=== PATIENT | female | born 1985 | race Caucasian/White ===

== ENCOUNTER 2017-05-29 16:08 | Emergency (ER) | payer MEDICAID ==
[~2017-05-29] VITALS: Ht 170.2 cm; Wt 80.3 kg
[~2017-05-29 16:08] MED LIST: ALBUTEROL2 PUFFS/17 IN; APAP/BUTALBITAL1 TA1 PO; AURALGAN O10 ML/BOTT OT; AZITHROMYCIN250 M1 PO; BACTRIM DS 8001 TAB PO; BENZONATATE100 MG PO; BENZONATATE200 MG PO; CELEXA20 MG PO; CIPRO 500MG TA500 MG PO; CYCLOBENZAPRINE10 MG PO; DARVOCET-N6 EACH/PAK PO; EC NAPROSYN500 MG PO; ELIMITE 5%60 GM/TUB1 TP; FLEXERIL10 MG PO; IRON TABLETS325 MG PO; LINZESS145 MCG PO; LORTAB 5/500 501 TAB PO; MONODOX100 MG PO; NOMEDS; NOMEDS *; NORETHINDRONE0.35 MG PO; OXYBUTYNIN10 MG PO; PHENERGAN 25MG.25 M1 PO; PREDNISONE 20MG20 MG PO; PRENATAL1 TA5 PO; SEN-O-TABS8.6 MG PO; SERTRALINE 50MG50 MG PO; SKELAXIN 800MG800 MG PO; TESSALON PERLE100 M1 PO; VICODIN 5/500 T1 TAB PO; VISTARIL25 MG PO; VOLTAREN75 MG PO; ZITHROMAX Z-PA250 M1 PO; ZOFRAN4 MG PO; ZYRTEC5 M2 PO
--- NOTE | 2017-05-29 16:39 | Urgent Treatment Center Report ---
History of Present Issue Date/Time Seen by Provider 05/29/17 7115 Visit Reason Pt arrived:Walked Presenting Problem:PT STATES SHE STUBBED HER RIGHT BIG TOE YESTERDAY Location if Accident: Onset of symptoms date/time:/ or onset unknown for:MEDICAL HX UNKNOWN Have you (or family members/close friends) recently traveled outside the [place]? N If Yes, where/when: Have you had exposure to infectious disease within the past month? TB? Other? Specify: Source patient, RN notes reviewed Exam Limitations no limitations Comment Patient kicked a door (arguing with her son who shut the door) last weekend and stubbed the big toe of her right foot. Bruising and swelling have resolved but still has significant pain with walking. Has had prior bunion surgery. ALLERGIES Coded Allergies: amoxicillin (Intermediate, I-HIVES 01/31/16) clavulanic acid (From AUGMENTIN) (Intermediate, I-HIVES 01/31/16) tramadol (Intermediate, I-HIVES 01/31/16) acetaminophen (From PERCOCET) (05/29/17) oxycodone (From PERCOCET) (05/29/17) Home Medications Active Scripts Permethrin (Elimite 5% Cream; 60GM Tube) 60 GM TP ONCE #1 TUBE Ref 1 Prov: 03/02/17 Prednisone (Prednisone 20MG) 20 MG PO BID #10 TAB Prov: 01/31/16 Reported Medications DOXYCYCLINE MONOHYDRATE (Monodox) 100 MG PO BID #20 Linaclotide (Linzess 145MCG) 145 MCG PO DAILY #30 Norethindrone 0.35 MG PO DAILY #28 Cyclobenzaprine Hcl (Cyclobenzaprine 10MG) 10 MG PO BID ONDANSETRON HCL (Zofran 4MG Tab) 4 MG PO Q6HP PRN NAUSEA AND VOMITING Oxybutynin Chloride (Oxybutynin Chloride ER) 10 MG PO History Medical History General CAD? No Angina: No [place]: No Hypertension? No Hyperlipidemia? No CHF? No DVT? No PE? No COPD? No Asthma? No Anemia? No GERD? No Gastric ulcers? No GI Bleed? No Hernia? No Thyroid Problems? No Hypothyroidism? No CVA? No Seizures? No Diabetes? No Renal Insuffiency? No UTI? Yes Stones? Yes BPH? No GB Disease: No Nephritic Syndrome? No Asplenia? No Hepatitis? No Sickle Cell Disease? No Arthritis? No Migraines? No Cataracts? No Glaucoma? No MRSA? No HIV? No TB? No Anxiety? No Depression? No Cancer? No More? No Immunization HX DT/Tetanus UNKNOWN Flu LAST YEAR Pneumonia NEVER Surgical Hx Previous Surgery?Y BUNION SURGERY Appendix Gallbladd LAP X 3 ENDO X 2 COLONSCOPY X 2 LEFT HAND CYST REMOVED WISDOM TEETH Social History Smoking Hx Smoker: Current Every Day Smoker Tobacco: Yes Type Cigarettes Packs/day < 1 Pack Alcohol Alcohol: No Review of Systems All Other Systems Reviewed and Negative Musculoskeletal see HPI Physical Exam Vital Signs Vital Signs Date Time Temp Pulse Resp B/P Pulse O2 O2 Flow FiO2 Ox Delivery Rate 05/29 1628 97.7 115 20 125/83 98 General Appearance normal appearance, no apparent distress Respiratory Status No: respiratory distress, trachea midline, chest symmetrical. Lung Sounds bilateral: normal breath sounds, lungs clear. Cardiovascular normal exam, regular rate/rhythm, no peripheral edema, no gallop, no JVD, no murmur, no rub Extremities normal capillary refill, painful right great toe Neurologic alert, normal exam, oriented x 3 Mental status normal mood/affect Medical Decision Making LABS/Meds/Orders Pt receiving controlled substance in ED? No Results/Orders Orders Procedure Date/time Status FOOT-RT-3 VIEWS 05/29 1637 Active XRAY/CT/US XRAY/CT/US XRAY foot XR interpretation by reviewed by me Xray Results no fracture seen Departure Departure Time of Disposition 1717 Disposition DC Home or Self Care(routine) Clinical Impression Primary Impression: Right foot pain Condition STABLE Referrals MICHEL CAMARENA (Family) Patient Instructions DI for Foot Pain Discharge Counseling Counseled pt/family regarding diagnosis, test results, medications/RX, home care, follow up needs Prescriptions Current Visit Scripts Naproxen (Naprosyn 500MG Tab) 500 MG PO BID #20 TAB at 5960
[2017-05-29] MEDS ORDERED: NAPROSYN500 M1 PO (17:19)
[2017-05-29 17:25] VITALS: BP 125/83
--- NOTE | 2017-05-29 18:11 | RADIOLOGY REPORT PS360 ---
FOOT-RT-3 VIEWS HISTORY: STUBBED FOOT ON A DOOR Patient Age: 31 years: Female Ordering Physician: RICHMOND WHALEY TECHNIQUE: 3 views right foot COMPARISON :No previous available at this facility FINDINGS Patient had a previous bunionectomy. Partial Resection of the medial head of the first metatarsal with osteotomy a distal aspect first metatarsal. A oblique screw entering dorsally providing fixation to the osteotomy here at distal first metatarsal. No new or acute findings evident. The toes appear intact. Metatarsals and tarsals intact. IMPRESSION: No acute findings right foot. Previous bunionectomy/osteotomy.
== END 2017-05-29 17:26 | disposition home or self-care (01) ==
LOC: UTC 16:08
DX: M79.671 Pain in right foot (principal); W22.8XXA Striking against or struck by other objects, initial encounter; Y92.009 Unspecified place in unspecified non-institutional (private) residence as the place of occurrence of the external cause; Z79.3 Long term (current) use of hormonal contraceptives; Z79.899 Other long term (current) drug therapy

== ENCOUNTER 2017-06-16 18:36 | Emergency (ER) | payer MEDICAID ==
[~2017-06-16] VITALS: Ht 170.2 cm; Wt 80.3 kg
[~2017-06-16 18:36] MED LIST changes: +NAPROSYN500 M1 PO
[2017-06-16] MEDS ORDERED: ADVAIR 10028 PUFF/IN IN (19:26)
[2017-06-16] MEDS ORDERED: KEFLEX 500MG.500 MG PO (19:26)
[2017-06-16] MEDS ORDERED: CLONIDINE 0.2M0.2 MG PO (19:27)
[2017-06-16 20:17] VITALS: BP 118/73
--- NOTE | 2017-06-16 20:17 | Urgent Treatment Center Report ---
History of Present Issue Date/Time Seen by Provider 06/16/17 1905 Visit Reason Pt arrived:Walked Presenting Problem:TX FOR STREP 2 DAYS AGO AND IS WORSE NOW Location if Accident: Onset of symptoms date/time:/ or onset unknown for:MEDICAL HX UNKNOWN Have you (or family members/close friends) recently traveled outside the [place]? N If Yes, where/when: Have you had exposure to infectious disease within the past month? TB? Other? Specify: c/o feeling worse w/ strep. Intermittent sore throat starting Tuesday, 5 days ago. Became worse and more constant. Was seen at [facility] on Tuesday. Strep test + for strep. Dx strep. Rx cephalexin. Taking it as ordered but feels worse. "Like razor blades in my throat". Right more then left. Has vomited, intermittent diarrhea, continued fevers w/ chills. 101.2 last night. Tylenol at that time did help. No fever or pain um rn since that time. Son's lidocaine helps while gargling but doesn't last more then minutes. Allergic to PCNs but has taken cephalosporins including rocephin without reactions. No known sick contacts. Source patient Exam Limitations no limitations ALLERGIES Coded Allergies: amoxicillin (Intermediate, I-HIVES 01/31/16) clavulanic acid (From AUGMENTIN) (Intermediate, I-HIVES 01/31/16) tramadol (Intermediate, I-HIVES 01/31/16) acetaminophen (From PERCOCET) (05/29/17) oxycodone (From PERCOCET) (05/29/17) Home Medications Reported Medications CEPHALEXIN (Keflex 500MG Capsule) 500 MG PO BID #20 SALMETEROL 50/FLUTICASONE 100 (Advair 100-50 Diskus) 1 PUFFS IN BID Clonidine Hydrochloride (Clonidine 0.2MG Tab) 0.1 MG PO BID History Medical History General CAD? No Angina: No [place]: No Hypertension? No Hyperlipidemia? No CHF? No DVT? No PE? No COPD? No Asthma? No Anemia? No GERD? No Gastric ulcers? No GI Bleed? No Hernia? No Thyroid Problems? No Hypothyroidism? No CVA? No Seizures? No Diabetes? No Renal Insuffiency? No UTI? Yes Stones? Yes BPH? No GB Disease: No Nephritic Syndrome? No Asplenia? No Hepatitis? No Sickle Cell Disease? No Arthritis? No Migraines? No Cataracts? No Glaucoma? No MRSA? No HIV? No TB? No Anxiety? No Depression? No Cancer? No More? No Immunization HX DT/Tetanus UNKNOWN Flu LAST YEAR Pneumonia NEVER Surgical Hx Previous Surgery?Y BUNION SURGERY Appendix Gallbladd LAP X 3 ENDO X 2 COLONSCOPY X 2 LEFT HAND CYST REMOVED WISDOM TEETH Social History Smoking Hx Smoker: Current Every Day Smoker Tobacco: Yes Type Cigarettes Packs/day < 1 Pack Alcohol Alcohol: No Review of Systems All Other Systems Reviewed and Negative Constitutional see HPI, denies weakness Eyes denies drainage ENT see HPI. denies: ear pain, nose discharge, nose congestion, throat swelling. Respiratory cough, denies shortness of breath Cardiovascular denies chest pain Gastrointestinal see HPI, denies abdominal pain Musculoskeletal denies joint pain Skin denies rash Psychiatric/Neurological headache (intermittently), denies other (dizziness) Physical Exam Vital Signs Vital Signs Date Time Temp Pulse Resp B/P Pulse O2 O2 Flow FiO2 Ox Delivery Rate 06/16 1923 99.0 115 20 118/73 97 General Appearance normal appearance, no apparent distress, typical "strep"/ enlarged tonsils speech Eye Exam - bilateral eye normal exam Ear, Nose, Throat pharyngeal erythema (minimal), tonsillar swelling (right, 2+ w / scant exudate), adelina EACs, TMs, nares all normal, uvula midline. No sign of abscess or cellulitis Neck supple, full range of motion, lymphadenopathy (R) (tonsillar), tender lateral (right lymph node) Respiratory Status Yes: non productive cough. No: respiratory distress, use of accessory muscles, productive cough. Lung Sounds anterior: lungs clear. posterior: lungs clear. bilateral: lungs clear. Cardiovascular regular rate/rhythm, no peripheral edema, tachycardia Gastrointestinal normal bowel sounds, non tender, soft Neurologic alert, oriented x 3 Mental status normal mood/affect Skin normal color, warm/dry Medical Decision Making LABS/Meds/Orders Pt receiving controlled substance in ED? No Results/Orders Laboratory Tests 06/16/171926: Monoscreen NEGATIVE Current Medication Orders Sig/Gabbi Start time Last Medication Dose Route Stop Time Status Admin Ceftriaxone Sodium 0 .STK-MED ONE 06/16 2009 DCr .ROUTE Dexamethasone Sodium 0 .STK-MED ONE 06/16 2009 DC Phosphate .ROUTE Lidocaine HCl 0 .STK-MED ONE 06/16 2009 DC .ROUTE Ceftriaxone Sodium 1 GM ONCE ONE 06/16 2000 DCr IM 06/16 2001 Dexamethasone Sodium 8 MG ONCE ONE 06/16 2000 DC Phosphate IM 06/16 2001 Lidocaine HCl 0 ONCE ONE 06/16 2000 DC IM 06/16 2001 Ibuprofen 0 .STK-MED ONE 06/16 1931 DC PO Ibuprofen 800 MG ONCE ONE 06/16 1930 DC 06/16 PO 06/16 1931 1940 Orders Procedure Date/time Status MONO SCREEN 06/16 1921 Complete Departure Departure Time of Disposition 2019 Disposition DC Home or Self Care(routine) Clinical Impression Primary Impression: Tonsillitis with exudate Condition STABLE Referrals MICHEL CAMARENA (Family) Call tomorrow. Follow up necessary tomorrow. If you are unable to get into PCP then you will need to return to [facility] for reevaluation and possibly another antibiotic injection. Patient Instructions DI for Pharyngitis/Tonsillopharyngitis -- Adult Additional Instructions For strep/tonsillitis * Your mono test was negative * Continue cephalexin * change toothbrush and toothpaste 24-48 hours after starting antibiotic and noticing improvement * Monitor Temp. Tylenol every 4 hours as needed no more then 5 times in 24 hours and/or ibuprofen every 6 hours as needed (as long as your primary care doctor has told you that it is ok to take both) for fever/aches/pain. ER if fever no less than 101 despite tylenol and Ibuprofen. Ibuprofen will help with inflammation and therefore pain. * Encourage fluids, water, gatorade, powerade, pedialyte if infant/toddler/child * cold fluids, popsicles, ice cream feel good * you are contagious until you have taken the antibiotic for 24 hours. No work tonight. Will reevaluate at followup. * Avoid kissing anyone, including parents. No eating or drinking after anyone. You are contagious. * you received an injection of rocephin (an antibiotic) and dexamethasone today. This is a quick acting steroid as we discussed. This should help with the throat inflammation and tonsillar swelling. Remember as we discussed, steroids can cause you to feel flushed, jittery, difficult to sleep, energetic, higher blood pressure. You report you have taken steroids before and aware of this and do fine without any side effects or reactions. * Follow up tomorrow extremely important!!!!!!!!!!!! Discharge Counseling Counseled pt/family regarding diagnosis, test results, medications/RX, home care, follow up needs at 2016
--- OUTSIDE RECORDS SUMMARY | 2017-06-23 21:55 | External Medical Summary Rpt | CCD ---
Author Author , ADELIA Organization ADELIA Address Unknown Phone [email or web address] Care Team Providers Care Lay Out Helper Name Role Phone DEIRDRE PEREIRA, GILMORE Unavailable Unavailable [facility] Unavailable Unavailable [facility], [facility] Unavailable [facility]available [facility] Unavailable Unavailable [facility], [facility] Unavailable Unavailable MEDICAL GROUP, [facility] KINDRA JAM, KINDRA JAM Unavailable Unavailable YOUNG, YOUNG Unavailable Unavailable [facility] Unavailable Unavailable HOSPITAL, [facility] PHYSICIAN Unavailable Unavailable PRACTICE [facility], [facility] KENY SPENCER Unavailable Unavailable KENY LAM Unavailable Unavailable VERITO OWEN TER, OWEN TER Unavailable Unavailable [facility], Unavailable Unavailable [facility] CHANDEL, CHANDEL Unavailable Unavailable CHESTNUT, CHESTNUT Unavailable Unavailable [facility] Unavailable Unavailable [facility], [facility] Unavailable Unavailable [facility], [facility] Unavailable Unavailable PHYSICIAN PRA, [facility] PHYSICIAN PRA [facility], Unavailable Unavailable [facility] GILBERT ESTELLA, GILBERT ESTELLA Unavailable Unavailable MIGUE, MIGUE Unavailable Unavailable MIGUE MITCHEL, MIGUE Unavailable Unavailable MITCHEL MIGUE OKSANA, MIGUE Unavailable Unavailable OKSANA DESIRAE BECK, Unavailable Unavailable DESIRAE BECK [facility] Unavailable Unavailable [facility], [facility] BELEN, BELEN Unavailable Unavailable GIRALDO, GIRALDO Unavailable Unavailable HARIKA DAMIR, HARIKA Unavailable Unavailable DAMIR [facility] Unavailable Unavailable [facility], [facility] GREGONIS MITCHEL, Unavailable Unavailable GREGONIS MITCHEL MACY, MACY Unavailable Unavailable MACY RHO, MACY Unavailable Unavailable RHO HANY, HANY Unavailable Unavailable [facility] Unavailable Unavailable INC, [facility] YOLANDA CEC, YOLANDA Unavailable Unavailable CEC CONDE, CONDE Unavailable Unavailable ALEC, ALEC Unavailable Unavailable ALEC, ALEC Unavailable Unavailable ALEC MAG, ALEC MAG Unavailable Unavailable ALEC MAG, ALEC MAG Unavailable Unavailable [facility] Unavailable Unavailable GROUP PS, [facility] Unavailable Unavailable [facility], [facility], Unavailable Unavailable [facility], Unavailable Unavailable [facility] Unavailable Unavailable HOLD[facility], [facility] Unavailable Unavailable [facility], [facility] VERONICA JR THO, Unavailable Unavailable VERONICA JR THO [facility] DIRECTOR [facility] Unavailable Unavailable ASSOCIATES,, [facility], ANA PEREZ Unavailable Unavailable ANA, ANA Unavailable Unavailable ANA GRE, Unavailable Unavailable ANA GRE ANA GRE, Unavailable Unavailable ANA GRE MATCHESWALA, Unavailable Unavailable MATCHESWALA MCGROARTY TAJ, Unavailable Unavailable MCGROARTY TAJ MD LABS, MD LABS Unavailable Unavailable MD LABS, MD LABS Unavailable Unavailable [facility], [facility] Unavailable [facility]available [facility], [facility] ROSARIO SOHA, ROSARIO Unavailable Unavailable SOHA [facility] Unavailable Unavailable [facility], [facility], [facility] Unavailable Unavailable [facility], [facility] Unavailable [facility]available [facility], Unavailable Unavailable PLLC, [facility], Unavailable Unavailable [facility], Unavailable Unavailable [facility], Unavailable Unavailable [facility] LESLEE, LESLEE Unavailable Unavailable LESLEE HEN, LESLEE Unavailable Unavailable HEN CARTER GRE, Unavailable Unavailable CARTER GRE STEFAN, STEFAN Unavailable Unavailable MARYURI MENDY, MARYURI Unavailable Unavailable MENDY ARNETT DON, Unavailable Unavailable ARNETT DON [facility] PHYSICAL Unavailable Unavailable THERAP, [facility] THERAP AVERY, III, AVERY, Unavailable Unavailable III [facility] Unavailable Unavailable EQUIPME, [facility] MEDICAL EQUIPME [facility] Unavailable Unavailable EM[facility], [facility] BENAVDIEZ, BENAVIDEZ Unavailable Unavailable BENAVIDEZ RAY, BENAVIDEZ Unavailable Unavailable RAY [facility] Unavailable Unavailable PSC, [facility] ANESTHESIA [facility] MEDINA TONIE, MEDINA Unavailable Unavailable TONIE SWINEY, SWINEY Unavailable Unavailable SWINEY PAT, SWINEY Unavailable Unavailable PAT WHITE, WHITE Unavailable Unavailable WHITE NAHID, WHITE NAHID Unavailable Unavailable HAFSA MITCHEL, HAFSA Unavailable Unavailable MITCHEL RED MOON Unavailable Unavailable Purpose Continuity of Care Document - 10-21-2014 through 2016 Problems Code Diagnosis DOS Provider Status J069 ACUTE UPPER 05-17-2017 RICHIE VICTORSusy JERROD RESPIRATORY INFECTION UNSPECIFIED B373 CANDIDIASIS 05-13-2017 [facility] OF VULVA PHYSICIAN AND VAGINA PRACTICE L N10 ACUTE 05-13-2017 [facility] PYELONEPHRI PHYSICIAN TIS PRACTICE L N390 URINARY 05-11-2017 [facility] TRACT N EMERGENCY INFECTION PHYS SITE NOT SPECIFIED S02318 UNSPECIFIED 05-11-2017 [facility] OVARIAN N EMERGENCY CYST PHYS UNSPECIFIED SIDE R1031 RIGHT LOWER 05-11-2017 [facility] QUADRANT N EMERGENCY PAIN PHYS R1033 PERIUMBILIC 05-11-2017 [facility] AL PAIN N EMERGENCY PHYS J0120 ACUTE 03-27-2017 [facility] ETHMOIDAL N EMERGENCY SINUSITIS PHYS UNSPECIFIED R112 NAUSEA WITH 03-27-2017 [facility] VOMITING N EMERGENCY UNSPECIFIED PHYS H5213 MYOPIA 03-18-2017 ANA BILATERAL M545 LOW BACK 03-09-2017 [facility] PAIN PHYSICIAN PRACTICE L B86 SCABIES 03-04-2017 [facility] PHYSICIAN PRACTICE L N920 EXCESS & 02-28-2017 LAB [facility] FREQUENT ANCA MENSTRUATIO HOLDINGS N W/REGULAR CYCLE Z00048 CELLULITIS 02-16-2017 [facility] OF OTHER PHYSICIAN SITES PRACTICE L H6503 ACUTE 01-28-2017 [facility]IA GROUP BILATERAL N910 PRIMARY 01-24-2017 [facility] Z3202 ENCOUNTER 01-24-2017 [facility] FOR HEALTH MEDICAL TEST RESULT GROUP NEGATIVE 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 01-13-2017 [facility] 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 K589 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-2017 [facility] BOWEL [facility] WITHOUT DIARRHEA K5900 CONSTIPATIO 01-13-2017 [facility] N N EMERGENCY UNSPECIFIED PHYS N809 ENDOMETRIOS 01-13-2017 [facility] IS [facility]IED [facility]PITAL R1032 LEFT LOWER 01-13-2017 [facility] QUADRANT N EMERGENCY PAIN PHYS R109 UNSPECIFIED 01-13-2017 [facility] [place] ABDOM[facility]AL RADIOLOGY PAIN Z881 ALLERGY 01-13-2017 [facility] STATUS TO COMMUNITY OTHER HOSPITAL ANTIBIOTIC AGENTS STATUS Z886 ALLERGY 01-13-2017 [facility] TO [facility]ITY ANALGESIC HOSPITAL AGENT STATUS N736 FEMALE 01-05-2017 [facility] PELVIC PERITONEAL ADHESIONS POSTINFECTI VE N800 ENDOMETRIOS 01-05-2017 ANESTHESIA IS OF ASSOCIATES UTERUS PSC N8311 CORPUS 01-05-2017 [facility] LUTEUM CYST OF RIGHT OVARY T11755 OTHER 01-05-2017 [facility] [place] CYST RIGHT CLINIC PSC SIDE N926 IRREGULAR 01-05-2017 [facility] MENSTRUATIO N UNSPECIFIED R102 PELVIC AND 12-07-2016 [facility]ICAL [facility]AL DIAGNOSTIC PAIN LAB LLC L54884 ENCOUNTER 12-07-2016 [facility] OTHER [facility] PREPROCEDUR AL EXAMINATION Z5181 ENCOUNTER 12-07-2016 MD LAB[facility] FOR THERAPEUTIC DRUG LEVEL MONITORING A31528 OTHER LONG 12-07-2016 MD LABS TERM CURRENT DRUG THERAPY Z5321 PROC & [place] 12-05-2016 [facility] NOT CARRIED COMMUNTIY OUT PT HOSPITA LEAVE PRIOR TO SEEN I889 NONSPECIFIC 11-18-2016 [facility] LYMPHADENIT MEDICAL IS GROUP UNSPECIFIED J029 ACUTE 11-18-2016 [facility] PHARYNGITIS HEALTH MEDICAL UNSPECIFIED GROUP R0981 NASAL 11-18-2016 [facility] K529 NONINFECTIV 11-01-2016 [facility] E PHYSICIAN GASTROENTER PRACTICE L ITIS & COLITIS UNS R1084 GENERALIZED 10-30-2016 [facility] ABDOMINAL N EMERGENCY PAIN PHYS R197 DIARRHEA 10-30-2016 [facility] UNSPECIFIED N EMERGENCY PHYS Z720 TOBACCO USE 10-30-2016 [facility] J020 STREPTOCOCC 10-25-2016 [facility] PHARYNGITIS J9801 ACUTE 10-25-2016 [facility] M J111 FLU D/T 10-19-2016 [facility] UNIDENTIFIE N EMERGENCY D FLU VIRUS PHYS W/OTH RESP MANIF R6889 OTHER 10-17-2016 [facility] SYMPTOMS MEDICAL AND SIGNS GROUP K87659 CONTACT W/ 10-17-2016 [facility] & EXPOSURE HEALTH OTH VIRAL MEDICAL COMMUNICABL GROUP E DZ M549 DORSALGIA 09-17-2016 [facility] Z17484 MIGRAINE 09-12-2016 [facility] UNS NOT N EMERGENCY INTRACT W/O PHYS STATUS MIGRAINOSUS Z3200 ENCOUNTER 08-25-2016 [facility] MEDICAL TEST RESULT GROUP UNKNOWN G95642 PAIN IN 08-11-2016 [facility] UNSPECIFIED PHYSICIAN HIP PRACTICE L J00 ACUTE 07-23-2016 [facility] NASOPHARYNG PHYSICIAN ITIS COMMON PRACTICE L COLD R238 OTHER SKIN 07-23-2016 [facility] CHANGES PHYSICIAN PRACTICE L L301 DYSHIDROSIS 06-28-2016 [facility] POMPHOLYX PHYSICIAN PRACTICE L R05 COUGH 06-16-2016 [facility] REGIONAL PHYSICIAN PRA R0602 SHORTNESS 06-16-2016 [facility] OF BREATH REGIONAL PHYSICIAN PRA R062 WHEEZING 06-16-2016 [facility] REGIONAL PHYSICIAN PRA C35500 ENCOUNTER 06-08-2016 [facility] MAG BURN OUT SCARFING OPERATOR EXAM GENERAL RTN W/O ABNORMAL FIND Z113 ENCOUNTER 06-08-2016 ASSOCIATED SCREEN PATHOLOGIST INFECTIONS S LLC SEXL MODE TRANSMISSN Z1151 ENCOUNTER 06-08-2016 ASSOCIATED FOR PATHOLOGIST SCREENING S LLC FOR HUMAN PAPILLOMAVI CORDELIA Z118 ENCOUNTER 06-08-2016 ASSOCIATED SCREEN PATHOLOGIST OTHER S LLC INFECTIOUS & PARASITIC DZ O76330 PAIN IN 05-24-2016 [facility] LEFT MEDICAL FINGERS IMAGING ASS J309 ALLERGIC 05-05-2016 [facility] RHINITIS REGIONAL UNSPECIFIED PHYSICIAN PRA O05568 UNSPECIFIED 05-05-2016 [facility] ASTHMA REGIONAL UNCOMPLICAT PHYSICIAN ED PRA K219 GASTRO-ESOP 05-05-2016 [facility] REFLUX REGIONAL DISEASE PHYSICIAN WITHOUT PRA ESOPHAGITIS R61 GENERALIZED 05-05-2016 [facility] HYPERHIDROS PHYSICIAN IS PRA R072 PRECORDIAL 04-11-2016 [facility] [place] PAIN RADIOLOGY R0789 OTHER CHEST 04-11-2016 [facility] PAIN N EMERGENCY PHYS R079 CHEST PAIN 04-11-2016 [facility] [place] UNSPECIFIED RADIOLOGY A03082Y STRAIN 04-11-2016 [facility] MUSCLE & N EMERGENCY TENDON UNS PHYS WALL THORAX INIT ENC O09SKDG EXPOSURE TO 04-11-2016 [facility] OTHER N EMERGENCY SPECIFIED PHYS FACTORS INITIAL ENC R198 OTH SPEC SX 03-17-2016 [facility] & SIGNS [facility] D[facility] & ABD Z1211 ENCOUNTER 03-17-2016 [facility] [place] SCREENING ANESTHESIA MALIGNANT GROUP PS NEOPLASM OF COLON G8929 OTHER 03-12-2016 [facility] L Z539 PROCEDURE & 03-08-2016 [facility] NOT CARRIED [facility] OUT UNS REASON R000 TACHYCARDIA 03-03-2016 [facility] PHYSICIAN UNSPECIFIED PRACTICE L J40 BRONCHITIS 03-01-2016 [facility] [place] NOT RADIOLOGY SPECIFIED ACUTE OR CHRONIC J4530 MILD 01-31-2016 [facility], ASTHMA PLLC UNCOMPLICAT ED J0190 ACUTE 01-28-2016 [facility] SINUSITIS PHYSICIAN UNSPECIFIED PRACTICE L H8110 BENIGN 01-16-2016 [facility] PAROXYSMAL PHYSICIAN VERTIGO PRACTICE L UNSPECIFIED EAR N3010 INTERSTITIA 01-07-2016 [facility] Ervin CYSTITIS PHYSICIAN CHRONIC PRACTICE L WITHOUT HEMATURIA N3281 OVERACTIVE 12-25-2015 [facility] MAG BLADDER R300 DYSURIA 12-08-2015 [facility] MAG N801 ENDOMETRIOS 11-28-2015 [facility] MAG IS OF OVARY N803 ENDOMETRIOS 11-28-2015 [facility] MAG IS OF PELVIC PERITONEUM N8320 UNSPECIFIED 11-28-2015 [facility] MAG OVARIAN CYSTS N838 OTH 11-28-2015 NEW NONINFLAMM ISABEL D/O OVARY CLINIC PSC FALLOP TUBE & BROAD LIG N941 DYSPAREUNIA 11-28-2015 [facility] N942 VAGINISMUS 11-28-2015 [facility] TURCIOS H5203 HYPERMETROP 09-29-2015 ANA ARCE GRE BILATERAL Z309 ENCOUNTER 07-17-2015 [facility] FOR DIRECTOR CARDIOVASCULAR CONTRACEPTI ASSOCIATES, VE MANAGEMENT UNS Z392 ENCOUNTER 07-17-2015 [facility] FOR ROUTINE DIRECTOR CARDIOVASCULAR ASSOCIATES, FOLLOW-UP K1230 ORAL 07-08-2015 [facility] MUCOSITIS HEALTH ULCERATIVE MEDICAL UNSPECIFIED GROUP P141XO1 MAT CARE 07-03-2015 [facility] DISPROPORTI ANESTHESIA ON UNUSUAL PSC LARGE FET NA/UNS O653 OBST LABOR 07-03-2015 [facility] DUE PELV DIRECTOR CARDIOVASCULAR OUTLET & ASSOCIATES, MID-CAV CONTRACTION Z370 SINGLE LIVE 07-03-2015 [facility] ANESTHESIA PSC Z3A39 39 WEEKS 07-03-2015 ISABEL GESTATION DIRECTOR CARDIOVASCULAR OF ASSOCIATES, O471 FALSE LABOR 06-26-2015 [facility] AT/AFTER [facility] 37 HOSP COMPLETED WEEKS GEST Z3483 ENC 06-26-2015 ISABEL SUPERVISION DIRECTOR CARDIOVASCULAR OTH NORMAL ASSOCIATES, 3 TRIMESTER Z3A38 38 WEEKS 06-26-2015 [facility] GESTATION [facility] OF HOSP M9162N2 MATERNAL 06-19-2015 IS[facility]EL CARE EXCESS DIRECTOR CARDIOVASCULAR ASSOCIATES, GROWTH 3RD TRI NA/UNS [id number] POLYHYDRAMN 06-19-2015 [facility] IOS THIRD DIRECTOR CARDIOVASCULAR TRIMESTER ASSOCIATES, NA/UNS Z3A37 37 WEEKS 06-19-2015 IS[facility]EL GESTATION DIRECTOR CARDIOVASCULAR OF ASSOCIATES, Z391 ENCNTR FOR 06-18-2015 [facility] EXAMINATION SUPPLIES LACTATING MOTHER X18465 ANEMIA 06-12-2015 [facility] COMPLICATIN DIRECTOR CARDIOVASCULAR G ASSOCIATES, THIRD TRIMESTER Z36 ENCOUNTER 06-12-2015 [facility] SCREENING OF MOTHER Z3A36 36 WEEKS 06-12-2015 [facility] GESTATION DIRECTOR CARDIOVASCULAR OF ASSOCIATES, 20940 THREATENED 06-11-2015 [facility] PREMATURE [facility] LABOR HOSP ANTEPARTUM 11947 OTH CURRENT 05-29-2015 SPI[facility] MAT CONDS DIRECTOR CARDIOVASCULAR CLASSIFIABL ASSOCIATES, E ELSW ANTPRTM 7869 OT 05-29-2015 [facility] SYMPTOMS DIRECTOR CARDIOVASCULAR INVOLVING ASSOCIATES, RESPIRATORY SYSTEM&CHES T 4619 ACUTE 05-22-2015 [facility] SINUSITIS, HEALTH UNSPECIFIED MEDICAL GROUP 4779 ALLERGIC 05-22-2015 [facility] RHINITIS HEALTH CAUSE MEDICAL UNSPECIFIED GROUP V221 SUPERVISION 05-15-2015 [facility] OF OTHER DIRECTOR CARDIOVASCULAR NORMAL ASSOCIATES, 13610 OTHER 04-18-2015 [facility] SPECIFED HEALTH COMPLICATIO MEDICAL N GROUP ANTEPARTUM 7605 FETUS OR 04-18-2015 [facility] AFFECTED BY MEDICAL MATERNAL GROUP INJURY V222 04-18-2015 [facility] STATE, [facility] INCIDENTAL HOSP V714 OBSERVATION 04-18-2015 [facility] FOLLOWING [facility] OTHER HOSP ACCIDENT 01926 ABDOMINAL 04-17-2015 KENY SELLERS WITH INTRAUTERIN E 49493 ABDOMINAL 04-01-2015 [facility] PAIN RIGHT [facility] LOWER [facility]OS[facility] QUADRANT 6259 UNSPEC 03-01-2015 [facility] SYMPTOM [facility] ASSOC [facility]OS[facility] W/FEMALE GENITAL ORGANS 66816 ABDOMINAL 03-01-2015 [facility] PAIN, LEFT HEALTH LOWER MEDICAL QUADRANT GROUP 7202 SACROILIITI 01-31-2015 [facility] ELSEWHERE PHYSICAL CLASSIFIED THERAP 7244 THORACIC/MARINA 01-31-2015 [facility] NEURITIS/RA PHYSICAL DICULITIS THERAP UNSPEC V571 OTHER 01-31-2015 [facility] THERAPY PHYSICAL THERAP 83850 MILD 12-19-2014 [facility] HYPEREMESIS DIRECTOR CARDIOVASCULAR GRAVIDARUM ASSOCIATES, ANTEPARTUM 25674 THREATENED 11-21-2014 [facility] , DIRECTOR CARDIOVASCULAR ANTEPARTUM ASSOCIATES, V7231 ROUTINE 11-21-2014 [facility] AL EXAMINATION 8470 NECK SPRAIN 11-19-2014 [facility] AND STRAIN N EMERGENCY PHYS E9289 UNSPECIFIED 11-19-2014 [facility] ACCIDENT N EMERGENCY PHYS V141 PERSONAL 11-19-2014 [facility] HISTORY [facility] ALLERGY HOSPITAL OTHER ANTIBIOTIC AGENT V143 PERSONAL 11-19-2014 [facility] HISTORY [facility]ERGY [facility] ANTI-INFECT LINDA AGT V146 PERSONAL 11-19-2014 [facility] HISTORY OF COMMUNITY ALLERGY TO HOSPITAL ANALGESIC AGENT 6260 ABSENCE OF 11-13-2014 [facility] MENSTRUATIO [facility] 88761 DISPLCMT 11-11-2014 [facility] LUMBAR [facility] DISC W/O MYELOPATHY 7242 LUMBAGO 11-11-2014 [facility] 8461 SPRAIN AND 11-01-2014 KENY SELLERS STRAIN OF SACROILIAC 7222 DISPLCMT 10-21-2014 [facility] DIS[facility] SITE [facility] UNS W/O MYELOPATHY 7820 DISTURBANCE 10-21-2014 [facility] OF SKIN N EMERGENCY SENSATION PHYS V1582 PERS HX 10-21-2014 [place] TOBACCO USE COMMUNITY [facility] Allergies, Adverse Reactions, Alerts Clinical Alert Notifications Alert Member has >/= 10 ED visits within the past 365 days Medications Na ND Rx Da Fi Fi Am Da Di Ph RX Ph St me C No te ll ll ou ys ag ar # ys at rm s nt no ma ic us Or Da si cy ia de te s n re d FL 60 09 10 16 30 00 WA Ac UT 43 -1 -0 .0 00 L- ti IC 20 4- 6- 00 07 MA ve 26 20 20 42 RT ON 41 17 17 95 E 5 80 PH CO AR OP MA CY 50 #4 MC 93 G SP RA Y CL 16 09 10 60 30 00 WA Ac ON 72 -1 -0 .0 00 L- ti AZ 90 4- 6- 00 04 MA ve EP 13 20 20 52 RT AM 61 17 17 33 6 59 PH 0. AR 5 MA MG CY TA #4 BL 93 ET PS 45 09 09 56 7 00 WA Ac EU 80 -0 -2 .0 00 L- ti DO 20 5- 9- 00 08 MA ve EP 43 20 20 84 RT HE 26 [address] 2 99 PH IN AR E MA 30 CY MG #4 93 TA BL ET CE 00 09 09 30 30 00 WA Ac TI 37 -0 -2 .0 00 L- ti RI 83 5- 9- 00 08 MA ve ZI 63 20 20 84 RT NE 70 17 17 22 5 00 PH HC AR L MA 10 CY MG #4 93 TA BL ET BE 51 09 09 30 10 00 MO Ac NZ 22 -0 -2 .0 00 L- ti ON 40 5- 9- 00 07 MA ve AT 00 20 20 42 RT AT 16 17 17 77 E 0 56 PH 20 AR 0 MA MG CY CA #4 PS 93 UL E FL 55 09 09 1. 1 00 MO Ac UC 11 -0 -2 00 00 L- ti ON 10 1- 2- 0 07 MA ve AZ 14 20 20 42 RT OL 51 17 17 72 E 2 36 PH 15 AR 0 MA MG CY TA #4 BL 93 ET CO 59 08 09 20 7 00 MO Ac OC 74 -3 -2 .0 00 L- ti HL 60 1- 2- 00 07 MA ve OR 11 20 20 42 RT PE 50 17 17 69 RA 6 86 PH ZI AR NE MA CY 10 #4 MG 93 TA B NI 47 08 09 20 10 00 MO Ac TR 78 -3 -2 .0 00 L- ti OF 10 1- 2- 00 07 MA ve UR 30 20 20 42 RT AN 30 17 17 69 TO 1 87 PH IN AR MA MO CY NO -M #4 CR 93 10 0 MG CO 68 08 09 20 5 00 [facility] OM 38 -1 -0 .0 00 L- ti ET 20 8- 8- 00 07 MA ve TALAMANTES 04 20 20 42 RT ZI 00 17 17 50 NE 1 57 PH AR 12 MA .5 CY MG #4 93 TA BL ET FL 55 08 09 1. 1 00 MO Ac UC 11 -0 -0 00 00 L- ti ON 10 7- 1- 0 07 MA ve AZ 14 20 20 41 RT OL 51 17 17 92 E 2 62 PH 15 AR 0 MA MG CY TA #4 BL 93 ET AM 00 07 08 30 30 00 MO Ac IT 78 -3 -2 .0 00 L- ti RI 11 1- 5- 00 07 MA ve PT 48 20 20 42 RT YL 61 17 17 19 IN 0 00 PH E AR HC MA L CY 10 #4 MG 93 TA B ME 59 07 08 21 6 00 MO Ac TH 74 -1 -1 .0 00 L- ti YL 60 7- 8- 00 07 MA ve CO 00 20 20 41 RT ED 10 17 17 96 NI 3 99 PH SO AR LO MA NE CY 4 #4 MG 93 DO SE PK CY 68 07 08 15 4 00 MO Ac CL 64 -1 -1 .0 00 L- ti OB 50 7- 8- 00 07 MA ve EN 51 20 20 41 RT ZA 89 17 17 97 CO 0 00 PH IN AR E MA 10 CY MG #4 93 TA BL ET AZ 59 07 08 6. 5 00 MO Ac IT 76 -1 -0 00 00 L- ti HR 23 1- 4- 0 07 MA ve OM 06 20 20 41 RT YC 00 17 17 87 IN 1 16 PH AR 25 MA 0 CY MG #4 TA 93 BL ET BE 51 07 08 30 10 00 MO Ac NZ 22 -1 -0 .0 00 L- ti ON 40 1- 4- 00 07 MA ve AT 00 20 20 41 RT AT 16 17 17 87 E 0 17 PH 20 AR 0 MA MG CY CA #4 PS 93 UL E CL 16 07 08 20 10 00 MO Ac ON 72 -1 -0 .0 00 L- ti AZ 90 1- 4- 00 04 MA ve EP 13 20 20 52 RT AM 61 17 17 20 6 00 PH 0. AR 5 MA MG CY TA #4 BL 93 ET CL 63 07 08 21 7 00 MO Ac IN 30 -1 -0 .0 00 L- ti DA 40 4- 4- 00 07 MA ve MY 69 20 20 49 RT CI 30 17 17 88 N 1 07 PH HC AR L MA 30 CY 0 MG #5 91 CA PS UL E IB 68 07 08 30 5 00 MO Ac UP 64 -1 -0 .0 00 L- ti RO 50 4- 4- 00 07 MA ve FE 53 20 20 49 RT N 05 17 17 88 60 9 11 PH 0 AR MG MA CY TA BL #5 ET 91 FL 55 07 08 1. 1 00 MO Ac UC 11 -1 -0 00 00 L- ti ON 10 4- 4- 0 07 MA ve AZ 14 20 20 41 RT OL 51 17 17 92 E 2 62 PH 15 AR 0 MA MG CY TA #4 BL 93 ET CL 00 06 07 15 7 00 MO Ac OB 16 -2 -2 .0 00 L- ti ET 80 7- 1- 00 07 MA ve 16 20 20 41 RT OL 31 17 17 60 5 85 PH 0. AR 05 MA % CY CR EA #4 M 93 PE 40 06 07 60 1 00 MO Ac RM 08 -2 -2 .0 00 L- ti ET 50 5- 1- 00 07 MA ve HR 21 20 20 41 RT IN 56 17 17 60 0 82 PH 5% AR MA CR CY EA M #4 93 PE 40 06 07 60 10 00 MO Ac RM 08 -2 -1 .0 00 L- ti ET 50 1- 4- 00 07 MA ve HR 21 20 20 49 RT IN 56 17 17 48 0 90 PH 5% AR MA CR CY EA M #5 91 ME 59 06 07 5. 5 [address] [facility] DR 76 -1 -1 00 00 L- ti OX 23 9- 4- 0 07 MA ve YP 74 20 20 41 RT RO 20 17 17 51 GE [address] AR ER MA ON CY E 10 #4 93 MG TA B CE 68 06 07 20 10 00 [facility] PH 18 -0 -0 .0 00 L- ti AL 00 7- 7- 00 07 MA ve EX 12 20 20 41 RT IN 20 17 17 31 2 05 PH 50 AR 0 MA MG CY CA #4 PS 93 UL E FL 55 06 07 1. 1 00 [facility] UC 11 -1 -0 00 00 L- ti ON 10 3- 7- 0 07 MA ve AZ 14 20 20 41 RT OL 51 17 17 40 E 2 73 PH 15 AR 0 MA MG CY TA #4 BL 93 ET OX 62 06 06 30 30 00 [facility] YB 17 -0 -2 .0 00 L- ti UT 50 1- 3- 00 07 MA ve YN 27 20 20 41 RT IN 13 17 17 19 7 18 PH CL AR MA ER CY 10 #4 93 MG TA BL ET PEDERSON 65 05 06 20 10 00 [facility] LF 86 -1 -0 .0 00 L- ti AM 20 5- 9- 00 07 MA ve ET 42 20 20 65 RT HO 00 17 17 99 XA 5 19 PH ZO AR LE MA -T CY MP #5 DS 71 TA BL ET CO 00 05 06 21 6 00 [facility] ED 60 -1 -0 .0 00 L- ti NI 35 9- 9- 00 07 MA ve SO 33 20 20 66 RT NE 71 17 17 11 5 5 59 PH AR MG MA CY TA BL #5 ET 71 PH 51 05 06 9. 3 00 [facility] EN 29 -1 -0 00 00 L- ti AZ 30 7- 9- 0 07 MA ve OP 81 20 20 66 RT YR 10 17 17 05 ID 1 83 PH IN AR E MA 20 CY 0 MG #5 71 TA B AZ 59 05 06 6. 5 00 MO Ac IT 76 -1 -0 00 00 L- ti HR 23 1- 2- 0 07 MA ve OM 06 20 20 65 RT YC 00 17 17 91 IN 1 54 PH AR 25 MA 0 CY MG #5 TA 71 BL ET VE 00 05 06 90 30 00 MO Ac NL 09 -0 -0 .0 00 L- ti AF 37 8- 2- 00 07 MA ve AX 38 20 20 65 RT IN 55 17 17 81 E 6 75 PH HC AR L MA ER CY 75 #5 71 MG CA P HY 00 04 05 [address] 40 -2 -1 .0 00 L- ti OC 60 6- 9- 00 02 MA ve OD 12 20 20 23 RT ON 40 17 17 62 -A 1 16 PH CE AR TA [place] CY NO PH #4 93 7. 5- 32 5 FL 55 04 05 1. 1 00 MO Ac UC 11 -2 -1 00 00 L- ti ON 10 7 9- 0 07 MA ve AZ 14 20 20 40 RT OL 51 17 17 61 E 2 48 PH 15 AR 0 MA MG CY TA #4 BL 93 ET NA 65 04 05 28 14 00 MO Ac CO 16 -1 -1 .0 00 L- ti OX 20 7- 2- 00 07 MA ve EN 19 20 20 40 RT 01 17 17 42 50 1 23 PH 0 AR MG MA CY TA BL #4 ET 93 CY 68 04 05 21 7 00 MO Ac CL 64 -1 -1 .0 00 L- ti OB 50 7- 2- 00 07 MA ve EN 51 20 20 40 RT ZA 89 17 17 42 CO 0 24 PH IN AR E MA 10 CY MG #4 93 TA BL ET BE 51 04 05 20 7 00 MO Ac NZ 22 -1 -1 .0 00 L- ti ON 40 7 2 00 07 MA ve AT 00 20 20 40 RT AT 16 17 17 42 E 0 25 PH 20 AR 0 MA MG CY CA #4 PS 93 UL E DI 16 03 05 30 15 00 MO Ac CL 57 -2 -0 .0 00 L- ti OF 10 7- 5- 00 07 MA ve EN 20 20 20 40 RT AC 15 17 17 05 0 56 PH SO AR D MA EC CY 75 #4 93 MG TA B OX 00 03 05 10 2 00 MO Ac YC 40 -2 -0 .0 00 L- ti OD 60 7- 5- 00 02 MA ve ON 51 20 20 23 RT E- 20 17 17 58 AC 1 31 PH ET AR AM MA IN CY OP HE #4 N 93 5- 32 5 HY 00 03 05 [address] 40 -2 -0 .0 00 L- ti OC 60 8- 5- 00 02 MA ve OD 12 20 20 23 RT ON 30 17 17 58 -A 1 59 PH CE AR TA MA [place] CY NO PH #4 EN 93 5- 32 5 AZ 59 03 03 6. 5 00 MO Ac IT 76 -0 -3 00 00 L- ti HR 23 9- 1- 0 07 MA ve OM 06 20 20 39 RT YC 00 17 17 71 IN 1 19 PH AR 25 MA 0 CY MG #4 TA 93 BL ET ## 03 03 20 10 00 MO Ac ## -0 -3 .0 00 L- ti ## 9- 1- 00 08 MA ve ## 20 20 83 RT ## 17 17 96 # 67 PH AR MA CY #4 93 FL 60 03 03 16 30 00 MO Ac UT 43 -0 -2 .0 00 L- ti IC 20 1- 4- 00 07 MA ve 26 20 20 39 RT ON 41 17 17 54 E 5 91 PH CO AR OP MA CY 50 #4 MC 93 G SP RA Y FL 55 02 03 1. 1 00 MO Ac UC 11 -2 -1 00 00 L- ti ON 10 1- 7- 0 07 MA ve AZ 14 20 20 64 RT OL 51 17 17 04 E 2 05 PH 15 AR 0 MA MG CY TA #5 BL 71 ET OS 47 02 03 10 5 00 MO Ac EL 78 -0 -1 .0 00 L- ti TA 10 5- 0- 00 07 MA ve [place] 47 20 20 39 RT 01 17 17 08 R 3 29 PH PH AR OS MA CY 75 #4 MG 93 CA PS UL E IB 68 02 03 30 10 00 MO Ac UP 64 -0 -1 .0 00 L- ti RO 50 8- 0- 00 07 MA ve FE 53 20 20 39 RT N 15 17 17 14 80 4 11 PH 0 AR MG MA CY TA BL #4 ET 93 AZ 59 02 03 4. 4 00 MO Ac IT 76 -0 -1 00 00 L- ti HR 23 8- 0- 0 07 MA ve OM 06 20 20 39 RT YC 00 17 17 14 IN 2 12 PH AR 25 MA 0 CY MG #4 TA 93 BL ET CO 50 02 03 18 9 00 MO Ac OM 38 -1 -1 0. 00 L- ti ET 30 3- 0- 00 04 MA ve TALAMANTES 80 20 20 0 54 RT ZI 51 17 17 17 NE 6 15 PH -P AR E- MA CO CY DE IN #5 E 71 SY RU P AM 64 02 03 60 30 00 WA Ac IT 76 -1 -1 .0 00 L- ti IZ 40 3- 0- 00 07 MA ve A 24 20 20 63 RT 24 06 17 17 85 0 08 PH MC AR G MA CA CY PS UL #5 ES 71 CE 68 02 03 30 10 00 WA Ac PH 18 -1 -1 .0 00 L- ti AL 00 3- 0- 00 07 MA ve EX 12 20 20 63 RT IN 20 17 17 85 2 09 PH 50 AR 0 MA MG CY CA #5 PS 71 UL E CE 16 02 03 30 30 00 WA Ac TI 57 -1 -1 .0 00 L- ti RI 10 3- 0- 00 08 MA ve ZI 40 20 20 83 RT NE 25 17 17 81 0 84 PH HC AR L MA 10 CY MG #5 71 TA BL ET DI 00 02 03 20 5 00 WA Ac CY 52 -1 -1 .0 00 L- ti CL 71 8- 0- 00 07 MA ve OM 28 20 20 63 RT IN 20 17 17 98 E 1 81 PH 20 AR MA MG CY TA #5 BL 71 ET CO 68 02 03 20 5 00 WA Ac OM 38 -1 -1 .0 00 L- ti ET 20 8- 0- 00 07 MA ve TALAMANTES 04 20 20 63 RT ZI 10 17 17 98 NE 1 82 PH AR 25 MA CY MG #5 TA 71 BL ET ON 57 02 03 12 2 00 WA Ac DA 23 -1 -1 .0 00 L- ti NS 70 8- 0- 00 07 MA ve ET 07 20 20 63 RT RO 71 17 17 98 N 0 83 PH OD AR T MA 4 CY MG #5 TA 71 BL ET VE 00 02 03 18 17 00 WA Ac NT 17 -1 -1 .0 00 L- ti OL 30 3- 0- 00 07 MA ve IN 68 20 20 63 RT 22 17 17 85 HF 0 56 PH A AR 90 MA CY MC G #5 IN 71 TALAMANTES LE R CO 68 02 02 10 3 00 WA Ac OM 38 -0 -2 .0 00 L- ti ET 20 1- 4- 00 07 MA ve TALAMANTES 04 20 20 39 RT ZI 10 17 17 01 NE 1 56 PH AR 25 MA CY MG #4 TA 93 BL ET LO 00 02 02 20 2 00 WA Ac PE 09 -0 -2 .0 00 L- ti RA 30 1- 4- 00 07 MA ve [place] 31 20 20 39 RT DE 10 17 17 01 2 1 57 PH AR MG MA CY CA PS #4 UL 93 E FL 60 01 02 16 30 00 WA Ac UT 43 -2 -1 .0 00 L- ti IC 20 3- 7- 00 07 MA ve 26 20 20 36 RT ON 41 17 17 13 E 5 97 PH CO AR OP MA CY 50 #4 MC 93 G SP RA Y OX 65 01 02 30 30 00 WA Ac YB 16 -2 -1 .0 00 L- ti UT 20 3- 7- 00 07 MA ve YN 37 20 20 34 RT IN 21 17 17 03 0 45 PH CL AR MA ER CY 10 #4 93 MG TA BL ET SY 00 01 02 10 30 00 MO Ac MB 18 -2 -1 .1 00 L- ti IC 60 3- 7- 99 07 MA ve OR 37 20 20 36 RT T 22 17 17 13 80 0 98 PH -4 AR .5 MA CY MC G #4 IN 93 TALAMANTES LE R OM 60 01 02 30 30 00 WA Ac EP 50 -2 -1 .0 00 L- ti RA 50 3- 7- 00 07 MA ve ZO 14 20 20 36 RT LE 60 17 17 [address] AR MA 40 CY MG #4 93 CA PS UL E AM 64 01 02 60 30 00 MO Ac IT 76 -1 -0 .0 00 L- ti IZ 40 0- 3- 00 07 MA ve A 24 20 20 37 RT 24 06 17 17 25 0 51 PH MC AR G MA CA CY PS UL #4 ES 93 CE 16 01 02 30 30 00 WA Ac TI 57 -0 -0 .0 00 L- ti RI 10 9- 3- 00 08 MA ve ZI 40 20 20 83 RT NE 25 17 17 59 0 83 PH HC AR L MA 10 CY MG #4 93 TA BL ET ME 00 01 01 20 5 00 CV Ac TO 09 -0 -2 .0 00 S ti CL 32 1- 7- 00 01 PH ve OP 20 20 20 28 AR RA 30 17 17 24 MA [place] 5 44 CY DE #0 10 23 32 MG TA BL ET GA 65 12 01 90 30 00 WA Ac BA 16 -3 -2 .0 00 L- ti PE 20 0- 0- 00 07 MA ve NT 10 20 20 62 RT IN 25 16 17 80 0 12 PH 30 AR 0 MA MG CY CA #5 PS 71 UL E MO 54 12 30 30 00 MO Ac NT 45 -2 -2 .0 00 L- ti EL 80 8- 0- 00 07 MA ve UK 89 20 20 38 RT 01 16 17 36 T 0 78 PH SO AR D MA 10 CY MG #4 93 TA BL ET FL 55 12 01 2. 3 00 MO Ac UC 11 -2 -1 00 00 L- ti ON 10 0- 3- 0 07 MA ve AZ 14 20 20 38 RT OL 51 16 17 24 E 2 49 PH 15 AR 0 MA MG CY TA #4 BL 93 ET VE 00 12 01 90 30 00 MO Ac NL 09 -1 -1 .0 00 L- ti AF 37 8- 3- 00 07 MA ve AX 38 20 20 37 RT IN 55 16 17 21 E 6 86 PH HC AR L MA ER CY 75 #4 93 MG CA P OX 65 12 30 30 00 MO Ac YB 16 -2 -1 .0 00 L- ti UT 20 1- 3- 00 07 MA ve YN 37 20 20 34 RT IN 21 16 17 03 0 45 PH CL AR MA ER CY 10 #4 93 MG TA BL ET SY 00 12 01 10 30 00 MO Ac MB 18 -2 -1 .1 00 L- ti IC 60 1- 3- 99 07 MA ve OR 37 20 20 36 RT T 22 16 17 13 80 0 98 PH -4 AR .5 MA CY MC G #4 IN 93 TALAMANTES LE R FL 60 12 01 16 30 00 MO Ac UT 43 -2 -1 .0 00 L- ti IC 20 1- 3- 00 07 MA ve 26 20 20 36 RT ON 41 16 17 13 E 5 97 PH CO AR OP MA CY 50 #4 MC 93 G SP RA Y OM 57 12 30 30 00 MO Ac EP 23 -2 -1 .0 00 L- ti RA 70 1- 3- 00 07 MA ve ZO 16 20 20 36 RT LE 23 16 17 [address] AR MA 40 CY MG #4 93 CA PS UL E ME 54 12 01 30 30 00 MO Ac LO 45 -2 -1 .0 00 L- ti XI 80 2- 3- 00 07 MA ve CA 96 20 20 38 RT M 41 16 17 27 15 0 97 PH AR MG MA CY TA BL #4 ET 93 CE 16 12 01 30 30 00 WA Ac TI 57 -1 -0 .0 00 L- ti RI 10 1- 9- 00 08 MA ve ZI 40 20 20 83 RT NE 25 16 17 59 0 83 PH HC AR L MA 10 CY MG #4 93 TA BL ET AM 64 12 01 60 30 00 WA Ac IT 76 -1 -0 .0 00 L- ti IZ 40 2- 9- 00 07 MA ve A 24 20 20 37 RT 24 06 16 17 25 0 51 PH MC AR G MA CA CY PS UL #4 ES 93 ON 57 12 01 9. 3 00 WA Ac DA 23 -1 -0 00 00 L- ti NS 70 4- 9- 0 07 MA ve ET 07 20 20 38 RT RO 53 16 17 14 N 0 29 PH HC AR L MA 4 CY MG #4 TA 93 BL ET Immunization Name Date Rout CVX Reac Dose Comm Prov Is Faci e tion ent ider Refu lity Give sed n TDAP 08-0 115 BROD No BROD 6-20 JANEEN JANEEN VACC 15 VERITO INE 7 YRS/ > IM VERITO Results Labs Lab Lab Date Result Refere Interp Status Commen Order Detail nces retati t Range on Streptococcus pyogenes Ag [Presence] in Unspecified specimen (06-17-2017 17:46) Strepto NOT NOTDETE complet coccus 017 DETECTE CTED ed pyogene 17:46 D s Ag [Presen ce] in Unspeci fied specime n Heterophile Ab [Presence] in Serum by Latex agglutination (06-16-2017 19:27) Heterop NEGATIV NEG complet hile Ab 017 E ed 19:27 [Presen ce] in Serum by Latex aggluti [facility] Procedures Procedure [place] [address] HUSAM WEINER TRANSVAGI 7 [facility] OPHTH [address] [facility] 7 XM&EVAL COMPRHNSV ESTAB PT 1/> [place] [address] LAB RUSSELL LAB RUSSELL THYROID 7 ANCA ANCA STIMULATI HOLDINGS HOLDINGS NG HORMONE TSH COLLECTIO 54906 HUSAM Rogel VENOUS 7 PHYSICIAN BLOOD PRACTICE VENIPUNCT L URE BLOOD 64679 LAB [facility] LAB RUSSELL COUNT 7 ANCA ANCA COMPLETE HOLDINGS HOLDINGS AUTO&[place] [address] LAB R[facility] LAB R[facility] THYROXINE 7 ANCA ANCA TOTAL HOLDINGS HOLDINGS GONADOTRO 42848 LAB RUSSELL LAB RUSSELL PIN 7 ANCA ANCA CHORIONIC HOLDINGS HOLDINGS QUANTITAT LINDA IAADIADOO 59895 [facility] MATCHESWA 7 HEALTH [facility] MEDICAL CCUS GROUP GROUP A URINE 96639 [facility] 7 HEALTH HEALTH TEST MEDICAL MEDICAL VISUAL GROUP GROUP COLOR CMPRSN METHS RADEX 42760 [facility] [place] MACY ABDOMEN 7 RADIOLOGY COMPL W/DCBTS&/ ERC VIEWS URNLS DIP 61993 [facility] 7 [facility] LET REAGENT AUTO MICROSCOP Y HYSTEROSC 68502 [facility] OPY BX 7 ENDOMETRI UM&/POLYP C W/WO D&C CATH & 13061 [facility] SALINE/CO 7 NTRAST SONOHYSTE R/HYSTERO SALPI LAPS 27916 [facility] FULG/EXC 7 OVARY VISCERA/P ERITONEAL SURFACE ANESTHESI 60858 ANESTHESI RED A 7 A INTRAPERI ASSOCIATE TONEAL S PSC [place] [address] [place] SURG 7 [facility] PSC GROSS&DAMIR ROSCOPIC EXAM DRUG TST G0483 LABS LABS DEFINITV 7 DR ID METH P DAY 22/MORE DR ONEIL IADNA 11651 MEDICAL MEDICAL TRICHOMON 7 DIAGNOSTI DIAGNOSTI C LAB LLC C LAB LLC VAGINALIS AMPLIFIED PROBE TECH COLLECTIO 08313 ASSOCIATE WHITE N VENOUS 7 D BLOOD PATHOLOGI VENIPUNCT STS LLC URE COMPREHEN 43382 PATH PATH SIVE 7 GROUP GROUP METABOLIC LABS LLC LABS LLC PANEL DRUG TEST 73187 LABS LABS PRSMV 7 INSTRMNT CHEMISTRY ANALYZERS IADNA 51830 MEDICAL MEDICAL NEISSERIA 7 DIAGNOSTI DIAGNOSTI C LAB LLC C LAB LLC GONORRHO[place] [address] PATH PATH THYROID 7 GROUP GROUP STIMULATI LABS [place] [address] ALEC MICHAEL TRANSVAGI 7 NAL IADNA 42205 MEDICAL MEDICAL CHLAMYDIA 7 DIAGNOSTI DIAGNOSTI C LAB LLC C LAB LLC TRACHOMAT IS AMPLIFIED PROBE TQ IADNA 54651 MEDICAL MEDICAL HUMAN 7 DIAGNOSTI DIAGNOSTI PAPILLOMA C LAB LLC C LAB LLC VIRUS HIGH-RISK TYPES BLOOD 39781 PATH PATH COUNT 7 GROUP GROUP COMPLETE LABS LLC LABS LLC AUTO&AUTO DIFRNTL WBC HEMOGLOBI 90569 PATH PATH N 7 GROUP GROUP GLYCOSYLA LABS LLC LABS LLC MARIANNE A1C IAADIADOO 83796 [facility] LESLEE 7 HEALTH STREPTOCO MEDICAL CCUS GROUP GROUP A BLOOD 98818 [facility] COUNT 7 N N COMPLETE COMMUNTIY COMMUNTIY AUTO&AUTO HOSPITA HOSPITA DIFRNTL WBC URINE 82395 [facility] 7 N N TEST COMMUNTIY COMMUNTIY VISUAL HOSPITA HOSPITA COLOR CMPRSN METHS INJECTION J1885 [facility] 7 N N KETOROLAC COMMUNTIY COMMUNTIY HOSPITA HOSPITA TROMETHAM INE PER 15 MG INFUSION J7030 [facility] NORMAL 7 N N SALINE COMMUNTIY COMMUNTIY SOLUTION HOSPITA HOSPITA 1000 CC URNLS DIP 75580 [facility] 7 N N STICK/TAB COMMUNTIY COMMUNTIY LET HOSPITA [place] [address] [facility] INFUSION 7 N N THERAPY/P COMMUNTIY COMMUNTIY ROPHYLAXI HOSPITA HOSPITA S /DX 1ST TO 1 HR THERAPEUT 74323 [facility] IC 7 N N INJECTION COMMUNTIY COMMUNTIY IV PUSH HOSP[place] [address] [facility] LIPASE 7 N N COMMUNTIY COMMUNTIY HOSPITA HOSPITA INJECTION J2550 [facility] 7 N N PROMETHAZ COMMUNTIY COMMUNTIY INE HCL HOSPITA HOSPITA UP TO 50 MG COMPREHEN 91099 [facility] SIVE 7 N N METABOLIC COMMUNTIY [place] [address] [facility] INFUSION 7 N N HYDRATION COMMUNTIY COMMUNTIY EACH HOSPITA HOSPITA ADDITIONA L HOUR IAADIADOO [address] [address] LA STREPTOCO MEDICAL CCUS GROUP GROUP A IAADIADOO [address] [address] LA INFLUENZA MEDICAL GROUP THERAPEUT 59120 HUSAM WEINER IC 7 PHYSICIAN PHYSICIAN PROPHYLAC PRACTICE PRACTICE TIC/DX L L INJECTION SUBQ/IM URINE 20081 HUSAM CAMARENA 7 PHYSICIAN TEST PRACTICE VISUAL L COLOR CMPRSN METHS MRI 85582 [facility] 7 [facility] LUMBAR W/O CONTRAST MATERIAL RADIOLOGI 30294 [facility] C 7 N N EXAMINATI COMMUNTIY COMMUNTIY ON PELVIS HOSPITA HOSPITA 1/2 VIEWS RADEX 98578 [facility] SPINE 7 N N LUMBOSACR COMMUNTIY COMMUNTIY AL 2/3 HOSPITA HOSPITA VIEWS THER 58683 [facility] PROPH/DX 7 N N NJX IV COMMUNTIY COMMUNTIY PUSH HOSPITA HOSPITA SINGLE/1S T SBST/[place] [address] [facility] INFUSION 7 N N HYDRATION COMMUNTIY COMMUNTIY EACH HOSPITA HOSPITA ADDITIONA L HOUR COMPREHEN 22978 [facility] SIVE 7 N N METABOLIC COMMUNTIY COMMUNTIY PANEL HOSPITA HOSPITA BLOOD 44745 [facility] COUNT 7 N N COMPLETE COMMUNTIY COMMUNTIY AUTO&AUTO HOSP[place] [address] [facility] LIPASE 7 N N COMMUNTIY COMMUNTIY HOSPITA HOSPITA THERAPEUT 37324 [facility] IC 7 N N INJECTION COMMUNTIY COMMUNTIY IV PUSH HOSPITA HOSPITA EACH NEW DRUG URNLS DIP 77735 [facility] 7 N N STICK/TAB COMMUNTIY COMMUNTIY LET HOSPITA HOSPITA REAGENT AUTO MICROSCOP Y GONADOTRO 05864 [facility] LAB RUSSELL PIN 6 ANCA ANCA CHORIONIC HOLDINGS HOLDINGS QUALITATI VE COLLECTIO 80044 HUSAM CAMARENA N VENOUS 6 PHYSICIAN BLOOD PRACTICE VENIPUNCT L URE IAADIADOO 83867 [facility]KH 6 HEALTH HEALTH INFLUENZA MEDICAL MEDICAL GROUP GROUP URINE 14411 [facility] BENAVIDEZ 6 HEALTH TEST MEDICAL VISUAL GROUP COLOR CMPRSN METHS URINE 31353 [place] MIGUE 6 PHYSICIAN TEST PRACTICE VISUAL L COLOR CMPRSN METHS GONADOTRO 02065 [facility] LAB RUSSELL PIN 6 ANCA ANCA CHORIONIC HOLDINGS HOLDINGS QUANTITAT LINDA COLLECTIO 85286 [place] MIGUE N VENOUS 6 PHYSICIAN BLOOD PRACTICE VENIPUNCT L URE PULMONARY 29812 [facility] HELLER 6 REGIONAL REGIONAL COMPLIANC [place]ICAL [place] [address] PINA MATHEWING 6 REGIONAL REGIONAL CAPACITY MEDICAL MEDICAL CENTE CENTE BRNCDILAT 55549 [facility] HELLER RSPSE 6 REGIONAL REGIONAL SPMTRY MEDICAL MEDICAL PRE&POST- CENTE CENTE BRNCDILAT ADMN PRESSURIZ 30797 [facility] HELLER ED/NONPRE 6 REGIONAL REGIONAL SSURIZED MEDICAL MEDICAL INHALATIO CENTE CENTE N TREATMENT NONINVASI 23427 [facility] HELLER VE 6 REGIONAL REGIONAL EAR/PULSE MEDICAL MEDICAL OXIMETRY CENTE CENTE SINGLE DETER BRNCDILAT 79420 PINA SHIPLEY RSPSE 6 REGIONAL MITCHEL SPMTRY PHYSICIAN PRE&POST- PRA BRNCDILAT ADMN PLETHYSMO 51488 PINA DAMON 6 REGIONAL MITCHEL LUNG PHYSICIAN VOLUMES PRA W/[place] [address] PINA SHIPLEY DIFFUSING 6 REGIONAL MIT[place] [address] PATH PATH THYROID 6 GROUP GROUP STIMULATI LABS LLC LABS LLC NG HORMONE TSH COLLECTIO 51160 ASSOCIATE WHITE NAHID N VENOUS 6 D BLOOD PATHOLOGI VENIPUNCT STS LLC URE COMPREHEN 86664 PATH PATH SIVE 6 GROUP GROUP METABOLIC LABS LLC LABS LLC PANEL BLOOD 43456 PATH PATH COUNT 6 GROUP GROUP COMPLETE LABS LLC LABS LLC AUTO&AUTO DIFRNTL WBC HEMOGLOBI 50248 PATH PATH N 6 GROUP GROUP GLYCOSYLA LABS LLC LABS LLC MARIANNE A1C CUL BACT 33665 PATH PATH XCPT 6 GROUP GROUP URINE LABS LLC LABS LLC BLOOD/STO OL AEROBIC ISOL IADNA 71272 ASSOCIATE WHITE NAHID CHLAMYDIA 6 D PATHOLOGI TRACHOMAT STS LLC IS AMPLIFIED PROBE TQ IADNA 20815 ASSOCIATE WHITE NAHID HUMAN 6 D PAPILLOMA PATHOLOGI VIRUS STS LLC HIGH-RISK TYPES IADNA 00865 ASSOCIATE WHITE NAHID NEISSERIA 6 D PATHOLOGI GONORRHOE STS LLC AE AMPLIFIED PROBE TQ CULTURE 24999 PATH PATH FNGI 6 GROUP GROUP MOLD/YEAS LABS LLC LABS LLC T PRSMPTV OTH XCPT BLOOD CYTP C/V 80285 ASSOCIATE WHITE NAHID AUTO THIN 6 D LYR PATHOLOGI PREPJ SCR STS LLC MNL RESCR PHYS RADEX 87335 [place] DESIR[facility] HAND 6 MEDICAL BECK MINIMUM 3 IMAGING VIEWS ASS WRIST L3807 [place] S[place]LL HAND 6 HOME HOME FINGR MEDICAL MEDICAL ORTHOS EQUIPME EQUIPME W/O JNT PREFAB CSTM FIT TB CELL 56043 PINA HELLER MEDIATED 6 REGIONAL REGIONAL ANTIGN MEDICAL MEDICAL RESPNSE CENTE CENTE GAMMA INTERFERO N ANTIBODY 93294 PINA HELLER ASPERGILL 6 REGIONAL REGIONAL US MEDICAL MEDICAL CENTE CENTE ANTIBODY 98890 PINA HELLER HISTOPLAS 6 REGIONAL REGIONAL WA MEDICAL MEDICAL CENTE CENTE COLLECTIO 35294 PINA HELLER N VENOUS 6 REGIONAL REGIONAL BLOOD MEDICAL MEDICAL VENIPUNCT CENTE CENTE URE ANTIBODY 87005 P[facility] HELLER BLASTOMYC 6 REGIONAL REGIONAL ES MEDICAL MEDICAL CENTE CENTE ANTIBODY 86845 PINA HELLER COCCIDIOI 6 REGIONAL REGIONAL PAUL MEDICAL MEDICAL CENTE CENTE CULTURE 20922 LAB RUSSELL LAB RUSSELL BACTERIAL 6 ANCA ANCA HOLDINGS HOLDINGS QUANTTATI VE COLONY COUNT URINE RADIOLOGI 61767 [facility] [place] KOSTELIC C 6 RADIOLOGY ELAINE EXAMINATI [place] [address] [facility] [place] BENAVIDEZ ANGIOGRAP 6 RADIOLOGY RAY HY CHEST W/CONTRAS T/NONCONT RAST ANES 98542 [place] ROSARIO LOWER 6 ANESTHESI SOHA INTESTINE A GROUP PS ENDOSCOPY DISTAL DUODENUM COLONOSCO 77049 PINA CARTER PY FLX DX 6 DIGESTIVE GRE W/COLLJ CARE SPEC WHEN CENTER PFRMD SPMTRY 13955 ESTELLA GILBERT GILBERT ESTELLA W/VC 6 MD EXPIRATOR CONSULTIN Y JOSHUA G SRV W/WO MXML VOL VNTJ RESPIRATO 76872 HUSAM WEINER RY FLOW 6 [facility] LOOP ECG 58799 ESTELLA GILBERT GILBERT ESTELLA ROUTINE 6 MD ECG CONSULTIN W/LEAST G SRV 12 LDS I&R ONLY FIBRIN 45176 HUSAM WEINER DGRADJ [address] [place] [address] D-[place] [address] HUSAM WEINER THYROXINE [address] [place] [address] BLOOD 09350 NIKKYEVAN NIKKYON COUNT [address] [place] [address] AUTO&[place] [address] NIKKYEVAN HUSAM THYROID [address] [place] [address] NG HORMONE TSH ECG 98375 NIKKYEVAN HUSAM ROUTINE [address] [place] [address] W/LEAST 12 LDS TRCG ONLY W/O I&R COLLECTIO 54034 HUSAM WEINER N VENOUS 6 [facility] VENIPUNCT URE COMPREHEN 74335 NIKKYEVAN CAMPELISE SIVE 6 [facility] PANEL RADIOLOGI 85029 HUSAM WEINER C EXAM [address] VIEWS FRONTAL&L ATERAL RADIOLOGI 07481 [facility] C EXAM 6 [facility] HOSP CHEST 2 INC INC VIEWS FRONTAL&L ATERAL BLOOD 43368 [facility] COUNT 6 [facility] HOSP COMPLETE INC INC AUTO&AUTO DIFRNTL WBC URINE 44189 [facility] 6 [facility] TEST INC INC VISUAL COLOR CMPRSN METHS PRESSURIZ 41171 [facility] ED/NONPRE 6 [facility]OS[facility] SSURIZED INC INC INHALATIO N TREATMENT COMPREHEN 53183 [facility] SIVE 6 [facility] METABOLIC INC INC PANEL THERAPEUT 18775 [facility] IC 6 [facility] PROPHYLAC INC INC TIC/DX INJECTION SUBQ/IM URNLS DIP 52444 [facility] 6 [facility] MEM [facility]OSP STICK/TAB INC INC LET REAGENT AUTO MICROSCOP Y URNLS DIP 09570 ALEC MAG ALEC MAG 6 STICK/TAB LET RGNT NON-AUTO W/O MICRSCP OBSERVATI 25173 ALEC MAG ALEC MAG ON CARE 6 DISCHARGE MANAGEMEN T INITIAL 67192 ALEC MAG ALEC MAG OBSERVATI 6 ON CARE/[place] [address] [facility] 6 [facility] PSC GROSS&DAMIR ROSCOPIC EXAM HYSTEROSC 76238 ALEC MAG ALEC MAG OPY BX 6 ENDOMETRI UM&/POLYP C W/WO D&C ANESTHESI 46742 SUBUR[facility]AN MCGROARTY A 6 ANESTHESI TAJ INTRAPERI A PSC TONEAL LOWER ABD W/LAPS NOS LAPS 20979 ALEC MAG ALEC MAG FULG/EXC 6 OVARY VISCERA/P ERITONEAL SURFACE IAADIADOO 84643 [facility] LESLEE 6 HEALTH HEN INFLUENZA MEDICAL GROUP COMPREHEN 07867 PATH PATH SIVE 6 GROUP GROUP METABOLIC LABS [employer] LABS [employer] PANEL COLLECTIO [address] N VENOUS 6 D BLOOD [place] [address] ALEC MAG ALEC MAG TRANSVAGI 6 [place] [address] PATH PATH THYROID 6 GROUP GROUP STIMULATI LABS [employer] LABS LLC NG HORMONE TSH HEMOGLOBI 56640 PATH PATH N 6 GROUP GROUP GLYCOSYLA LABS [employer] LABS [employer] MARIANNE A1C BLOOD 97420 PATH PATH COUNT 6 GROUP GROUP COMPLETE LABS [employer] LABS [employer] AUTO&AUTO DIFRNTL WBC OPHTH 76943 [facility] 6 GRE GRE XM&EVAL COMPRE NEW PT 1/> VST IAADIADOO 57236 [facility] 6 HEALTH HEN INFLUENZA MEDICAL GROUP IAADIADOO 72723 [facility] 6 HEALTH HEN STREPTOCO MEDICAL CCUS GROUP GROUP A CYTP C/V 94304 [facility] LABS, PICKLESIM AUTO THIN 5 LLC ER JR [place] LYR PREPJ SCR MNL RESCR PHYS 26772 [place] [facility] DELIVERY 5 DIRECTOR CARDIOVASCULAR RANDALL ONLY ASSOCIATE S, 81689 [facility] CENTRAL NONSTRESS 5 [facility] TEST HOSP [place] P[place] 57549 [place] [facility] UTERUS 5 DIRECTOR CARDIOVASCULAR RANDALL REAL TIME ASSOCIATE F/U S, TRNSABDL PER FETUS IADNA 81537 MEDICAL MEDICAL STREPTOCO 5 DIAGNOSTI DIAGNOSTI CCUS C LAB LLC C LAB [place] [address] CEN[facility]AL CENTRAL NONSTRESS 5 SIKH [facility] TEST HOSP HOSP 46441 [facility] CENTRAL NONSTRESS 5 SIKH [facility] TEST HOSP HOSP URNLS DIP 28324 [facility] CENTRAL 5 SIKH SIKH STICK/TAB HOSP HOSP LET RGNT AUTO W/O MICROSCOP Y COLLECTIO 32125 [facility] CENTRAL N VENOUS 5 SIKH SI[facility] BLOOD HOSP HOSP VENIPUNCT URE FIBRINOGE 84595 CENTRAL CENTRAL N 5 SIKH [facility] ACTIVITY HOSP HOSP HGB/RBCS 41486 CEN[facility]AL CENTRAL 5 SIKH SIKH FETOMATER HOSP HOSP NAL HEMRRG DIFRNTL LYSIS BLOOD 33132 CENTRAL CENTRAL COUNT 5 SIKH [facility] COMPLETE HOSP HOSP AUTOMATED INITIAL 78345 [facility] VERONICA BORJASATI 5 [facility] THO ON MEDICAL CARE/DAY GROUP 30 MINUTES IM ADM 82893 KENY BUSTILLO PRQ ID 5 VERITO VERITO SUBQ/IM NJXS 1 VACCINE TDAP 39982 KENY KENY VACCINE 7 5 VERITO VERITO YRS/> IM BLOOD 28118 LAB [facility] LAB RUSSELL COUNT 5 ANCA ANCA COMPLETE HOLDINGS HOLDINGS AUTOMATED GLUCOSE 60019 LAB R[facility]LL LAB RUSSELL POST 5 ANCA ANCA GLUCOSE HOLDINGS HOLDINGS DOSE ANTIBODY 51854 LAB R[facility]LL LAB RUSSELL SCREEN 5 ANCA ANCA RBC EACH HOLDINGS HOLDINGS SERUM TECHNIQUE URNLS DIP 58619 [facility] 5 SIKH SIKH STICK/TAB HOSP HOSP LET RGNT AUTO W/O MICROSCOP Y 71507 [facility] NONSTRESS 5 SIKH [facility] TEST HOSP HOSP OBSERVATI 96918 [facility] WAHL ON/INPATI 5 DIRECTOR CARDIOVASCULAR [facility] S, CARE 40 MINUTES URNLS DIP 92122 [facility] 5 SIKH SIKH STICK/TAB HOSP HOSP LET REAGENT AUTO MICROSCOP Y INITIAL 40030 [facility] VERONICA OBSERVATI [address] [place] [address] ON MEDICAL CARE/DAY GROUP 30 MINUTES US PREG 97215 [facility] [facility] UTERUS 5 DIRECTOR CARDIOVASCULAR RANDALL AFTER 1ST ASSOCIATE TRIMEST S, GESTATION THERAPEUT 22006 JACKELYN MEDINA IC PX 1/> 5 [facility][1] PHYSICAL EACH 15 THERAP MIN EXERCISES MANUAL 78746 JACKELYN MEDINA THERAPY 5 [facility] TQS 1/> PHYSICAL REGIONS THERAP EACH 15 MINUTES US PREG 71829 [place] [facility] UTERUS 5 DIRECTOR CARDIOVASCULAR [facility] REAL TIME ASSOCIATE W/IMAGE S, DCMTN TRANSVAG CYTP C/V 24786 [facility], PICKLESIM AUTO THIN 5 [facility] ER JR [place] LYR PREPJ SCR MNL RESCR PHYS COLLECTIO 06099 HUSAM WEINER N VENOUS 5 [facility] VENIPUNCT URE GONADOTRO 83402 CONRADOHUNTEREVAN CAMPHUNTEREVAN PIN 5 [facility] QUALITATI VE THERAPEUT 86041 HUSAM SHERON IC PX 1/> 5 [facility] EACH 15 MIN EXERCISES THERAPEUT 15674 HUSAM CAMPHUNTERON IC PX 1/> 5 [facility] EACH 15 MIN EXERCISES PHYSICAL 34559 NIKKYON [place] THERAPY 5 [facility] N INJECTION J1100 [place] 5 [facility] SONE SODIUM PHOSPHATE 1 MG URINE 91450 CONRADOELISE NIKKYON 5 [facility] VISUAL COLOR CMPRSN METHS CT LUMBAR 36122 [facility] [place] [facility] SPINE 5 RADIOLOGY RHO W/O CONTRAST MATERIAL THERAPEUT 86092 CONRADOURBON BOURBON IC 5 [facility] TIC/DX INJECTION SUBQ/IM Encounters Encounter Start End Date Code Location Performer Type Date OFFICE 76131 [facility] [place] [facility] 7 7 [facility] T VISIT 15 MINUTES OFFICE 06819 [facility] CAMARENA OUTPATIEN 7 7 PHYSICIAN T VISIT PRACTICE 15 L MINUTES EMERGENCY 19028 [facility] DEPT 7 7 PAKO VISIT EMERGENCY HIGH PHYS SEVERITY& THREAT [facility] - 7 7 [facility] T OFFICE 70309 HUSAM CAMARENA OUTPATIEN 7 7 PHYSICIAN T VISIT PRACTICE 15 L MINUTES EMERGENCY 09567 [facility] DEPT 7 7 PAKO VISIT EMERGENCY HIGH PHYS SEVERITY& THREAT [facility] OFFICE 57961 [facility] OUTPATIEN 7 7 PHYSICIAN T VISIT PRACTICE 15 L MINUTES OFFICE 53618 [facility] MIGUE OUTPATIEN 7 7 PHYSICIAN T VISIT PRACTICE 15 L MINUTES OFFICE 28816 [facility] 7 7 [facility] T VISIT 5 INC MINUTES [facility] - 7 7 [facility] OUTPATIEN [facility] T OFFICE 98425 HUSAM CAMARENA OUTPATIEN 7 7 PHYSICIAN T VISIT PRACTICE 15 L MINUTES OFFICE 69915 [facility] CAMARENA OUTPATIEN 7 7 PHYSICIAN T VISIT PRACTICE 15 L MINUTES OFFICE 92986 [facility] 7 7 HEALTH LA T VISIT MEDICAL 15 GROUP MINUTES OFFICE 16204 [facility]ALTH T VISIT MEDICAL 15 GROUP MINUTES [facility] - 7 7 [facility] T EMERGENCY 56698 [facility] 7 7 [facility] T VISIT MODERATE SEVERITY EMERGENCY 31378 [facility] 7 [facility] PHYS HIGH/URGE NT SEVERITY OFFICE 07710 [facility] 7 7 T VISIT 15 MINUTES EMERGENCY 15848 [facility] 7 7 PAKO DEPARTMEN EMERGENCY T VISIT PHYS HIGH/URGE NT SEVERITY EMERGENCY 58404 [facility] [address] [facility] COMMUNTIY T VISIT HOSPITA LIMITED/M INOR [facility] HOSPITAL [facility] - 7 7 N OUTPATIEN COMMUNTIY T HOSPITA OFFICE 77404 [facility] 7 7 HEALTH T VISIT MEDICAL 15 GROUP MINUTES OFFICE 39372 [facility] 7 7 PHYSICIAN T VISIT PRACTICE 15 L MINUTES EMERGENCY 05247 [facility] [address] [facility] COMMUNTIY T VISIT HOSPITA HIGH/URGE NT SEVERITY HOSPITAL [facility] - 7 7 N OUTPATIEN COMMUNTIY T HOSPITA EMERGENCY 45654 [facility] STEF[facility] DEPT 7 7 PAKO VISIT EMERGENCY HIGH PHYS SEVERITY& THREAT FUNC OFFICE 97424 RICHIE AVERY OUTJUANEN 7 7 [facility], [facility] III T NEW 30 MINUTES EMERGENCY 67054 [facility] 7 7 [facility] T VISIT PHYS HIGH/URGE NT SEVERITY OFFICE 42862 [facility] 7 7 HEALTH LA T VISIT MEDICAL 15 GROUP MINUTES OFFICE 64877 [facility] 7 7 PHYSICIAN T VISIT PRACTICE 15 L MINUTES [facility]OSP[facility] [place] - 7 7 [facility] - 7 7 N OUTPATIEN COMMUNTIY T HOSPITA EMERGENCY 93735 [facility] 7 7 N DEPARTMEN COMMUNTIY T VISIT HOSPITA HIGH/URGE NT SEVERITY HOSPITAL [facility] - 7 7 N OUTPATIEN COMMUNTIY T HOSPITA EMERGENCY 91815 [facility] 7 7 [facility]KO VISIT EMERGENCY HIGH PHYS SEVERITY& THREAT FUNCJ OFFICE 33128 [facility] 6 6 PHYSICIAN T VISIT PRACTICE 15 L MINUTES OFFICE 62379 [facility]AM [facility] 6 6 PHYSICIAN T VISIT PRACTICE 15 L MINUTES OFFICE [id number] [facility] 6 6 PHYSICIAN T VISIT PRACTICE 15 L MINUTES OFFICE 18433 [facility] 6 6 DIGESTIVE CEC T VISIT CARE 15 CENTER MINUTES OFFICE 17769 [facility] 6 6 PHYSICIAN OKSANA T VISIT PRACTICE 15 L MINUTES HOSP[facility] - 6 6 REGIONAL OUTPATIEN MEDICAL T CENTE PERIODIC 95977 [facility] PREVENTIV 6 6 E MED EST PATIENT 18-39 YRS [facility] 6 6 [facility] 08685 [facility] PHYSICIAN OKSANA T VISIT PRACTICE 15 L MINUTES [facility] PINA Thurman 6 6 REGIONAL OUTPATIEN MEDICAL T CENTE OFFICE 56993 [facility] 6 6 REGIONAL MITCHEL T NEW 45 PHYSICIAN MINUTES PRA OFFICE 92908 [facility] OUT[facility] 6 6 PHYSICIAN OKSANA T VISIT PRACTICE 25 L MINUTES EMERGENCY 81689 [facility] DEPT 6 6 PAKO VISIT EMERGENCY HIGH PHYS SEVERITY& THREAT FUNCJ OFFICE 76726 [facility] SCHULTZ 6 6 DIGESTIVE CEC T VISIT CARE 15 CENTER MINUTES OFFICE 01549 [facility] OUT[facility] 6 6 PHYSICIAN OKSANA T VISIT PRACTICE 25 L MINUTES [facility] [place] - 6 6 [facility] [place] - 6 6 [facility] T OFFICE 12933 [facility] OUT[facility] 6 6 PHYSICIAN OKSANA T VISIT PRACTICE 15 L MINUTES OFFICE 10561 [facility] 6 6 DIGESTIVE CEC T VISIT CARE 25 CENTER MINUTES [facility] [place] - 6 6 [facility] T OFFICE 30024 [facility] OUTPAT[facility] 6 6 PHYSICIAN OKSANA T VISIT PRACTICE 15 L MINUTES OFFICE 21925 [facility] 6 6 DIGESTIVE CEC T NEW 45 CARE MINUTES [facility] HANY - 6 6 [facility] OUTPATIEN INC T EMERGENCY 08433 LAX[facility] SHABAZZ 6 6 PHYSICIAN DAMIR DEPARTMEN S, PLLC T VISIT HIGH/URGE NT SEVERITY EMERGENCY 96488 [facility] 6 6 [facility] DEPART[facility] INC T VISIT MODERATE SEVERITY OFFICE 43808 [facility] OUT[facility] 6 6 PHYSICIAN MITCHEL T VISIT PRACTICE 15 L MINUTES OFFICE 59951 [facility] OUT[facility] 6 6 PHYSICIAN MITCHEL T VISIT PRACTICE 15 L MINUTES OFFICE 64885 [facility] OUT[facility] 6 6 PHYSICIAN MITCHEL T NEW 45 PRACTICE MINUTES L OFFICE 75217 [facility] OUTPATI[facility] 6 6 T VISIT 15 MINUTES OFFICE 97617 [facility] 6 6 [facility]ALTH [facility]EN T VISIT MEDICAL 25 GROUP MINUTES OFFICE 89860 [facility] OUTPATI[facility] 6 6 T VISIT 15 MINUTES OFFICE 40234 [facility] 6 6 [facility]ALTH [facility]EN T VISIT MEDICAL 15 GROUP MINUTES OFFICE 74206 [facility] 5 5 DIRECTOR CARDIOVASCULAR RANDALL T VISIT ASSOCIATE 15 S, MINUTES OFFICE 73342 [facility] OUTPATIEN 5 5 HEALTH DON T VISIT MEDICAL 15 GROUP MINUTES [facility] - 5 5 [facility] T OFFICE 74056 [place] [facility] 5 5 DIRECTOR CARDIOVASCULAR RANDALL T VISIT ASSOCIATE 15 S, MINUTES OFFICE 63899 [place] [facility] 5 5 DIRECTOR CARDIOVASCULAR RANDALL T VISIT ASSOCIATE 15 S, MINUTES OFFICE 74526 [place] [facility] 5 5 DIRECTOR CARDIOVASCULAR RANDALL T VISIT ASSOCIATE 15 S, MINUTES [facility] 5 5 [facility] OFF[facility] 00160 [place] [facility] 5 5 DIRECTOR CARDIOVASCULAR RANDALL T VISIT ASSOCIATE 15 S, MINUTES OFFICE 78526 [facility] 5 5 HEALTH HEN T VISIT MEDICAL 25 GROUP MINUTES OFFICE 02573 [place] [facility] 5 5 DIRECTOR CARDIOVASCULAR RANDALL T VISIT ASSOCIATE 15 S, MINUTES [facility] 5 5 [facility] OFFICE 63823 [facility] KENY OUTPATIEN 5 5 VERITO VERITO T VISIT 15 MINUTES OFFICE 55534 [place] [facility] 5 5 DIRECTOR CARDIOVASCULAR RANDALL T VISIT ASSOCIATE 15 S, MINUTES [facility] - 5 5 [facility] OFFICE 66431 [place] [facility] 5 5 DIRECTOR CARDIOVASCULAR RANDALL T VISIT ASSOCIATE 15 S, MINUTES [facility] - 5 5 [facility] OFFICE 97269 [facility] [facility] 5 5 DIRECTOR CARDIOVASCULAR RANDALL T VISIT ASSOCIATE 15 S, MINUTES OFFICE 22087 [facility] [facility] 5 5 DIRECTOR CARDIOVASCULAR RANDALL T VISIT ASSOCIATE 15 S, MINUTES OFFICE 25646 [facility] [facility] 5 5 DIRECTOR CARDIOVASCULAR RANDALL T NEW 45 ASSOCIATE MINUTES S, EMERGENCY 93922 [place] 5 5 [facility] T VISIT LOW/MODER SEVERITY EMERGENCY 83806 [facility] [address] [facility] EMERGENCY T VISIT PHYS HIGH/URGE NT SEVERITY [facility] [place] [facility] 5 5 [facility] [place] [facility] 5 5 [facility] [place] [facility] 5 5 [facility] [place] [facility] 5 5 [facility] T OFFICE 98418 [facility] OUTPATIEN 5 5 VERITO VERITO T NEW 45 MINUTES [facility] [place] [facility] 5 5 [facility] [address] [facility] EMERGENCY T VISIT PHYS HIGH/URGE NT SEVERITY
--- OUTSIDE RECORDS SUMMARY | 2017-06-23 21:55 | External Medical Summary Rpt | CCD ---
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 Name Role Phone DEIRDRE PEREIRA, GILMORE Unavailable Unavailable [facility] Unavailable Unavailable [facility] Unavailable [facility] Unavailable Unavailable [facility], [facility] Unavailable Unavailable MEDICAL [facility], [facility] KINDRA JAM, KINDRA JAM Unavailable Unavailable YOUNG, YOUNG Unavailable Unavailable [facility] Unavailable Unavailable HOSPITAL, [facility] PHYSICIAN Unavailable Unavailable PRACTICE [facility], [facility] KENY SPENCER Unavailable Unavailable KENY LAM Unavailable Unavailable VERITO OWEN TER, OWEN TER Unavailable Unavailable [facility], Unavailable Unavailable [facility] CHANDEL, CHANDEL Unavailable Unavailable CHESTNUT, CHESTNUT Unavailable Unavailable [facility] Un[facility], [facility] Unavailable Unavailable [facility], [facility] Unavailable Unavailable PHYSICIAN PRA, [facility] PHYSIC[facility], Unavailable Unavailable [facility] GILBERT ESTELLA, GILBERT ESTELLA Unavailable Unavailable MIGUE, MIGUE Unavailable Unavailable MIGUE MITCHEL, MIGUE Unavailable Unavailable MITCHEL MIGUE OKSANA, MIGUE Unavailable Unavailable OKSANA DESIRAE BECK, Unavailable Unavailable DESIRAE BECK [facility] Unavailable Unavailable [facility], [facility] BELEN, BELEN Unavailable Unavailable GIRALDO, GIRALDO Unavailable Unavailable HARIKA DAMIR, HARIKA Unavailable Unavailable DAMIR [facility] Unavailable Unavailable [facility], [facility] GREGONIS MITCHEL, Unavailable Unavailable GREGONIS MITCHEL MACY, MACY Unavailable Unavailable MACY RHO, MACY Unavailable Unavailable RHO HANY, HANY Unavailable Unavailable [facility] Unavailable Unavailable INC, [facility] YOLANDA CEC, YOLANDA Unavailable Unavailable [facility]EC CONDE, CONDE Unavailable Unavailable ALEC, ALEC Unavailable Unavailable ALEC, ALEC Unavailable Unavailable ALEC MAG, ALEC MAG Unavailable Unavailable ALEC MAG, ALEC MAG Unavailable Unavailable [facility] Unavailable Unavailable [facility] PS, [facility] Unavailable Unavailable [facility], [facility], Unavailable Unavailable [facility], Unavailable Unavailable [facility] Unavailable Unavailable [facility], [facility] Unavailable Unavailable [facility], [facility] VERONICA JR THO, Unavailable Unavailable VERONICA JR THO [facility] Unavailable Unavailable ASSOCIATES,, [facility], ANA PEREZ Unavailable Unavailable ANA, ANA [...] LLC ROSARIO SOHA, ROSARIO Unavailable Unavailable [facility] Unavailable Unavailable [facility], [facility], [facility] Unavailable Unavailable [facility], [...] MENDY ARNETT DON, Unavailable Unavailable ARNETT DON [facility] Unavailable Unavailable THERAP, [facility] AVERY, III, AVERY, Unavailable Unavailable III [facility] Unavailable Unavailable EQUIPME, [facility] Unavailable Unavailable EM[facility]Y [facility], [facility] BENAVIDEZ, BENAVIDEZ Unavailable Unavailable BENAVIDEZ RAY, BENAVIDEZ Unavailable Unavailable RAY [facility] Unavailable Unavailable PSC, [facility] MEDINA TONIE, MEDINA Unavailable Unavailable [...] N EMERGENCY INFECTION PHYS SITE NOT SPECIFIED [id number] UNSPECIFIED 05-11-2017 [facility] O[facility]IAN N EMERGENCY CYST [...] FREQUENT ANCA MENSTRUATIO HOLDINGS N W/REGULAR CYCLE [id number] CELLULITIS 02-16-2017 [facility] OF OTHER PHYSICIAN SITES PRACTICE L H6503 ACUTE 01-28-2017 [facility]IA [facility] BILATERAL N910 PRIMARY 01-24-2017 [facility] Z3202 ENCOUNTER 01-24-2017 [facility] FOR [facility]ALTH MEDICAL TEST RESULT GROUP NEGATIVE 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 01-13-2017 [facility] I341 NONRHEUMATI 01-13-2017 [facility] C [facility]AL [facility] PROLAPSE K589 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-2017 [facility] WITHOUT DIARRHEA K5900 CONSTIPATIO 01-13-2017 [...] 01-05-2017 [facility] LUTEUM CYST OF RIGHT OVARY [id number] OTHER 01-05-2017 [facility] [place] CYST RIGHT CLINIC PSC SIDE N926 IRREGULAR 01-05-2017 [facility] MENSTRUATIO N UNSPECIFIED R102 PELVIC AND 12-07-2016 [facility] PA[facility] H75602 ENCOUNTER 12-07-2016 [facility] FOR OTHER [facility] LLC PREPROCEDUR AL EXAMINATION Z5181 ENCOUNTER 12-07-2016 [facility] FOR THERAPEUTIC DRUG LEVEL MONITORING V20986 OTHER LONG 12-07-2016 [facility] TERM CURRENT DRUG THERAPY Z5321 PROC & [place] 12-05-2016 [facility] NOT CARRIED COMMUNTIY OUT PT HOSPITA LEAVE PRIOR TO SEEN I889 NONSPECIFIC 11-18-2016 [facility] LYMPHADENIT MEDICAL IS GROUP UNSPECIFIED J029 ACUTE 11-18-2016 [facility] PHARYNGITIS HEALTH MEDICAL UNSPECIFIED GROUP R0981 NASAL 11-18-2016 [facility] K529 NONINFECTIV 11-01-2016 [facility] E PHYSICIAN GASTROENTER PRACTICE L ITIS & COLITIS UNS R1084 GENERALIZED 10-30-2016 [facility] ABDOMINAL N EMERGENCY PAIN PHYS R197 DIARRHEA 10-30-2016 [facility] UNSPECIFIED N EMERGENCY PHYS Z720 TOBACCO USE 10-30-2016 [facility]ITA J020 STREPTOCOCC 10-25-2016 [facility] PHARYNGITIS J9801 ACUTE 10-25-2016 [facility] M J111 FLU D/T 10-19-2016 [facility] UNIDENTIFIE N EMERGENCY D FLU VIRUS PHYS W/OTH RESP MANIF R6889 OTHER 10-17-2016 [facility] SYMPTOMS MEDICAL AND SIGNS GROUP G33466 CONTACT W/ 10-17-2016 [facility] & EXPOSURE HEALTH OTH VIRAL MEDICAL COMMUNICABL GROUP E DZ M549 DORSALGIA 09-17-2016 [facility] [id number] MIGRAINE 09-12-2016 [facility] UNS NOT N EMERGENCY INTRACT W/O PHYS STATUS MIGRAINOSUS Z3200 ENCOUNTER 08-25-2016 [facility] MEDICAL TEST RESULT GROUP UNKNOWN H52162 PAIN IN 08-11-2016 [facility] UNSPECIFIED PHYSICIAN HIP PRACTICE L J00 ACUTE 07-23-2016 [facility] NASOPHARYNG PHYSICIAN ITIS COMMON PRACTICE L COLD R238 OTHER SKIN 07-23-2016 [facility] CHANGES PHYSICIAN PRACTICE L L301 DYSHIDROSIS 06-28-2016 [facility] POMPHOLYX PHYSICIAN PRACTICE L R05 COUGH 06-16-2016 [facility] PRA R0602 SHORTNESS 06-16-2016 [facility] OF BREATH REGIONAL PHYSICIAN PRA R062 WHEEZING 06-16-2016 [facility] PH[facility]IC[facility] PRA Z32194 ENCOUNTER 06-08-2016 [facility] MAG 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 EXAM GENERAL RTN W/O ABNORMAL FIND Z113 ENCOUNTER 06-08-2016 ASSOC[facility]ATED SCREEN PATHOLOGIST INFECTIONS S LLC SEXL MODE TRANSMISSN Z1151 ENCOUNTER 06-08-2016 ASSOC[facility]ATED FOR PATHOLOGIST SCREENING S LLC FOR HUMAN PAPILLOMAVI CORDELIA Z118 ENCOUNTER 06-08-2016 ASSOCIATED SCREEN PATHOLOGIST OTHER S LLC INFECTIOUS & PARASITIC DZ K92607 PAIN IN 05-24-2016 [facility] LEFT MEDICAL FINGERS IMAGING ASS J309 ALLERGIC 05-05-2016 [facility] RHINITIS REGIONAL UNSPECIFIED PHYSICIAN PRA L67366 UNSPECIFIED 05-05-2016 [facility] ASTHMA REGIONAL UNCOMPLICAT PHYSICIAN ED PRA K219 GASTRO-ESOP 05-05-2016 [facility] REFLUX REGIONAL DISEASE PHYSICIAN WITHOUT PRA ESOPHAGITIS R61 GENERALIZED 05-05-2016 [facility] HYPERHIDROS PHYSICIAN IS PRA R072 PRECORDIAL 04-11-2016 [facility] PAIN [facility] R0789 OTHER CHEST 04-11-2016 [facility] PAIN N EMERGENCY PHYS R079 CHEST PAIN 04-11-2016 [facility] [place] UNSPECIFIED RADIOLOGY [id number] STRAIN 04-11-2016 [facility] MUSCLE & N EMERGENCY TENDON UNS PHYS WALL THORAX INIT ENC [id number] EXPOSURE TO 04-11-2016 [facility] OTHER N EMERGENCY SPECIFIED PHYS FACTORS INITIAL ENC R198 OTH SPEC SX 03-17-2016 [facility] & SIGNS [facility]IVE [facility] DIGESTV SYS & ABD Z1211 ENCOUNTER 03-17-2016 [place] SCREENING [facility]IA MALIGNANT GROUP PS NEOPLASM OF COLON G8929 OTHER 03-12-2016 [facility] PRACTICE L Z539 PROCEDURE & 03-08-2016 [facility] NOT CARRIED HOSPITAL OUT [...] OVARIAN CYSTS N838 OTH 11-28-2015 NEW NONINFLAMM [facility] D/O OVARY CLINIC PSC FALLOP TUBE & BROAD LIG N941 DYSPAREUNIA 11-28-2015 [facility] N942 VAGINISMUS 11-28-2015 [facility] TURCIOS H5203 HYPERMETROP 09-29-2015 ANA ARCE GRE BILATERAL Z309 ENCOUNTER 07-17-2015 [facility] FOR RESIDENTIAL [facility] CONTRACEPTI ASSOCIATES, VE MANAGEMENT UNS Z392 ENCOUNTER 07-17-2015 [facility] FOR ROUTINE [facility], FOLLOW-UP K1230 ORAL 07-08-2015 [facility] MUCOSITIS [facility]ALTH ULCERATIVE MEDICAL UNSPECIFIED GROUP [id number] MAT CARE 07-03-2015 [facility] DISPROPORTI ANESTHESIA ON UNUSUAL PSC LARGE FET NA/UNS O653 OBST LABOR 07-03-2015 [facility] DUE PELV [facility] OUTLET & ASSOCIATES, MID-CAV CONTRACTION Z370 SINGLE LIVE 07-03-2015 [facility] ANESTHESIA PSC Z3A39 39 WEEKS 07-03-2015 [facility] GESTATION [facility] OF ASSOCIATES, O471 FALSE LABOR 06-26-2015 [facility] AT/AFTER [facility] 37 HOSP COMPLETED WEEKS GEST Z3483 ENC 06-26-2015 [facility] SUPERVISION [facility] OTH NORMAL ASSOCIATES, 3 TRIMESTER Z3A38 38 WEEKS 06-26-2015 [facility] GESTATION [facility] OF HOSP [id number] MATERNAL 06-19-2015 [facility] CARE EXCESS [facility], GROWTH 3RD TRI NA/UNS [id number] POLYHYDRAMN 06-19-2015 [facility] IOS THIRD [facility] [employer] TRIMESTER ASSOCIATES, NA/UNS Z3A37 37 WEEKS 06-19-2015 [facility] GESTATION [facility] [employer] OF ASSOCIATES, Z391 ENCNTR FOR 06-18-2015 [facility] EXAMINATION SUPPLIES LACTATING MOTHER P03562 ANEMIA 06-12-2015 [facility] COMPLICATIN [facility]IAL [facility] [employer] G ASSOCIATES, THIRD TRIMESTER Z36 ENCOUNTER 06-12-2015 MEDICAL FOR DIAGNOSTIC LAB LLC SCREENING OF MOTHER Z3A36 36 WEEKS 06-12-2015 [facility] GESTATION [facility] [employer] OF ASSOCIATES, 04273 THREATENED 06-11-2015 [facility] PREMATURE [facility] ANTEPARTUM 45960 OTH CURRENT 05-29-2015 [facility] CONDS [facility] CLASSIFIABL ASSOCIATES, E ELSW ANTPRTM 7869 OT 05-29-2015 [facility] SYMPTOMS RES[facility]IAL [facility] INVOLVING ASSOCIATES, RESPIRATORY SYSTEM&CHES T 4619 ACUTE 05-22-2015 [facility] SINUSITIS, HEALTH UNSPECIFIED MEDICAL GROUP 4779 ALLERGIC 05-22-2015 [facility] RHINITIS HEALTH CAUSE MEDICAL UNSPECIFIED GROUP V221 SUPERVISION 05-15-2015 [facility] OF OTHER RESIDENTIAL [facility] NORMAL ASSOCIATES, 25569 OTHER 04-18-2015 [facility] SPECIFED HEALTH COMPLICATIO MEDICAL N GROUP ANTEPARTUM 7605 FETUS OR 04-18-2015 [facility] AFFECTED BY MEDICAL MATERNAL GROUP INJURY V222 04-18-2015 [facility] STATE, [facility] INCIDENTAL HOSP V714 OBSERVATION 04-18-2015 [facility] FOLLOWING [facility] OTHER HOSP ACCIDENT 69943 ABDOMINAL 04-17-2015 KENY SELLERS WITH INTRAUTERIN E 73841 ABDOMINAL 04-01-2015 [facility] PAIN RIGHT [facility] LOWER HOSP QUADRANT 6259 UNSPEC 03-01-2015 [facility] SYMPTOM [facility] ASSOC [facility]OS[facility] W/FEMALE GENITAL ORGANS 99362 ABDOMINAL 03-01-2015 [facility] PAIN, LEFT HEALTH LOWER MEDICAL QUADRANT GROUP 7202 SACROILIITI 01-31-2015 [facility] PHYSICAL CLASSIFIED THERAP 7244 THORACIC/MARINA 01-31-2015 [facility] NEURITIS/RA PHYSICAL DICULITIS THERAP UNSPEC V571 OTHER 01-31-2015 [facility] THERAPY PHYSICAL THERAP 23257 MILD 12-19-2014 [facility] HYPEREMESIS [facility] GRAVIDARUM ASSOCIATES, ANTEPARTUM 12428 THREATENED 11-21-2014 [facility] , [facility]IDENTIAL [employer] [employer] ANTEPARTUM ASSOCIATES, V7231 ROUTINE 11-21-2014 [facility] AL EXAMINATION 8470 NECK SPRAIN 11-19-2014 [facility] AND STRAIN N EMERGENCY PHYS E9289 UNSPECIFIED 11-19-2014 [facility] ACCIDENT N EMERGENCY PHYS V141 PERSONAL 11-19-2014 [facility] OTHER ANTIBIOTIC AGENT V143 PERSONAL 11-19-2014 [facility] ANTI-INFECT LINDA AGT V146 PERSONAL 11-19-2014 [facility] HISTORY OF [facility] TO HOSPITAL ANALGESIC AGENT 6260 ABSENCE OF 11-13-2014 [facility] MENSTRUATIO [facility] 12560 DISPLCMT 11-11-2014 [facility] LUMBAR [facility] DISC W/O MYELOPATHY 7242 LUMBAGO 11-11-2014 [facility] 8461 SPRAIN AND 11-01-2014 KEN[facility] SELLERS STRAIN OF SACROILIAC 7222 DISPLCMT 10-21-2014 [facility] DISC SITE HOSPITAL UNS W/O MYELOPATHY 7820 DISTURBANCE 10-21-2014 [facility] OF SKIN N EMERGENCY SENSATION PHYS V1582 PERS HX 10-21-2014 [facility] TOBACCO USE [facility] Allergies, Adverse [...] 17 17 95 E 5 80 PH DE AR OP MA CY 50 #4 MC [...] BE 51 09 09 30 10 00 [place] Ac NZ 22 -0 -2 .0 00 L- ti ON 40 5- 9- 00 07 MA ve AT 00 20 20 42 RT AT 16 17 17 77 E 0 56 PH 20 AR 0 MA MG CY CA #4 PS 93 UL E FL 55 09 09 1. 1 00 NJ Ac UC 11 -0 -2 00 00 L- ti ON 10 1- 2- 0 07 MA ve AZ 14 20 20 42 RT OL 51 17 17 72 E 2 36 PH 15 AR 0 MA MG CY TA #4 BL 93 ET DE 59 08 09 20 7 00 [place] Ac OC 74 -3 -2 .0 00 L- ti HL 60 1- 2- 00 07 MA ve OR 11 20 20 42 RT PE 50 17 17 69 RA 6 86 PH ZI AR NE MA CY 10 #4 MG 93 TA B NI 47 08 09 20 10 00 NJ Ac TR 78 -3 -2 .0 00 L- ti OF 10 1- 2- 00 07 MA ve UR 30 20 20 42 RT AN 30 17 17 69 TO 1 87 PH IN AR MA MO CY NO -M #4 CR 93 10 0 MG DE 68 08 09 20 5 00 [facility] OM 38 -1 -0 .0 00 L- ti ET 20 8- 8- 00 07 MA ve TALAMANTES 04 20 20 42 RT ZI 00 17 17 50 NE 1 57 PH AR 12 MA .5 CY MG #4 93 TA BL ET FL 55 08 09 1. 1 00 NJ Ac UC 11 -0 -0 00 00 L- ti ON 10 7- 1- 0 07 MA ve AZ 14 20 20 41 RT OL 51 17 17 92 E 2 62 PH 15 AR 0 MA MG CY TA #4 BL 93 ET AM 00 07 08 30 30 00 NJ Ac IT 78 -3 -2 .0 00 L- ti RI 11 1- 5- 00 07 MA ve PT 48 20 20 42 RT YL 61 17 17 19 IN 0 00 PH E AR HC MA L CY 10 #4 MG 93 TA B ME 59 07 08 21 6 00 NJ Ac TH 74 -1 -1 .0 00 L- ti YL 60 7- 8- 00 07 MA ve DE 00 20 20 41 RT ED 10 17 17 96 NI 3 99 PH SO AR LO MA NE CY 4 #4 MG 93 DO SE PK CY 68 07 08 15 4 00 NJ Ac CL 64 -1 -1 .0 00 L- ti OB 50 7- 8- 00 07 MA ve EN 51 20 20 41 RT ZA 89 17 17 97 DE 0 00 PH IN AR E MA 10 CY MG #4 93 TA BL ET AZ 59 07 08 6. 5 00 NJ Ac IT 76 -1 -0 00 00 L- ti HR 23 1- 4- 0 07 MA ve OM 06 20 20 41 RT YC 00 17 17 87 IN 1 16 PH AR 25 MA 0 CY MG #4 TA 93 BL ET BE 51 07 08 30 10 00 NJ Ac NZ 22 -1 -0 .0 00 L- ti ON 40 1- 4- 00 07 MA ve AT 00 20 20 41 RT AT 16 17 17 87 E 0 17 PH 20 AR 0 MA MG CY CA #4 PS 93 UL E CL 16 07 08 20 10 00 NJ Ac ON 72 -1 -0 .0 00 L- ti AZ 90 1- 4- 00 04 MA ve EP 13 20 20 52 RT AM 61 17 17 20 6 00 PH 0. AR 5 MA MG CY TA #4 BL 93 ET CL 63 07 08 21 7 00 NJ Ac IN 30 -1 -0 .0 00 L- ti DA 40 4- 4- 00 07 MA ve MY 69 20 20 49 RT CI 30 17 17 88 N 1 07 PH HC AR L MA 30 CY 0 MG #5 91 CA PS UL E IB 68 07 08 30 5 00 NJ Ac UP 64 -1 -0 .0 00 L- ti RO 50 4- 4- 00 07 MA ve FE 53 20 20 49 RT N 05 17 17 88 60 9 11 PH 0 AR MG MA CY TA BL #5 ET 91 FL 55 07 08 1. 1 00 NJ Ac UC 11 -1 -0 00 00 L- ti ON 10 4- 4- 0 07 MA ve AZ 14 20 20 41 RT OL 51 17 17 92 E 2 62 PH 15 AR 0 MA MG CY TA #4 BL 93 ET CL 00 06 07 15 7 00 NJ Ac OB 16 -2 -2 .0 00 L- ti ET 80 7- 1- 00 07 MA ve 16 20 20 41 RT OL 31 17 17 60 5 85 PH 0. AR 05 MA % CY CR EA #4 M 93 PE 40 06 07 60 1 00 NJ Ac RM 08 -2 -2 .0 00 L- ti ET 50 5- 1- 00 07 MA ve HR 21 20 20 41 RT IN 56 17 17 60 0 82 PH 5% AR MA CR CY EA M #4 93 PE 40 06 07 60 10 00 NJ Ac RM 08 -2 -1 .0 00 L- ti ET 50 1- 4- 00 07 MA ve HR 21 20 20 49 RT IN 56 17 17 48 0 90 PH 5% AR MA CR CY EA M #5 91 ME 59 06 07 5. [address] [facility] [address] 76 -1 -1 00 00 L- ti OX 23 9- 4- 0 07 MA ve YP 74 20 20 41 RT RO 20 17 17 51 GE [address] AR ER MA ON CY E 10 #4 93 MG TA B CE 68 06 07 20 10 00 [facility] PH 18 -0 -0 .0 00 L- ti AL 00 7- 7- 00 07 MA ve EX 12 20 20 41 RT IN 20 17 17 31 2 05 PH 50 AR 0 MA MG CY CA #4 PS 93 UL E FL 55 06 07 1. 1 00 [facility] UC 11 -1 -0 00 00 L- ti ON 10 3- 7- 0 07 MA ve AZ 14 20 20 41 RT OL 51 17 17 40 E 2 73 PH 15 AR 0 MA MG CY TA #4 BL 93 ET OX 62 06 06 30 30 00 [facility] YB 17 -0 -2 .0 00 L- ti UT 50 1- 3- 00 07 MA ve YN 27 20 20 41 RT IN 13 17 17 19 7 18 PH CL AR MA ER CY 10 #4 93 MG TA BL ET PEDERSON 65 05 06 20 10 00 [facility] LF 86 -1 -0 .0 00 L- ti AM 20 5- 9- 00 07 MA ve ET 42 20 20 65 RT HO 00 17 17 99 XA 5 19 PH ZO AR LE MA -T CY MP #5 DS 71 TA BL ET DE 00 05 06 21 6 00 [facility] ED 60 -1 -0 .0 00 L- ti NI 35 9- 9- 00 07 MA ve SO 33 20 20 66 RT NE 71 17 17 11 5 5 59 PH AR MG MA CY TA BL #5 ET 71 PH 51 05 06 9. 3 00 [facility] EN 29 -1 -0 00 00 L- ti AZ 30 7- 9- 0 07 MA ve OP 81 20 20 66 RT YR 10 17 17 05 ID 1 83 PH IN AR E MA 20 CY 0 MG #5 71 TA B AZ 59 05 06 6. 5 00 [place] Ac IT 76 -1 -0 00 00 L- ti HR 23 1- 2- 0 07 MA ve OM 06 20 20 65 RT YC 00 17 17 91 IN 1 54 PH AR 25 MA 0 CY MG #5 TA 71 BL ET VE 00 05 06 90 30 00 NJ Ac NL 09 -0 -0 .0 00 L- ti AF 37 8- 2- 00 07 MA ve AX 38 20 20 65 RT IN 55 17 17 81 E 6 75 PH HC AR L MA ER CY 75 #5 71 MG CA P HY 00 04 05 [address] 40 -2 -1 .0 00 L- ti OC 60 6- 9- 00 02 MA ve OD 12 20 20 23 RT ON 40 17 17 62 -A 1 16 PH CE AR TA MA MN CY NO PH #4 93 7. 5- 32 5 FL 55 04 05 1. 1 00 NJ Ac UC 11 -2 -1 00 00 L- ti ON 10 7 9- 0 07 MA ve AZ 14 20 20 40 RT OL 51 17 17 61 E 2 48 PH 15 AR 0 MA MG CY TA #4 BL 93 ET NA 65 04 05 28 14 00 NJ Ac DE 16 -1 -1 .0 00 L- ti OX 20 7- 2- 00 07 MA ve EN 19 20 20 40 RT 01 17 17 42 50 1 23 PH 0 AR MG MA CY TA BL #4 ET 93 CY 68 04 05 21 7 00 NJ Ac CL 64 -1 -1 .0 00 L- ti OB 50 7- 2- 00 07 MA ve EN 51 20 20 40 RT ZA 89 17 17 42 DE 0 24 PH IN AR E MA 10 CY MG #4 93 TA BL ET BE 51 04 05 20 7 00 NJ Ac NZ 22 -1 -1 .0 00 L- ti ON 40 7 2 00 07 MA ve AT 00 20 20 40 RT AT 16 17 17 42 E 0 25 PH 20 AR 0 MA MG CY CA #4 PS 93 UL E DI 16 03 05 30 15 00 NJ Ac CL 57 -2 -0 .0 00 L- ti OF 10 7- 5- 00 07 MA ve EN 20 20 20 40 RT AC 15 17 17 05 0 56 PH SO AR D MA EC CY 75 #4 93 MG TA B OX 00 03 05 10 2 00 NJ Ac YC 40 -2 -0 .0 00 L- ti OD 60 7- 5- 00 02 MA ve ON 51 20 20 23 RT E- 20 17 17 58 AC 1 31 PH ET AR AM MA IN CY OP HE #4 N 93 5- 32 5 HY 00 03 05 [address] 40 -2 -0 .0 00 L- ti OC 60 8- 5- 00 02 MA ve OD 12 20 20 23 RT ON 30 17 17 58 -A 1 59 PH CE AR TA MA MN CY NO PH #4 EN 93 5- 32 5 AZ 59 03 03 6. 5 00 NJ Ac IT 76 -0 -3 00 00 L- ti HR 23 9- 1- 0 07 MA ve OM 06 20 20 39 RT YC 00 17 17 71 IN 1 19 PH AR 25 MA 0 CY MG #4 TA 93 BL ET ## 03 03 20 10 00 NJ Ac ## -0 -3 .0 00 L- ti ## 9- 1- 00 08 MA ve ## 20 20 83 RT ## 17 17 96 # 67 PH AR MA CY #4 93 FL 60 03 03 16 30 00 NJ Ac UT 43 -0 -2 .0 00 L- ti IC 20 1- 4- 00 07 MA ve 26 20 20 39 RT ON 41 17 17 54 E 5 91 PH DE AR OP MA CY 50 #4 MC 93 G SP RA Y FL 55 02 03 1. 1 00 NJ Ac UC 11 -2 -1 00 00 L- ti ON 10 1- 7- 0 07 MA ve AZ 14 20 20 64 RT OL 51 17 17 04 E 2 05 PH 15 AR 0 MA MG CY TA #5 BL 71 ET OS 47 02 03 10 5 00 NJ Ac EL 78 -0 -1 .0 00 L- ti TA 10 5- 0- 00 07 MA ve MN 47 20 20 39 RT 01 17 17 08 R 3 29 PH PH AR OS MA CY 75 #4 MG 93 CA PS UL E IB 68 02 03 30 10 00 NJ Ac UP 64 -0 -1 .0 00 L- ti RO 50 8- 0- 00 07 MA ve FE 53 20 20 39 RT N 15 17 17 14 80 4 11 PH 0 AR MG MA CY TA BL #4 ET 93 AZ 59 02 03 4. 4 00 NJ Ac IT 76 -0 -1 00 00 L- ti HR 23 8- 0- 0 07 MA ve OM 06 20 20 39 RT YC 00 17 17 14 IN 2 12 PH AR 25 MA 0 CY MG #4 TA 93 BL ET DE 50 02 03 18 9 00 NJ Ac OM 38 -1 -1 0. 00 [...] MG CY TA #5 BL 71 ET DE 68 02 03 20 5 00 WA [...] G #5 IN 71 TALAMANTES LE R DE 68 02 02 10 3 00 WA [...] 30 1- 4- 00 07 MA ve MN 31 20 20 39 RT DE 10 17 17 01 2 1 57 PH AR MG MA CY CA PS #4 UL 93 E FL 60 01 02 16 30 00 [place] Ac UT 43 -2 -1 .0 00 L- ti IC 20 3- 7- 00 07 MA ve 26 20 20 36 RT ON 41 17 17 13 E 5 97 PH DE AR OP MA CY 50 #4 MC [...] SY 00 01 02 10 30 00 NJ Ac MB 18 -2 -1 .1 00 [...] AM 64 01 02 60 30 00 NJ Ac IT 76 -1 -0 .0 00 [...] AR RA 30 17 17 24 MA MN 5 44 CY DE #0 10 23 [...] E MO 54 12 30 30 00 NJ Ac NT 45 -2 -2 .0 00 L- ti EL 80 8- 0- 00 07 MA ve UK 89 20 20 38 RT 01 16 17 36 T 0 78 PH SO AR D MA 10 CY MG #4 93 TA BL ET FL 55 12 01 2. 3 00 NJ Ac UC 11 -2 -1 00 00 L- ti ON 10 0- 3- 0 07 MA ve AZ 14 20 20 38 RT OL 51 16 17 24 E 2 49 PH 15 AR 0 MA MG CY TA #4 BL 93 ET VE 00 12 01 90 30 00 NJ Ac NL 09 -1 -1 .0 00 L- ti AF 37 8- 3- 00 07 MA ve AX 38 20 20 37 RT IN 55 16 17 21 E 6 86 PH HC AR L MA ER CY 75 #4 93 MG CA P OX 65 12 30 30 00 NJ Ac YB 16 -2 -1 .0 00 L- ti UT 20 1- 3- 00 07 MA ve YN 37 20 20 34 RT IN 21 16 17 03 0 45 PH CL AR MA ER CY 10 #4 93 MG TA BL ET SY 00 12 01 10 30 00 NJ Ac MB 18 -2 -1 .1 00 L- ti IC 60 1- 3- 99 07 MA ve OR 37 20 20 36 RT T 22 16 17 13 80 0 98 PH -4 AR .5 MA CY MC G #4 IN 93 TALAMANTES LE R FL 60 12 01 16 30 00 NJ Ac UT 43 -2 -1 .0 00 L- ti IC 20 1- 3- 00 07 MA ve 26 20 20 36 RT ON 41 16 17 13 E 5 97 PH DE AR OP MA CY 50 #4 MC 93 G SP RA Y OM 57 12 30 30 00 NJ Ac EP 23 -2 -1 .0 00 L- ti RA 70 1- 3- 00 07 MA ve ZO 16 20 20 36 RT LE 23 16 [address] AR MA 40 CY MG #4 93 CA PS UL E ME 54 12 01 30 30 00 [place] Ac LO 45 -2 -1 .0 00 [...] [Presen ce] in Serum by Latex aggluti [facility] Procedures Procedure [place] [address] HUS[facility] WEINER TRANSVAGI 7 [facility] [address] [facility] 7 XM&EVAL COMPRHNSV ESTAB PT 1/> [place] [address] [facility] THYROID 7 ANCA ANCA STIMULATI [facility] NG HORMONE TSH COLLECTIO 22900 HUSAM Rogel VENOUS 7 PHYSICIAN BLOOD PRACTICE VENIPUNCT L URE BLOOD 16704 [facility] COUNT 7 ANCA ANCA COMPLETE [facility] AUTO&[place] [address] [facility] R[facility] THYROXINE 7 ANCA ANCA TOTAL [facility] GONADOTRO 08970 [facility] PIN 7 ANCA ANCA CHORIONIC [facility] QUANTITAT LINDA IAADIADOO 19001 [facility] MATCHESWA 7 [facility]ALTH [facility] STREPT[facility] MEDICAL CCUS GROUP GROUP A URINE 32193 [facility] CHURCH 7 HEALTH HEALTH TEST MEDICAL MEDICAL VISUAL GROUP GROUP COLOR CMPRSN METHS RADEX 05099 [facility] [place] MAC[place] ABDOMEN 7 RADIOLOGY COMPL W/DCBTS&/ ERC VIEWS URNLS DIP [facility] LET REAGENT AUTO MICROSCOP Y HYSTEROSC 48305 ALEC MICHAEL OPY BX 7 ENDOMETRI UM&/POLYP C W/WO D&C CATH & 14299 ALE[facility] MICHAEL SALINE/CO 7 NTRAST SONOHYSTE R/HYSTERO SALPI LAPS 80021 [facility] MICHAEL FULG/EXC 7 OVARY VISCERA/P ERITONEAL SURFACE ANESTHESI 29220 ANESTHESI RED A 7 A INTRAPERI ASSOCIATE TONEAL S PSC L[place] [address] [facility] P[facility] GROSS&DAMIR ROSCOPIC EXAM DRUG TST G0483 [facility] LABS DEFINITV 7 DR ID METH P DAY 22/MORE DR ONEIL IADNA [address] MEDICAL MEDICAL TRICHOMON 7 DIAGNOSTI DIAGNOSTI C LAB LLC C LAB LLC VAGINALIS AMPLIFIED PROBE TECH COLLECTIO 99047 ASSOCIATE WHITE N VENOUS 7 D BLOOD PATHOLOGI VENIPUNCT STS LLC URE COMPREHEN 38819 PATH PATH SIVE 7 GROUP GROUP METABOLIC LAB[facility] LLC LAB[facility] LLC PANEL DRUG TEST 66108 [facility] PRSMV 7 INSTRMNT CHEMISTRY ANALYZERS IADNA 36510 MEDICAL MEDICAL NEISSERIA 7 DIAGNOSTI DIAGNOSTI [facility] GONORRHO[place] [address] PATH PATH THYROID 7 GROUP GROUP STIMULATI [facility] [place] [address] ALEC MICHAEL TRANSVAGI 7 NAL IADNA 73717 MEDICAL MEDICAL CHLAMYDIA 7 DIAGNOSTI DIAGNOSTI [facility] C [facility] LLC TRACHOMAT IS AMPLIFIED PROBE TQ IADNA 46005 MEDICAL MEDICAL HUMAN 7 DIAGNOSTI DIAGNOSTI [place] C [facility] C LAB LLC VIRUS HIGH-RISK TYPES BLOOD 89894 PATH PATH COUNT 7 GROUP GROUP COMPLETE [facility] AUTO&AUTO DIFRNTL WBC HEMOGLOBI 57329 PATH PATH N 7 GROUP GROUP [facility] MARIANNE A1C IAADIADOO 74794 [facility] 7 [facility] CCUS GROUP GROUP A BLOOD 09152 [facility] COUNT 7 N N COMPLETE COMMUNTIY COMMUNTIY AUTO&AUTO HOSPITA HOSPITA DIFRNTL WBC URINE 05034 [facility] 7 N N TEST COMMUNTIY COMMUNTIY VISUAL HOSPITA HOSPITA COLOR CMPRSN METHS INJECTION J1885 [facility] 7 N N KETOROLAC COMMUNTIY COMMUNTIY HOSPITA HOSPITA TROMETHAM INE PER 15 MG INFUSION J7030 [facility] NORMAL 7 N N SALINE COMMUNTIY COMMUNTIY SOLUTION HOSPITA HOSPITA 1000 CC URNLS DIP 58734 [facility] 7 N N STICK/TAB COMMUNTIY COMMUNTIY LET HOSPITA [place] [address] [facility] INFUSION 7 N N THERAPY/P COMMUNTIY COMMUNTIY ROPHYLAXI HOSPITA HOSPITA S /DX 1ST TO 1 HR THERAPEUT 39294 [facility] IC 7 N N INJECTION COMMUNTIY COMMUNTIY IV PUSH H[place] [address] [facility] LIPASE 7 N N COMMUNTIY COMMUNTIY HOSPITA HOSPITA INJECTION J2550 [facility] 7 N N PROMETHAZ COMMUNTIY COMMUNTIY INE HCL HOSPITA HOSPITA UP TO 50 MG COMPREHEN 47169 [facility] SIVE 7 N N METABOLIC COMMUNTIY [place] [address] [facility] INFUSION 7 N N HYDRATION COMMUNTIY COMMUNTIY EACH HOSPITA HOSPITA ADDITIONA L HOUR IAADIADOO [address] [place] [facility] CCUS GROUP GROUP A IAADIADOO [address] [address] [facility] IN[facility] MEDICAL GROUP THERAPEUT 78169 HUSAM WEINER IC 7 PHYSICIAN PHYSICIAN PROPHYLAC PRACTICE PRACTICE TIC/DX L L INJECTION SUBQ/IM URINE 66538 HUSAM CAMARENA 7 PHYSICIAN TEST PRACTICE VISUAL L COLOR CMPRSN METHS MRI 03388 [facility] 7 [facility] LUMBAR W/O CONTRAST MATERIAL RADIOLOGI 02402 [facility] C 7 N N EXAMINATI COMMUNTIY COMMUNTIY ON PELVIS HOSPITA HOSPITA 1/2 VIEWS RADEX 83149 [facility] SPINE 7 N N LUMBOSACR COMMUNTIY COMMUNTIY AL 2/3 HOSPITA HOSPITA VIEWS THER 14210 [facility] PROPH/DX 7 N N NJX IV COMMUNTIY COMMUNTIY PUSH HOSPITA HOSPITA SINGLE/1S T SBST/[place] [address] [facility] INFUSION 7 N N HYDRATION COMMUNTIY COMMUNTIY EACH HOSPITA HOSPITA ADDITIONA L HOUR COMPREHEN 14491 [facility] SIVE 7 N N METABOLIC COMMUNTIY COMMUNTIY PANEL HOSPITA HOSPITA BLOOD 92985 [facility] COUNT 7 N N COMPLETE COMMUNTIY COMMUNTIY AUTO&AUTO H[place] [address] [facility] LIPASE 7 N N COMMUNTIY COMMUNTIY HOSPITA HOSPITA THERAPEUT 36508 [facility] IC 7 N N INJECTION COMMUNTIY COMMUNTIY IV PUSH HOSPITA HOSPITA EACH NEW DRUG URNLS DIP 03005 [facility] 7 N N STICK/TAB COMMUNTIY COMMUNTIY LET HOSPITA HOSPITA REAGENT AUTO MICROSCOP Y GONADOTRO 24349 LAB RUSSELL LAB RUSSELL PIN 6 ANCA ANCA CHORIONIC HOLDINGS HOLDINGS QUALITATI VE COLLECTIO 60653 HUSAM CAMARENA N VENOUS 6 PHYSICIAN BLOOD PRACTICE VENIPUNCT L URE IAADIADOO 15515 [facility] INFLUENZA MEDICAL MEDICAL GROUP GROUP URINE 31574 [facility] BENAVIDEZ 6 HEALTH TEST MEDICAL VISUAL GROUP COLOR CMPRSN METHS URINE 82636 [place] MIGUE 6 PHYSICIAN TEST PRACTICE VISUAL L COLOR CMPRSN METHS GONADOTRO 69829 LAB RUSSELL LAB RUSSELL PIN 6 ANCA ANCA CHORIONIC HOLDINGS HOLDINGS QUANTITAT LINDA COLLECTIO 27230 [facility] MIGUE N VENOUS 6 PHYSICIAN BLOOD PRACTICE VENIPUNCT L URE PULMONARY 22420 PINA HELLER 6 REGIONAL REGIONAL COMPLIANC [place] [address] PINA MATHEWING 6 REGIONAL REGIONAL CAPACITY MEDICAL MEDICAL CENTE CENTE BRNCDILAT 08446 PINA HELLER RSPSE 6 REGIONAL REGIONAL SPMTRY MEDICAL MEDICAL PRE&POST- CENTE CENTE BRNCDILAT ADMN PRESSURIZ 80078 PINA HELLER ED/NONPRE 6 REGIONAL REGIONAL SSURIZED MEDICAL MEDICAL INHALATIO CENTE CENTE N TREATMENT NONINVASI 31373 PINA HELLER VE 6 REGIONAL REGIONAL EAR/PULSE MEDICAL MEDICAL OXIMETRY CENTE CENTE SINGLE DETER BRNCDILAT 73430 PINA SHIPLEY RSPSE 6 REGIONAL MITCHEL SPMTRY PHYSICIAN PRE&POST- PRA BRNCDILAT ADMN PLETHYSMO 11297 PINA DAMON 6 REGIONAL MITCHEL LUNG PHYSICIAN VOLUMES PRA W/[place] [address] PINA SHIPLEY DIFFUSING 6 REGIONAL MIT[place] [address] [address] THYROID 6 GROUP GROUP STIMULATI [facility] NG HORMONE TSH COLLECTIO 17723 ASSOCIATE WHITE NAHID N VENOUS 6 D BLOOD PATHOLOGI VENIPUNCT STS LLC URE COMPREHEN 99468 PATH PATH SIVE 6 GROUP GROUP METABOLIC [facility] PANEL BLOOD [address]18 [address] COUNT 6 GROUP GROUP COMPLETE [facility] AUTO&AUTO DIFRNTL WBC HEMOGLOBI 33660 [address] PATH N 6 GROUP GROUP [facility] MARIANNE A1C CUL BACT 02261 [address] PATH XCPT 6 GROUP GROUP URINE [facility] BLOOD/STO OL AEROBIC ISOL IADNA 84327 ASSOCIATE WHITE NAHID CHLAMYDIA 6 D PATHOLOGI TRACHOMAT STS LLC IS AMPLIFIED PROBE TQ IADNA 69109 ASSOCIATE WHITE NAHID HUMAN 6 D PAPILLOMA PATHOLOGI VIRUS STS LLC HIGH-RISK TYPES IADNA 88199 ASSOCIATE WHITE NAHID NEISSERIA 6 D PATHOLOGI GONORRHOE STS LLC AE AMPLIFIED PROBE TQ CULTURE 52103 PATH PATH FNGI 6 GROUP GROUP MOLD/YEAS [facility] LABS [facility] T PRSMPTV OTH XCPT BLOOD CYTP C/V 70545 ASSOCIATE WHITE NAHID AUTO THIN 6 D LYR PATHOLOGI PREPJ SCR STS LLC MNL RESCR PHYS RADEX 31247 [place] EDSIRAE HAND 6 MEDICAL BECK MINIMUM 3 IMAGING VIEWS ASS WRIST L3807 [place] SWEENEYRELL HAND 6 HOME HOME FINGR MEDICAL MEDICAL ORTHOS EQUIPME EQUIPME W/O JNT PREFAB CSTM FIT TB CELL 48843 PINA HELLER MEDIATED 6 REGIONAL REGIONAL ANTIGN MEDICAL MEDICAL RESPNSE CENTE CENTE GAMMA INTERFERO N ANTIBODY 54483 PINA HELLER ASPERGILL 6 REGIONAL REGIONAL US MEDICAL MEDICAL CENTE CENTE ANTIBODY 04477 PINA HELLER HISTOPLAS 6 REGIONAL REGIONAL CO MEDICAL MEDICAL CENTE CENTE COLLECTIO 76843 PINA HELLER N VENOUS 6 REGIONAL REGIONAL BLOOD MEDICAL MEDICAL VENIPUNCT CENTE CENTE URE ANTIBODY 23125 PINA HELLER BLASTOMYC 6 REGIONAL REGIONAL ES MEDICAL MEDICAL CENTE CENTE ANTIBODY 78067 PINA HELLER COCCIDIOI 6 REGIONAL REGIONAL PAUL MEDICAL MEDICAL CENTE CENTE CULTURE 15043 LAB RUSSELL LAB RUSSELL BACTERIAL 6 ANCA ANCA HOLDINGS HOLDINGS QUANTTATI VE COLONY COUNT URINE RADIOLOGI 68515 [facility] [place] KOSTELIC C 6 RADIOLOGY ELAINE EXAMINATI [place] [address] [facility] [place] BENAVIDEZ ANGIOGRAP 6 RADIOLOGY RAY HY CHEST W/CONTRAS T/NONCONT RAST ANES 09990 [place] ROSARIO LOWER 6 ANESTHESI SOHA INTESTINE A GROUP PS ENDOSCOPY DISTAL DUODENUM COLONOSCO 43280 PINA CARTER PY FLX DX 6 DIGESTIVE GRE W/COLLJ CARE SPEC WHEN CENTER PFRMD SPMTRY 18379 ESTELLA GILBERT GILBERT ESTELLA W/VC 6 MD EXPIRATOR CONSULTIN Y JOSHUA G SRV W/WO MXML VOL VNTJ RESPIRATO 93985 HUSAM WEINER RY FLOW 6 [facility] LOOP ECG 14660 ESTELLA GILBERT GILBERT ESTELLA ROUTINE 6 MD ECG CONSULTIN W/LEAST G SRV 12 LDS I&R ONLY FIBRIN 11285 HUSAM WEINER DGRADJ [address] [place] [address] D-[place] [address] HUSAM WEINER THYROXINE [address] [place] [address] BLOOD 64701 NIKKYEVAN NIKKYON COUNT [address] [place] [address] AUTO&[place] [address] NIKKYEVAN HUSAM THYROID [address] [place] [address] NG HORMONE TSH ECG 01349 NIKKYEVAN HUSAM ROUTINE [address] [place] [address] W/LEAST 12 LDS TRCG ONLY W/O I&R COLLECTIO 75303 HUSAM WEINER N VENOUS 6 [facility] VENIPUNCT URE COMPREHEN 36752 NIKKYEVAN CAMPELISE SIVE 6 [facility] PANEL RADIOLOGI 83829 HUSAM WEINER C EXAM [address] VIEWS FRONTAL&L ATERAL RADIOLOGI 09989 [facility] LEACH C EXAM 6 [facility] CHEST 2 INC INC VIEWS FRONTAL&L ATERAL BLOOD 78113 [facility] COUNT 6 [facility] COMPLETE INC INC AUTO&AUTO DIFRNTL WBC URINE 18070 [facility] 6 [facility] TEST INC INC VISUAL COLOR CMPRSN METHS PRESSURIZ 25174 [facility] ED/NONPRE 6 [facility] SSURIZED INC INC INHALATIO N TREATMENT COMPREHEN 60229 [facility] SIVE 6 [facility] METABOLIC INC INC PANEL THERAPEUT 91757 [facility] IC 6 [facility] PROPHYLAC INC INC TIC/DX INJECTION SUBQ/IM URNLS DIP 84282 [facility] LEACH 6 [facility]OS[facility] STICK/TAB INC INC LET REAGENT AUTO MICROSCOP Y URNLS DIP 55520 ALEC MAG ALEC MAG 6 STICK/TAB LET RGNT NON-AUTO W/O MICRSCP OBSERVATI 66779 ALEC MAG ALEC MAG ON CARE 6 DISCHARGE MANAGEMEN T INITIAL 14486 ALEC MAG ALEC MAG OBSERVATI 6 ON CARE/[place] [address] [facility] 6 [facility] PATHOLOGY CLINIC PSC GROSS&DAMIR ROSCOPIC EXAM HYSTEROSC 92721 ALEC MAG ALEC MAG OPY BX 6 ENDOMETRI UM&/POLYP C W/WO D&C ANESTHESI 75591 SUBURBAN MCGROARTY A 6 ANESTHESI TAJ INTRAPERI A PSC TONEAL LOWER ABD W/LAPS NOS LAPS 08387 ALEC MAG ALEC MAG FULG/EXC 6 OVARY VISCERA/P ERITONEAL SURFACE IAADIADOO 56098 [facility] 6 [facility]ALTH HEN INFLUENZA MEDICAL GROUP COMPREHEN [address]275 [address] SIVE 6 GROUP GROUP METABOLIC LABS Instant AV LABS Instant AV PANEL COLLECTIO [address] N VENOUS 6 D BLOOD [place] [address] ALEC MAG ALEC MAG TRANSVAGI 6 [place] [address] PATH PATH THYROID 6 GROUP GROUP STIMULATI LABS Instant AV LABS LLC NG HORMONE TSH HEMOGLOBI 75703 [address] PATH N 6 GROUP GROUP GLYCOSYLA LABS Instant AV LABS Instant AV MARIANNE A1C BLOOD 52040 PATH PATH COUNT 6 GROUP GROUP COMPLETE LABS Instant AV LABS Instant AV AUTO&AUTO DIFRNTL WBC OPHTH 62026 [facility] 6 GRE GRE XM&EVAL COMPRE NEW PT 1/> VST IAADIADOO 84614 [facility] 6 HEALTH HEN INFLUENZA MEDICAL GROUP IAADIADOO 18702 [facility] 6 [facility]ALTH HEN STREPTOCO MEDICAL CCUS GROUP GROUP A CYTP C/V 47326 P&C LABS, PICKLESIM AUTO THIN 5 LLC ER JR [place] LYR PREPJ SCR MNL RESCR PHYS 74375 [place] [facility] DELIVERY 5 [facility] RANDALL ONLY ASSOCIATE S, 71775 [facility]AL CENTRAL NONSTRESS 5 [facility] TEST HOSP HOSP US PREG 14740 [place] [facility] UTERUS 5 [facility] RANDALL REAL TIME ASSOCIATE F/U S, TRNSABDL PER FETUS IADNA 87456 [facility] STREPT[facility] 5 DIAGNOSTI DIAGNOSTI CCUS C LAB LLC C LAB [place] [address] C[facility]AL CENTRAL NONSTRESS 5 [facility] TEST [facility]OS[facility] HOSP 54125 [facility]ENTRAL NONSTRESS 5 [facility] HOSP URNLS DIP 90861 [facility] CENTRAL 5 [facility] STICK/TAB HOSP HOSP LET RGNT AUTO W/O MICROSCOP Y COLLECTIO 57107 [facility] CENTRAL N VENOUS 5 [facility] BLOOD HOSP HOSP VENIPUNCT URE FIBRINOGE 77974 CEN[facility]AL CENTRAL N 5 [facility] ACTIVITY HOSP HOSP HGB/RBCS 96710 [facility] CENTRAL 5 [facility] FETOMATER HOSP HOSP NAL HEMRRG DIFRNTL LYSIS BLOOD 38227 [facility]AL CENTRAL COUNT 5 [facility] COMPLETE HOSP HOSP AUTOMATED INITIAL 93824 [facility] VERONICA BORJASATI 5 [facility] THO ON MEDICAL CARE/DAY GROUP 30 MINUTES IM ADM 46804 KENY BUSTILLO PRQ ID 5 VERITO VERITO SUBQ/IM NJXS 1 VACCINE TDAP 54465 KENY KENY VACCINE 7 5 VERITO VERITO YRS/> IM BLOOD 32412 LAB RUSSELL LAB RUSSELL COUNT 5 ANCA ANCA COMPLETE HOLDINGS HOLDINGS AUTOMATED GLUCOSE 34104 LAB RUSSELL LAB RUSSELL POST 5 ANCA ANCA GLUCOSE HOLDINGS HOLDINGS DOSE ANTIBODY 40321 LAB RUSSELL LAB RUSSELL SCREEN 5 ANCA ANCA RBC EACH HOLDINGS HOLDINGS SERUM TECHNIQUE URNLS DIP 84265 [facility] STICK/TAB HOSP HOSP LET RGNT AUTO W/O MICROSCOP Y 55332 [facility] NONSTRESS 5 [facility] HOSP OBSERVATI 26489 SPIKE WAHL ON/INPATI 5 [facility]IDENTIAL [facility] S, CARE 40 MINUTES URNLS DIP 61299 [facility] 5 [facility] STICK/TAB HOSP HOSP LET REAGENT AUTO MICROSCOP Y INITIAL 26134 [facility] VERONICA OBSERVATI [address] [place] [address] ON MEDICAL CARE/DAY GROUP 30 MINUTES US PREG 90958 [facility] UTERUS 5 [facility] RANDALL AFTER 1ST ASSOCIATE TRIMEST S, GESTATION THERAPEUT 90954 JACKELYN MEDINA IC PX 1/> 5 [facility] PH[facility]ICAL EACH 15 THERAP MIN EXERCISES MANUAL 89319 JACKELYN MEDINA THERAPY 5 [facility] TQS 1/> PHYSICAL REGIONS THERAP EACH 15 MINUTES US PREG 54754 [place] [facility] UTERUS 5 [facility] REAL TIME ASSOCIATE W/IMAGE S, DCMTN TRANSVAG CYTP C/V 28098 P&C LABS, PICKLESIM AUTO THIN 5 [facility] ER JR [place] LYR PREPJ SCR MNL RESCR PHYS COLLECTIO 95540 HUSAM WEINER N VENOUS 5 [facility] VENIPUNCT URE GONADOTRO 90597 CONRADOHUNTEREVAN CAMPHUNTEREVAN PIN 5 [facility] QUALITATI VE THERAPEUT 25261 HUSAM SHERON IC PX 1/> 5 [facility] 15 MIN EXERCISES THERAPEUT 02106 HUSAM CAMPHUNTERON IC PX 1/> 5 [facility] 15 MIN EXERCISES PHYSICAL 11324 NIKKYON [place] THERAPY 5 [facility] N INJECTION J1100 [place] 5 [facility] SONE SODIUM PHOSPHATE 1 MG URINE 03143 CONRADOELISE NIKKYON 5 [facility] VISUAL COLOR CMPRSN METHS CT LUMBAR 10190 [facility] [place] MACY SPINE 5 RADIOLOGY RHO W/O CONTRAST MATERIAL THERAPEUT 66555 CONRADOURBON [place] IC 5 [facility] TIC/DX INJECTION SUBQ/IM Encounters Encounter Start End Date Code Location Performer Type Date OFFICE 38985 [place] [facility] 7 7 [facility] T VISIT 15 MINUTES OFFICE 15163 HUSAM CAMARENA OUTPATIEN 7 7 PHYSICIAN T VISIT PRACTICE 15 L MINUTES EMERGENCY [address] [facility] DEPT 7 7 PAKO VISIT EMERGENCY HIGH PHYS SEVERITY& THREAT [facility] HUSAM - 7 7 [facility] 46756 HUSAM CAMARENA OUTPATIEN 7 7 PHYSICIAN T VISIT PRACTICE 15 L MINUTES EMERGENCY 84441 [facility] DEPT 7 7 PAKO VISIT EMERGENCY HIGH PHYS SEVERITY& THREAT [facility] OFFICE 29321 HUSAM OUTPATIEN 7 7 PHYSICIAN T VISIT PRACTICE 15 L MINUTES OFFICE 34293 HUSAM MIGUE OUTPATIEN 7 7 PHYSICIAN T VISIT PRACTICE 15 L MINUTES OFFICE 30133 [facility] OUTPATIEN 7 7 [facility] T VISIT 5 INC MINUTES HOSPITAL HANY - 7 7 [facility] OUTPATIEN [facility] T OFFICE 86563 HUSAM CAMARENA OUTPATIEN 7 7 PHYSICIAN T VISIT PRACTICE 15 L MINUTES OFFICE 58156 HUSAM CAMARENA OUTPATIEN 7 7 PHYSICIAN T VISIT PRACTICE 15 L MINUTES OFFICE 14671 [facility] RO[facility] 7 7 HEALTH LA T VISIT MEDICAL 15 GROUP MINUTES OFFICE 55392 [facility]ALTH T VISIT MEDICAL 15 GROUP MINUTES [facility] 7 7 [facility] T EMERGENCY 71502 JOSEPH 7 7 [facility] HOSPITAL T VISIT MODERATE SEVERITY EMERGENCY 77048 [facility] SWINEY 7 7 PA[facility] T VISIT PHYS HIGH/URGE NT SEVERITY OFFICE 26550 [facility] MICHAEL [facility] 7 7 T VISIT 15 MINUTES EMERGENCY 65287 [facility] 7 7 PAKO DEPARTMEN EMERGENCY T VISIT PHYS HIGH/URGE NT SEVERITY EMERGENCY 78408 [facility] 7 7 N [facility] COMMUNTIY T VISIT HOSPITA LIMITED/M INOR [facility] - 7 7 N OUTPATIEN COMMUNTIY T HOSPITA OFFICE 25816 [facility]E [facility] 7 7 HEALTH T VISIT MEDICAL 15 GROUP MINUTES OFFICE 93500 [facility] 7 7 PHYSICIAN T VISIT PRACTICE 15 L MINUTES EMERGENCY 03338 [facility] 7 7 N [facility] COMMUNTIY T VISIT HOSPITA HIGH/URGE NT SEVERITY HOSPITAL [facility] - 7 7 N OUTPATIEN COMMUNTIY T HOSPITA EMERGENCY 77326 [facility] STEFAN DEPT 7 7 PAKO VISIT EMERGENCY HIGH PHYS SEVERITY& THREAT FUNC OFFICE 12497 RICHIE AVERY OUTJUANEN 7 7 [facility], [facility] III T NEW 30 MINUTES EMERGENCY 48823 [facility] BELEN 7 7 PAKO [facility] T VISIT PHYS HIGH/URGE NT SEVERITY OFFICE 85398 [facility] 7 7 HEALTH LA T VISIT MEDICAL 15 GROUP MINUTES OFFICE 10874 HUSAM CAMARENA [facility] 7 7 PHYSICIAN T VISIT PRACTICE 15 L MINUTES HOSPITAL JOSEPH - 7 7 [facility] - 7 7 N OUTPATIEN COMMUNTIY T HOSPITA EMERGENCY 64419 [facility] 7 7 N DEPARTMEN COMMUNTIY T VISIT HOSPITA HIGH/URGE NT SEVERITY HOSPITAL [facility] - 7 7 N OUTPATIEN COMMUNTIY T HOSPITA EMERGENCY 50529 [facility] 7 PAKO VISIT EMERGENCY HIGH PHYS SEVERITY& THREAT FUNCJ OFFICE 50548 HUSAM CAM[facility] 6 6 PHYSICIAN T VISIT PRACTICE 15 L MINUTES OFFICE 37960 [facility] 6 6 PHYSICIAN T VISIT PRACTICE 15 L MINUTES OFFICE 17367 H[facility]AM CAMARENA [facility] 6 6 PHYSICIAN T VISIT PRACTICE 15 L MINUTES OFFICE 82900 [facility] 6 6 DIGESTIVE CEC T VISIT CARE 15 CENTER MINUTES OFFICE 12511 HUSAM CAMARENA [facility] 6 6 PHYSICIAN OKSANA T VISIT PRACTICE 15 L MINUTES HOSPITAL PINA - 6 6 REGIONAL OUTPATIEN MEDICAL T CENTE PERIODIC 92913 [facility]LEC TURCIOS PREVENTIV 6 6 E MED EST PATIENT 18-39 YRS HOSPITAL HANY Thurman 6 6 [facility] 16135 [facility] 6 6 PHYSICIAN OKSANA T VISIT PRACTICE 15 L MINUTES [facility] PINA Thurman 6 6 REGIONAL OUTPATIEN MEDICAL T CENTE OFFICE 77185 [facility] SHIPLEY [facility] 6 6 REGIONAL MITCHEL T NEW 45 PHYSICIAN MINUTES PRA OFFICE 00732 HUSAM CAMARENA OUTPATIEN 6 6 PHYSICIAN OKSANA T VISIT PRACTICE 25 L MINUTES EMERGENCY 88440 [facility] DE[facility] 6 6 PAKO VISIT EMERGENCY HIGH PHYS SEVERITY& THREAT FUNCJ OFFICE 49463 PINA SCHULTZ 6 6 DIGESTIVE CEC T VISIT CARE 15 CENTER MINUTES OFFICE 88421 HUSAM CAMARENA OUTPATIEN 6 6 PHYSICIAN OKSANA T VISIT PRACTICE 25 L MINUTES HOSPITAL [place] - 6 6 [facility] [place] - 6 6 [facility] 54271 HUSAM CAMARENA OUTPATIEN 6 6 PHYSICIAN OKSANA T VISIT PRACTICE 15 L MINUTES OFFICE 15110 PINA GUERRERO OUTPATIEN 6 6 DIGESTIVE CEC T VISIT CARE 25 CENTER MINUTES [facility]OSPITAL [place] - 6 6 [facility] OFF[facility] 79464 HUSAM CAMARENA OUTPATIEN 6 6 PHYSICIAN OKSANA T VISIT PRACTICE 15 L MINUTES OFFICE 64356 [facility] GUERRERO OUTPATIEN 6 6 DIGESTIVE CEC T NEW 45 CARE MINUTES [facility] HANY - 6 6 [facility] OUTPATIEN INC T EMERGENCY 16671 LAXMI SHABAZZ 6 6 PHYSICIAN DAMIR DEPARTMEN S, PLLC T VISIT HIGH/URGE NT SEVERITY EMERGENCY 24189 [facility] 6 6 MEM [facility] DEPARTMEN INC T VISIT MODERATE SEVERITY OFFICE 36116 HUSAM CAMARENA OUTPATIEN 6 6 PHYSICIAN MITCHEL T VISIT PRACTICE 15 L MINUTES OFFICE 81645 HUSAM CAMARENA OUTPATIEN 6 6 PHYSICIAN MITCHEL T VISIT PRACTICE 15 L MINUTES OFFICE 22356 HUSAM CAMARENA OUTPATIEN 6 6 PHYSICIAN MITCHEL T NEW 45 PRACTICE MINUTES L OFFICE 87103 ALEC MAG [place] MAG OUTPATIEN 6 6 T VISIT 15 MINUTES OFFICE 39453 [facility] LESLEE OUTPATIEN 6 6 HEALTH HEN T VISIT MEDICAL 25 GROUP MINUTES OFFICE 66090 ALEC BROOKEON MAG OUTPATIEN 6 6 T VISIT 15 MINUTES OFFICE 47253 [facility] L[facility] OUTPATIEN 6 6 HEALTH HEN T VISIT MEDICAL 15 GROUP MINUTES OFFICE 98263 [place] [facility] 5 5 [facility] RANDALL T VISIT ASSOCIATE 15 S, MINUTES OFFICE 93628 [facility] ARNETT OUTPATIEN 5 5 HEALTH DON T VISIT MEDICAL 15 GROUP MINUTES HOSPITAL CENTRAL - 5 5 [facility] OUTPATIEN HOSP T OFFICE 76969 [place] [facility] OUT[facility] 5 5 [facility] RANDALL T VISIT ASSOCIATE 15 S, MINUTES OFFICE 97989 [place] [facility] OUTPATIEN 5 5 [facility] RANDALL T VISIT ASSOCIATE 15 S, MINUTES OFFICE 10442 [place] [facility] OUTPATIEN 5 5 [facility] RANDALL T VISIT ASSOCIATE 15 S, MINUTES HOSPITAL CENTRAL - 5 5 [facility] OUT[facility]EN [facility] T OFFICE 18559 [place] [facility] OUT[facility]IEN 5 5 [facility] RANDALL T VISIT ASSOCIATE 15 S, MINUTES OFFICE 22103 [facility] 5 5 [facility] T VISIT MEDICAL 25 GROUP MINUTES OFFICE [id number] [place] [facility] 5 5 RESIDENTIAL [employer] RANDALL T VISIT ASSOCIATE 15 S, MINUTES [facility] 5 5 [facility] [id number] [facility]PAT[facility] 5 5 VERITO VERITO T VISIT 15 MINUTES OFFICE [id number] [facility] [facility] 5 5 RESIDENTIAL [facility] RANDALL T VISIT ASSOCIATE 15 S, MINUTES [facility] 5 5 [facility] 68670 [place] [facility] 5 5 RESIDENTIAL [employer] RANDALL T VISIT ASSOCIATE 15 S, MINUTES [facility] 5 5 [facility] 10571 [facility] [facility] 5 5 RESIDENTIAL [employer] RANDALL T VISIT ASSOCIATE 15 S, MINUTES OFFICE 52000 [facility] [facility] 5 5 RESIDENTIAL [employer] RANDALL T VISIT ASSOCIATE 15 S, MINUTES OFFICE 05002 [facility] [facility] 5 5 RESIDENTIAL [employer] RANDALL T NEW 45 ASSOCIATE MINUTES S, EMERGENCY 16751 [place] 5 5 [facility] T VISIT LOW/MODER SEVERITY EMERGENCY 01024 [facility] 5 5 [facility] EMERGENC[facility] T VISIT PHYS HIGH/URGE NT SEVERITY [facility] [place] [facility] 5 5 [facility] [place] [facility] 5 5 [facility] [place] [facility] 5 5 [facility] [place] [facility] 5 5 [facility] [id number] [facility] OUTPATIEN 5 5 VERITO VERITO T NEW 45 MINUTES [facility] [place] - 5 5 [id number] [facility] 5 5 [facility] EMERGENCY T VISIT PHYS HIGH/URGE NT SEVERITY
--- OUTSIDE RECORDS SUMMARY | 2017-06-23 22:01 | External Medical Summary Rpt | CCD ---
Author Author , ADELIA Organization ADELIA Address Unknown Phone [email or web address] Care Team Providers [employer] Goods Salesperson Name Role Phone DEIRDRE PEREIRA, DEIRDRE Unavailable Unavailable [facility] Unavailable Unavailable [facility], [facility] Unavailable [facility]available [facility] Unavailable Unavailable [facility], [facility] Unavailable Unavailable [facility], [facility] KINDRA JAM, KINDRA JAM Unavailable Unavailable YOUNG, YOUNG Unavailable Unavailable YOUNG ALL, YOUNG ALL Unavailable Unavailable [facility] Unavailable Unavailable HOSPITAL, [facility] Unavailable Unavailable PRACTICE L, [facility] KENY SPENCER Unavailable Unavailable KENY LAM Unavailable Unavailable VERITO OWEN TER, OWEN TER Unavailable Unavailable [facility], Unavailable Unavailable [facility] CHANDEL, CHANDEL Unavailable Unavailable CHESTNUT, CHESTNUT Unavailable Unavailable [facility] Unavailable Unavailable [facility], [facility] Unavailable Un[facility], [facility] Unavailable Unavailable PHYSICIAN PRA, [facility], Unavailable Unavailable [facility] GILBERT ESTELLA, GILBERT ESTELLA Unavailable Unavailable MIGUE, MIGUE Unavailable Unavailable MIGUE MITCHEL, MIGUE Unavailable Unavailable MITCHEL MIGUE OKSANA, MIGUE Unavailable Unavailable OKSANA [facility] Unavailable Unavailable [facility], [facility] BELEN, BELEN Unavailable Unavailable GIRALDO, GIRALDO Unavailable Unavailable HARIKA DAMIR, HARIKA Unavailable Unavailable DAMIR [facility], [facility] GREGONIS MITCHEL, Unavailable Unavailable GREGONIS MITCHEL MACY, MACY Unavailable Unavailable MACY RHO, MACY Unavailable Unavailable RHO HANY, HANY Unavailable Unavailable [facility] Unavailable Unavailable [facility], [facility] YOLANDA CEC, YOLANDA Unavailable Unavailable CEC CONDE, CONDE Unavailable Unavailable ALEC, ALEC Unavailable Unavailable ALEC, ALEC Unavailable Unavailable ALEC MAG, ALEC MAG Unavailable Unavailable ALEC MAG, ALEC MAG Unavailable Unavailable [facility] Un[facility] Unavailable [facility], [facility] Unavailable [facility], [facility], Unavailable Unavailable [facility] KOSTELIC, KOSTELIC Unavailable Unavailable [facility], Unavailable Unavailable [facility] Unavailable Unavailable [facility], [facility] Unavailable Unavailable [facility], [facility] VERONICA JR THO, Unavailable Unavailable VERONICA JR THO [facility] Unavailable Unavailable [facility],, [facility], ANA PEREZ Unavailable Unavailable ANA PEREZ Unavailable Unavailable ANA GRE, Unavailable Unavailable ANA GRE ANA GRE, Unavailable Unavailable ANA GRE MATCHESWALA, Unavailable Unavailable MATCHESWALA MCGROTIMY TAJ, Unavailable Unavailable MCGROARTApoorva TAJ MD LABS, MD LABS Unavailable Unavailable MD LABS, MD [facility] Unavailable [facility], [facility] Unavailable [facility], [facility] ROSARIO SOHA, ROSARIO Unavailable Unavailable [facility] Unavailable Unavailable [facility], [facility] JEFFY Unavailable Unavailable [facility] Unavailable [...] Unavailable CARTER GRE STEFAN, STEFAN Unavailable Unavailable SCALF, SCALF Unavailable Unavailable MARYURI MENDY, MARYURI Unavailable Unavailable MENDY ARNETT DON, Unavailable Unavailable ARNETT DON [facility] Unavailable Unavailable THERAP, [facility] AVERY, III, AVERY, Unavailable Unavailable III [facility] Unavailable Unavailable EQUIPME, [facility] Unavailable Unavailable [facility], [facility] BENAVIDEZ, BENAVIDEZ Unavailable Unavailable BENAVIDEZ RAY, BENAVIDEZ Unavailable Unavailable RAY [facility] Unavailable Unavailable [facility], [facility] MEDINA TONIE, MEDINA Unavailable Unavailable TONIE SWINEY, SWINEY Unavailable Unavailable SWINEY PAT, SWINEY Unavailable Unavailable PAT WHITE, WHITE Unavailable Unavailable WHITE NAHID, WHITE NAHID Unavailable Unavailable HAFSA MITCHEL, HAFSA Unavailable Unavailable MITCHEL DESTINI MOONLEY Unavailable Unavailable Purpose Continuity of Care Document - 10-21-2014 through 2016 Problems Code Diagnosis DOS Provider Status J069 ACUTE UPPER 05-17-2017 RICHIE BALDWIN JERROD RESPIRATORY INFECTION UNSPECIFIED B373 CANDIDIASIS 05-13-2017 [facility] OF VULVA PHYSICIAN AND VAGINA PRACTICE L N10 ACUTE 05-13-2017 [facility] PYELONEPHRI PHYSICIAN TIS PRACTICE L N390 URINARY 05-11-2017 [facility] TRACT N EMERGENCY INFECTION PHYS SITE NOT SPECIFIED C79680 UNSPECIFIED 05-11-2017 [facility] OVARIAN N EMERGENCY CYST [...] FREQUENT ANCA MENSTRUATIO HOLDINGS N W/REGULAR CYCLE G03669 CELLULITIS 02-16-2017 [facility] OF OTHER PHYSICIAN SITES PRACTICE L H6503 ACUTE 01-28-2017 [facility]IA GROUP BILATERAL N910 PRIMARY 01-24-2017 [facility] Z3202 ENCOUNTER 01-24-2017 [facility] FOR [facility] MEDICAL TEST RESULT GROUP NEGATIVE 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 01-13-2017 [facility] I341 NONRHEUMATI 01-13-2017 [facility] PROLAPSE K589 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-2017 [facility] WITHOUT DIARRHEA K5900 CONSTIPATIO 01-13-2017 [...] 01-05-2017 [facility] LUTEUM CYST OF RIGHT OVARY K91282 OTHER 01-05-2017 [facility] [place] CYST RIGHT CLINIC PSC SIDE N926 IRREGULAR 01-05-2017 [facility] MENSTRUATIO N UNSPECIFIED R102 PELVIC AND 12-07-2016 [facility] DIAG[facility] PAIN [facility] R59790 ENCOUNTER 12-07-2016 [facility] PREPROCEDUR AL EXAMINATION Z5181 ENCOUNTER 12-07-2016 [facility] FOR THERAPEUTIC DRUG LEVEL MONITORING U69923 OTHER LONG 12-07-2016 MD LAB[facility] TERM CURRENT DRUG THERAPY Z5321 PROC & [place] 12-05-2016 [facility] NOT CARRIED [facility]TI[facility] OUT PT HOSPITA LEAVE PRIOR TO SEEN I889 NONSPECIFIC 11-18-2016 [facility] LYMP[facility] MEDICAL IS GROUP UNSPECIFIED J029 ACUTE 11-18-[address] [facility] UNSPECIFIED GROUP R0981 NASAL 11-18-[address] [facility] K529 NONINFECTIV 11-01-2016 [facility] E PHYSICIAN GASTROENTER PRACTICE L ITIS & COLITIS UNS R1084 GENERALIZED 10-30-2016 [facility] ABDOMINAL N EMERGENCY PAIN PHYS R197 DIARRHEA 10-30-2016 [facility] UNSPECIFIED N EMERGENCY PHYS Z720 TOBACCO USE 10-30-2016 [facility] J020 STREPTOCOCC 10-25-2016 [facility] PHARYNGITIS J9801 ACUTE 10-25-2016 [facility] M J111 FLU D/T 10-19-2016 [facility] UNIDENTIFIE N EMERGENCY D FLU VIRUS PHYS W/OTH RESP MANIF R6889 OTHER 10-17-2016 [facility] SYMPTOMS MEDICAL AND SIGNS GROUP J62107 CONTACT W/ 10-17-2016 [facility] & EXPOSURE HEALTH OT VIRAL MEDICAL COMMUNICABL GROUP E DZ M549 DORSALGIA 09-17-2016 [facility] I33830 MIGRAINE 09-12-2016 [facility] UNS NOT N EMERGENCY INTRACT W/O PHYS STATUS MIGRAINOSUS Z3200 ENCOUNTER 08-25-2016 [facility] MEDICAL TEST RESULT GROUP UNKNOWN Q54262 PAIN IN 08-11-2016 [facility] UNSPECIFIED PHYSICIAN HIP PRACTICE L J00 ACUTE 07-23-2016 [facility] NASOPHARYNG PHYSICIAN ITIS COMMON PRACTICE L COLD R238 OTHER SKIN 07-23-2016 [facility] CHANGES PHYSICIAN PRACTICE L L301 DYSHIDROSIS 06-28-2016 [facility] POMPHOLYX PHYSICIAN PRACTICE L R05 COUGH 06-16-2016 [facility] PH[facility] PRA R0602 SHORTNESS 06-16-2016 [facility] OF BREATH REGIONAL PHYSICIAN PRA R062 WHEEZING 06-16-2016 [facility] PH[facility]ICIAN PRA O93534 ENCOUNTER 06-08-2016 [facility] MAG BAR HOSTESS EXAM GENERAL RTN W/O ABNORMAL FIND Z113 ENCOUNTER 06-08-2016 [facility] SCREEN PATHOLOGIST INFECTIONS S LLC SEXL MODE TRANSMISSN Z1151 ENCOUNTER 06-08-2016 [facility]ATED FOR PATHOLOGIST SCREENING S LLC FOR HUMAN PAPILLOMAVI CORDELIA Z118 ENCOUNTER 06-08-2016 [facility]OC[facility]ATED SCREEN PATHOLOGIST OTHER S LLC INFECTIOUS & PARASITIC DZ S53239 PAIN IN 05-24-2016 [facility] FINGERS [facility] ASS J309 ALLERGIC 05-05-2016 [facility] RHINITIS REGIONAL UNSPECIFIED PHYSICIAN PRA R60489 UNSPECIFIED 05-05-2016 [facility] ASTHMA REGIONAL UNCOMPLICAT PHYSICIAN ED PRA K219 GASTRO-ESOP 05-05-2016 [facility] REFLUX REGIONAL DISEASE PHYSICIAN WITHOUT PRA ESOPHAGITIS R61 GENERALIZED 05-05-2016 [facility]AL HYPERHIDROS PHYSICIAN IS PRA R072 PRECORDIAL 04-11-2016 [facility] PAIN [facility] R0789 OTHER CHEST 04-11-2016 [facility] PAIN N EMERGENCY PHYS R079 CHEST PAIN 04-11-2016 [facility] [place] UNSPECIFIED RADIOLOGY [id number] STRAIN 04-11-2016 [facility] MUSCLE & N EMERGENCY TENDON UNS PHYS WALL THORAX INIT ENC G11SMZL EXPOSURE TO 04-11-2016 [facility] OTHER N EMERGENCY SPECIFIED PHYS FACTORS INITIAL ENC R198 OTH SPEC SX 03-17-2016 [facility] & SIGNS DIGESTIVE INVLV [facility] D[facility] SYS & ABD Z1211 ENCOUNTER 03-17-2016 [facility] SCREENING [facility]IA MALIGNANT GROUP PS NEOPLASM OF COLON G8929 OTHER 03-12-2016 [facility] L Z539 PROCEDURE & 03-08-2016 [facility] NOT CARRIED HOSPITAL OUT UNS REASON R000 TACHYCARDIA 03-03-2016 [facility] PHYSICIAN UNSPECIFIED PRACTICE L J40 BRONCHITIS 03-01-2016 [facility] [place] NOT RADIOLOGY SPECIFIED ACUTE OR CHRONIC J4530 MILD 01-31-2016 [facility], ASTHMA PLLC UNCOMPLICAT ED J0190 ACUTE 01-28-2016 [facility] SINUSITIS PHYSICIAN UNSPECIFIED PRACTICE L H8110 BENIGN 01-16-2016 [facility] PAROXYSMAL PHYSICIAN VERTIGO PRACTICE L UNSPECIFIED EAR N3010 INTERSTITIA 01-07-2016 [facility] L CYSTITIS PHYSICIAN CHRONIC PRACTICE L WITHOUT HEMATURIA N3281 OVERACTIVE 12-25-2015 [facility] TURCIOS BLADDER R300 DYSURIA 12-08-2015 [facility] MAG N801 ENDOMETRIOS 11-28-2015 [facility] MAG IS OF OVARY N803 ENDOMETRIOS 11-28-2015 [facility] MAG IS OF PELVIC PERITONEUM N8320 UNSPECIFIED 11-28-2015 [facility] MAG OVARIAN CYSTS N838 OTH 11-28-2015 NEW NONINFLAMM [facility] D/O OVARY CLINIC PSC FALLOP TUBE & BROAD LIG N941 DYSPAREUNIA 11-28-2015 [facility] N942 VAGINISMUS 11-28-2015 [facility] TURCIOS H5203 HYPERMETROP 09-29-2015 ANA IA GRE BILATERAL Z309 ENCOUNTER 07-17-2015 [facility] FOR PALAEONTOLOGIST CONTRACEPTI ASSOCIATES, VE MANAGEMENT UNS Z392 ENCOUNTER 07-17-2015 [facility] FOR ROUTINE [facility]ONTOLOGIST [facility]OCI[facility], FOLLOW-UP K1230 ORAL 07-08-2015 [facility] MUCOSITIS HEALTH ULCERATIVE MEDICAL UNSPECIFIED GROUP L393QN7 MAT CARE 07-03-2015 [facility] DISPROPORTI ANESTHESIA ON UNUSUAL PSC LARGE FET NA/UNS O653 OBST LABOR 07-03-2015 [facility] DUE PELV PALAEONTOLOGIST OUTLET & ASSOCIATES, MID-CAV CONTRACTION Z370 SINGLE LIVE 07-03-2015 [facility] ANESTHESIA PSC Z3A39 39 WEEKS 07-03-2015 [facility] GESTATION PALAEONTOLOGIST OF ASSOCIATES, O471 FALSE LABOR 06-26-2015 [facility] AT/AFTER [facility] 37 HOSP COMPLETED WEEKS GEST Z3483 ENC 06-26-2015 [facility] SUPERVISION PALAEONTOLOGIST OTH NORMAL ASSOCIATES, 3 TRIMESTER Z3A38 38 WEEKS 06-26-2015 [facility] GESTATION [facility] OF HOSP J1207G0 MATERNAL 06-19-2015 [facility] CARE EXCESS PALAEONTOLOGIST ASSOCIATES, GROWTH 3RD TRI NA/UNS [id number] POLYHYDRAMN 06-19-2015 [facility] IOS THIRD PALAEONTOLOGIST TRIMESTER ASSOCIATES, NA/UNS Z3A37 37 WEEKS 06-19-2015 [facility] GESTATION PALAEONTOLOGIST OF ASSOCIATES, Z391 ENCNTR FOR 06-18-2015 [facility] EXAMINATION SUPPLIES LACTATING MOTHER R65230 ANEMIA 06-12-2015 [facility] COMPLICATIN PALAEONTOLOGIST G ASSOCIATES, THIRD TRIMESTER Z36 ENCOUNTER 06-12-2015 [facility] FOR DIAGNOSTIC LAB LLC SCREENING OF MOTHER Z3A36 36 WEEKS 06-12-2015 [facility] GESTATION PALAEONTOLOGIST OF ASSOCIATES, 91052 THREATENED 06-11-2015 [facility] PREMATURE [facility] LABOR [facility]OS[facility] ANTEPARTUM 79129 OTH CURRENT 05-29-2015 [facility] MAT CONDS PALAEONTOLOGIST CLASSIFIABL ASSOCIATES, E ELSW ANTPRTM 7869 OT 05-29-2015 [facility] SYMPTOMS PALAEONTOLOGIST INVOLVING ASSOCIATES, RESPIRATORY SYSTEM&CHES T 4619 ACUTE 05-22-2015 [facility] SINUSITIS, HEALTH UNSPECIFIED MEDICAL GROUP 4779 ALLERGIC 05-22-2015 [facility] RHINITIS HEALTH CAUSE MEDICAL UNSPECIFIED GROUP V221 SUPERVISION 05-15-2015 [place] OF OTHER PALAEONTOLOGIST NORMAL ASSOCIATES, 26424 OTHER 04-18-2015 [facility] SPECIFED HEALTH COMPLICATIO MEDICAL N GROUP ANTEPARTUM 7605 FETUS OR 04-18-2015 [facility] AFFECTED BY MEDICAL MATERNAL GROUP INJURY V222 04-18-2015 [facility] STATE, [facility] INCIDENTAL [facility]OSP V714 OBSERVATION 04-18-2015 [facility] FOLLOWING [facility] OTHER HOSP ACCIDENT 18520 ABDOMINAL 04-17-2015 KENY SELLERS WITH INTRAUTERIN E 21598 ABDOMINAL 04-01-2015 [facility] PAIN RIGHT [facility] LOWER [facility]OS[facility] QUADRANT 6259 UNSPEC 03-01-2015 [facility] SYMPTOM [facility]OS[facility] W/FEMALE GENITAL ORGANS 49464 ABDOMINAL 03-01-2015 [facility] PAIN, LEFT HEALTH LOWER MEDICAL QUADRANT GROUP 7202 SACROILIITI 01-31-2015 [facility] ELSEWHERE PHYSICAL CLASSIFIED THERAP 7244 THORACIC/MARINA 01-31-2015 [facility] NEURITIS/RA PHYSICAL DICULITIS THERAP UNSPEC V571 OTHER 01-31-2015 [facility] THERAPY PHYSICAL THERAP 22254 MILD 12-19-2014 [facility] HYPEREMESIS PALAEONTOLOGIST GRAVIDARUM ASSOCIATES, ANTEPARTUM 12771 THREATENED 11-21-2014 [facility] , PALAEONTOLOGIST ANTEPARTUM ASSOCIATES, V7231 ROUTINE 11-21-2014 [facility] AL EXAMINATION 8470 NECK SPRAIN 11-19-2014 [facility] AND STRAIN N EMERGENCY PHYS E9289 UNSPECIFIED 11-19-2014 [facility] ACCIDENT N EMERGENCY PHYS V141 PERSONAL 11-19-2014 [facility] OTHER ANTIBIOTIC AGENT V143 PERSONAL 11-19-2014 [facility] ANTI-INFECT LINDA AGT V146 PERSONAL 11-19-2014 [facility] TO HOSPITAL ANALGESIC AGENT 6260 ABSENCE OF 11-13-2014 [facility]IO [facility] 60391 DISPLCMT 11-11-2014 [facility] LUMBAR [facility] DISC W/O MYELOPATHY 7242 LUMBAGO 11-11-2014 [facility] 8461 SPRAIN AND 11-01-2014 KENY SELLERS STRAIN OF SACROILIAC 7222 DISPLCMT 10-21-2014 [facility] DISC SITE [facility]OSPITAL UNS W/O MYELOPATHY 7820 DISTURBANCE 10-21-2014 [facility] OF SKIN N EMERGENCY SENSATION PHYS V1582 PERS HX 10-21-2014 [facility] TOBACCO USE [facility] HAZARDS HEALTH Medications Na ND Rx Da Fi Fi [...] 17 17 95 E 5 80 PH MN AR OP MA CY 50 #4 MC 93 G SP RA Y CL 16 09 10 60 30 00 UT Ac ON 72 -1 -0 .0 00 L- ti AZ 90 4- 6- 00 04 MA ve EP 13 20 20 52 RT AM 61 17 17 33 6 59 PH 0. AR 5 MA MG CY TA #4 BL 93 ET BE 51 09 09 30 10 00 [place] Ac NZ 22 -0 -2 .0 00 L- ti ON 40 5- 9- 00 07 MA ve AT 00 20 20 42 RT AT 16 17 17 77 E 0 56 PH 20 AR 0 MA MG CY CA #4 PS 93 UL E PS 45 09 09 56 7 00 [...] #4 93 TA BL ET FL 55 09 09 1. 1 00 UT Ac UC 11 -0 -2 00 00 L- ti ON 10 1- 2- 0 07 MA ve AZ 14 20 20 42 RT OL 51 17 17 72 E 2 36 PH 15 AR 0 MA MG CY TA #4 BL 93 ET MN 59 08 09 20 7 00 UT Ac OC 74 -3 -2 .0 00 L- ti HL 60 1- 2- 00 07 MA ve OR 11 20 20 42 RT PE 50 17 17 69 RA 6 86 PH ZI AR NE MA CY 10 #4 MG 93 TA B NI 47 08 09 20 10 00 UT Ac TR 78 -3 -2 .0 00 L- ti OF 10 1- 2- 00 07 MA ve UR 30 20 20 42 RT AN 30 17 17 69 TO 1 87 PH IN AR MA MO CY NO -M #4 CR 93 10 0 MG MN 68 08 09 20 5 00 [facility] OM 38 -1 -0 .0 00 L- ti ET 20 8- 8- 00 07 MA ve TALAMANTES 04 20 20 42 RT ZI 00 17 17 50 NE 1 57 PH AR 12 MA .5 CY MG #4 93 TA BL ET FL 55 08 09 1. 1 00 UT Ac UC 11 -0 -0 00 00 L- ti ON 10 7- 1- 0 07 MA ve AZ 14 20 20 41 RT OL 51 17 17 92 E 2 62 PH 15 AR 0 MA MG CY TA #4 BL 93 ET AM 00 07 08 30 30 00 [facility] IT 78 -3 -2 .0 00 L- ti RI 11 1- 5- 00 07 MA ve PT 48 20 20 42 RT YL 61 17 17 19 IN 0 00 PH E AR HC MA L CY 10 #4 MG 93 TA B ME 59 07 08 21 6 00 UT Ac TH 74 -1 -1 .0 00 L- ti YL 60 7- 8- 00 07 MA ve MN 00 20 20 41 RT ED 10 17 17 96 NI 3 99 PH SO AR LO MA NE CY 4 #4 MG 93 DO SE PK CY 68 07 08 15 4 00 UT Ac CL 64 -1 -1 .0 00 L- ti OB 50 7- 8- 00 07 MA ve EN 51 20 20 41 RT ZA 89 17 17 97 MN 0 00 PH IN AR E MA 10 CY MG #4 93 TA BL ET AZ 59 07 08 6. 5 00 UT Ac IT 76 -1 -0 00 00 L- ti HR 23 1- 4- 0 07 MA ve OM 06 20 20 41 RT YC 00 17 17 87 IN 1 16 PH AR 25 MA 0 CY MG #4 TA 93 BL ET BE 51 07 08 30 10 00 UT Ac NZ 22 -1 -0 .0 00 L- ti ON 40 1- 4- 00 07 MA ve AT 00 20 20 41 RT AT 16 17 17 87 E 0 17 PH 20 AR 0 MA MG CY CA #4 PS 93 UL E CL 16 07 08 20 10 00 UT Ac ON 72 -1 -0 .0 00 L- ti AZ 90 1- 4- 00 04 MA ve EP 13 20 20 52 RT AM 61 17 17 20 6 00 PH 0. AR 5 MA MG CY TA #4 BL 93 ET CL 63 07 08 21 7 00 UT Ac IN 30 -1 -0 .0 00 L- ti DA 40 4- 4- 00 07 MA ve MY 69 20 20 49 RT CI 30 17 17 88 N 1 07 PH HC AR L MA 30 CY 0 MG #5 91 CA PS UL E IB 68 07 08 30 5 00 UT Ac UP 64 -1 -0 .0 00 L- ti RO 50 4- 4- 00 07 MA ve FE 53 20 20 49 RT N 05 17 17 88 60 9 11 PH 0 AR MG MA CY TA BL #5 ET 91 FL 55 07 08 1. 1 00 UT Ac UC 11 -1 -0 00 00 L- ti ON 10 4- 4- 0 07 MA ve AZ 14 20 20 41 RT OL 51 17 17 92 E 2 62 PH 15 AR 0 MA MG CY TA #4 BL 93 ET PE 40 06 07 60 1 00 UT Ac RM 08 -2 -2 .0 00 L- ti ET 50 5- 1- 00 07 MA ve HR 21 20 20 41 RT IN 56 17 17 60 0 82 PH 5% AR MA CR CY EA M #4 93 CL 00 06 07 15 7 00 [place] Ac OB 16 -2 -2 .0 00 L- ti ET 80 7- 1- 00 07 MA ve 16 20 20 41 RT OL 31 17 17 60 5 85 PH 0. AR 05 MA % CY CR EA #4 M 93 ME 59 06 07 5. [address] 76 -1 -1 00 00 L- ti OX 23 9- 4- 0 07 MA ve YP 74 20 20 41 RT RO 20 17 17 51 GE [address] AR ER MA ON CY E 10 #4 93 MG TA B PE 40 06 07 60 10 00 [facility] RM 08 -2 -1 .0 00 L- ti ET 50 1- 4- 00 07 MA ve HR 21 20 20 49 RT IN 56 17 17 48 0 90 PH 5% AR MA CR CY EA M #5 91 CE 68 06 07 20 10 00 [facility] PH 18 -0 -0 .0 00 L- ti AL 00 7- 7- 00 07 MA ve EX 12 20 20 41 RT IN 20 17 17 31 2 05 PH 50 AR 0 MA MG CY CA #4 PS 93 UL E FL 55 06 07 1. 1 00 [facility] UC 11 -1 -0 00 00 L- ti ON 10 3- 7- 0 07 MA ve AZ 14 20 20 41 RT OL 51 17 17 40 E 2 73 PH 15 AR 0 MA MG CY TA #4 BL 93 ET OX 62 06 06 30 30 00 [facility] YB 17 -0 -2 .0 00 L- ti UT 50 1- 3- 00 07 MA ve YN 27 20 20 41 RT IN 13 17 17 19 7 18 PH CL AR MA ER CY 10 #4 93 MG TA BL ET PEDERSON 65 05 06 20 10 00 [facility] LF 86 -1 -0 .0 00 L- ti AM 20 5- 9- 00 07 MA ve ET 42 20 20 65 RT HO 00 17 17 99 XA 5 19 PH ZO AR LE MA -T CY MP #5 DS 71 TA BL ET PH 51 05 06 9. 3 00 [facility] EN 29 -1 -0 00 00 L- ti AZ 30 7- 9- 0 07 MA ve OP 81 20 20 66 RT YR 10 17 17 05 ID 1 83 PH IN AR E MA 20 CY 0 MG #5 71 TA B MN 00 05 06 21 6 00 [facility] ED 60 -1 -0 .0 00 L- ti NI 35 9- 9- 00 07 MA ve SO 33 20 20 66 RT NE 71 17 17 11 5 5 59 PH AR MG MA CY TA BL #5 ET 71 VE 00 05 06 90 30 00 [facility] NL 09 -0 -0 .0 00 L- ti AF 37 8- 2- 00 07 MA ve AX 38 20 20 65 RT IN 55 17 17 81 E 6 75 PH HC AR L MA ER CY 75 #5 71 MG CA P AZ 59 05 06 6. 5 00 UT Ac IT 76 -1 -0 00 00 L- ti HR 23 1- 2- 0 07 MA ve OM 06 20 20 65 RT YC 00 17 17 91 IN 1 54 PH AR 25 MA 0 CY MG #5 TA 71 BL ET HY 00 04 05 25 [address] 40 -2 -1 .0 00 L- ti OC 60 6- 9- 00 02 MA ve OD 12 20 20 23 RT ON 40 17 17 62 -A 1 16 PH CE AR TA MA VA CY NO PH #4 93 7. 5- 32 5 FL 55 04 05 1. 1 00 UT Ac UC 11 -2 -1 00 00 L- ti ON 10 7- 9- 0 07 MA ve AZ 14 20 20 40 RT OL 51 17 17 61 E 2 48 PH 15 AR 0 MA MG CY TA #4 BL 93 ET NA 65 04 05 28 14 00 UT Ac MN 16 -1 -1 .0 00 L- ti OX 20 7- 2- 00 07 MA ve EN 19 20 20 40 RT 01 17 17 42 50 1 23 PH 0 AR MG MA CY TA BL #4 ET 93 CY 68 04 05 21 7 00 UT Ac CL 64 -1 -1 .0 00 L- ti OB 50 7- 2- 00 07 MA ve EN 51 20 20 40 RT ZA 89 17 17 42 MN 0 24 PH IN AR E MA 10 CY MG #4 93 TA BL ET BE 51 04 05 20 7 00 UT Ac NZ 22 -1 -1 .0 00 L- ti ON 40 7- 2- 00 07 MA ve AT 00 20 20 40 RT AT 16 17 17 42 E 0 25 PH 20 AR 0 MA MG CY CA #4 PS 93 UL E DI 16 03 05 30 15 00 UT Ac CL 57 -2 -0 .0 00 L- ti OF 10 7- 5- 00 07 MA ve EN 20 20 20 40 RT AC 15 17 17 05 0 56 PH SO AR D MA EC CY 75 #4 93 MG TA B OX 00 03 05 10 2 00 UT Ac YC 40 -2 -0 .0 00 L- ti OD 60 7- 5- 00 02 MA ve ON 51 20 20 23 RT E- 20 17 17 58 AC 1 31 PH ET AR AM MA IN CY OP HE #4 N 93 5- 32 5 HY 00 03 05 [address] 40 -2 -0 .0 00 L- ti OC 60 8- 5- 00 02 MA ve OD 12 20 20 23 RT ON 30 17 17 58 -A 1 59 PH CE AR TA MA VA CY NO PH #4 EN 93 5- 32 5 ## 03 03 20 10 00 UT Ac ## -0 -3 .0 00 L- ti ## 9- 1- 00 08 MA ve ## 20 20 83 RT ## 17 17 96 # 67 PH AR MA CY #4 93 AZ 59 03 03 6. 5 00 UT Ac IT 76 -0 -3 00 00 L- ti HR 23 9- 1- 0 07 MA ve OM 06 20 20 39 RT YC 00 17 17 71 IN 1 19 PH AR 25 MA 0 CY MG #4 TA 93 BL ET FL 60 03 03 16 30 00 UT [place] UT 43 -0 -2 .0 00 L- ti IC 20 1- 4- 00 07 MA ve 26 20 20 39 RT ON 41 17 17 54 E 5 91 PH MN AR OP MA CY 50 #4 MC 93 G SP RA Y FL 55 02 03 1. 1 00 [facility] UC 11 -2 -1 00 00 L- ti ON 10 1- 7- 0 07 MA ve AZ 14 20 20 64 RT OL 51 17 17 04 E 2 05 PH 15 AR 0 MA MG CY TA #5 BL 71 ET OS 47 02 03 10 5 00 [facility] EL 78 -0 -1 .0 00 L- ti TA 10 5- 0- 00 07 MA ve VA 47 20 20 39 RT 01 17 17 08 R 3 29 PH PH AR OS MA CY 75 #4 MG 93 CA PS UL E DI 00 02 03 20 5 00 UT Ac CY 52 -1 -1 .0 00 L- ti CL 71 8- 0- 00 07 MA ve OM 28 20 20 63 RT IN 20 17 17 98 E 1 81 PH 20 AR MA MG CY TA #5 BL 71 ET MN 68 02 03 20 5 00 UT Ac OM 38 -1 -1 .0 00 L- ti ET 20 8- 0- 00 07 MA ve TALAMANTES 04 20 20 63 RT ZI 10 17 17 98 NE 1 82 PH AR 25 MA CY MG #5 TA 71 BL ET ON 57 02 03 12 2 00 UT Ac DA 23 -1 -1 .0 00 L- ti NS 70 8- 0- 00 07 MA ve ET 07 20 20 63 RT RO 71 17 17 98 N 0 83 PH OD AR T MA 4 CY MG #5 TA 71 BL ET IB 68 02 03 30 10 00 WA Ac UP 64 -0 -1 .0 00 L- ti RO 50 8- 0- 00 07 MA ve FE 53 20 20 39 RT N 15 17 17 14 80 4 11 PH 0 AR MG MA CY TA BL #4 ET 93 AZ 59 02 03 4. 4 00 WA Ac IT 76 -0 -1 00 00 L- ti HR 23 8- 0- 0 07 MA ve OM 06 20 20 39 RT YC 00 17 17 14 IN 2 12 PH AR 25 MA 0 CY MG #4 TA 93 BL ET MN 50 02 03 18 9 00 WA Ac OM 38 -1 -1 0. 00 L- ti ET 30 3- 0- 00 04 MA ve TALAMANTES 80 20 20 0 54 RT ZI 51 17 17 17 NE 6 15 PH -P AR E- MA CO CY DE IN #5 E 71 SY RU P AM 64 02 03 60 30 00 UT Ac IT 76 -1 -1 .0 00 [...] CE 16 02 03 30 30 00 UT Ac TI 57 -1 -1 .0 00 L- ti RI 10 3- 0- 00 08 MA ve ZI 40 20 20 83 RT NE 25 17 17 81 0 84 PH HC AR L MA 10 CY MG #5 71 TA BL ET VE 00 02 03 18 17 00 WA Ac NT 17 -1 -1 .0 00 L- ti OL 30 3- 0- 00 07 MA ve IN 68 20 20 63 RT 22 17 17 85 HF 0 56 PH A AR 90 MA CY MC G #5 IN 71 TALAMANTES LE R MN 68 02 02 10 3 00 WA [...] 30 1- 4- 00 07 MA ve VA 31 20 20 39 RT DE 10 17 17 01 2 1 57 PH AR MG MA CY CA PS #4 UL 93 E FL 60 01 02 16 30 00 UT Ac UT 43 -2 -1 .0 00 L- ti IC 20 3- 7- 00 07 MA ve 26 20 20 36 RT ON 41 17 17 13 E 5 97 PH MN AR OP MA CY 50 #4 MC 93 G SP RA Y OX 65 01 02 30 30 00 UT Ac YB 16 -2 -1 .0 00 L- ti UT 20 3- 7- 00 07 MA ve YN 37 20 20 34 RT IN 21 17 17 03 0 45 PH CL AR MA ER CY 10 #4 93 MG TA BL ET SY 00 01 02 10 30 00 UT Ac MB 18 -2 -1 .1 00 L- ti IC 60 3- 7- 99 07 MA ve OR 37 20 20 36 RT T 22 17 17 13 80 0 98 PH -4 AR .5 MA CY MC G #4 IN 93 TALAMANTES LE R OM 60 01 02 30 30 00 UT Ac EP 50 -2 -1 .0 00 L- ti RA 50 3- 7- 00 07 MA ve ZO 14 20 20 36 RT LE 60 17 [address] AR MA 40 CY MG #4 93 CA PS UL E CE 16 01 02 30 30 00 UT Ac TI 57 -0 -0 .0 00 L- ti RI 10 9- 3- 00 08 MA ve ZI 40 20 20 83 RT NE 25 17 17 59 0 83 PH HC AR L MA 10 CY MG #4 93 TA BL ET AM 64 01 02 60 30 00 UT Ac IT 76 -1 -0 .0 00 L- ti IZ 40 0- 3- 00 07 MA ve A 24 20 20 37 RT 24 06 17 17 25 0 51 PH MC AR G MA CA CY PS UL #4 ES 93 ME 00 01 01 20 5 00 CV Ac TO 09 -0 -2 .0 00 S ti CL 32 1- 7- 00 01 PH ve OP 20 20 20 28 AR RA 30 17 17 24 MA VA 5 44 CY DE #0 10 23 32 MG TA BL ET MO 54 12 01 30 30 00 UT Ac NT 45 -2 -2 .0 00 L- ti EL 80 8- 0- 00 07 MA ve UK 89 20 20 38 RT 01 16 17 36 T 0 78 PH SO AR D MA 10 CY MG #4 93 TA BL ET GA 65 12 01 90 30 00 [facility] BA 16 -3 -2 .0 00 L- ti PE 20 0- 0- 00 07 MA ve NT 10 20 20 62 RT IN 25 16 17 80 0 12 PH 30 AR 0 MA MG CY CA #5 PS 71 UL E VE 00 12 01 90 30 00 [facility] NL 09 -1 -1 .0 00 L- ti AF 37 8- 3- 00 07 MA ve AX 38 20 20 37 RT IN 55 16 17 21 E 6 86 PH HC AR L MA ER CY 75 #4 93 MG CA P FL 55 12 01 2. 3 00 [facility] UC 11 -2 -1 00 00 L- ti ON 10 0- 3- 0 07 MA ve AZ 14 20 20 38 RT OL 51 16 17 24 E 2 49 PH 15 AR 0 MA MG CY TA #4 BL 93 ET OX 65 12 01 30 30 00 [facility] YB 16 -2 -1 .0 00 L- ti UT 20 1- 3- 00 07 MA ve YN 37 20 20 34 RT IN 21 16 17 03 0 45 PH CL AR MA ER CY 10 #4 93 MG TA BL ET SY 00 12 01 10 30 00 [facility] MB 18 -2 -1 .1 00 L- ti IC 60 1- 3- 99 07 MA ve OR 37 20 20 36 RT T 22 16 17 13 80 0 98 PH -4 AR .5 MA CY MC G #4 IN 93 TALAMANTES LE R FL 60 12 01 16 30 00 [facility] UT 43 -2 -1 .0 00 L- ti IC 20 1- 3- 00 07 MA ve 26 20 20 36 RT ON 41 16 17 13 E 5 97 PH MN AR OP MA CY 50 #4 MC 93 G SP RA Y OM 57 12 30 30 00 [facility] EP 23 -2 -1 .0 00 L- ti RA 70 1- 3- 00 07 MA ve ZO 16 20 20 36 RT LE 23 16 [address] AR MA 40 CY MG #4 93 CA PS UL E ME 54 12 30 30 00 [facility] LO 45 -2 -1 .0 00 L- ti XI 80 2- 3- 00 07 MA ve CA 96 20 20 38 RT M 41 16 17 27 15 0 97 PH AR MG MA CY TA BL #4 ET 93 CE 16 12 30 30 00 UT Ac TI 57 -1 -0 .0 00 [...] VERITO INE 7 YRS/ > IM VERITO Procedures Procedure [place] [address] [facility] [place] SCALF TRANSVAGI 7 RADIOLOGY NAL OPHTH 49571 [facility] 7 XM&EVAL COMPRHNSV ESTAB PT 1/> [place] [address] LAB R[facility]LL LAB RUSSELL THYROID 7 ANCA ANCA STIMULATI HOLDINGS HOLDINGS NG HORMONE TSH COLLECTIO 78471 HUSAM Rogel VENOUS 7 PHYSICIAN BLOOD PRACTICE VENIPUNCT L URE GONADOTRO 21617 LAB [facility] LAB RUSSELL PIN 7 ANCA ANCA CHORIONIC HOLDINGS HOLDINGS QUANTITAT LINDA BLOOD 70481 LAB [facility] LAB RUSSELL COUNT 7 ANCA ANCA COMPLETE HOLDINGS HOLDINGS AUTO&[place] [address] LAB RUSSELL LAB RUSSELL THYROXINE 7 ANCA ANCA TOTAL HOLDINGS HOLDINGS IAADIADOO 98219 [facility] MATCHESWA 7 [facility]ALTH LA STREPTOCO MEDICAL CCUS GROUP GROUP A URINE 07753 FAITH FAITH 7 HEALTH HEALTH TEST MEDICAL MEDICAL VISUAL GROUP GROUP COLOR CMPRSN METHS RADEX 04079 [facility] [place] MACY ABDOMEN 7 RADIOLOGY COMPL W/DCBTS&/ ERC VIEWS URNLS DIP 76866 [facility] [facility] 7 COMMUNITY COMMUNITY STICK/[facility] LET REAGENT AUTO MICROSCOP Y HYSTEROSC 50750 ALE[facility] MICHAEL OPY BX 7 ENDOMETRI UM&/POLYP C W/WO D&C ANESTHESI 41690 ANESTHESI RED A 7 A INTRAPERI ASSOCIATE NOREEN S PSC LOWER ABD W/LAPS NOS CATH & 05777 ALE[facility] MICHAEL SALINE/CO 7 NTRAST SONOHYSTE R/HYSTERO SALPI LAPS 45745 ALE[facility] MICHAEL FULG/EXC 7 OVARY VISCERA/[place] [address] [place] SURG 7 [facility] GROSS&DAMIR ROSCOPIC EXAM COLLECTIO 10159 ASSOCIATE WHITE N VENOUS 7 D BLOOD PATHOLOGI VENIPUNCT STS LLC URE IADNA 87492 MEDICAL MEDICAL NEISSERIA 7 DIAGNOSTI DIAGNOSTI C LAB LLC C LAB LLC GONORRHO[place] [address] PATH PATH THYROID 7 GROUP GROUP STIMULATI LABS [place] [address] ALEC MICHAEL TRANSVAGI 7 NAL IADNA 18366 MEDICAL MEDICAL TRICHOMON 7 DIAGNOSTI DIAGNOSTI C LAB LLC C LAB LLC VAGINALIS AMPLIFIED PROBE TECH HEMOGLOBI 85087 PATH PATH N 7 GROUP GROUP GLYCOSYLA LABS LLC LABS LLC MARIANNE A1C BLOOD 36241 PATH PATH COUNT 7 GROUP GROUP COMPLETE LABS LLC LABS LLC AUTO&AUTO DIFRNTL WBC IADNA 45803 MEDICAL MEDICAL CHLAMYDIA 7 DIAGNOSTI DIAGNOSTI C LAB LLC C LAB LLC TRACHOMAT IS AMPLIFIED PROBE TQ IADNA 37489 MEDICAL MEDICAL HUMAN 7 DIAGNOSTI DIAGNOSTI [place]APILLOMA C LAB LLC C LAB LLC VIRUS HIGH-RISK TYPES DRUG TST G0483 MD LABS MD LABS DEFINITV 7 DR ID METH P DAY 22/MORE DR ONEIL COMPREHEN 68573 PATH PATH SIVE 7 GROUP GROUP METABOLIC LABS LLC LABS LLC PANEL DRUG TEST 11424 MD LABS MD LABS PRSMV 7 INSTRMNT CHEMISTRY ANALYZERS IAADIADOO 36577 FAITH LESLEE 7 HEALTH STREPTOCO MEDICAL CCUS GROUP GROUP A BLOOD 34398 [facility] COUNT 7 N N COMPLETE COMMUNTIY COMMUNTIY AUTO&AUTO HOSP[place] [address] [facility] LIPASE 7 N N COMMUNTIY COMMUNTIY HOSPITA HOSPITA INJECTION J1885 [facility] 7 N N KETOROLAC COMMUNTIY COMMUNTIY HOSPITA HOSPITA TROMETHAM INE PER 15 MG INFUSION J7030 [facility] NORMAL 7 N N SALINE COMMUNTIY COMMUNTIY SOLUTION HOSPITA HOSPITA 1000 CC URINE 02224 [facility] 7 N N TEST COMMUNTIY COMMUNTIY VISUAL HOSPITA HOSPITA COLOR CMPRSN METHS THERAPEUT 06910 [facility] IC 7 N N INJECTION COMMUNTIY COMMUNTIY IV PUSH [place] [address] [facility] INFUSION 7 N N THERAPY/P COMMUNTIY COMMUNTIY ROPHYLAXI HOSPITA HOSPITA S /DX 1ST TO 1 HR URNLS DIP 51423 [facility] 7 N N STICK/TAB COMMUNTIY COMMUNTIY LET HOSPITA [place] [address] [facility] INFUSION 7 N N HYDRATION COMMUNTIY COMMUNTIY EACH HOSPITA HOSPITA ADDITIONA L HOUR INJECTION J2550 [facility] 7 N N PROMETHAZ COMMUNTIY COMMUNTIY INE HCL HOSPITA HOSPITA UP TO 50 MG COMPREHEN 09645 [facility] SIVE 7 N N METABOLIC COMMUNTIY COMMUNTIY PANEL HOSPITA HOSPITA IAADIADOO 90746 [facility]ATCHESUT 7 [facility] INFLUENZA MEDICAL GROUP IAADIADOO [address] [facility] LA STREPTOCO MEDICAL CCUS GROUP GROUP A URINE 01824 HUSAM MIGUE 7 PHYSICIAN TEST PRACTICE VISUAL L COLOR CMPRSN METHS THERAPEUT 97344 HUSAM WEINER IC 7 PHYSICIAN PHYSICIAN PROPHYLAC PRACTICE PRACTICE TIC/DX L L INJECTION SUBQ/IM MRI 41316 [facility] [place] KOSTELIC SPINAL 7 RADIOLOGY CANAL LUMBAR W/O CONTRAST MATERIAL RADEX 29870 [facility] [place] SCALF SPINE 7 RADIOLOGY LUMBOSACR AL 2/3 VIEWS RADIOLOGI 50752 [facility] [place] SCALF C 7 RADIOLOGY EXAMINATI ON PELVIS 1/2 [place] [address] [facility] LIPASE 7 N N COMMUNTIY COMMUNTIY HOSPITA HOSPITA BLOOD 44717 [facility] COUNT 7 N N COMPLETE COMMUNTIY COMMUNTIY AUTO&AUTO HOSPITA HOSPITA DIFRNTL WBC THERAPEUT 48920 [facility] IC 7 N N INJECTION COMMUNTIY COMMUNTIY IV PUSH HOSPITA HOSPITA EACH NEW DRUG THER 88249 [facility] PROPH/DX 7 N N NJX IV COMMUNTIY COMMUNTIY PUSH HOSPITA HOSPITA SINGLE/1S T SBST/DRUG COMPREHEN 25585 [facility] SIVE 7 N N METABOLIC COMMUNTIY COMMUNTIY PANEL HOSPITA HOSPITA URNLS DIP 92601 [facility] 7 N N STICK/TAB COMMUNTIY COMMUNTIY LET HOSPITA [place] [address] [facility] INFUSION 7 N N HYDRATION COMMUNTIY COMMUNTIY EACH HOSPITA HOSPITA ADDITIONA L HOUR COLLECTIO 69648 HUSAM CAMARENA N VENOUS 6 PHYSICIAN BLOOD PRACTICE VENIPUNCT L URE GONADOTRO 91790 LAB [facility] LAB RUSSELL PIN 6 ANCA ANCA CHORIONIC HOLDINGS HOLDINGS QUALITATI VE IAADIADOO 04087 [facility] FAITH 6 HEALTH HEALTH INFLUENZA MEDICAL MEDICAL GROUP GROUP URINE 59269 FAITH BENAVIDEZ 6 HEALTH TEST MEDICAL VISUAL GROUP COLOR CMPRSN METHS URINE 64886 [facility] MIGUE 6 PHYSICIAN TEST PRACTICE VISUAL L COLOR CMPRSN METHS COLLECTIO 99665 HUSAM CAMARENA N VENOUS 6 PHYSICIAN BLOOD PRACTICE VENIPUNCT L URE GONADOTRO 52558 LAB [facility] LAB RUSSELL PIN 6 ANCA ANCA [facility]ION[facility]INGS HOLDINGS QUANTITAT LINDA BRNCDILAT 55292 [facility] RSPSE 6 REGIONAL REGIONAL SPMTRY MEDICAL MEDICAL PRE&POST- CENTE CENTE BRNCDILAT ADMN PRESSURIZ 60543 [facility] ED/NONPRE 6 REGIONAL REGIONAL SSURIZED MEDICAL MEDICAL INHALATIO CENTE CENTE N TREATMENT NONINVASI 99594 [facility] VE 6 REGIONAL REGIONAL EAR/PULSE MEDICAL MEDICAL OXIMETRY [facility]ENTE [facility]ENT[facility] SINGLE DETER PULMONARY 48759 [facility]LLER 6 REGIONAL REGIONAL COMPLIANC [place] [address] [facility] DIFFUSING 6 REGIONAL REGIONAL CAPACITY MEDICAL MEDICAL CENTE CENTE PLETHYSMO 99485 PINA SHIPLEY GRAPHY 6 REGIONAL MITCHEL LUNG PHYSICIAN VOLUMES PRA W/[place] [address] P[facility] SHIP[facility] DIFFUSING 6 REGIONAL MITCHEL CAPACITY PHYSICIAN PRA BRNCDILAT 51379 [facility] SHIPLEY RSPSE 6 REGIONAL MITCHEL SPMTRY PHYSICIAN PRE&POST- PRA BRNCDILAT ADMN HEMOGLOBI 64968 PATH PATH N 6 GROUP GROUP GLYCOSYLA LABS [employer] MARIANNE A1C BLOOD 54011 PATH PATH COUNT 6 GROUP GROUP COMPLETE LABS [employer] AUTO&[place] [address] PATH PATH THYROID 6 GROUP GROUP STIMULATI LABS [employer] NG HORMONE TSH COLLECTIO 71017 ASSOCIATE WHITE NAHID N VENOUS 6 D BLOOD PATHOLOGI VENIPUNCT STS LLC URE COMPREHEN 78926 PATH PATH SIVE 6 GROUP GROUP METABOLIC LABS [employer] PANEL IADNA 96303 ASSOCIATE WHITE NAHID NEISSERIA 6 D PATHOLOGI GONORRHOE STS [facility] AE AMPLIFIED PROBE TQ CULTURE 66768 PATH PATH FNGI 6 GROUP GROUP MOLD/YEAS LABS [employer] T PRSMPTV OTH XCPT BLOOD CYTP C/V 91562 ASSOCIATE WHITE NAHID AUTO THIN 6 D LYR PATHOLOGI PREPJ SCR STS LLC MNL RESCR PHYS CUL BACT 56912 PATH PATH XCPT 6 GROUP GROUP URINE LABS [employer] BLOOD/STO OL AEROBIC ISOL IADNA 63951 ASSOCIATE WHITE NAHID HUMAN 6 D [place] PATHOLOGI VIRUS STS LLC HIGH-RISK TYPES IADNA 83071 ASSOCIATE WHITE NAHID CHLAMYDIA 6 D PATHOLOGI TRACHOMAT STS LLC IS AMPLIFIED PROBE TQ RADEX 97685 [facility] HAND 6 MEM [facility]OS[facility]OS[facility] MINIMUM 3 INC INC VIEWS WRIST L3807 [facility] ALICEA HAND 6 HOME HOME FINGR MEDICAL MEDICAL ORTHOS EQUIPME EQUIPME W/O JNT PREFAB CSTM FIT COLLECTIO 94855 [facility] HELLER N VENOUS 6 REGIONAL REGIONAL BLOOD MEDICAL MEDICAL VENIPUNCT CENTE CENTE URE ANTIBODY 91097 PINA HELLER BLASTOMYC 6 REGIONAL REGIONAL ES MEDICAL MEDICAL CENTE CENTE ANTIBODY 85174 [facility] HELLER COCCIDIOI 6 REGIONAL REGIONAL PAUL MEDICAL MEDICAL CENTE CENTE ANTIBODY 62800 [facility] HELLER HISTOPLAS 6 REGIONAL REGIONAL MA MEDICAL MEDICAL CENTE CENTE TB CELL 85101 [facility] MEDIATED 6 REGIONAL REGIONAL ANTIGN MEDICAL MEDICAL RESPNSE CENTE CENTE GAMMA INTERFERO N ANTIBODY 76238 [facility]LLER ASPERGILL 6 REGIONAL REGIONAL US MEDICAL MEDICAL CENTE CENTE CULTURE 81878 LAB RUSSELL LAB RUSSELL BACTERIAL 6 ANCA ANCA HOLDINGS HOLDINGS QUANTTATI VE COLONY COUNT URINE RADIOLOGI 92789 [facility] [place] KOSTELIC C 6 RADIOLOGY ELAINE EXAMINAT[place] [address] [facility] [place] BENAVIDEZ ANGIOGRAP 6 RADIOLOGY RAY HY CHEST W/CONTRAS T/NONCONT RAST COLONOSCO 73266 PINA CARTER PY FLX DX 6 DIGESTIVE GRE W/COLLJ CARE SPEC WHEN CENTER PFRMD ANES 60892 [facility] LOWER 6 ANESTHESI SOHA INTESTINE A GROUP PS ENDOSCOPY DISTAL DUODENUM SPMTRY 28024 ESTELLA GILBERT GILBERT ESTELLA W/VC 6 MD EXPIRATOR CONSULTIN Y JOSHUA G SRV W/WO MXML VOL VNTJ RESPIRATO 36271 [facility] RY FLOW 6 [facility] LOOP ECG 53323 ESTELLA GILBERT GILBERT ESTELLA ROUTINE 6 MD ECG CONSULTIN W/LEAST G SRV 12 L[place] [address] HUSAM WEINER THYROXINE 6 [facility] BLOOD 34837 HUSAM WEINER COUNT [address] [facility] AUTO&AUTO DIFRNTL WBC FIBRIN 49751 HUSAM WEINER DGRADJ 6 [facility] D-DIMER QUANTITAT LINDA COLLECTIO 94657 HUSAM WEINER N VENOUS 6 [facility] VENIPUNCT URE ECG 46423 HUSAM WEINER ROUTINE [address] [place] [address] W/LEAST 12 LDS TRCG ONLY W/O I&[place] [address] HUSAM WEINER THYROID [address] [place] [address] NG HORMONE TSH COMPREHEN 81623 HUSAM WEINER SIVE [address] [place] [address] PANEL RADIOLOGI 83070 [facility] [place] MACY C EXAM 6 RADIOLOGY RHO CHEST 2 VIEWS FRONTAL&L ATERAL PRESSURIZ 98204 [facility] ED/NONPRE 6 [facility] SSURIZED INC INC INHALATIO N TREATMENT RADIOLOGI 90586 [facility] ALL C EXAM 6 MEDICAL CHEST 2 IMAGING VIEWS ASS FRONTAL&L ATERAL BLOOD 39799 [facility] COUNT 6 [facility] COMPLETE INC INC AUTO&AUTO DIFRNTL WBC URNLS DIP 00886 [facility] 6 [facility] STICK/TAB INC INC LET REAGENT AUTO MICROSCOP Y THERAPEUT 07278 [facility] IC 6 [facility] PROPHYLAC INC INC TIC/DX INJECTION SUBQ/IM URINE 59907 [facility] 6 [facility] TEST INC INC VISUAL COLOR CMPRSN METHS COMPREHEN 71344 [facility] SIVE 6 [facility] HOS[facility] METABOLIC INC INC PANEL URNLS DIP 79496 ALECEVAN TURCIOS ALEC MAG 6 STICK/TAB LET RGNT NON-AUTO W/O MICRSCP OBSERVATI 76308 ALEC ALEC MAG ON CARE 6 DISCHARGE MANAGEMEN T INITIAL 74672 ALEC TURCIOS OBSERVATI 6 ON CARE/DAY 30 MINUTES ANESTHESI 96516 SUBURBAN MCGROARTY A 6 ANESTHESI TAJ INTRAPERI A PSC TONEAL LOWER ABD W/LAPS NOS LAPS 42891 ALEC MICHAEL MAG FULG/EXC 6 OVARY VISCERA/[place] [address] [facility] SURG 6 [facility] PSC GROSS&DAMIR ROSCOPIC EXAM HYSTEROSC 01989 ALEC BROOKEON MAG OPY BX 6 ENDOMETRI UM&/POLYP C W/WO D&C IAADIADOO 49710 FAITH LESLEE 6 [facility] [place] [address] PATH PATH THYROID 6 GROUP GROUP STIMULATI LABS Postini LABS Postini NG HORMONE TSH COLLECTIO 54239 ASSOCIATE OWEN BAE N VENOUS 6 D BLOOD PATHOLOGI VENIPUNCT [facility] [place] [address] AELC MICHAEL MAG TRANSVAGI 6 NAL HEMOGLOBI 98282 PATH PATH N 6 GROUP GROUP GLYCOSYLA LABS Postini LABS Postini MARIANNE A1C BLOOD 29596 PATH PATH COUNT 6 GROUP GROUP COMPLETE LABS Postini LABS Postini AUTO&AUTO DIFRNTL WBC COMPREHEN 45018 PATH PATH SIVE 6 GROUP GROUP METABOLIC LABS Postini LABS Postini PANEL OPHTH 36397 [facility] 6 GRE GRE XM&EVAL COMPRE NEW PT 1/> VST IAADIADOO 41710 FAITH LESLEE 6 HEALTH HEN INFLUENZA MEDICAL GROUP IAADIADOO 89753 FAITH LESLEE 6 HEALTH ALLEGHENY HEALTH NETWORK STREPTOCO MEDICAL CCUS GROUP GROUP A CYTP C/V 05507 [facility], PICKLESIM AUTO THIN 5 LLC ER JR [place] LYR PREPJ SCR MNL RESCR PHYS 75282 [place] [facility] DELIVERY 5 PALAEONTOLOGIST RANDALL ONLY ASSOCIATE S, 79591 [facility] CEN[facility]AL NONSTRESS 5 [facility]ITH [facility] TEST HOSP HOSP [place] PREG 54159 [place] [facility] UTERUS 5 PALAEONTOLOGIST RANDALL REAL TIME ASSOCIATE F/U S, TRNSABDL PER FETUS IADNA 54972 MEDICAL MEDICAL STREPTOCO 5 DIAGNOSTI DIAGNOSTI CCUS C LAB LLC C LAB LLC [place] [address] [facility] CENTRAL NONSTRESS 5 FAITH FAITH TEST HOSP HOSP 67118 FAITH VERONICA NONSTRESS 5 HEALTH JR THO TEST MEDICAL GROUP FIBRINOGE 74256 CENTRAL CENTRAL N 5 FAITH [facility]ITH ACTIVITY HOSP HOSP HGB/RBCS 73137 CEN[facility]AL CENTRAL 5 FAITH FAITH FETOMATER HOSP HOSP NAL HEMRRG DIFRNTL LYSIS BLOOD 93668 [facility] CENTRAL COUNT 5 FAITH FAITH COMPLETE HOSP HOSP AUTOMATED COLLECTIO 62848 CENTRAL CENTRAL N VENOUS 5 FAITH FAITH BLOOD HOSP HOSP VENIPUNCT URE INITIAL 39927 FAITH VERONICA OBSERVATI 5 HEALTH JR THO ON MEDICAL CARE/DAY GROUP 30 MINUTES URNLS DIP 69357 CEN[facility] CENTRAL 5 FAITH FAITH STICK/TAB HOSP HOSP LET RGNT AUTO W/O MICROSCOP Y IM ADM 19937 KENY KENY PRQ ID 5 VERITO VERITO SUBQ/IM NJXS 1 VACCINE TDAP 07325 KENY KENY VACCINE 7 5 VERITO VERITO YRS/> IM ANTIBODY 49720 LAB RUSSELL LAB RUSSELL SCREEN 5 ANCA ANCA RBC EACH HOLDINGS HOLDINGS SERUM TECHNIQUE BLOOD 23980 LAB RUSSELL LAB RUSSELL COUNT 5 ANCA ANCA COMPLETE HOLDINGS HOLDINGS AUTOMATED GLUCOSE 27226 LAB RUSSELL LAB RUSSELL POST 5 ANCA ANCA GLUCOSE HOLDINGS HOLDINGS DOSE 23071 CENTRAL CENTRAL NONSTRESS 5 [facility]ITH [facility] TEST HOSP HOSP OBSERVATI 50768 [facility] WAHL ON/INPATI 5 PALAEONTOLOGIST M[facility] S, CARE 40 MINUTES URNLS DIP 45394 CENTRAL CENTRAL 5 FAITH FAITH STICK/TAB HOSP HOSP LET RGNT AUTO W/O MICROSCOP Y INITIAL 39697 FAITH VERONICA OBSERVATI 5 HEALTH JR THO ON MEDICAL CARE/DAY GROUP 30 MINUTES URNLS DIP 02085 CENTRAL CENTRAL 5 FAITH FAITH STICK/TAB HOSP HOSP LET REAGENT [place] PREG 12918 [place] [facility] UTERUS 5 PALAEONTOLOGIST RANDALL AFTER ASSOCIATE REID Farley, GESTATION MANUAL 46483 JACKELYN MEDINA THERAPY 5 [facility] TQS 1/> PHYSICAL REGIONS THERAP EACH 15 MINUTES THERAPEUT 00638 JACKELYN MEDINA IC PX 1/> 5 [facility] PHYSICAL EACH 15 THERAP MIN EXERCISES US PREG 07350 [facility] [facility] UTERUS 5 PALAEONTOLOGIST RANDALL REAL TIME ASSOCIATE W/IMAGE S, DCMTN TRANSVAG CYTP C/V 52274 [facility], PICKLESIM AUTO THIN 5 LLC ER [place] LYR PREPJ SCR MNL RESCR PHYS GONADOTRO 55997 HUSAM WEINER PIN 5 [facility] QUALITATI VE COLLECTIO 51460 HUSAM WEINER N VENOUS 5 [facility] VENIPUNCT URE THERAPEUT 80273 [facility] CONRADOURBON IC PX 1/> 5 [facility] EACH 15 MIN EXERCISES THERAPEUT 98795 [place] CONRADOURBON IC PX 1/> 5 [facility] EACH 15 MIN EXERCISES PHYSICAL 33912 HUSAM CAMPURBON THERAPY 5 [facility] N INJECTION J1100 NIKKYEVAN NIKKYON [address] [place] [address] [facility] SONE SODIUM PHOSPHATE 1 MG URINE 55734 CONRADOURBON CONRADOURBON 5 [facility] VISUAL COLOR CMPRSN METHS THERAPEUT 29882 CONRADOHUNTEREVAN CAMPHUNTERON IC [address] [place] [address] PROPHYLAC [facility] TIC/DX INJECTION SUBQ/IM CT LUMBAR 26401 NIKKYEVAN [facility] SPINE [address] [place] [address] W/O HOSPITAL HOSPITAL CONTRAST MATERIAL Encounters Encounter Start End Date Code Location Performer Type Date OFFICE 24392 RICHIE YOUNG OUTPATIEN 7 7 [facility] T VISIT 15 MINUTES OFFICE 89367 HUSAM CAMARENA OUTPATIEN 7 7 PHYSICIAN T VISIT PRACTICE 15 L MINUTES EMERGENCY 89611 [facility] DEPT 7 7 PAKO VISIT EMERGENCY HIGH PHYS SEVERITY& THREAT [facility] NIKKYON - 7 7 COMMUNITY [facility]PITAL T OFFICE 66209 HUSAM CAMARENA [facility] 7 PHYSICIAN T VISIT PRACTICE 15 L MINUTES EMERGENCY 50732 [facility] DEPT 7 7 PAKO VISIT EMERGENCY HIGH PHYS SEVERITY& THREAT FUN OFFICE 64708 [facility]US[facility] 7 7 PHYSICIAN T VISIT PRACTICE 15 L MINUTES OFFICE 05949 [facility]US[facility] CAMARENA [facility] 7 7 PHYSICIAN T VISIT PRACTICE 15 L MINUTES OFFICE 07366 [facility]ANY [facility] 7 7 MEM HOSP T VISIT 5 INC MINUTES HOSPITAL HANY - 7 7 MEM HOSP OUTPATIEN [facility] T OFFICE 75198 [facility]US[facility] 7 7 PHYSICIAN T VISIT PRACTICE 15 L MINUTES OFFICE 88703 [facility]USAM CAMARE[facility] 7 7 PHYSICIAN T VISIT PRACTICE 15 L MINUTES OFFICE 96934 FAITH [facility] 7 7 HEALTH LA T VISIT MEDICAL 15 GROUP MINUTES OFFICE 54510 [facility] 7 7 HEALTH T VISIT MEDICAL 15 GROUP MINUTES EMERGENCY 00279 NIKKYON 7 7 [facility] T VISIT MODERATE SEVERITY EMERGENCY 18378 [facility] SWINE 7 7 PAKO DEPARTMEN EMERGENCY T VISIT PHYS HIGH/URGE NT SEVERITY [facility] NI[facility] - 7 7 [facility] T OFFICE 24230 [facility]LEC BROOKEON [facility] 7 7 T VISIT 15 MINUTES EMERGENCY 59620 [facility] CHESTNUT 7 7 PAKO DEPARTMEN EMERGENCY T VISIT PHYS HIGH/URGE NT SEVERITY EMERGENCY 96120 [facility] 7 7 N DEPARTMEN COMMUNTIY T VISIT HOSPITA LIMITED/M INOR [facility] - 7 7 N OUTPATIEN COMMUNTIY T HOSPITA OFFICE 76193 FAITH LESLEE OUTPATIEN 7 7 HEALTH T VISIT MEDICAL 15 GROUP MINUTES OFFICE 31441 HUSAM CAMARENA [facility] 7 7 PHYSICIAN T VISIT PRACTICE 15 L MINUTES EMERGENCY 42144 [facility] 7 7 N DEPARTMEN COMMUNTIY T VISIT HOSPITA HIGH/URGE NT SEVERITY EMERGENCY 51462 [facility] 7 PAKO VISIT EMERGENCY HIGH PHYS SEVERITY& THREAT [facility] - 7 7 N OUTPATIEN COMMUNTIY T HOSPITA OFFICE 61275 RICHIE AVERY [facility] 7 7 [employer], [facility] III T NEW 30 MINUTES EMERGENCY 58961 [facility] 7 7 PAKO DEPARTMEN EMERGENCY T VISIT PHYS HIGH/URGE NT SEVERITY OFFICE 24723 FAITH [facility]ATCHESUT [facility] 7 7 HEALTH LA T VISIT MEDICAL 15 GROUP MINUTES OFFICE 28608 HUSAM CAMARENA [facility] 7 7 PHYSICIAN T VISIT PRACTICE 15 L MINUTES [facility] 7 7 [facility] 7 7 N OUTPATIEN COMMUNTIY T [facility] - 7 7 N OUTPATIEN COMMUNTIY T HOSPITA EMERGENCY 07546 [facility] 7 7 PAKO VISIT EMERGENCY HIGH PHYS SEVERITY& THREAT FUNCJ EMERGENCY 52361 [facility] 7 7 N DEPARTMEN COMMUNTIY T VISIT HOSPITA HIGH/URGE NT SEVERITY OFFICE 43476 NIKKYEVAN MIGUE OUTPATIEN 6 6 PHYSICIAN T VISIT PRACTICE 15 L MINUTES OFFICE 24585 NIKKYEVAN CAMARENA OUTPATIEN 6 6 PHYSICIAN T VISIT PRACTICE 15 L MINUTES OFFICE 70799 NIKKYEVAN MIGUE OUTPATIEN 6 6 PHYSICIAN T VISIT PRACTICE 15 L MINUTES OFFICE 97852 P[facility] GUERRERO OUTPATIEN 6 6 DIGESTIVE CEC T VISIT CARE 15 CENTER MINUTES OFFICE 63706 NIKKYEVAN MIGUE OUTPATIEN 6 6 PHYSICIAN OKSANA T VISIT PRACTICE 15 L MINUTES [facility]ITAL [facility] - 6 6 [facility] MED[facility] T CENTE PERIODIC 13543 ALEC MAG [place] PREVENTIV 6 6 E MED EST PATIENT 18-39 YRS H[facility]PITAL [facility] - 6 6 [facility] 74716 NIKKYEVAN CAMARENA OUTPATIEN 6 6 PHYSICIAN OKSANA T VISIT PRACTICE 15 L MINUTES OFFICE 39217 PINA SHIPLEY OUTPATIEN 6 6 REGIONAL MITCHEL T NEW 45 PHYSICIAN MINUTES [facility] H[facility]PITAL PINA - 6 6 [facility] OUTPATI MEDICAL T CENTE OFFICE 84229 NIKKYEVAN MIGUE OUTPATIEN 6 6 PHYSICIAN OKSANA T VISIT PRACTICE 25 L MINUTES EMERGENCY 54764 [facility] DEPT 6 6 PAKO VISIT EMERGENCY HIGH PHYS SEVERITY& THREAT FUNCJ OFFICE 84066 PINA GUERRERO OUTPATIEN 6 6 DIGESTIVE CEC T VISIT CARE 15 CENTER MINUTES OFFICE 33763 HUSAM CAMARENA OUTPATIEN 6 6 PHYSICIAN OKSANA T VISIT PRACTICE 25 L MINUTES [facility]OSPITAL [facility] - 6 [facility] 74144 HUSAM CAMARENA OUTPATIEN 6 6 PHYSICIAN OKSANA T VISIT PRACTICE 15 L MINUTES [facility] [place] [facility] T OFFICE 74845 PINA YOLANDA OUTPATIEN 6 6 DIGESTIVE CEC T VISIT CARE 25 CENTER [facility] [place] - [facility] T OFFICE 21057 HUSAM CAMARENA OUTPATIEN 6 6 PHYSICIAN OKSANA T VISIT PRACTICE 15 L MINUTES OFFICE 76671 PINA GUERRERO OUTPATIEN 6 6 DIGESTIVE CEC T NEW 45 CARE MINUTES [place] [facility] 93776 HANY 6 6 [facility] DEPARTMEN INC T VISIT MODERATE SEVERITY EMERGENCY 42028 LAXMI SHABAZZ 6 6 PHYSICIAN DAMIR DEPARTMEN S, PLLC T VISIT HIGH/URGE NT SEVERITY [facility] 6 6 [facility] 83407 CONRADOELISE CAMARENA OUTPATIEN 6 6 PHYSICIAN MITCHEL T VISIT PRACTICE 15 L MINUTES OFFICE 16822 CONRADOELISE CAMARENA OUTPATIEN 6 6 PHYSICIAN MITCHEL T VISIT PRACTICE 15 L MINUTES OFFICE 12361 NIKKYEVAN MIGUE OUTPATIEN 6 6 PHYSICIAN MITCHEL T NEW 45 PRACTICE MINUTES L OFFICE 18233 ALEC MAG ALEC MAG OUTPATIEN 6 6 T VISIT 15 MINUTES OFFICE 37272 FAITH LESLEE OUTPATIEN 6 6 HEALTH HEN T VISIT MEDICAL 25 GROUP MINUTES OFFICE 97418 ALEC MAG ALEC MAG OUTPATIEN 6 6 T VISIT 15 MINUTES OFFICE 24239 FAITH LESLEE OUTPATIEN 6 6 HEALTH HEN T VISIT MEDICAL 15 GROUP MINUTES OFFICE 70575 SPIKE GILMORE OUTPATIEN 5 5 PALAEONTOLOGIST RANDALL T VISIT ASSOCIATE 15 S, MINUTES OFFICE 61903 FAITH ARNETT OUTPATIEN 5 5 HEALTH DON T VISIT MEDICAL 15 GROUP MINUTES OFFICE 23909 [place] [facility] OUTPATIEN 5 5 PALAEONTOLOGIST RANDALL T VISIT ASSOCIATE 15 S, MINUTES [facility] - 5 5 [facility] OUT[facility]OS[facility] T OFFICE 36039 [place] [facility] OUTPATIEN 5 5 PALAEONTOLOGIST RANDALL T VISIT ASSOCIATE 15 S, MINUTES OFFICE 15206 [place] [facility] OUTPATIEN 5 5 PALAEONTOLOGIST RANDALL T VISIT ASSOCIATE 15 S, MINUTES [facility] 5 [facility] [id number] [facility] 5 5 PALAEONTOLOGIST RANDALL T VISIT ASSOCIATE 15 S, MINUTES OFFICE [id number] [facility] 5 5 [facility] T VISIT MEDICAL 25 GROUP MINUTES OFFICE 26265 [facility] 5 5 PALAEONTOLOGIST RANDALL T VISIT ASSOCIATE 15 S, MINUTES [facility] 64107 [facility] 5 5 VERITO VERITO T VISIT 15 MINUTES OFFICE 87989 [facility] 5 5 PALAEONTOLOGIST RANDALL T VISIT ASSOCIATE 15 S, MINUTES [facility] 5 5 [facility] 33436 [facility] 5 5 PALAEONTOLOGIST RANDALL T VISIT ASSOCIATE 15 S, MINUTES [facility] 5 5 [facility] 12291 [facility] [facility] 5 5 PALAEONTOLOGIST RANDALL T VISIT ASSOCIATE 15 S, MINUTES OFFICE 73382 [facility] 5 5 PALAEONTOLOGIST RANDALL T VISIT ASSOCIATE 15 S, MINUTES OFFICE 80027 [facility] 5 5 PALAEONTOLOGIST RANDALL T NEW 45 ASSOCIATE MINUTES S, [facility] 10592 [facility] 5 5 [facility] [place] VIS[place] LOW/MODER SEVERITY EMERGENCY [address] [facility] 5 5 [facility] EMERGENC[facility] T VISIT PHYS HIGH/URGE NT SEVERITY [facility] [place] [address] 5 [facility] [place] [address] 5 [facility] [place] [address] 5 [facility] T OFFICE 58327 K[facility]O [facility] 5 5 VERITO [facility]LLERS T NEW 45 MINUTES EMERGENCY 67584 [facility] 5 5 [facility] T VISIT [facility]IGH/URGE NT SEVERITY [facility] [place] [address] 5 [facility] T
--- OUTSIDE RECORDS SUMMARY | 2017-06-23 22:01 | External Medical Summary Rpt | CCD ---
Author Author , ADELIA Organization ADELIA Address Unknown Phone [email or web address] Team Providers Care Loom Inspector Name Role Phone DEIRDRE PEREIRA, DEIRDRE Unavailable Unavailable [facility] Unavailable Unavailable [facility] Unavailable [facility] Unavailable Unavailable [facility], [facility] Unavailable Unavailable MED[facility], [facility] KINDRA JAM, KINDRA JAM Unavailable Unavailable YOUNG, YOUNG Unavailable Unavailable YOUNG ALL, YOUNG ALL Unavailable Unavailable [facility] Unavailable Unavailable [facility]PITAL, [facility] Unavailable Unavailable PRACTICE [facility], [facility] KENY SPENCER Unavailable Unavailable KENY LAM Unavailable Unavailable VERITO OWEN TER, OWEN TER Unavailable Unavailable [facility], Unavailable Unavailable [facility] CHANDEL, CHANDEL Unavailable Unavailable CHESTNUT, CHESTNUT Unavailable Unavailable [facility] Unavailable Unavailable [facility], [facility] Unavailable Unavailable MEDICAL CENT, [facility] Unavailable Unavailable PHYSICIAN PRA, [facility], Unavailable Unavailable [facility] GILBERT ESTELLA, GILBERT ESTELLA Unavailable Unavailable MIGUE, MIGUE Unavailable Unavailable MIGUE MITCHEL, MIGUE Unavailable Unavailable MITCHEL MIGUE OKSANA, MIGUE Unavailable Unavailable OKSANA [facility] Unavailable Unavailable [facility], [facility] BELEN, BELEN Unavailable Unavailable GIRALDO, GIRALDO Unavailable Unavailable HARIKA DAMIR, HARIKA Unavailable Unavailable DAMIR [facility] Unavailable Unavailable [facility], [facility] GREGONIS MITCHEL, Unavailable Unavailable GREGONIS MITCHEL MACY, MACY Unavailable Unavailable MACY RHO, MACY Unavailable Unavailable RHO HANY, HANY Unavailable Unavailable [facility] Unavailable Unavailable INC, [facility] YOLANDA CEC, YOLANDA Unavailable Unavailable CEC CONDE, CONDE Unavailable Unavailable ALEC, ALEC Unavailable Unavailable ALEC, ALEC Unavailable Unavailable ALEC MAG, ALEC MAG Unavailable Unavailable ALEC MAG, ALEC MAG Unavailable Unavailable [facility] Un[facility] Unavailable [facility], [facility] Unavailable Unavailable [facility], [facility], Unavailable Unavailable [facility] KOSTELIC, KOSTELIC Unavailable Unavailable [facility] ELA[facility], Unavailable Unavailable [facility] Unavailable Unavailable [facility], [facility] Unavailable Unavailable [facility], [facility] VERONICA JR THO, Unavailable Unavailable VERONICA JR THO 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 Unavailable Unavailable ASSOCI[facility],, 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, ANA PEREZ Unavailable Unavailable ANA PEREZ [...] LLC ROSARIO SOHA, ROSARIO Unavailable Unavailable [facility] Unavailable Unavailable [facility], [facility], JEFFY Unavailable Unavailable [facility] [...] MENDY ARNETT DON, Unavailable Unavailable ARNETT DON [facility] Unavailable Unavailable THERAP, [facility] AVERY, III, AVERY, Unavailable Unavailable III [facility] Unavailable Unavailable EQUIPME, [facility] Unavailable Unavailable [facility], [facility] BENAVIDEZ, BENAVIDEZ Unavailable Unavailable BENAVIDEZ RAY, BENAVIDEZ Unavailable Unavailable RAY [facility] Unavailable Unavailable [facility], [facility] MEDINA TONIE, MEDINA Unavailable Unavailable TONIE [...] N EMERGENCY INFECTION PHYS SITE NOT SPECIFIED [id number] UNSPECIFIED 05-11-2017 [facility] O[facility]IAN N EMERGENCY CYST [...] FREQUENT ANCA MENSTRUATIO HOLDINGS N W/REGULAR CYCLE R91988 CELLULITIS 02-16-2017 [place] OF OTHER PHYSICIAN SITES PRACTICE L H6503 ACUTE 01-28-2017 [facility]IA [facility] BILATERAL N910 PRIMARY 01-24-2017 [facility] Z3202 ENCOUNTER 01-24-2017 [facility] FOR [facility] MEDICAL TEST RESULT GROUP NEGATIVE 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 01-13-2017 [facility] 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 K5900 CONSTIPATIO 01-13-2017 [...] 01-05-2017 [facility] LUTEUM CYST OF RIGHT OVARY P36012 OTHER 01-05-2017 [facility] [place] CYST RIGHT CLINIC PSC SIDE N926 IRREGULAR 01-05-2017 [facility] MENSTRUATIO N UNSPECIFIED R102 PELVIC AND 12-07-2016 [facility]ST[facility] PAIN [facility] LLC [id number] ENCOUNTER 12-07-2016 [facility] PREPROCEDUR AL EXAMINATION Z5181 ENCOUNTER 12-07-2016 [facility] FOR THERAPEUTIC DRUG LEVEL MONITORING A67853 OTHER LONG 12-07-2016 [facility] TERM CURRENT DRUG THERAPY Z5321 PROC & [place] 12-05-2016 [facility] NOT CARRIED COMMUNTIY OUT PT HOSPITA LEAVE PRIOR TO SEEN I889 NONSPECIFIC 11-18-2016 [facility] LYMPHADENIT MEDICAL IS GROUP UNSPECIFIED J029 ACUTE 11-18-2016 [facility] PHARYNGITIS [facility]ICAL UNSPECIFIED GROUP R0981 NASAL 11-18-2016 [facility] CONGESTION [facility] K529 NONINFECTIV 11-01-2016 [facility] E PHYSICIAN GASTROENTER PRACTICE L ITIS & COLITIS UNS R1084 GENERALIZED 10-30-2016 [facility] ABDOMINAL N EMERGENCY PAIN PHYS R197 DIARRHEA 10-30-2016 [facility] UNSPECIFIED N EMERGENCY PHYS Z720 TOBACCO USE 10-30-2016 [facility] J020 STREPTOCOCC 10-25-2016 [facility] PHARYNGITIS J9801 ACUTE 10-25-2016 [facility] M J111 FLU D/T 10-19-2016 [facility] UNIDENTIFIE N EMERGENCY D FLU VIRUS PHYS W/OTH RESP MANIF R6889 OTHER 10-17-2016 [facility] SYMPTOMS MEDICAL AND SIGNS GROUP F18163 CONTACT W/ 10-17-2016 [facility] & EXPOSURE HEALTH OT VIRAL MEDICAL COMMUNICABL GROUP E DZ M549 DORSALGIA 09-17-2016 [facility] [id number] MIGRAINE 09-12-2016 [facility] UNS NOT N EMERGENCY INTRACT W/O PHYS STATUS MIGRAINOSUS Z3200 ENCOUNTER 08-25-2016 [facility] TEST RESULT GROUP UNKNOWN T02029 PAIN IN 08-11-2016 [facility] UNSPECIFIED PHYSICIAN HIP PRACTICE L J00 ACUTE 07-23-2016 [facility] NASOPHARYNG PHYSICIAN ITIS COMMON PRACTICE L COLD R238 OTHER SKIN 07-23-2016 [facility] CHANGES PHYSICIAN PRACTICE L L301 DYSHIDROSIS 06-28-2016 [facility] POMPHOLYX PHYSICIAN PRACTICE L R05 COUGH 06-16-2016 [facility] PRA R0602 SHORTNESS 06-16-2016 [facility] OF BREATH REGIONAL PHYSICIAN PRA R062 WHEEZING 06-16-2016 [facility] PRA O52965 ENCOUNTER 06-08-2016 [facility] MAG LATEX CASTER EXAM GENERAL RTN W/O ABNORMAL FIND Z113 ENCOUNTER 06-08-2016 ASSOC[facility]ATED SCREEN PATHOLOGIST INFECTIONS S LLC SEXL MODE TRANSMISSN Z1151 ENCOUNTER 06-08-2016 [facility]ATED FOR PATHOLOGIST SCREENING S LLC FOR HUMAN PAPILLOMAVI CORDELIA Z118 ENCOUNTER 06-08-2016 ASSOCIATED SCREEN PATHOLOGIST OTHER S LLC INFECTIOUS & PARASITIC DZ N79703 PAIN IN 05-24-2016 [facility] LEFT MEDICAL FINGERS IMAGING ASS J309 ALLERGIC 05-05-2016 [facility] RHINITIS REGIONAL UNSPECIFIED PHYSICIAN PRA P67488 UNSPECIFIED 05-05-2016 [facility] ASTHMA REGIONAL UNCOMPLICAT PHYSICIAN ED PRA K219 GASTRO-ESOP 05-05-2016 [facility] REFLUX REGIONAL DISEASE PHYSICIAN WITHOUT PRA ESOPHAGITIS R61 GENERALIZED 05-05-2016 [facility] HYPERHIDROS PHYSICIAN IS PRA R072 PRECORDIAL 04-11-2016 [facility] [place] [facility] R0789 OTHER CHEST 04-11-2016 [facility] PAIN N EMERGENCY PHYS R079 CHEST PAIN 04-11-2016 [facility] [place] UNSPECIFIED RADIOLOGY R39745V STRAIN 04-11-2016 [facility] MUSCLE & N EMERGENCY TENDON UNS PHYS WALL THORAX INIT ENC W15INAG EXPOSURE TO 04-11-2016 [facility] OTHER N EMERGENCY SPECIFIED PHYS FACTORS INITIAL ENC R198 OTH SPEC SX 03-17-2016 [facility] & SIGNS DIGESTIVE INVLV [facility] DIGESTV SYS & ABD Z1211 ENCOUNTER 03-17-2016 [facility] SCRE[facility]ING [facility] MALIGNANT GROUP PS NEOPLASM OF COLON G8929 OTHER 03-12-2016 [facility] L Z539 PROCEDURE & 03-08[facility] OUT UNS [...] 12-25-2015 [facility] TURCIOS BLADDER R300 DYSURIA 12-08-2015 [facility] MAG N801 ENDOMETRIOS 11-28-2015 [facility] MAG IS OF OVARY N803 ENDOMETRIOS 11-28-2015 [facility] MAG IS OF PELVIC PERITONEUM N8320 UNSPECIFIED 11-28-2015 [facility] MAG OVARIAN CYSTS N838 OTH 11-28-2015 NEW NONINFLAMM NEES[facility] D/O OVARY CLINIC PSC FALLOP TUBE & BROAD LIG N941 DYSPAREUNIA 11-28-2015 [facility] N942 VAGINISMUS 11-28-2015 [facility] TURCIOS H5203 HYPERMETROP 09-29-2015 ANA [place] GRE BILATERAL Z309 ENCOUNTER 07-17-2015 [facility] FOR 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 CONTRACEPTI ASSOCIATES, VE MANAGEMENT UNS Z392 ENCOUNTER 07-17-2015 [facility] FOR ROUTINE 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 ASSOCIATES, FOLLOW-UP K1230 ORAL 07-08-2015 [facility] MUCOSITIS HEALTH ULCERATIVE MEDICAL UNSPECIFIED GROUP [id number] MAT CARE 07-03-2015 [facility] DISPROPORTI ANESTHESIA ON UNUSUAL PSC LARGE FET NA/UNS O653 OBST LABOR 07-03-2015 [facility] DUE PELV 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 OUTLET & ASSOCIATES, MID-CAV CONTRACTION Z370 SINGLE LIVE 07-03-2015 [facility] PSC Z3A39 39 WEEKS 07-03-2015 [facility] GESTATION 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 OF ASSOCIATES, O471 FALSE LABOR 06-26-2015 [facility] AT/AFTER [facility] 37 HOSP COMPLETED WEEKS GEST Z3483 ENC 06-26-2015 [facility] SUPERVISION 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 OTH NORMAL ASSOCIATES, 3 TRIMESTER Z3A38 38 WEEKS 06-26-2015 [facility] GESTATION [facility] OF [facility]P [id number] MATERNAL 06-19-2015 [facility] CARE EXCESS 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 ASSOCIATES, GROWTH 3RD TRI NA/UNS [id number] POLYHYDRAMN 06-19-2015 [facility] IOS THIRD 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 TRIMESTER ASSOCIATES, NA/UNS Z3A37 37 WEEKS 06-19-2015 [facility] GESTATION 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 OF ASSOCIATES, Z391 ENCNTR FOR 06-18-2015 [facility] EXAMINATION SUPPLIES LACTATING MOTHER O58912 ANEMIA 06-12-2015 [facility] COMPLICATIN 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 G ASSOCIATES, THIRD TRIMESTER Z36 ENCOUNTER 06-12-2015 [facility] FOR [facility]NOST[facility] SCREENING OF MOTHER Z3A36 36 WEEKS 06-12-2015 [facility] GESTATION 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 OF ASSOCIATES, 88708 THREATENED 06-11-2015 [facility] PREMATURE [facility] ANTEPARTUM 65827 OTH CURRENT 05-29-2015 [facility] MAT CONDS 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 CLASSIFIABL ASSOCIATES, E ELSW ANTPRTM 7869 OT 05-29-2015 [facility] SYMPTOMS 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 INVOLVING ASSOCIATES, RESPIRATORY SYSTEM&CHES T 4619 ACUTE 05-22-2015 [facility] SINUSITIS, HEALTH UNSPECIFIED MEDICAL GROUP 4779 ALLERGIC 05-22-2015 [facility] RHINITIS HEALTH CAUSE MEDICAL UNSPECIFIED GROUP V221 SUPERVISION 05-15-2015 [place] OF OTHER 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 NORMAL ASSOCIATES, 26489 OTHER 04-18-2015 [facility] SPECIFED HEALTH COMPLICATIO MEDICAL N GROUP ANTEPARTUM 7605 FETUS OR 04-18-2015 [facility] AFFECTED BY MEDICAL MATERNAL GROUP INJURY V222 04-18-2015 [facility] STATE, [facility] INCIDENTAL [facility]OS[facility] V714 OBSERVATION 04-18-2015 [facility] FOLLOWING [facility] OTHER [facility]OS[facility] ACCIDENT 19875 ABDOMINAL 04-17-2015 KENY SELLERS WITH INTRAUTERIN E 11093 ABDOMINAL 04-01-2015 [facility] PAIN RIGHT [facility] LOWER [facility]OS[facility] QUADRANT 6259 UNSPEC 03-01-2015 [facility] SYMPTOM [facility] W/FEMALE GENITAL ORGANS 40755 ABDOMINAL 03-01-2015 [facility] PAIN, LEFT HEALTH LOWER MEDICAL QUADRANT GROUP 7202 SACROILIITI 01-31-2015 [facility] ELSEWHERE PHYSICAL CLASSIFIED THERAP 7244 THORACIC/MARINA 01-31-2015 [facility] NEURITIS/RA PHYSICAL DICULITIS THERAP UNSPEC V571 OTHER 01-31-2015 [facility] THERAPY PHYSICAL THERAP 77319 MILD 12-19-2014 [facility] HYPEREMESIS 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 GRAVIDARUM ASSOCIATES, ANTEPARTUM 68219 THREATENED 11-21-2014 [facility] , 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 ANTEPARTUM ASSOCIATES, V7231 ROUTINE 11-21-2014 [facility] AL EXAMINATION 8470 NECK SPRAIN 11-19-2014 [facility] AND STRAIN N EMERGENCY PHYS E9289 UNSPECIFIED 11-19-2014 [facility] ACCIDENT N EMERGENCY PHYS V141 PERSONAL 11-19-2014 [facility] OTHER ANTIBIOTIC AGENT V143 PERSONAL 11-19-2014 [facility] ANTI-INFECT LINDA AGT V146 PERSONAL 11-19-2014 [facility] OF [facility] ALLERGY TO HOSPITAL ANALGESIC AGENT 6260 ABSENCE OF 11-13-2014 [facility]ENSTRU[facility]IO [facility] 36536 DISPLCMT 11-11-2014 [facility] LUMBAR [facility] DISC W/O MYELOPATHY 7242 LUMBAGO 11-11-2014 [facility] 8461 SPRAIN AND 11-01-2014 KENY SELLERS STRAIN OF SACROILIAC 7222 DISPLCMT 10-21-2014 [facility] DISC SITE HOSPITAL UNS W/O MYELOPATHY 7820 DISTURBANCE 10-21-2014 [facility] OF SKIN N EMERGENCY SENSATION PHYS V1582 PERS HX 10-21-2014 [facility] TOBACCO USE [facility] HEALTH Medications Na ND Rx [...] 17 17 95 E 5 80 PH [place] AR OP MA CY 50 #4 MC 93 G SP RA Y CL 16 09 10 60 30 00 GA Ac ON 72 -1 -0 .0 00 [...] FL 55 09 09 1. 1 00 GA Ac UC 11 -0 -2 00 00 L- ti ON 10 1- 2- 0 07 MA ve AZ 14 20 20 42 RT OL 51 17 17 72 E 2 36 PH 15 AR 0 MA MG CY TA #4 BL 93 ET [place] 59 08 09 20 7 00 GA Ac OC 74 -3 -2 .0 00 L- ti HL 60 1- 2- 00 07 MA ve OR 11 20 20 42 RT PE 50 17 17 69 RA 6 86 PH ZI AR NE MA CY 10 #4 MG 93 TA B NI 47 08 09 20 10 00 GA Ac TR 78 -3 -2 .0 00 L- ti OF 10 1- 2- 00 07 MA ve UR 30 20 20 42 RT AN 30 17 17 69 TO 1 87 PH IN AR MA MO CY NO -M #4 CR 93 10 0 MG [place] 68 08 09 20 5 00 [facility] OM 38 -1 -0 .0 00 L- ti ET 20 8- 8- 00 07 MA ve TALAMANTES 04 20 20 42 RT ZI 00 17 17 50 NE 1 57 PH AR 12 MA .5 CY MG #4 93 TA BL ET FL 55 08 09 1. 1 00 GA Ac UC 11 -0 -0 00 00 L- ti ON 10 7- 1- 0 07 MA ve AZ 14 20 20 41 RT OL 51 17 17 92 E 2 62 PH 15 AR 0 MA MG CY TA #4 BL 93 ET AM 00 07 08 30 30 00 [facility] IT 78 -3 -2 .0 00 L- ti RI 11 1- 5- 00 07 MA ve PT 48 20 20 42 RT YL 61 17 17 19 IN 0 00 PH E AR HC MA L CY 10 #4 MG 93 TA B ME 59 07 08 21 6 00 GA Ac TH 74 -1 -1 .0 00 L- ti YL 60 7- 8- 00 07 MA ve [place] 00 20 20 41 RT ED 10 17 17 96 NI 3 99 PH SO AR LO MA NE CY 4 #4 MG 93 DO SE PK CY 68 07 08 15 4 00 GA Ac CL 64 -1 -1 .0 00 L- ti OB 50 7- 8- 00 07 MA ve EN 51 20 20 41 RT ZA 89 17 17 97 [place] 0 00 PH IN AR E MA 10 CY MG #4 93 TA BL ET AZ 59 07 08 6. 5 00 GA Ac IT 76 -1 -0 00 00 L- ti HR 23 1- 4- 0 07 MA ve OM 06 20 20 41 RT YC 00 17 17 87 IN 1 16 PH AR 25 MA 0 CY MG #4 TA 93 BL ET BE 51 07 08 30 10 00 GA Ac NZ 22 -1 -0 .0 00 L- ti ON 40 1- 4- 00 07 MA ve AT 00 20 20 41 RT AT 16 17 17 87 E 0 17 PH 20 AR 0 MA MG CY CA #4 PS 93 UL E CL 16 07 08 20 10 00 GA Ac ON 72 -1 -0 .0 00 L- ti AZ 90 1- 4- 00 04 MA ve EP 13 20 20 52 RT AM 61 17 17 20 6 00 PH 0. AR 5 MA MG CY TA #4 BL 93 ET CL 63 07 08 21 7 00 GA Ac IN 30 -1 -0 .0 00 L- ti DA 40 4- 4- 00 07 MA ve MY 69 20 20 49 RT CI 30 17 17 88 N 1 07 PH HC AR L MA 30 CY 0 MG #5 91 CA PS UL E IB 68 07 08 30 5 00 GA Ac UP 64 -1 -0 .0 00 L- ti RO 50 4- 4- 00 07 MA ve FE 53 20 20 49 RT N 05 17 17 88 60 9 11 PH 0 AR MG MA CY TA BL #5 ET 91 FL 55 07 08 1. 1 00 GA Ac UC 11 -1 -0 00 00 L- ti ON 10 4- 4- 0 07 MA ve AZ 14 20 20 41 RT OL 51 17 17 92 E 2 62 PH 15 AR 0 MA MG CY TA #4 BL 93 ET PE 40 06 07 60 1 00 GA Ac RM 08 -2 -2 .0 00 [...] PE 40 06 07 60 10 00 [facility] RM 08 -2 -1 .0 00 L- ti ET 50 1- 4- 00 07 MA ve HR 21 20 20 49 RT IN 56 17 17 48 0 90 PH 5% AR MA CR CY EA M #5 91 CE 68 06 07 20 10 00 [facility] PH 18 -0 -0 .0 00 L- ti AL 00 7- 7- 00 07 MA ve EX 12 20 20 41 RT IN 20 17 17 31 2 05 PH 50 AR 0 MA MG CY CA #4 PS 93 UL E FL 55 06 07 1. 1 00 [facility] UC 11 -1 -0 00 00 L- ti ON 10 3- 7- 0 07 MA ve AZ 14 20 20 41 RT OL 51 17 17 40 E 2 73 PH 15 AR 0 MA MG CY TA #4 BL 93 ET OX 62 06 06 30 30 00 [facility] YB 17 -0 -2 .0 00 L- ti UT 50 1- 3- 00 07 MA ve YN 27 20 20 41 RT IN 13 17 17 19 7 18 PH CL AR MA ER CY 10 #4 93 MG TA BL ET PEDERSON 65 05 06 20 10 00 [facility] LF 86 -1 -0 .0 00 L- ti AM 20 5- 9- 00 07 MA ve ET 42 20 20 65 RT HO 00 17 17 99 XA 5 19 PH ZO AR LE MA -T CY MP #5 DS 71 TA BL ET PH 51 05 06 9. 3 00 [facility] EN 29 -1 -0 00 00 L- ti AZ 30 7- 9- 0 07 MA ve OP 81 20 20 66 RT YR 10 17 17 05 ID 1 83 PH IN AR E MA 20 CY 0 MG #5 71 TA B [place] 00 05 06 21 6 00 [facility] ED 60 -1 -0 .0 00 L- ti NI 35 9- 9- 00 07 MA ve SO 33 20 20 66 RT NE 71 17 17 11 5 5 59 PH AR MG MA CY TA BL #5 ET 71 VE 00 05 06 90 30 00 [facility] NL 09 -0 -0 .0 00 L- ti AF 37 8- 2- 00 07 MA ve AX 38 20 20 65 RT IN 55 17 17 81 E 6 75 PH HC AR L MA ER CY 75 #5 71 MG CA P AZ 59 05 06 6. 5 00 GA Ac IT 76 -1 -0 00 00 L- ti HR 23 1- 2- 0 07 MA ve OM 06 20 20 65 RT YC 00 17 17 91 IN 1 54 PH AR 25 MA 0 CY MG #5 TA 71 BL ET HY 00 04 05 [address] 40 -2 -1 .0 00 L- ti OC 60 6- 9- 00 02 MA ve OD 12 20 20 23 RT ON 40 17 17 62 -A 1 16 PH CE AR TA MA HI CY NO PH #4 93 7. 5- 32 5 FL 55 04 05 1. 1 00 GA Ac UC 11 -2 -1 00 00 L- ti ON 10 7- 9- 0 07 MA ve AZ 14 20 20 40 RT OL 51 17 17 61 E 2 48 PH 15 AR 0 MA MG CY TA #4 BL 93 ET NA 65 04 05 28 14 00 GA Ac [place] 16 -1 -1 .0 00 L- ti OX 20 7- 2- 00 07 MA ve EN 19 20 20 40 RT 01 17 17 42 50 1 23 PH 0 AR MG MA CY TA BL #4 ET 93 CY 68 04 05 21 7 00 GA Ac CL 64 -1 -1 .0 00 L- ti OB 50 7- 2- 00 07 MA ve EN 51 20 20 40 RT ZA 89 17 17 42 [place] 0 24 PH IN AR E MA 10 CY MG #4 93 TA BL ET BE 51 04 05 20 7 00 GA Ac NZ 22 -1 -1 .0 00 L- ti ON 40 7- 2- 00 07 MA ve AT 00 20 20 40 RT AT 16 17 17 42 E 0 25 PH 20 AR 0 MA MG CY CA #4 PS 93 UL E DI 16 03 05 30 15 00 GA Ac CL 57 -2 -0 .0 00 L- ti OF 10 7- 5- 00 07 MA ve EN 20 20 20 40 RT AC 15 17 17 05 0 56 PH SO AR D MA EC CY 75 #4 93 MG TA B OX 00 03 05 10 2 00 GA Ac YC 40 -2 -0 .0 00 [...] 1 59 PH CE AR TA MA HI CY NO PH #4 EN 93 5- 32 5 ## 03 03 20 10 00 GA Ac ## -0 -3 .0 00 L- ti ## 9- 1- 00 08 MA ve ## 20 20 83 RT ## 17 17 96 # 67 PH AR MA CY #4 93 AZ 59 03 03 6. 5 00 GA Ac IT 76 -0 -3 00 00 L- ti HR 23 9- 1- 0 07 MA ve OM 06 20 20 39 RT YC 00 17 17 71 IN 1 19 PH AR 25 MA 0 CY MG #4 TA 93 BL ET FL 60 03 03 16 30 00 GA Ryne UT 43 -0 -2 .0 00 L- ti IC 20 1- 4- 00 07 MA ve 26 20 20 39 RT ON 41 17 17 54 E 5 91 PH [place] AR OP MA CY 50 #4 MC 93 G SP RA Y FL 55 02 03 1. 1 00 [facility] UC 11 -2 -1 00 00 L- ti ON 10 1- 7- 0 07 MA ve AZ 14 20 20 64 RT OL 51 17 17 04 E 2 05 PH 15 AR 0 MA MG CY TA #5 BL 71 ET OS 47 02 03 10 5 00 [facility] EL 78 -0 -1 .0 00 L- ti TA 10 5- 0- 00 07 MA ve HI 47 20 20 39 RT 01 17 17 08 R 3 29 PH PH AR OS MA CY 75 #4 MG 93 CA PS UL E DI 00 02 03 20 5 00 GA Ac CY 52 -1 -1 .0 00 L- ti CL 71 8- 0- 00 07 MA ve OM 28 20 20 63 RT IN 20 17 17 98 E 1 81 PH 20 AR MA MG CY TA #5 BL 71 ET [place] 68 02 03 20 5 00 GA Ac OM 38 -1 -1 .0 00 L- ti ET 20 8- 0- 00 07 MA ve TALAMANTES 04 20 20 63 RT ZI 10 17 17 98 NE 1 82 PH AR 25 MA CY MG #5 TA 71 BL ET ON 57 02 03 12 2 00 GA Ac DA 23 -1 -1 .0 00 [...] CY MG #4 TA 93 BL ET [place] 50 02 03 18 9 00 [place] Ac OM 38 -1 -1 0. 00 L- ti ET 30 3- 0- 00 04 MA ve TALAMANTES 80 20 20 0 54 RT ZI 51 17 17 17 NE 6 15 PH -P AR E- MA CO CY DE IN #5 E 71 SY RU P AM 64 02 03 60 30 00 GA Ac IT 76 -1 -1 .0 00 [...] CE 16 02 03 30 30 00 GA Ac TI 57 -1 -1 .0 00 [...] G #5 IN 71 TALAMANTES LE R [place] 68 02 02 10 3 00 [place] [...] 30 1- 4- 00 07 MA ve HI 31 20 20 39 RT DE 10 17 17 01 2 1 57 PH AR MG MA CY CA PS #4 UL 93 E FL 60 01 02 16 30 00 GA Ac UT 43 -2 -1 .0 00 L- ti IC 20 3- 7- 00 07 MA ve 26 20 20 36 RT ON 41 17 17 13 E 5 97 PH [place] AR OP MA CY 50 #4 MC 93 G SP RA Y OX 65 01 02 30 30 00 GA Ac YB 16 -2 -1 .0 00 L- ti UT 20 3- 7- 00 07 MA ve YN 37 20 20 34 RT IN 21 17 17 03 0 45 PH CL AR MA ER CY 10 #4 93 MG TA BL ET SY 00 01 02 10 30 00 GA Ac MB 18 -2 -1 .1 00 L- ti IC 60 3- 7- 99 07 MA ve OR 37 20 20 36 RT T 22 17 17 13 80 0 98 PH -4 AR .5 MA CY MC G #4 IN 93 TALAMANTES LE R OM 60 01 02 30 30 00 GA Ac EP 50 -2 -1 .0 00 L- ti RA 50 3- 7- 00 07 MA ve ZO 14 20 20 36 RT LE 60 17 [address] AR MA 40 CY MG #4 93 CA PS UL E CE 16 01 02 30 30 00 GA Ac TI 57 -0 -0 .0 00 L- ti RI 10 9- 3- 00 08 MA ve ZI 40 20 20 83 RT NE 25 17 17 59 0 83 PH HC AR L MA 10 CY MG #4 93 TA BL ET AM 64 01 02 60 30 00 GA Ac IT 76 -1 -0 .0 00 [...] AR RA 30 17 17 24 MA HI 5 44 CY DE #0 10 23 32 MG TA BL ET MO 54 12 01 30 30 00 GA Ac NT 45 -2 -2 .0 00 L- ti EL 80 8- 0- 00 07 MA ve [place] 89 20 20 38 RT 01 16 17 36 T 0 78 PH SO AR D MA 10 CY MG #4 93 TA BL ET GA 65 12 01 90 30 00 [facility] BA 16 -3 -2 .0 00 L- ti PE 20 0- 0- 00 07 MA ve NT 10 20 20 62 RT IN 25 16 17 80 0 12 PH 30 AR 0 MA MG CY CA #5 PS 71 UL E VE 00 12 01 90 30 00 [facility] NL 09 -1 -1 .0 00 L- ti AF 37 8- 3- 00 07 MA ve AX 38 20 20 37 RT IN 55 16 17 21 E 6 86 PH HC AR L MA ER CY 75 #4 93 MG CA P FL 55 12 01 2. 3 00 [facility] UC 11 -2 -1 00 00 L- ti ON 10 0- 3- 0 07 MA ve AZ 14 20 20 38 RT OL 51 16 17 24 E 2 49 PH 15 AR 0 MA MG CY TA #4 BL 93 ET OX 65 12 01 30 30 00 [facility] YB 16 -2 -1 .0 00 L- ti UT 20 1- 3- 00 07 MA ve YN 37 20 20 34 RT IN 21 16 17 03 0 45 PH CL AR MA ER CY 10 #4 93 MG TA BL ET SY 00 12 01 10 30 00 [facility] MB 18 -2 -1 .1 00 L- ti IC 60 1- 3- 99 07 MA ve OR 37 20 20 36 RT T 22 16 17 13 80 0 98 PH -4 AR .5 MA CY MC G #4 IN 93 [place] LE R FL 60 12 01 16 30 00 [facility] UT 43 -2 -1 .0 00 L- ti IC 20 1- 3- 00 07 MA ve 26 20 20 36 RT ON 41 16 17 13 E 5 97 PH [place] AR OP MA CY 50 #4 MC 93 G SP RA Y OM 57 12 30 30 00 [facility] EP 23 -2 -1 .0 00 L- ti RA 70 1- 3- 00 07 MA ve ZO 16 20 20 36 RT LE 23 16 [address] AR MA 40 CY MG #4 93 CA PS UL E ME 54 12 30 30 00 [facility] LO 45 -2 -1 .0 00 L- ti XI 80 2- 3- 00 07 MA ve CA 96 20 20 38 RT M 41 16 17 27 15 0 97 PH AR MG MA CY TA BL #4 ET 93 CE 16 12 30 30 00 GA Ac TI 57 -1 -0 .0 00 [...] Procedure [place] [address] [facility] [place] [facility] 7 RADIOLOGY NAL OPHTH 61023 [facility] 7 XM&EVAL COMPRHNSV ESTAB PT 1/> [place] [address] [facility] THYROID 7 ANCA ANCA STIMULATI [facility] NG HORMONE TSH COLLECTIO 34977 [facility] Rogel VENOUS 7 PHYSICIAN BLOOD PRACTICE VENIPUNCT L URE GONADOTRO 24107 [facility] PIN 7 ANCA ANCA CHORIONIC [facility] QUANTITAT LINDA BLOOD 62171 [facility] COUNT 7 ANCA ANCA COMPLETE [facility] AUTO&[place] [address] [facility] THYROXINE 7 ANCA ANCA TOTAL [facility] IAADIADOO 83108 [facility] CCUS GROUP GROUP A URINE 09998 [facility] ZORO[facility] 7 HEALTH HEALTH TEST MEDICAL MEDICAL VISUAL GROUP GROUP COLOR CMPRSN METHS RADEX 22437 [facility] [place] MACY ABDOMEN 7 RADIOLOGY COMPL W/DCBTS&/ ERC VIEWS URNLS DIP 01566 [facility] [facility] LET REAGENT AUTO MICROSCOP Y HYSTEROSC 87056 [facility] OPY BX 7 ENDOMETRI UM&/POLYP C W/WO D&C ANESTHESI 23537 ANESTHESI RED A 7 A INTRAPERI ASSOCIATE NOREEN S PSC LOWER ABD W/LAPS NOS CATH & 07948 [facility] SALINE/CO 7 NTRAST SONOHYSTE R/HYSTERO SALPI LAPS 32239 [facility] FULG/EXC 7 OVARY VISCERA/[place] [address] NEW CONDE SURG 7 NEESES PATHOLOGY [facility] GROSS&DAMIR ROSCOPIC EXAM COLLECTIO 57118 ASSOCIATE WHITE N VENOUS 7 D BLOOD PATHOLOGI VENIPUNCT STS LLC URE IADNA 32517 MEDICAL MEDICAL NEISSERIA 7 DIAGNOSTI DIAGNOSTI C LAB LLC C LAB LLC GONORRHO[place] [address] PATH PATH THYROID 7 GROUP GROUP STIMULATI LABS LLC [place] [address] ALEC MICHAEL TRANSVAGI 7 NAL IADNA 96164 MEDICAL MEDICAL TRICHOMON 7 DIAGNOSTI DIAGNOSTI C LAB LLC C LAB LLC VAGINALIS AMPLIFIED PROBE TECH HEMOGLOBI 33526 PATH PATH N 7 GROUP GROUP GLYCOSYLA LABS LLC LABS LLC MARIANNE A1C BLOOD 94817 PATH PATH COUNT 7 GROUP GROUP COMPLETE LABS LLC LABS LLC AUTO&AUTO DIFRNTL WBC IADNA 06361 MEDICAL MEDICAL CHLAMYDIA 7 DIAGNOSTI DIAGNOSTI C LAB LLC C LAB LLC TRACHOMAT IS AMPLIFIED PROBE TQ IADNA 88876 MEDICAL MEDICAL HUMAN 7 DIAGNOSTI DIAGNOSTI PAPILLOMA C LAB LLC C LAB LLC VIRUS HIGH-RISK TYPES DRUG TST G0483 MD LABS MD LABS DEFINITV 7 DR ID METH P DAY 22/MORE DR ONEIL COMPREHEN 25224 PATH PATH SIVE 7 GROUP GROUP METABOLIC LABS LLC LABS LLC PANEL DRUG TEST 39167 MD LABS MD LABS PRSMV 7 INSTRMNT CHEMISTRY ANALYZERS IAADIADOO 17862 [facility] LESLEE 7 HEALTH STREPTOCO MEDICAL CCUS GROUP GROUP A BLOOD 81651 [facility] COUNT 7 N N COMPLETE COMMUNTIY COMMUNTIY AUTO&AUTO [place]OSP[place] [address] [facility] LIPASE 7 N N COMMUNTIY COMMUNTIY HOSPITA HOSPITA INJECTION J1885 [facility] 7 N N KETOROLAC COMMUNTIY COMMUNTIY HOSPITA HOSPITA TROMETHAM INE PER 15 MG INFUSION J7030 [facility] NORMAL 7 N N SALINE COMMUNTIY COMMUNTIY SOLUTION HOSPITA HOSPITA 1000 CC URINE 36922 [facility] 7 N N TEST COMMUNTIY COMMUNTIY VISUAL HOSPITA HOSPITA COLOR CMPRSN METHS THERAPEUT 20940 [facility] IC 7 N N INJECTION COMMUNTIY COMMUNTIY IV [place] [address] [facility] INFUSION 7 N N THERAPY/P COMMUNTIY COMMUNTIY ROPHYLAXI HOSPITA HOSPITA S /DX 1ST TO 1 HR URNLS DIP 24768 [facility] 7 N N STICK/TAB COMMUNTIY COMMUNTIY LET HOSPITA [place] [address] [facility] INFUSION 7 N N HYDRATION COMMUNTIY COMMUNTIY EACH HOSPITA HOSPITA ADDITIONA L HOUR INJECTION J2550 [facility] 7 N N PROMETHAZ COMMUNTIY COMMUNTIY INE HCL HOSPITA HOSPITA UP TO 50 MG COMPREHEN 77403 [facility] SIVE 7 N N METABOLIC COMMUNTIY COMMUNTIY PANEL HOSPITA HOSPITA IAADIADOO 59034 [facility] MATCHESGA 7 HEALTH LA INFLU[facility]ZA MEDICAL GROUP IAADIADOO 77157 [facility] MATCH[facility]GA 7 [facility] STREPT[facility] MEDICAL CCUS GROUP GROUP A URINE 50356 HUSAM MIGUE 7 PHYSICIAN TEST PRACTICE VISUAL L COLOR CMPRSN METHS THERAPEUT 30231 HUSAM WEINER IC 7 PHYSICIAN PHYSICIAN PROPHYLAC PRACTICE PRACTICE TIC/DX L L INJECTION SUBQ/IM MRI 00114 [facility] [place] KOSTELIC SPINAL 7 RADIOLOGY CANAL LUMBAR W/O CONTRAST MATERIAL RADEX 79021 [facility] [place] SCALF SPINE 7 RADIOLOGY LUMBOSACR AL 2/3 VIEWS RADIOLOGI 25156 [facility] [place] SCALF C 7 RADIOLOGY EXAMINATI ON PELVIS 1/2 [place] [address] [facility] LIPASE 7 N N COMMUNTIY COMMUNTIY HOSPITA HOSPITA BLOOD 11012 [facility] COUNT 7 N N COMPLETE COMMUNTIY COMMUNTIY AUTO&AUTO HOSPITA HOSPITA DIFRNTL WBC THERAPEUT 65481 [facility] IC 7 N N INJECTION COMMUNTIY COMMUNTIY IV PUSH HOSPITA HOSPITA EACH NEW DRUG THER 74322 [facility] PROPH/DX 7 N N NJX IV COMMUNTIY COMMUNTIY PUSH HOSPITA HOSPITA SINGLE/1S T SBST/DRUG COMPREHEN 37299 [facility] SIVE 7 N N METABOLIC COMMUNTIY COMMUNTIY PANEL HOSPITA HOSPITA URNLS DIP 32721 [facility] 7 N N STICK/TAB COMMUNTIY COMMUNTIY LET HOSPITA [place] [address] [facility] INFUSION 7 N N HYDRATION COMMUNTIY COMMUNTIY EACH HOSPITA HOSPITA ADDITIONA L HOUR COLLECTIO 22123 HUSAM CAMARENA N VENOUS 6 PHYSICIAN BLOOD PRACTICE VENIPUNCT L URE GONADOTRO 76757 LAB RUSSELL LAB RUSSELL PIN 6 ANCA ANCA CHORIONIC HOLDINGS HOLDINGS QUALITATI VE IAADIADOO 34601 ZOROASTRIAN ZOROASTRIAN 6 [facility]ALTH [facility]ALTH INFLUENZA MEDICAL MEDICAL GROUP GROUP URINE 49859 ZOROASTRIAN BENAVIDEZ 6 HEALTH TEST MEDICAL VISUAL GROUP COLOR CMPRSN METHS URINE 40417 [facility] MIGUE 6 PHYSICIAN TEST PRACTICE VISUAL L COLOR CMPRSN METHS COLLECTIO 24116 HUSAM CAMARENA N VENOUS 6 PHYSICIAN BLOOD PRACTICE VENIPUNCT L URE GONADOTRO 53780 LAB RUSSELL LAB RUSSELL PIN 6 ANCA ANCA CHORIONIC HOLDINGS HOLDINGS QUANTITAT LINDA BRNCDILAT 07944 [facility]LLER RSPSE 6 REGIONAL REGIONAL SPMTRY MEDICAL MEDICAL PRE&POST- CENTE CENTE BRNCDILAT ADMN PRESSURIZ 05877 P[facility] HELLER ED/NONPRE 6 REGIONAL REGIONAL SSURIZED MEDICAL MEDICAL INHALATIO CENTE CENTE N TREATMENT NONINVASI 53380 [facility]INA HELLER VE 6 REGIONAL REGIONAL EAR/PULSE MEDICAL MEDICAL OXIMETRY CENTE CENTE SINGLE DETER PULMONARY 22305 PINA HELLER 6 REGIONAL REGIONAL COMPLIANC [place] [address] PINA HELLER DIFFUSING 6 REGIONAL REGIONAL CAPACITY MEDICAL MEDICAL CENTE CENTE PLETHYSMO 19781 PINA SHIPLEY GRAPHY 6 REGIONAL MITCHEL LUNG PHYSICIAN VOLUMES PRA W/[place] [address] P[facility] DIFFUSING 6 REGIONAL MITCHEL CAPACITY PHYSICIAN PRA BRNCDILAT 79130 PINA SHIP[facility] RSPSE 6 REGIONAL MITCHEL SPMTRY PHYSICIAN PRE&POST- PRA BRNCDILAT ADMN HEMOGLOBI 03500 PATH PATH N 6 GROUP GROUP GLYCOSYLA LABS The [employer] MARIANNE A1C BLOOD 43527 PATH PATH COUNT 6 GROUP GROUP COMPLETE LABS The [employer] AUTO&[place] [address] PATH PATH THYROID 6 GROUP GROUP STIMULATI LABS The [employer] NG HORMONE TSH COLLECTIO 03149 ASSOCIATE WHITE NAHID N VENOUS 6 D BLOOD PATHOLOGI VENIPUNCT STS LLC URE COMPREHEN 41239 PATH PATH SIVE 6 GROUP GROUP METABOLIC LABS [facility] [employer] PANEL IADNA 21511 ASSOCIATE WHITE NAHID NEISSERIA 6 D PATHOLOGI GONORRHOE STS [facility] AE AMPLIFIED PROBE TQ CULTURE 11318 PATH PATH FNGI 6 GROUP GROUP MOLD/YEAS LABS The [employer] T PRSMPTV OTH XCPT BLOOD CYTP C/V 90929 ASSOCIATE WHITE NAHID AUTO THIN 6 D LYR PATHOLOGI PREPJ SCR STS LLC MNL RESCR PHYS CUL BACT 64098 PATH PATH XCPT 6 GROUP GROUP URINE LABS The [employer] BLOOD/STO OL AEROBIC ISOL IADNA 72208 ASSOCIATE WHITE NAHID HUMAN 6 D PAPILLOMA PATHOLOGI VIRUS STS LLC HIGH-RISK TYPES IADNA 52613 ASSOCIATE WHITE NAHID CHLAMYDIA 6 D PATHOLOGI TRACHOMAT STS LLC IS AMPLIFIED PROBE TQ RADEX 75947 [facility] HAND 6 MEM [facility]OS[facility] MINIMUM 3 INC INC VIEWS WRIST L3807 [place] ALICEA HAND 6 HOME HOME FINGR MEDICAL MEDICAL ORTHOS EQUIPME EQUIPME W/O JNT PREFAB CSTM FIT COLLECTIO 45242 PINA HELLER N VENOUS 6 REGIONAL REGIONAL BLOOD MEDICAL MEDICAL VENIPUNCT CENTE CENTE URE ANTIBODY 39587 PINA HELLER BLASTOMYC 6 REGIONAL REGIONAL ES MEDICAL MEDICAL CENTE CENTE ANTIBODY 88159 PINA HELLER COCCIDIOI 6 REGIONAL REGIONAL PAUL MEDICAL MEDICAL CENTE CENTE ANTIBODY 62315 PINA HELLER HISTOPLAS 6 REGIONAL REGIONAL MA MEDICAL MEDICAL CENTE CENTE TB CELL 82751 PINA HELLER MEDIATED 6 REGIONAL REGIONAL ANTIGN MEDICAL MEDICAL RESPNSE CENTE CENTE GAMMA INTERFERO N ANTIBODY 97655 PINA HELLER ASPERGILL 6 REGIONAL REGIONAL US MEDICAL MEDICAL CENTE CENTE CULTURE 88436 LAB RUSSELL LAB RUSSELL BACTERIAL 6 ANCA ANCA HOLDINGS HOLDINGS QUANTTATI VE COLONY COUNT URINE RADIOLOGI 71491 [facility] [place] KOSTELIC C 6 RADIOLOGY ELAINE EXAMINAT[place] [address] [facility] [place] BENAVIDEZ ANGIOGRAP 6 RADIOLOGY RAY HY CHEST W/CONTRAS T/NONCONT RAST COLONOSCO 19964 PINA CARTER PY FLX DX 6 DIGESTIVE GRE W/COLLJ CARE SPEC WHEN CENTER PFRMD ANES 47225 [facility] LOWER 6 ANESTHESI SOHA INTESTINE A GROUP PS ENDOSCOPY DISTAL DUODENUM SPMTRY 51446 ESTELLA GILBERT GILBERT ESTELLA W/VC 6 MD EXPIRATOR CONSULTIN Y JOSHUA G SRV W/WO MXML VOL VNTJ RESPIRATO 04708 [facility] RY FLOW 6 [facility] LOOP ECG 25334 ESTELLA GILBERT GILBERT ESTELLA ROUTINE 6 MD ECG CONSULTIN W/LEAST G SRV 12 LDS I&[place] [address] HUSAM WEINER THYROXINE 6 [facility] BLOOD 54195 HUSAM WEINER COUNT 6 [facility] AUTO&AUTO DIFRNTL WBC FIBRIN 66318 HUSAM WEINER DGRADJ 6 [facility] D-DIMER QUANTITAT LINDA COLLECTIO 28768 HUSAM WEINER N VENOUS [address] [facility] VENIPUNCT URE ECG 11123 HUSAM WEINER ROUTINE [address] [place] [address] W/LEAST 12 LDS TRCG ONLY W/O I&[place] [address] HUSAM WEINER THYROID [address] [place] [address] NG HORMONE TSH COMPREHEN 96333 HUSAM WEINER SIVE [address] [place] [address] PANEL RADIOLOGI 36558 [facility] [place] MACY C EXAM 6 RADIOLOGY RHO CHEST 2 VIEWS FRONTAL&L ATERAL PRESSURIZ 75524 [facility] LE[facility] ED/NONPRE 6 [facility] SSURIZED INC INC INHALATIO N TREATMENT RADIOLOGI 63452 [facility] C EXAM 6 MEDICAL CHEST 2 IMAGING VIEWS ASS FRONTAL&L ATERAL BLOOD 03479 [facility] COUNT 6 [facility] COMPLETE INC INC AUTO&AUTO DIFRNTL WBC URNLS DIP 34576 [facility] LEACH 6 [facility] STICK/TAB INC INC LET REAGENT AUTO MICROSCOP Y THERAPEUT 44098 [facility] IC 6 [facility] PROPHYLAC INC INC TIC/DX INJECTION SUBQ/IM URINE 01538 [facility] LEACH 6 [facility] TEST INC INC VISUAL COLOR CMPRSN METHS COMPREHEN 92483 [facility] SIVE 6 [facility] H[facility] METABOLIC INC INC PANEL URNLS DIP 62371 ALECEVAN TURCIOS ALEC MAG 6 STICK/TAB LET RGNT NON-AUTO W/O MICRSCP OBSERVATI 91266 ALEC ALEC MAG ON CARE 6 DISCHARGE MANAGEMEN T INITIAL 43482 ALEC TURCIOS OBSERVATI 6 ON CARE/DAY 30 MINUTES ANESTHESI 44219 [facility] MCGROARTY A 6 ANESTHESI TAJ INTRAPERI A PSC TONEAL LOWER ABD W/LAPS NOS LAPS 64551 ALEC MICHAEL MAG FULG/EXC 6 OVARY VISCERA/[place] [address] [facility] SURG 6 [facility] PSC GROSS&DAMIR ROSCOPIC EXAM HYSTEROSC 32387 ALEC BROOKEON MAG OPY BX 6 ENDOMETRI UM&/POLYP C W/WO D&C IAADIADOO 47615 ZOROASTRIAN LESLEE 6 [facility] [place] [address] PATH PATH THYROID 6 GROUP GROUP STIMULATI LABS CHEQROOM LABS CHEQROOM NG HORMONE TSH COLLECTIO 60465 ASSOCIATE OWEN BAE N VENOUS [address] B[address] [facility] [place] [address] ALEC MICHAEL MAG TRANSVAGI 6 NAL HEMOGLOBI 39349 PATH PATH N 6 GROUP GROUP GLYCOSYLA LABS CHEQROOM LABS CHEQROOM MARIANNE A1C BLOOD 23044 PATH PATH COUNT 6 GROUP GROUP COMPLETE LABS CHEQROOM LABS CHEQROOM AUTO&AUTO DIFRNTL WBC COMPREHEN 97099 PATH PATH SIVE 6 GROUP GROUP METABOLIC LABS CHEQROOM LABS CHEQROOM PANEL OPHTH 06262 [facility] 6 GRE GRE XM&EVAL COMPRE NEW PT 1/> VST IAADIADOO 65333 ZOROASTRIAN LESLEE 6 HEALTH HEN INFLUENZA MEDICAL GROUP IAADIADOO 92883 ZOROASTRIAN LESLEE 6 [facility] STREPTOCO MEDICAL CCUS GROUP GROUP A CYTP C/V 71928 P&C LABS, PICKLESIM AUTO THIN 5 LLC ER JR [place] LYR PREPJ SCR MNL RESCR PHYS 00824 [place] [facility] DELIVERY 5 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 RANDALL ONLY ASSOCIATE S, 72411 CENTRAL CENTRAL NONSTRESS 5 [facility] [place] [address]503 [place] [facility] UTERUS 5 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 RANDALL REAL TIME ASSOCIATE F/U S, TRNSABDL PER FETUS IADNA 56419 MEDICAL MEDICAL STREPTOCO 5 DIAGNOSTI DIAGNOSTI CCUS C LAB LLC C LAB LLC [place] [address] CENTRAL CENTRAL NONSTRESS 5 ZOROASTRIAN ZOROASTRIAN TEST HOSP HOSP 55885 ZOROASTRIAN VERONICA NONSTRESS 5 HEALTH JR THO TEST MEDICAL GROUP FIBRINOGE 16239 CENTRAL CENTRAL N 5 ZOROASTRIAN ZOROASTRIAN ACTIVITY HOSP HOSP HGB/RBCS 62196 CENTRAL CENTRAL 5 ZOROASTRIAN ZOROASTRIAN FETOMATER HOSP HOSP NAL HEMRRG DIFRNTL LYSIS BLOOD 84167 CENTRAL CENTRAL COUNT 5 [facility]OROASTRIAN ZOROASTRIAN COMPLETE HOSP HOSP AUTOMATED COLLECTIO 83448 CENTRAL CENTRAL N VENOUS 5 [facility]AN ZOROASTRIAN BLOOD HOSP HOSP VENIPUNCT URE INITIAL 42063 ZOROASTRIAN VERONICA OBSERVATI 5 HEALTH JR THO ON MEDICAL CARE/DAY GROUP 30 MINUTES URNLS DIP 92690 CENTRAL CENTRAL 5 ZOROASTRIAN ZOROASTRIAN STICK/TAB HOSP HOSP LET RGNT AUTO W/O MICROSCOP Y IM ADM 44257 KENY KENY PRQ ID 5 VERITO VERITO SUBQ/IM NJXS 1 VACCINE TDAP 33391 KENY KENY VACCINE 7 5 VERITO VERITO YRS/> IM ANTIBODY 08104 LAB RUSSELL LAB RUSSELL SCREEN 5 ANCA ANCA RBC EACH HOLDINGS HOLDINGS SERUM TECHNIQUE BLOOD 18991 LAB RUSSELL LAB RUSSELL COUNT 5 ANCA ANCA COMPLETE HOLDINGS HOLDINGS AUTOMATED GLUCOSE 04524 LAB RUSSELL LAB RUSSELL POST 5 ANCA ANCA GLUCOSE HOLDINGS HOLDINGS DOSE 38660 CENTRAL CENTRAL NONSTRESS 5 ZOROASTRIAN ZORO[facility] TEST HOSP HOSP OBSERVATI 16585 [facility] WAHL ON/INPATI 5 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 MEND[facility] S, CARE 40 MINUTES URNLS DIP 28452 CENTRAL CENTRAL 5 ZOROASTRIAN ZOROASTRIAN STICK/TAB HOSP HOSP LET RGNT AUTO W/O MICROSCOP Y INITIAL 29416 ZOROASTRIAN VERONICA OBSERVATI 5 HEALTH JR THO ON MEDICAL CARE/DAY GROUP 30 MINUTES URNLS DIP 40134 CENTRAL CENTRAL 5 ZOROASTRIAN ZOROASTRIAN STICK/TAB HOSP HOSP LET REAGENT AUTO [place]CROSCOP [place] PREG 47075 [place] [facility] UTERUS 5 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 RANDALL AFTER ASSOCIATE REID Farley, GESTATION MANUAL 09213 JACKELYN MEDINA THERAPY 5 [facility] TQS 1/> PHYSICAL REGIONS THERAP EACH 15 MINUTES THERAPEUT 06074 JACKELYN MEDINA IC PX 1/> 5 [facility] PHYSICAL EACH 15 THERAP MIN EXERCISES US PREG 15613 [facility] UTERUS 5 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 VENIPUNCT URE THERAPEUT 06624 CONRADOURBON CONRADOURBON IC PX 1/> 5 [facility] EACH 15 MIN EXERCISES THERAPEUT 48643 [place] CONRADOURBON IC PX 1/> 5 [facility] EACH 15 MIN EXERCISES PHYSICAL 77837 HUSAM CAMPURBON THERAPY 5 [facility] N INJECTION J1100 NIKKYEVAN NIKKYON [address] [place] [address] [facility] S[facility] SODIUM PHOSPHATE 1 MG URINE 49710 CONRADOURBON CONRADOURBON 5 [facility] VISUAL COLOR CMPRSN METHS THERAPEUT 26841 CONRADOHUNTEREVAN CAMPHUNTERON IC [address] [place] [address] PROPHYLAC [facility] TIC/DX INJECTION SUBQ/IM CT LUMBAR 61263 NIKKYEVAN [facility] SPINE [address] [place] [address] W/O HOSPITAL HOSPITAL CONTRAST MATERIAL Encounters Encounter Start End Date Code Location Performer Type Date OFFICE 52074 RICHIE YOUNG OUTPATIEN 7 7 [facility] T VISIT 15 MINUTES OFFICE 26970 HUSAM CAMARENA OUTPATIEN 7 7 PHYSICIAN T VISIT PRACTICE 15 L MINUTES EMERGENCY 58988 [facility] DEPT 7 7 PAKO VISIT EMERGENCY HIGH PHYS SEVERITY& THREAT [facility] NIKKYON - 7 7 [facility] T OFF[facility] 49335 HUSAM [facility] 7 PHYSICIAN T VISIT PRACTICE 15 L MINUTES EMERGENCY 46980 [facility] DEPT 7 7 PAKO VISIT EMERGENCY HIGH PHYS SEVERITY& THREAT FUN OFFICE 82385 H[facility] 7 PHYSICIAN T VISIT PRACTICE 15 L MINUTES OFFICE 24461 HUSAM CAMARENA [facility] 7 7 PHYSICIAN T VISIT PRACTICE 15 L MINUTES OFFICE 84996 [facility] 7 7 MEM HOSP T VISIT 5 INC MINUTES HOSPITAL HANY - 7 7 MEM HOSP OUTPATIEN [facility] T OFFICE 09311 [facility] 7 7 PHYSICIAN T VISIT PRACTICE 15 L MINUTES OFFICE 74567 [facility]USAM [facility] 7 7 PHYSICIAN T VISIT PRACTICE 15 L MINUTES OFFICE 46126 [facility] 7 7 HEALTH LA T VISIT MEDICAL 15 GROUP MINUTES OFFICE 14366 [facility] 7 7 HEALTH T VISIT MEDICAL 15 GROUP MINUTES EMERGENCY 54318 NIKKYON 7 7 [facility] H[facility]PITAL T VISIT MODERATE SEVERITY EMERGENCY 69460 [facility] SWINE 7 7 PAKO DEPARTMEN EMERGENCY T VISIT PHYS HIGH/URGE NT SEVERITY [facility] NIKKYON - 7 7 [facility] T OFFICE 06916 ALEC [facility]OOKE[facility] 7 7 T VISIT 15 MINUTES EMERGENCY 78092 [facility] CHESTNUT 7 7 PAKO DEPARTMEN EMERGENCY T VISIT PHYS HIGH/URGE NT SEVERITY EMERGENCY 95931 [facility] 7 7 N DEPARTMEN COMMUNTIY T VISIT HOSPITA LIMITED/M INOR [facility] H[facility]PITAL [facility] - 7 7 N OUTPATIEN COMMUNTIY T HOSPITA OFFICE 44983 Z[facility]RI[facility] LESLEE OUTPATIEN 7 7 HEALTH T VISIT MEDICAL 15 GROUP MINUTES OFFICE 49986 HUSAM CAMARENA [facility] 7 7 PHYSICIAN T VISIT PRACTICE 15 L MINUTES EMERGENCY 26509 [facility] 7 7 N DEPARTMEN COMMUNTIY T VISIT HOSPITA HIGH/URGE NT SEVERITY EMERGENCY 56867 [facility] 7 7 PAKO VISIT EMERGENCY HIGH PHYS SEVERITY& [facility]AT [facility] - 7 7 N OUTPATIEN COMMUNTIY T HOSPITA OFFICE 38749 [facility] 7 7 GetIntent[facility], [facility] III T NEW 30 MINUTES EMERGENCY 97466 [facility] 7 7 PAKO DEPARTMEN EMERGENCY T VISIT PHYS HIGH/URGE NT SEVERITY OFFICE 57430 [facility]RIAN MATCHESGA [facility] 7 7 HEALTH LA T VISIT MEDICAL 15 GROUP MINUTES OFFICE 07434 HUSAM CAMARENA [facility] 7 7 PHYSICIAN T VISIT PRACTICE 15 L MINUTES HOSPITAL LINCOLN - 7 7 [facility] - 7 7 N OUTPATIEN COMMUNTIY T [facility] - 7 7 N OUTPATIEN COMMUNTIY T HOSPITA EMERGENCY 73697 [facility] 7 7 PAKO VISIT EMERGENCY HIGH PHYS SEVERITY& THREAT FUNCJ EMERGENCY 97777 [facility] 7 7 N DEPARTMEN COMMUNTIY T VISIT HOSPITA HIGH/URGE NT SEVERITY OFFICE 93863 NIKKYEVAN MIGUE OUTPATIEN 6 6 PHYSICIAN T VISIT PRACTICE 15 L MINUTES OFFICE 90517 NIKKYEVAN CAMARENA OUTPATIEN 6 6 PHYSICIAN T VISIT PRACTICE 15 L MINUTES OFFICE 93633 NIKKYEVAN MIGUE OUTPATIEN 6 6 PHYSICIAN T VISIT PRACTICE 15 L MINUTES OFFICE 44084 PINA GUERRERO OUTPATIEN 6 6 DIGESTIVE CEC T VISIT CARE 15 CENTER MINUTES OFFICE 00215 NIKKYEVAN MIGUE OUTPATIEN 6 6 PHYSICIAN OKSANA T VISIT PRACTICE 15 L MINUTES HOSPITAL PINA - 6 6 [facility] MEDICAL T CENTE PERIODIC 45642 ALEC MAG BROOKEON PREVENTIV 6 6 E MED EST PATIENT 18-39 YRS HOSPITAL [facility] - 6 6 [facility] OFF[facility] 36141 NIKKYEVAN CAMARENA OUTPATIEN 6 6 PHYSICIAN OKSANA T VISIT PRACTICE 15 L MINUTES OFFICE 08286 PINA SHIPLEY OUTPATIEN 6 6 REGIONAL MITCHEL T NEW 45 PHYSICIAN MINUTES [facility] PINA - 6 6 [facility] OUTPATI MEDICAL T CENTE OFFICE 11272 NIKKYEVAN MIGUE OUTPATIEN 6 6 PHYSICIAN OKSANA T VISIT PRACTICE 25 L MINUTES EMERGENCY 57054 [facility] DEPT 6 6 PAKO VISIT EMERGENCY HIGH PHYS SEVERITY& THREAT FUNCJ OFFICE 32917 PINA GUERRERO OUTPATIEN 6 6 DIGESTIVE CEC T VISIT CARE 15 CENTER MINUTES OFFICE 14529 HUSAM CAMARENA OUTPATIEN 6 6 PHYSICIAN OKSANA T VISIT PRACTICE 25 L MINUTES HOSPITAL HUSAM - 6 6 [facility] T OFFICE 79130 HUSAM CAMARENA OUTPATIEN 6 6 PHYSICIAN OKSANA T VISIT PRACTICE 15 L MINUTES HOSPITAL [place] - 6 6 [facility] T OFFICE 05266 PINA YOLANDA OUTPATIEN 6 6 DIGESTIVE CEC T VISIT CARE 25 CENTER [facility] - 6 6 [facility] T OFFICE 13123 HUSAM CAMARENA OUTPATIEN 6 6 PHYSICIAN OKSANA T VISIT PRACTICE 15 L MINUTES OFFICE 20466 PINA GUERRERO OUTPATIEN 6 6 DIGESTIVE CEC T NEW 45 CARE MINUTES [place] EMERGENCY 97559 HANY 6 6 MEM HOSP DEPARTMEN INC T VISIT MODERATE SEVERITY EMERGENCY 98090 LAXMI SHABAZZ 6 6 PHYSICIAN DAMIR DEPARTMEN S, PLLC T VISIT HIGH/URGE NT SEVERITY [facility] HANY - 6 6 [facility] OFF[facility] 06918 CONRADOELISE CAMARENA OUTPATIEN 6 6 PHYSICIAN MITCHEL T VISIT PRACTICE 15 L MINUTES OFFICE 73585 CONRADOELISE CAMARENA OUTPATIEN 6 6 PHYSICIAN MITCHEL T VISIT PRACTICE 15 L MINUTES OFFICE 26875 NIKKYEVAN MIGUE OUTPATIEN 6 6 PHYSICIAN MITCHEL T NEW 45 PRACTICE MINUTES L OFFICE 16617 ALEC MAG ALEC MAG OUTPATIEN 6 6 T VISIT 15 MINUTES OFFICE 64699 ZOROASTRIAN LESLEE OUTPATIEN 6 6 HEALTH HEN T VISIT MEDICAL 25 GROUP MINUTES OFFICE 97392 ALEC MAG ALEC MAG OUTPATIEN 6 6 T VISIT 15 MINUTES OFFICE 50443 [facility] OUTPATIEN 6 6 HEALTH HEN T VISIT MEDICAL 15 GROUP MINUTES OFFICE 15620 SPIKE GILMORE OUTPATIEN 5 5 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 T VISIT ASSOCIATE 15 S, MINUTES OFFICE 87309 [facility] ARNETT OUTPATIEN 5 5 HEALTH DON T VISIT MEDICAL 15 GROUP MINUTES OFFICE 30082 [place] [facility] 5 5 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 RANDALL T VISIT ASSOCIATE 15 S, MINUTES [facility] 5 5 [facility] OFF[facility] 54286 [place] [facility] OUT[facility] 5 5 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 RANDALL T VISIT ASSOCIATE 15 S, MINUTES OFFICE 22711 [place] [facility] OUTPATIEN 5 5 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 RANDALL T VISIT ASSOCIATE 15 S, MINUTES [facility] 5 5 [facility] 37996 [place] [facility] OUTPATI[facility] 5 5 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 RANDALL T VISIT ASSOCIATE 15 S, MINUTES OFFICE 56363 [facility] L[facility]E OUTPATIEN 5 5 HEALTH HEN T VISIT MEDICAL 25 GROUP MINUTES OFFICE 69032 [place] [facility] OUTPAT[facility] 5 5 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 RANDALL T VISIT ASSOCIATE 15 S, MINUTES [facility] 5 5 [facility] OFF[facility] 63482 KENY KENY OUTPATIEN 5 5 VEIRTO VERITO T VISIT 15 MINUTES OFFICE 54560 [place] [facility] 5 5 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 RANDALL T VISIT ASSOCIATE 15 S, MINUTES [facility] 5 5 [facility] 32991 [place] [facility] 5 5 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 RANDALL T VISIT ASSOCIATE 15 S, MINUTES [facility] 5 5 [facility] 43452 [place] [facility] 5 5 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 RANDALL T VISIT ASSOCIATE 15 S, MINUTES OFFICE 58789 [place] [facility] 5 5 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 RANDALL T VISIT ASSOCIATE 15 S, MINUTES OFFICE 01634 [place] [facility]PAT[facility] 5 5 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 RANDALL T NEW 45 ASSOCIATE MINUTES S, [facility] - 5 5 [facility] [address]218 [place] 5 5 [facility] T VISIT LOW/MODER SEVERITY EMERGENCY 85539 [facility] 5 5 [facility] EM[facility]GENC[facility] T VISIT PHYS HIGH/URGE NT SEVERITY [facility] [place] [address] 5 [facility] [place] [address] 5 [facility] [place] [address] 5 [facility] OFFICE 55944 KENY BUSTILLO [facility] 5 5 VERITO SELLERS T NEW 45 MINUTES EMERGENCY 06672 [place] 5 5 [facility] T VISIT HIGH/URGE NT SEVERITY [facility] [place] [address] 5 [facility]
--- OUTSIDE RECORDS SUMMARY | 2017-06-23 22:02 | External Medical Summary Rpt ---
Author Author [employer], [employer] Organization [employer] Address Unknown Phone Unavailable Results Streptococcus pyogenes Ag [Presence] in Unspecified specimen Observa Value Referen Units Interpr Notes Date tion ce etation Range Strepto NOT NOTDETE No No LOT # Jun 6 coccus DETECTE CTED informa informa NA EXP 2017 pyogene D tion in tion in DATE 5:46 PM s Ag source source NADONE [Presen data data IN ce] in CLINICA Unspeci L LAB fied specime n Heterophile Ab [Presence] in Serum by Latex agglutination Observa Value Referen Units Interpr Notes Date tion ce etation Range Heterop NEGATIV NEG No No No Jun 16 hile Ab E informa informa informa 2017 tion in tion in tion in 7:27 PM [Presen source source source ce] in data data data Serum by Latex aggluti nation
--- OUTSIDE RECORDS SUMMARY | 2017-06-23 22:02 | External Medical Summary Rpt | CCD ---
Demographics Preferred Language Uzbek Marital Status Unknown Mormon Affiliation Unknown Race Unknown Ethnic Group Unknown Author Author , ADELIA DELVALLE Address Unknown Phone Immunization No patient found.
--- OUTSIDE RECORDS SUMMARY | 2017-06-23 22:02 | External Medical Summary Rpt | CCD ---
Demographics Preferred Language Spanish Marital Status Unknown Druze Affiliation Unknown Race Unknown Ethnic Group Unknown Author Author , ADELIA DELVALLE Address Unknown Phone Immunization No patient found.
== END 2017-06-16 20:31 | disposition home or self-care (01) ==
LOC: UTC 18:36
DX: J03.90 Acute tonsillitis, unspecified (principal); F17.210 Nicotine dependence, cigarettes, uncomplicated; Z88.0 Allergy status to penicillin; Z88.6 Allergy status to analgesic agent

== ENCOUNTER 2017-06-17 17:07 | Emergency (ER) | payer MEDICAID ==
[~2017-06-17] VITALS: Ht 167.6 cm; Wt 80.3 kg
--- NOTE | 2017-06-17 18:07 | Urgent Treatment Center Report ---
History of Present Issue Date/Time Seen by Provider 06/17/17 1806 Visit Reason Pt arrived:Walked Presenting Problem:PT NEEDS SECOND ROCEPHIN INJECTION Location if Accident: Onset of symptoms date/time:/ or onset unknown for:MEDICAL HX UNKNOWN Have you (or family members/close friends) recently traveled outside the [place]? N If Yes, where/when: Have you had exposure to infectious disease within the past month? TB? Other? Specify: Patient state that she was seen On Tuesday and diagnosed with strep. States that she was given Keflex and then seen yesterday here in the [facility] and given Rocephin injection and advised that she was told to go to family doctor today or come back to [facility] to see if she needs to get another injection ALLERGIES Coded Allergies: amoxicillin (Intermediate, I-HIVES 01/31/16) clavulanic acid (From AUGMENTIN) (Intermediate, I-HIVES 01/31/16) tramadol (Intermediate, I-HIVES 01/31/16) acetaminophen (From PERCOCET) (05/29/17) oxycodone (From PERCOCET) (05/29/17) Home Medications Reported Medications CEPHALEXIN (Keflex 500MG Capsule) 500 MG PO BID #20 SALMETEROL 50/FLUTICASONE 100 (Advair 100-50 Diskus) 1 PUFFS IN BID Clonidine Hydrochloride (Clonidine 0.2MG Tab) 0.1 MG PO BID History Medical History General CAD? No Angina: No [place]: No Hypertension? No Hyperlipidemia? No CHF? No DVT? No PE? No COPD? No Asthma? No Anemia? No GERD? No Gastric ulcers? No GI Bleed? No Hernia? No Thyroid Problems? No Hypothyroidism? No CVA? No Seizures? No Diabetes? No Renal Insuffiency? No UTI? Yes Stones? Yes BPH? No GB Disease: No Nephritic Syndrome? No Asplenia? No Hepatitis? No Sickle Cell Disease? No Arthritis? No Migraines? No Cataracts? No Glaucoma? No MRSA? No HIV? No TB? No Anxiety? No Depression? No Cancer? No More? No Immunization HX DT/Tetanus UNKNOWN Flu LAST YEAR Pneumonia NEVER Surgical Hx Previous Surgery?Y BUNION SURGERY Appendix Gallbladd LAP X 3 ENDO X 2 COLONSCOPY X 2 LEFT HAND CYST REMOVED WISDOM TEETH Social History Smoking Hx Smoker: Current Every Day Smoker Tobacco: Yes Type Cigarettes Packs/day < 1 Pack Alcohol Alcohol: No Review of Systems All Other Systems Reviewed and Negative Comment Recently diagnosed with strep and prescribed Keflex Was seen yesterday and got a rocephin shot due to not feeling any better Physical Exam Vital Signs Vital Signs Date Time Temp Pulse Resp B/P Pulse O2 O2 Flow FiO2 Ox Delivery Rate 06/17 1725 99.8 108 20 135/77 98 General Appearance normal appearance, WD/WN, no apparent distress Ear, Nose, Throat Throat red, no exudate noted Respiratory Status Yes: trachea midline, chest symmetrical, non tender chest. No: respiratory distress. Cardiovascular normal exam, no peripheral edema Neurologic alert, normal exam, oriented x 3 Comments Strep test repeated and negative result, patient advised to continue taking Prescribed antibiotic and return if worse Medical Decision Making LABS/Meds/Orders Pt receiving controlled substance in ED? No Results/Orders Laboratory Tests 06/17/17 1746: Group A Strep Screen NOT DETECTED Orders Procedure Date/time Status [facility] STREP SCREEN 06/17 1746 Complete Departure Departure Time of Disposition 1818 Disposition DC Home or Self Care(routine) Clinical Impression Primary Impression: Sore throat Condition STABLE Referrals MICHEL CAMARENA (Family): 3 Days-Call Office If no improvement or worsening of symptoms Patient Instructions Sore Throat, Strep Throat Additional Instructions One of the medications that you have taken is helping with strep, you now tested negative in the office today Follow up with family doctor Continue taking antibiotic Return if needed Discharge Counseling Counseled pt/family regarding diagnosis, test results, home care, follow up needs at 1826
--- NOTE | 2017-06-17 18:07 | Urgent Treatment Center Report ---
History of Present Issue Date/Time Seen by Provider 06/17/17 1806 Visit Reason Pt arrived:Walked Presenting Problem:PT NEEDS SECOND ROCEPHIN INJECTION Location if Accident: Onset of symptoms date/time:/ or onset unknown for:MEDICAL HX UNKNOWN Have you (or family members/close friends) recently traveled outside the [place]? N If Yes, where/when: Have you had exposure to infectious disease within the past month? TB? Other? Specify: Patient state that she was seen On Tuesday and diagnosed with strep. States that she was given Keflex and then seen yesterday here in the [facility] and given Rocephin injection and advised that she was told to go to family doctor today or come back to [facility] to see if she needs to get another injection ALLERGIES Coded Allergies: amoxicillin (Intermediate, I-HIVES 01/31/16) clavulanic acid (From AUGMENTIN) (Intermediate, I-HIVES 01/31/16) tramadol (Intermediate, I-HIVES 01/31/16) acetaminophen (From PERCOCET) (05/29/17) oxycodone (From PERCOCET) (05/29/17) Home Medications Reported Medications CEPHALEXIN (Keflex 500MG Capsule) 500 MG PO BID #20 SALMETEROL 50/FLUTICASONE 100 (Advair 100-50 Diskus) 1 PUFFS IN BID Clonidine Hydrochloride (Clonidine 0.2MG Tab) 0.1 MG PO BID History Medical History General CAD? No Angina: No [place]: No Hypertension? No Hyperlipidemia? No CHF? No DVT? No PE? No COPD? No Asthma? No Anemia? No GERD? No Gastric ulcers? No GI Bleed? No Hernia? No Thyroid Problems? No Hypothyroidism? No CVA? No Seizures? No Diabetes? No Renal Insuffiency? No UTI? Yes Stones? Yes BPH? No GB Disease: No Nephritic Syndrome? No Asplenia? No Hepatitis? No Sickle Cell Disease? No Arthritis? No Migraines? No Cataracts? No Glaucoma? No MRSA? No HIV? No TB? No Anxiety? No Depression? No Cancer? No More? No Immunization HX DT/Tetanus UNKNOWN Flu LAST YEAR Pneumonia NEVER Surgical Hx Previous Surgery?Y BUNION SURGERY Appendix Gallbladd LAP X 3 ENDO X 2 COLONSCOPY X 2 LEFT HAND CYST REMOVED WISDOM TEETH Social History Smoking Hx Smoker: Current Every Day Smoker Tobacco: Yes Type Cigarettes Packs/day < 1 Pack Alcohol Alcohol: No Review of Systems All Other Systems Reviewed and Negative Comment Recently diagnosed with strep and prescribed Keflex Was seen yesterday and got a rocephin shot due to not feeling any better Physical Exam Vital Signs Vital Signs Date Time Temp Pulse Resp B/P Pulse O2 O2 Flow FiO2 Ox Delivery Rate 06/17 1725 99.8 108 20 135/77 98 General Appearance normal appearance, WD/WN, no apparent distress Ear, Nose, Throat Throat red, no exudate noted Respiratory Status Yes: trachea midline, chest symmetrical, non tender chest. No: respiratory distress. Cardiovascular normal exam, no peripheral edema Neurologic alert, normal exam, oriented x 3 Comments Strep test repeated and negative result, patient advised to continue taking Prescribed antibiotic and return if worse Medical Decision Making LABS/Meds/Orders Pt receiving controlled substance in ED? No Results/Orders Laboratory Tests 06/17/17 1746: Group A Strep Screen NOT DETECTED Orders Procedure Date/time Status [facility] STREP SCREEN 06/17 1746 Complete Departure Departure Time of Disposition 1818 Disposition DC Home or Self Care(routine) Clinical Impression Primary Impression: Sore throat Condition STABLE Referrals MICHEL CAMARENA (Family): 3 Days-Call Office If no improvement or worsening of symptoms Patient Instructions Sore Throat, Strep Throat Additional Instructions One of the medications that you have taken is helping with strep, you now tested negative in the office today Follow up with family doctor Continue taking antibiotic Return if needed Discharge Counseling Counseled pt/family regarding diagnosis, test results, home care, follow up needs at 1826
[2017-06-17 18:50] VITALS: BP 135/77
--- OUTSIDE RECORDS SUMMARY | 2017-06-24 08:26 | External Medical Summary Rpt | CCD ---
Author Author , ADELIA Organization ADELIA Address Unknown Phone [email or web address] Care Team Providers Care Dermatology Teacher Name Role Phone DEIRDRE PEREIRA, GILMORE Unavailable Unavailable [facility] Unavailable Unavailable [facility] Unavailable [facility]available [facility] Unavailable Unavailable [facility], [facility] Unavailable Unavailable MEDICAL [facility], [facility] KINDRA JAM, KINDRA JAM Unavailable Unavailable YOUNG, YOUNG Unavailable Unavailable YOUNG ALL, [facility] ALL Unavailable Unavailable [facility] Unavailable Unavailable HOSPITAL, [facility] PHYSICIAN Unavailable Unavailable PRACTICE L, [facility] KENY SPENCER Unavailable Unavailable KENY LAM Unavailable Unavailable VERITO OWEN TER, OWEN TER Unavailable Unavailable [facility], Unavailable Unavailable [facility] CHANDEL, CHANDEL Unavailable Unavailable CHESTNUT, CHESTNUT Unavailable Unavailable [facility] Unavailable Unavailable [place] Unavailable Unavailable MEDICAL [facility], [facility] MEDICAL [facility] Unavailable Unavailable PHYSICIAN PRA, [facility] PHYSICIAN PR[facility], Unavailable Unavailable [facility] GILBERT ESTELLA, GILBERT ESTELLA Unavailable Unavailable MIGUE, MIGUE Unavailable Unavailable MIGUE MITCHEL, MIGUE Unavailable Unavailable MITCHEL MIGUE OKSANA, MIGUE Unavailable Unavailable OKSANA DESIRAE BECK, Unavailable Unavailable DESIRAE BECK [facility] Unavailable Unavailable [facility], [facility] BELEN, BELEN Unavailable Unavailable GIRALDO, GIRALDO Unavailable Unavailable HARIKA DAMIR, HARIKA Unavailable Unavailable DAMIR [facility] Un[facility] Unavailable [facility], [facility] GREGONIS MITCHEL, Unavailable Unavailable GREGONIS MITCHEL AMCY, MACY Unavailable Unavailable MACY RHO, MACY Unavailable Unavailable RHO HANY, HANY Unavailable Unavailable [facility] Unavailable Unavailable [facility], [facility] YOLANDA CEC, YOLANDA Unavailable Unavailable CEC CONDE, CONDE Unavailable Unavailable ALEC, ALEC Unavailable Unavailable ALEC, ALEC Unavailable Unavailable ALEC MAG, ALEC MAG Unavailable Unavailable ALEC MAG, ALEC MAG Unavailable Unavailable [facility] Unavailable Unavailable GROUP PS, [facility] Unavailable Unavailable [facility], [facility], Unavailable [facility]available [facility], Unavailable Unavailable [facility] Unavailable Unavailable HOLD[facility], [facility] Unavailable Unavailable [facility], [facility] VERONICA JR THO, Unavailable Unavailable VERONICA JR THO 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 Unavailable Unavailable ASSOCIATES,, [place] [place] 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, ANA PEREZ Unavailable Unavailable ANA, ANA [...] [facility] LLC, [facility] ROSARIO HOYOS, ROSARIO Unavailable Unavailable [facility] Unavailable Unavailable [facility], [facility] JEFFY, JEFFY Unavailable [facility]available [facility] [...] MENDY ARNETT DON, Unavailable Unavailable ARNETT DON [facility] Unavailable Unavailable THERAP, [facility] AVERY, III, AVERY, Unavailable Unavailable III [facility] Unavailable Unavailable EQUIPME, [facility] Unavailable Unavailable EM[facility], [facility] BENAVIDEZ, BENAVIDEZ Unavailable Unavailable BENAVIDEZ RAY, BENAVIDEZ Unavailable Unavailable RAY [facility] Unavailable Unavailable [facility], [facility] MEDINA TONIE, MEDINA Unavailable Unavailable TONIE SWINEY, SWINEY Unavailable Unavailable SWINEY PAT, SWINEY Unavailable Unavailable PAT WHITE, WHITE Unavailable Unavailable WHITE NAHID, WHITE NAHID Unavailable Unavailable [facility] MITCHEL, HAFSA Unavailable Unavailable MITCHEL RED, RED Unavailable Unavailable Purpose Continuity of Care Document - 10-21-2014 through 2016 Problems Code Diagnosis DOS Provider Status J069 ACUTE UPPER 05-17-2017 RICHIE VICTORSusy JERROD RESPIRATORY INFECTION UNSPECIFIED B373 CANDIDIASIS 05-13-2017 [facility] OF VULVA PHYSICIAN AND VAGINA PRACTICE L N10 ACUTE 05-13-2017 [facility] PYELONEPHRI PHYSICIAN TIS PRACTICE L N390 URINARY 05-11-2017 [facility] TRACT N EMERGENCY INFECTION PHYS SITE NOT SPECIFIED U63896 UNSPECIFIED 05-11-2017 [facility] OVARIAN N EMERGENCY CYST [...] FREQUENT ANCA MENSTRUATIO HOLDINGS N W/REGULAR CYCLE M58010 CELLULITIS 02-16-2017 [facility] OF OTHER PHYSICIAN SITES PRACTICE L H6503 ACUTE 01-28-2017 [facility] MEDICAL MEDIA GROUP BILATERAL N910 PRIMARY 01-24-2017 [facility] Z3202 ENCOUNTER 01-24-2017 [facility] FOR HEALTH MEDICAL TEST RESULT GROUP NEGATIVE 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 01-13-2017 [facility] 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-2017 [facility]EL [facility] WITHOUT DIARRHEA K5900 CONSTIPATIO 01-13-2017 [...] 01-05-2017 [facility] LUTEUM CYST OF RIGHT OVARY [id number] OTHER 01-05-2017 [facility] [place] CYST RIGHT CLINIC PSC SIDE N926 IRREGULAR 01-05-2017 [facility] MENSTRUATIO N UNSPECIFIED R102 PELVIC AND 12-07-2016 [facility] DIAGNOSTIC PAIN LAB LLC R11315 ENCOUNTER 12-07-2016 [facility] OTHER [facility] PREPROCEDUR AL EXAMINATION Z5181 ENCOUNTER 12-07-2016 [facility] FOR THERAPEUTIC DRUG LEVEL MONITORING S09601 OTHER LONG 12-07-2016 [facility] TERM CURRENT DRUG THERAPY Z5321 PROC & [place] 12-05-2016 [facility] NOT CARRIED COMMUNTIY OUT PT HOSPITA LEAVE PRIOR TO SEEN I889 NONSPECIFIC 11-18-2016 [facility] LYMPHADENIT MEDICAL IS GROUP UNSPECIFIED J029 ACUTE 11-18-2016 [facility] PHARYNGITIS HEALTH MEDICAL UNSPECIFIED GROUP R0981 NASAL 11-18-2016 [facility] K529 NONINFECTIV 11-01-2016 [facility] E PHYSICIAN GASTROENTER PRACTICE L ITIS & COLITIS UNS R1084 GENERALIZED 10-30-2016 [facility] ABDOMINAL N EMERGENCY PAIN PHYS R197 DIARRHEA 10-30-2016 [facility] UNSPECIFIED N EMERGENCY PHYS Z720 TOBACCO USE 10-30-2016 [facility] J020 STREPTOCOCC 10-25-2016 [facility] PHARYNGITIS J9801 ACUTE 10-25-2016 [facility] M J111 FLU D/T 10-19-2016 [facility] UNIDENTIFIE N EMERGENCY D FLU VIRUS PHYS W/OTH RESP MANIF R6889 OTHER 10-17-2016 [facility] SYMPTOMS MEDICAL AND SIGNS GROUP N72002 CONTACT W/ 10-17-2016 [facility] & EXPOSURE HEALTH OTH VIRAL MEDICAL COMMUNICABL GROUP E DZ M549 DORSALGIA 09-17-2016 [facility] A44192 MIGRAINE 09-12-2016 [facility] UNS NOT N EMERGENCY INTRACT W/O PHYS STATUS MIGRAINOSUS Z3200 ENCOUNTER 08-25-2016 [facility] MEDICAL TEST RESULT GROUP UNKNOWN T82003 PAIN IN 08-11-2016 [facility] UNSPECIFIED PHYSICIAN HIP PRACTICE L J00 ACUTE 07-23-2016 [facility] NASOPHARYNG PHYSICIAN ITIS COMMON PRACTICE L COLD R238 OTHER SKIN 07-23-2016 [facility] CHANGES PHYSICIAN PRACTICE L L301 DYSHIDROSIS 06-28-2016 [facility] POMPHOLYX PHYSICIAN PRACTICE L R05 COUGH 06-16-2016 [facility] PRA R0602 SHORTNESS 06-16-2016 [facility] OF BREATH REGIONAL PHYSICIAN PRA R062 WHEEZING 06-16-2016 [facility] PH[facility]ICIAN PRA U01951 ENCOUNTER 06-08-2016 [facility] MAG CLOTH NEUTRALIZER EXAM GENERAL RTN W/O ABNORMAL FIND Z113 ENCOUNTER 06-08-2016 ASS[facility]ATED SCREEN PATHOLOGIST INFECTIONS S LLC SEXL MODE TRANSMISSN Z1151 ENCOUNTER 06-08-2016 [facility]OC[facility]ATED FOR PATHOLOGIST SCREENING S LLC FOR HUMAN PAPILLOMAVI CORDELIA Z118 ENCOUNTER 06-08-2016 ASSOCIATED SCREEN PATHOLOGIST OTHER S LLC INFECTIOUS & PARASITIC DZ U24988 PAIN IN 05-24-2016 [facility] LEFT MEDICAL FINGERS IMAGING ASS J309 ALLERGIC 05-05-2016 [facility] RHINITIS REGIONAL UNSPECIFIED PHYSICIAN PRA O77626 UNSPECIFIED 05-05-2016 [facility] ASTHMA REGIONAL UNCOMPLICAT PHYSICIAN ED PRA K219 GASTRO-ESOP 05-05-2016 [facility] Iraheta REFLUX REGIONAL DISEASE PHYSICIAN WITHOUT PRA ESOPHAGITIS R61 GENERALIZED 05-05-[address] [facility] HYPERHIDROS PHYSICIAN IS PRA R072 PRECORDIAL 04-11-2016 [facility] [place] PAIN RADIOLOGY R0789 OTHER CHEST 04-11-2016 [facility] PAIN N EMERGENCY PHYS R079 CHEST PAIN 04-11-2016 [facility] [place] UNSPECIFIED RADIOLOGY [id number] STRAIN 04-11-2016 [facility] MUSCLE & N EMERGENCY TENDON UNS PHYS WALL THORAX INIT ENC [id number] EXPOSURE TO 04-11-2016 [facility] OTHER N EMERGENCY SPECIFIED PHYS FACTORS INITIAL ENC R198 OTH SPEC SX 03-17-2016 [facility] & SIGNS DIGESTIVE [facility] DIGESTV SYS & ABD Z1211 ENCOUNTER 03-17-2016 [place] SCREENING [facility] MALIGNANT GROUP PS NEOPLASM OF COLON G8929 OTHER 03-12-2016 [facility] L Z539 PROCEDURE & 03-08-2016 [facility] NOT CARRIED HOSPITAL OUT UNS REASON R000 TACHYCARDIA 03-03-2016 [facility] PHYSICIAN UNSPECIFIED PRACTICE L J40 BRONCHITIS 03-01-2016 [facility] [place] NOT RADIOLOGY SPECIFIED ACUTE OR CHRONIC J4530 MILD 01-31-2016 [facility], ASTHMA PLLC UNCOMPLICAT ED J0190 ACUTE 01-28-2016 [facility] SINUSITIS PHYSICIAN UNSPECIFIED PRACTICE L H8110 BENIGN [...] OVARIAN CYSTS N838 OTH 11-28-2015 NEW NONINFLAMM [place] D/O OVARY CLINIC PSC FALLOP TUBE & BROAD LIG N941 DYSPAREUNIA 11-28-2015 [facility] N942 VAGINISMUS 11-28-2015 [facility] MAG H5203 HYPERMETROP 09-29-2015 ANA IA GRE BILATERAL Z309 ENCOUNTER 07-17-2015 [place] FOR 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 CONTRACEPTI ASSOCIATES, VE MANAGEMENT UNS Z392 ENCOUNTER 07-17-2015 [place] FOR ROUTINE 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 ASSOCIATES, FOLLOW-UP K1230 ORAL 07-08-2015 [facility] MUCOSITIS HEALTH ULCERATIVE MEDICAL UNSPECIFIED GROUP [id number] MAT CARE 07-03-2015 [facility] DISPROPORTI ANESTHESIA ON UNUSUAL PSC LARGE FET NA/UNS O653 OBST LABOR 07-03-2015 SPIKE DUE PELV 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 OUTLET & ASSOCIATES, MID-CAV CONTRACTION Z370 SINGLE LIVE 07-03-2015 [facility] ANESTHESIA PSC Z3A39 39 WEEKS 07-03-2015 [place] 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, O471 FALSE LABOR 06-26-2015 [facility] AT/AFTER [facility] 37 HOSP COMPLETED WEEKS GEST Z3483 ENC 06-26-2015 [place] SUPERVISION 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 OTH NORMAL ASSOCIATES, 3 TRIMESTER Z3A38 38 WEEKS 06-26-2015 [facility] GESTATION [facility] OF HOSP D7250Z1 MATERNAL 06-19-2015 [place] CARE EXCESS 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, GROWTH 3RD TRI NA/UNS [id number] POLYHYDRAMN 06-19-2015 [facility] IOS THIRD 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 TRIMESTER ASSOCIATES, NA/UNS Z3A37 37 WEEKS 06-19-2015 [place] 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, Z391 ENCNTR FOR 06-18-2015 [facility] EXAMINATION SUPPLIES LACTATING MOTHER U79768 ANEMIA 06-12-2015 [place] COMPLICATIN 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 G ASSOCIATES, THIRD TRIMESTER Z36 ENCOUNTER 06-12-2015 [facility] SCREENING OF MOTHER Z3A36 36 WEEKS 06-12-2015 [facility] 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, 19384 THREATENED 06-11-2015 [facility] PREMATURE [facility] ANTEPARTUM 75353 OTH CURRENT 05-29-2015 [place] MAT CONDS 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 CLASSIFIABL ASSOCIATES, E ELSW ANTPRTM 7869 OTH 05-29-2015 [place] SYMPTOMS 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 INVOLVING ASSOCIATES, RESPIRATORY SYSTEM&CHES T 4619 ACUTE 05-22-2015 [facility] SINUSITIS, HEALTH UNSPECIFIED MEDICAL GROUP 4779 ALLERGIC 05-22-2015 [facility] RHINITIS HEALTH CAUSE MEDICAL UNSPECIFIED GROUP V221 SUPERVISION 05-15-2015 [facility] OF OTHER 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 NORMAL ASSOCIATES, 42453 OTHER 04-18-2015 [facility] SPECIFED HEALTH COMPLICATIO MEDICAL N GROUP ANTEPARTUM 7605 FETUS OR 04-18-2015 [facility] HEALTH AFFECTED BY MEDICAL MATERNAL GROUP INJURY V222 04-18-2015 [facility], [facility] INCIDENTAL HOSP V714 OBSERVATION 04-18-2015 [facility] FOLLOWING [facility] OTHER HOSP ACCIDENT 51769 ABDOMINAL 04-17-2015 KENY SELLERS WITH INTRAUTERIN E 50641 ABDOMINAL 04-01-2015 [facility] PAIN RIGHT [facility] LOWER HOSP QUADRANT 6259 UNSPEC 03-01-2015 [facility] SYMPTOM [facility] ASSOC HOSP W/FEMALE GENITAL ORGANS 97291 ABDOMINAL 03-01-2015 [facility] PAIN, LEFT HEALTH LOWER MEDICAL QUADRANT GROUP 7202 SACROILIITI 01-31-2015 [facility] PHYSICAL CLASSIFIED THERAP 7244 THORACIC/MARINA 01-31-2015 [facility] NEURITIS/RA PHYSICAL DICULITIS THERAP UNSPEC V571 OTHER 01-31-2015 [facility] THERAPY PHYSICAL THERAP 40187 MILD 12-19-2014 [place] HYPEREMESIS 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 GRAVIDARUM ASSOCIATES, ANTEPARTUM 56585 THREATENED 11-21-2014 [place] , 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 ANTEPARTUM ASSOCIATES, V7231 ROUTINE 11-21-2014 [facility] AL EXAMINATION 8470 NECK SPRAIN 11-19-2014 [facility] AND STRAIN N EMERGENCY PHYS E9289 UNSPECIFIED 11-19-2014 [facility] ACCIDENT N EMERGENCY PHYS V141 PERSONAL 11-19-2014 [facility] OTHER ANTIBIOTIC AGENT V143 PERSONAL 11-19-2014 [facility] ANTI-INFECT LINDA AGT V146 PERSONAL 11-19-2014 [facility] H[facility] OF [facility] ALL[facility] TO HOSPITAL ANALGESIC AGENT 6260 ABSENCE OF 11-13-2014 [facility] MENSTRUATIO [facility] 05731 DISPLCMT 11-11-2014 [facility] LUMBAR [facility] DISC W/O MYELOPATHY 7242 LUMBAGO 11-11-2014 [facility] 8461 SPRAIN AND 11-01-2014 KENY SELLERS STRAIN OF SACROILIAC 7222 DISPLCMT 10-21-2014 [facility] SITE HOSPITAL UNS W/O MYELOPATHY 7820 DISTURBANCE 10-21-2014 [facility] SKIN N EMERGENCY SENSATION PHYS V1582 PERS HX 10-21-2014 [facility] TOBACCO USE [facility] Allergies, Adverse Reactions, Alerts [...] -0 .0 00 L- ti IC 20 07 MA ve 26 20 20 42 RT ON 41 17 17 95 E 5 80 PH DE AR OP MA CY 50 #4 MC 93 G SP RA Y CL 16 09 10 60 30 00 WA Ac ON 72 -1 -0 .0 00 L- ti AZ 90 4 6 00 04 MA ve EP 13 20 20 52 RT AM 61 17 17 33 6 59 PH 0. AR 5 MA MG CY TA #4 BL 93 ET BE 51 09 09 30 10 00 WA Ac NZ 22 -0 -2 .0 00 L- ti ON 40 07 MA ve AT 00 20 20 [...] FL 55 09 09 1. 1 00 WA Ac UC 11 -0 -2 00 00 L- ti ON 10 1- 2- 0 07 MA ve AZ 14 20 20 42 RT OL 51 17 17 72 E 2 36 PH 15 AR 0 MA MG CY TA #4 BL 93 ET DE 59 08 09 20 7 00 WA Ac OC 74 -3 -2 .0 00 L- ti HL 60 1- 2- 00 07 MA ve OR 11 20 20 42 RT PE 50 17 17 69 RA 6 86 PH ZI AR NE MA CY 10 #4 MG 93 TA B NI 47 08 [address] Ac TR 78 -3 -2 .0 00 L- ti OF 10 1- 2- 00 07 MA ve UR 30 20 20 42 RT AN 30 17 17 69 TO 1 87 PH IN AR MA MO CY NO -M #4 CR 93 10 0 MG DE 68 08 09 20 5 00 WA Ac OM 38 -1 -0 .0 00 L- ti ET 20 8- 8- 00 07 MA ve TALAMANTES 04 20 20 42 RT ZI 00 17 17 50 NE 1 57 PH AR 12 MA .5 CY MG #4 93 TA BL ET FL 55 [address] Ac UC 11 -0 -0 00 00 L- ti ON 10 9- 1- 0 07 MA ve AZ 14 20 20 42 RT OL 51 17 17 34 E 2 06 PH 15 AR 0 MA MG CY TA #4 BL 93 ET AM 00 07 08 30 30 00 WA Ac IT 78 -3 -2 .0 00 L- ti RI 11 1- 5- 00 07 MA ve PT 48 20 20 42 RT YL 61 17 17 19 IN 0 00 PH E AR HC MA L CY 10 #4 MG 93 TA B ME 59 07 08 21 6 00 WA Ac TH 74 -1 -1 .0 00 L- ti YL 60 7- 8- 00 07 MA ve DE 00 20 20 41 RT ED 10 17 17 96 NI 3 99 PH SO AR LO MA NE CY 4 #4 MG 93 DO SE PK CY 68 07 [address] Ac CL 64 -1 -1 .0 00 L- ti OB 50 7- 8- 00 07 MA ve EN 51 20 20 41 RT ZA 89 17 17 97 DE 0 00 PH IN AR E MA 10 CY MG #4 93 TA BL ET AZ [address] Ac IT 76 -1 -0 00 00 L- ti HR 23 1- 4- 0 07 MA ve OM 06 20 20 41 RT YC 00 17 17 87 IN 1 16 PH AR 25 MA 0 CY MG #4 TA 93 BL ET BE 51 07 [address] Ac NZ 22 -1 -0 .0 00 L- ti ON 40 1- 4- 00 07 MA ve AT 00 20 20 41 RT AT 16 17 17 87 E 0 17 PH 20 AR 0 MA MG CY CA #4 PS 93 UL E CL 16 07 [address] Ac ON 72 -1 -0 .0 00 L- ti AZ 90 1- 4- 00 04 MA ve EP 13 20 20 52 RT AM 61 17 17 20 6 00 PH 0. AR 5 MA MG CY TA #4 BL 93 ET CL 63 07 [address] Ac IN 30 -1 -0 .0 00 L- ti DA 40 4- 4- 00 07 MA ve MY 69 20 20 49 RT CI 30 17 17 88 N 1 07 PH HC AR L MA 30 CY 0 MG #5 91 CA PS UL E IB 68 07 [address] Ac UP 64 -1 -0 .0 00 L- ti RO 50 4- 4- 00 07 MA ve FE 53 20 20 49 RT N 05 17 17 88 60 9 11 PH 0 AR MG MA CY TA BL #5 ET 91 FL 55 [address] Ac UC 11 -1 -0 00 00 L- ti ON 10 4- 4- 0 07 MA ve AZ 14 20 20 41 RT OL 51 17 17 92 E 2 62 PH 15 AR 0 MA MG CY TA #4 BL 93 ET PE 40 06 [address] Ac RM 08 -2 -2 .0 00 L- ti ET 50 5- 1- 00 07 MA ve HR 21 20 20 41 RT IN 56 17 17 60 0 82 PH 5% AR MA CR CY EA M #4 93 CL 00 [address] Ac OB 16 -2 -2 .0 00 L- ti ET 80 7- 1- 00 07 MA ve 16 20 20 41 RT OL 31 17 17 60 5 85 PH 0. AR 05 MA % CY CR EA #4 M 93 PE 40 06 [address] Ac RM 08 -2 -1 .0 00 L- ti ET 50 1- 4- 00 07 MA ve HR 21 20 20 49 RT IN 56 17 17 48 0 90 PH 5% AR MA CR CY EA M #5 91 ME 59 06 07 5. [address] [employer] 76 -1 -1 00 00 L- ti OX 23 9- 4- 0 07 MA ve YP 74 20 20 41 RT RO 20 17 17 51 GE [address] AR ER MA ON CY E 10 #4 93 MG TA B FL 55 [address] Ac UC 11 -1 -0 00 00 L- ti ON 10 3- 7- 0 07 MA ve AZ 14 20 20 41 RT OL 51 17 17 40 E 2 73 PH 15 AR 0 MA MG CY TA #4 BL 93 ET CE 68 06 07 20 10 00 [employer] PH 18 -0 -0 .0 00 L- ti AL 00 7- 7- 00 07 MA ve EX 12 20 20 41 RT IN 20 17 17 31 2 05 PH 50 AR 0 MA MG CY CA #4 PS 93 UL E OX 62 06 06 30 30 00 [employer] YB 17 -0 -2 .0 00 L- ti UT 50 1- 3- 00 07 MA ve YN 27 20 20 41 RT IN 13 17 17 19 7 18 PH CL AR MA ER CY 10 #4 93 MG TA BL ET PH 51 05 06 9. 3 00 [employer] EN 29 -1 -0 00 00 L- ti AZ 30 7- 9- 0 07 MA ve OP 81 20 20 66 RT YR 10 17 17 05 ID 1 83 PH IN AR E MA 20 CY 0 MG #5 71 TA B DE 00 05 [address] Ac ED 60 -1 -0 .0 00 L- ti NI 35 9- 9- 00 07 MA ve SO 33 20 20 66 RT NE 71 17 17 11 5 5 59 PH AR MG MA CY TA BL #5 ET 71 PEDERSON 65 05 [address] Ac LF 86 -1 -0 .0 00 L- ti AM 20 5- 9- 00 07 MA ve ET 42 20 20 65 RT HO 00 17 17 99 XA 5 19 PH ZO AR LE MA -T CY MP #5 DS 71 TA BL ET VE 00 05 06 90 30 00 WA Ac NL 09 -0 -0 .0 00 L- ti AF 37 8- 2- 00 07 MA ve AX 38 20 20 65 RT IN 55 17 17 81 E 6 75 PH HC AR L MA ER CY 75 #5 71 MG CA P AZ 59 [address] Ac IT 76 -1 -0 00 00 L- ti HR 23 1- 2- 0 07 MA ve OM 06 20 20 65 RT YC 00 17 17 91 IN 1 54 PH AR 25 MA 0 CY MG #5 TA 71 BL ET HY 00 04 [address] 40 -2 -1 .0 00 L- ti OC 60 6- 9- 00 02 MA ve OD 12 20 20 23 RT ON 40 17 17 62 -A 1 16 PH CE AR TA MA PR CY NO PH #4 93 7. 5- 32 5 FL 55 [address] Ac UC 11 -2 -1 00 00 L- ti ON 10 7- 9- 0 07 MA ve AZ 14 20 20 40 RT OL 51 17 17 61 E 2 48 PH 15 AR 0 MA MG CY TA #4 BL 93 ET NA 65 04 [address] Ac DE 16 -1 -1 .0 00 L- ti OX 20 7- 2- 00 07 MA ve EN 19 20 20 40 RT 01 17 17 42 50 1 23 PH 0 AR MG MA CY TA BL #4 ET 93 CY 68 04 [address] Ac CL 64 -1 -1 .0 00 L- ti OB 50 7- 2- 00 07 MA ve EN 51 20 20 40 RT ZA 89 17 17 42 DE 0 24 PH IN AR E MA 10 CY MG #4 93 TA BL ET BE 51 04 [address] Ac NZ 22 -1 -1 .0 00 L- ti ON 40 7- 2- 00 07 MA ve AT 00 20 20 40 RT AT 16 17 17 42 E 0 25 PH 20 AR 0 MA MG CY CA #4 PS 93 UL E DI 16 03 [address] Ac CL 57 -2 -0 .0 00 L- ti OF 10 7- 5- 00 07 MA ve EN 20 20 20 40 RT AC 15 17 17 05 0 56 PH SO AR D MA EC CY 75 #4 93 MG TA B OX 00 03 [address] Ac YC 40 -2 -0 .0 00 [...] 1 59 PH CE AR TA MA PR CY NO PH #4 EN 93 5- 32 5 ## 03 [address] Ac ## -0 -3 .0 00 L- ti ## 9- 1- 00 08 MA ve ## 20 20 83 RT ## 17 17 96 # 67 PH AR MA CY #4 93 AZ 59 [address] Ac IT 76 -0 -3 00 00 L- ti HR 23 9- 1- 0 07 MA ve OM 06 20 20 39 RT YC 00 17 17 71 IN 1 19 PH AR 25 MA 0 CY MG #4 TA 93 BL ET FL 60 03 [address] Ac UT 43 -0 -2 .0 00 L- ti IC 20 1- 4- 00 07 MA ve 26 20 20 39 RT ON 41 17 17 54 E 5 91 PH DE AR OP MA CY 50 #4 MC 93 G SP RA Y FL 55 [address] Ac UC 11 -2 -1 00 00 L- ti ON 10 1- 7- 0 07 MA ve AZ 14 20 20 64 RT OL 51 17 17 04 E 2 05 PH 15 AR 0 MA MG CY TA #5 BL 71 ET DI 00 02 [address] Ac CY 52 -1 -1 .0 00 [...] IB 68 02 [address] Ac UP 64 -0 -1 .0 00 L- ti RO 50 8- 0- 00 07 MA ve FE 53 20 20 39 RT N 15 17 17 14 80 4 11 PH 0 AR MG MA CY TA BL #4 ET 93 AZ 59 [address] Ac IT 76 -0 -1 00 00 L- ti HR 23 8- 0- 0 07 MA ve OM 06 20 20 39 RT YC 00 17 17 14 IN 2 12 PH AR 25 MA 0 CY MG #4 TA 93 BL ET OS 47 02 [address] Ac EL 78 -0 -1 .0 00 L- ti TA 10 5- 0- 00 07 MA ve PR 47 20 20 39 RT 01 17 17 08 R 3 29 PH PH AR OS MA CY 75 #4 MG 93 CA PS UL E AM 64 02 [address] Ac IT 76 -1 -1 .0 00 L- ti IZ 40 3- 0- 00 07 MA ve A 24 20 20 63 RT 24 06 17 17 85 0 08 PH MC AR G MA CA CY PS UL #5 ES 71 CE 68 02 [address] Ac PH 18 -1 -1 .0 00 L- ti AL 00 3- 0- 00 07 MA ve EX 12 20 20 63 RT IN 20 17 17 85 2 09 PH 50 AR 0 MA MG CY CA #5 PS 71 UL E CE 16 02 [address] Ac TI 57 -1 -1 .0 00 L- ti RI 10 3- 0- 00 08 MA ve ZI 40 20 20 83 RT NE 25 17 17 81 0 84 PH HC AR L MA 10 CY MG #5 71 TA BL ET VE 00 02 [address] Ac NT 17 -1 -1 .0 00 L- ti OL 30 3- 0- 00 07 MA ve IN 68 20 20 63 RT 22 17 17 85 HF 0 56 PH A AR 90 MA CY MC G #5 IN 71 [place] LE R DE 50 02 [address] Ac OM 38 -1 -1 0. 00 L- ti ET 30 3- 0- 00 04 MA ve TALAMANTES 80 20 20 0 54 RT ZI 51 17 17 17 NE 6 15 PH -P AR E- MA CO CY DE IN #5 E 71 SY RU P DE 68 02 [address] Ac OM 38 -0 -2 .0 00 [...] 30 1- 4- 00 07 MA ve PR 31 20 20 39 RT DE 10 [...] SY 00 01 [address] Ac MB 18 -2 -1 .1 00 [...] CE 16 01 [address] Ac TI 57 -0 -0 .0 00 L- ti RI 10 9- 3- 00 08 MA ve ZI 40 20 20 83 RT NE 25 17 17 59 0 83 PH HC AR L MA 10 CY MG #4 93 TA BL ET AM 64 01 02 60 30 00 WA Ac IT 76 [...] AR RA 30 17 17 24 MA PR 5 44 CY DE #0 10 23 32 MG TA BL ET MO 54 12 01 30 30 00 WA Ac NT 45 -2 -2 .0 00 L- ti EL 80 8- 0- 00 07 MA ve UK 89 20 20 38 RT 01 16 17 36 T 0 78 PH SO AR D MA 10 CY MG #4 93 TA BL ET GA 65 12 [address] [facility] BA 16 -3 -2 .0 00 L- ti PE 20 0- 0- 00 07 MA ve NT 10 20 20 62 RT IN 25 16 17 80 0 12 PH 30 AR 0 MA MG CY CA #5 PS 71 UL E OX 65 [address] [facility] YB 16 -2 -1 .0 00 L- ti UT 20 1- 3- 00 07 MA ve YN 37 20 20 34 RT IN 21 16 17 03 0 45 PH CL AR MA ER CY 10 #4 93 MG TA BL ET SY 00 [address] [facility] MB 18 -2 -1 .1 00 L- ti IC 60 1- 3- 99 07 MA ve OR 37 20 20 36 RT T 22 16 17 13 80 0 98 PH -4 AR .5 MA CY MC G #4 IN 93 [place] LE R FL 60 12 01 16 30 00 [employer] UT 43 -2 -1 .0 00 L- ti IC 20 1- 3- 00 07 MA ve 26 20 20 36 RT ON 41 16 17 13 E 5 97 PH DE AR OP MA CY 50 #4 MC 93 G SP RA Y OM 57 [address] [facility] EP 23 -2 -1 .0 00 L- ti RA 70 1- 3- 00 07 MA ve ZO 16 20 20 36 RT LE 23 16 [address] AR MA 40 CY MG #4 93 CA PS UL E ME 54 [address] [facility] LO 45 -2 -1 .0 00 L- ti XI 80 2- 3- 00 07 MA ve CA 96 20 20 38 RT M 41 16 17 27 15 0 97 PH AR MG MA CY TA BL #4 ET 93 FL 55 12 01 2. 3 00 [employer] UC 11 -2 -1 00 00 L- ti ON 10 0- 3- 0 07 MA ve AZ 14 20 20 38 RT OL 51 16 17 24 E 2 49 PH 15 AR 0 MA MG CY TA #4 BL 93 ET VE 00 12 [address] Ac NL 09 -1 -1 .0 00 L- ti AF 37 8- 3- 00 07 MA ve AX 38 20 20 37 RT IN 55 16 17 21 E 6 86 PH HC AR L MA ER CY 75 #4 93 MG CA P CE 16 12 01 30 30 00 [...] [Presen ce] in Serum by Latex aggluti [facility] Procedures Procedure [place] [address] [facility] OPH [address] [employer] 7 XM&EVAL COMPRHNSV ESTAB PT 1/> GONADOTRO [address] [facility] PIN 7 [facility] [employer] [place] [id number] [facility] R[facility] THYROID 7 ANCA [facility]I [employer] NG HORMONE TSH [place] [address] LAB RUSSELL LAB RUSSELL THYROXINE 7 ANCA ANCA TOTAL HOLDINGS HOLDINGS BLOOD 10229 LAB RUSSELL LAB RUSSELL COUNT 7 ANCA ANCA COMPLETE HOLDINGS HOLDINGS AUTO&AUTO DIFRNTL WBC COLLECTIO 72383 HUSAM CAMARENA N VENOUS 7 PHYSICIAN BLOOD PRACTICE VENIPUNCT L URE IAADIADOO 99165 ZOROASTRIANISM MATCHESWA 7 HEALTH [facility] MEDICAL CCUS GROUP GROUP A URINE 12811 ZOROASTRIANISM ZOROASTRIANISM 7 HEALTH HEALTH TEST MEDICAL MEDICAL VISUAL GROUP GROUP COLOR CMPRSN METHS URNLS DIP 77163 [facility] LET REAGENT AUTO MICROSCOP Y RADEX 99528 [facility] [place] MACY ABDOMEN 7 RADIOLOGY COMPL W/DCBTS&/ ERC VIEWS HYSTEROSC 30038 ALEC MICHAEL OPY BX 7 ENDOMETRI UM&/POLYP C W/WO D&C CATH & 73745 ALEC MICHAEL SALINE/CO 7 NTRAST SONOHYSTE R/HYSTERO SALPI LAPS 38142 ALEC MICHAEL FULG/EXC 7 OVARY VISCERA/[place] [address] [place] SURG 7 [facility] PSC GROSS&DAMIR ROSCOPIC EXAM ANESTHESI 82845 ANESTHESI RED A 7 A INTRAPERI ASSOCIATE TONEAL S [place] [address] PATH PATH THYROID 7 GROUP GROUP STIMULATI LABS [place] [address] ALEC MICHAEL TRANSVAGI 7 NAL DRUG TST G0483 MD LABS MD LABS DEFINITV 7 DR ID METH P DAY 22/MORE DR CL HEMOGLOBI 03538 PATH PATH N 7 GROUP GROUP GLYCOSYLA LABS [facility] [place] MARIANNE A1C IADNA 96285 MEDICAL MEDICAL TRICHOMON 7 DIAGNOSTI DIAGNOSTI C LAB LLC C LAB LLC VAGINALIS AMPLIFIED PROBE TECH BLOOD 03160 PATH PATH COUNT 7 GROUP GROUP COMPLETE LABS LLC LABS LLC AUTO&AUTO DIFRNTL WBC COMPREHEN 86050 PATH PATH SIVE 7 GROUP GROUP METABOLIC LABS LLC LABS LLC PANEL DRUG TEST 39342 MD LABS MD LABS PRSMV 7 INSTRMNT CHEMISTRY ANALYZERS IADNA 99008 MEDICAL MEDICAL NEISSERIA 7 DIAGNOSTI DIAGNOSTI C LAB LLC C LAB LLC GONORRHOE AE AMPLIFIED PROBE TQ COLLECTIO 79462 ASSOCIATE WHITE N VENOUS 7 D BLOOD PATHOLOGI VENIPUNCT STS LLC URE IADNA 60865 MEDICAL MEDICAL HUMAN 7 DIAGNOSTI DIAGNOSTI PAPILLOMA C LAB LLC C LAB LLC VIRUS HIGH-RISK TYPES IADNA 65423 MEDICAL MEDICAL CHLAMYDIA 7 DIAGNOSTI DIAGNOSTI C LAB LLC C LAB LLC TRACHOMAT IS AMPLIFIED PROBE TQ IAADIADOO 86309 ZOROASTRIANISM LESLEE 7 HEALTH STREPTOCO MEDICAL CCUS GROUP GROUP A URNLS DIP 08983 [facility] 7 N N STICK/TAB COMMUNTIY COMMUNTIY LET HOSPITA HOSPITA REAGENT AUTO MICROSCOP Y INJECTION J1885 [facility] 7 N N KETOROLAC COMMUNTIY COMMUNTIY HOSPITA HOSPITA TROMETHAM INE PER 15 MG INFUSION J7030 [facility] NORMAL 7 N N SALINE COMMUNTIY COMMUNTIY SOLUTION HOSPITA HOSPITA 1000 CC URINE 62391 [facility] 7 N N TEST COMMUNTIY COMMUNTIY VISUAL HOSPITA HOSPITA COLOR CMPRSN METHS INJECTION J2550 [facility] 7 N N PROMETHAZ COMMUNTIY COMMUNTIY INE HCL HOSPITA HOSPITA UP TO 50 MG COMPREHEN 98087 [facility] SIVE 7 N N METABOLIC COMMUNTIY COMMUNTIY PANEL HOSPITA HOSPITA BLOOD 33184 [facility] COUNT 7 N N COMPLETE COMMUNTIY COMMUNTIY AUTO&[place] [address] [facility] INFUSION 7 N N HYDRATION COMMUNTIY COMMUNTIY EACH HOSP[place] [address] [facility] LIPASE 7 N [place] [address] [facility] INFUSION 7 N N THERAPY/P COMMUNTIY COMMUNTIY ROPHYLAXI HOSPITA HOSPITA S /DX 1ST TO 1 HR THERAPEUT 76967 [facility] IC 7 N N INJECTION COMMUNTIY COMMUNTIY IV PUSH HOSPITA HOSPITA EACH NEW DRUG IAADIADOO [address] [facility] 7 [facility] LA INFLUENZA MEDICAL GROUP IAADIADOO [address] LA STREPTOCO MEDICAL CCUS GROUP GROUP A URINE 52253 HUSAM MIGUE 7 PHYSICIAN TEST PRACTICE VISUAL L COLOR CMPRSN METHS THERAPEUT 79055 HUSAM WEINER IC 7 PHYSICIAN PHYSICIAN PROPHYLAC PRACTICE PRACTICE TIC/DX L L INJECTION SUBQ/IM MRI 03317 [facility] SP[facility]AL [facility] LUMBAR W/O CONTRAST MATERIAL RADEX 32370 [facility] SPINE 7 N N LUMBOSACR COMMUNTIY COMMUNTIY AL 2/3 HOSPITA HOSPITA VIEWS RADIOLOGI 25178 [facility] C 7 N N EXAMINATI COMMUNTIY COMMUNTIY ON PELVIS HOSPITA HOSPITA 1/2 VIEWS THER 73129 [facility] PROPH/DX 7 N N NJX IV COMMUNTIY COMMUNTIY PUSH HOSPITA HOSPITA SINGLE/1S T SBST/DRUG THERAPEUT 33415 [facility] IC 7 N N INJECTION COMMUNTIY COMMUNTIY IV PUSH HOSP[place] [address] [facility] LIPASE 7 N [place] [address] [facility] INFUSION 7 N N HYDRATION COMMUNTIY COMMUNTIY EACH HOSPITA HOSPITA ADDITIONA L HOUR BLOOD 90851 [facility] COUNT 7 N N COMPLETE COMMUNTIY COMMUNTIY AUTO&AUTO HOSPITA HOSPITA DIFRNTL WBC URNLS DIP 86757 [facility] 7 N N STICK/TAB COMMUNTIY COMMUNTIY LET HOSPITA HOSPITA REAGENT AUTO MICROSCOP Y COMPREHEN 88004 [facility] SIVE 7 N N METABOLIC COMMUNTIY COMMUNTIY PANEL HOSPITA HOSPITA COLLECTIO 62770 HUSAM CAMARENA N VENOUS 6 PHYSICIAN BLOOD PRACTICE VENIPUNCT L URE GONADOTRO 91205 LAB R[facility]LL LAB RUSSELL PIN 6 ANCA ANCA CHORIONIC HOLDINGS HOLDINGS QUALITATI VE IAADIADOO 72040 ZOROASTRIANISM ZOROASTRIANISM 6 [facility]ALTH [facility] INFLUENZA MEDICAL MEDICAL GROUP GROUP URINE 50984 ZOROASTRIANISM BENAVIDEZ 6 HEALTH TEST MEDICAL VISUAL GROUP COLOR CMPRSN METHS URINE 39683 [place] MIGUE 6 PHYSICIAN TEST PRACTICE VISUAL L COLOR CMPRSN METHS COLLECTIO 64544 HUSAM CAMARENA N VENOUS 6 PHYSICIAN BLOOD PRACTICE VENIPUNCT L URE GONADOTRO 52899 LAB R[facility]LL LAB RUSSELL PIN 6 ANCA ANCA CHORIONIC [place] [address] PINA GARCIA 6 REGIONAL REGIONAL CAPACITY MEDICAL MEDICAL CENTE CENTE PRESSURIZ 56358 PINA HELLER ED/NONPRE 6 REGIONAL REGIONAL SSURIZED MEDICAL MEDICAL INHALATIO CENTE CENTE N TREATMENT NONINVASI 18420 PINA HELLER VE 6 REGIONAL REGIONAL EAR/PULSE MEDICAL MEDICAL OXIMETRY CENTE CENTE SINGLE DETER PULMONARY 91560 PINA HELLER 6 REGIONAL REGIONAL COMPLIANC MEDICAL MEDICAL E STUDY CENTE CENTE BRNCDILAT 50775 PINA HELLER RSPSE 6 REGIONAL REGIONAL SPMTRY MEDICAL MEDICAL PRE&POST- CENTE CENTE BRNCDILAT ADMN BRNCDILAT 17981 PINA BUSTILLOSE 6 REGIONAL MITCHEL SPMTRY PHYSICIAN PRE&[place] [address] PINA GARCIA 6 REGIONAL [place] CAPACITY PHYSICIAN PRA PLETHYSMO 14621 PINA ADANY 6 REGIONAL MIT[place] LUNG PHYSICIAN VOLUMES PRA W/WO AIRWAY RESIST HEMOGLOBI 09663 PATH PATH N 6 GROUP GROUP GLYCOSYLA LABS LLC LABS LLC MARIANNE A1C BLOOD 19746 PATH PATH COUNT 6 GROUP GROUP COMPLETE LABS LLC LABS LLC AUTO&[place] [address] PATH PATH THYROID 6 GROUP GROUP STIMULATI LABS [facility] LLC NG HORMONE TSH COLLECTIO 48316 ASSOCIATE WHITE NAHID N VENOUS 6 D BLOOD PATHOLOGI VENIPUNCT STS LLC URE COMPREHEN 45640 PATH PATH SIVE 6 GROUP GROUP METABOLIC LABS [place]S LLC PANEL IADNA 71410 ASSOCIATE WHITE NAHID NEISSERIA 6 D PATHOLOGI GONORRHOE STS LLC AE AMPLIFIED PROBE TQ IADNA 05972 ASSOCIATE WHITE NAHID HUMAN 6 D PAPILLOMA PATHOLOGI VIRUS STS LLC HIGH-RISK TYPES IADNA 67835 ASSOCIATE WHITE NAHID CHLAMYDIA 6 D PATHOLOGI TRACHOMAT STS LLC IS AMPLIFIED PROBE TQ CUL BACT 54585 PATH PATH XCPT 6 GROUP GROUP URINE LABS [facility] BLOOD/STO OL AEROBIC ISOL CYTP C/V 83210 ASSOCIATE WHITE NAHID AUTO THIN 6 D LYR PATHOLOGI PREPJ SCR STS LLC MNL RESCR PHYS CULTURE 73933 PATH PATH FNGI 6 GROUP GROUP MOLD/YEAS LABS [facility] T PRSMPTV OTH XCPT BLOOD RADEX 70649 [place] DESIRAE HAND 6 MEDICAL BECK MINIMUM 3 IMAGING VIEWS ASS WRIST L3807 [place] HAND 6 HOME HOME FINGR MEDICAL MEDICAL ORTHOS EQUIPME EQUIPME W/O JNT PREFAB CSTM FIT ANTIBODY 33037 PINA HELLER HISTOPLAS 6 REGIONAL REGIONAL MS MEDICAL MEDICAL CENTE CENTE ANTIBODY 46933 P[facility] HELLER BLASTOMYC 6 REGIONAL REGIONAL ES MEDICAL MEDICAL CENTE CENTE ANTIBODY 19043 P[facility] HELLER COCCIDIOI 6 REGIONAL REGIONAL KECK [facility] CENTE TB CELL 03488 PINA HELLER MEDIATED 6 REGIONAL REGIONAL ANTIGN MEDICAL MEDICAL RESPNSE CENTE CENTE GAMMA INTERFERO N ANTIBODY 99431 PINA HELLER ASPERGILL 6 REGIONAL REGIONAL MEDICAL MEDICAL CENTE CENTE COLLECTIO 27912 PINA HELLER N VENOUS 6 REGIONAL REGIONAL BLOOD MEDICAL MEDICAL VENIPUNCT CENTE CENTE URE CULTURE 98993 LAB RUSSELL LAB RUSSELL BACTERIAL 6 QVPNS HOLDINGS QUANTTATI VE COLONY COUNT URINE RADIOLOGI 13421 [place] KOSTELIC C 6 RADIOLOGY ELAINE EXAMINATI [place] [address] [place] BENAVIDEZ ANGIOGRAP 6 RADIOLOGY RAY HY CHEST W/CONTRAS T/NONCONT RAST ANES 53475 [place] ROSARIO LOWER 6 ANESTHESI SOHA INTESTINE A GROUP PS ENDOSCOPY DISTAL DUODENUM COLONOSCO 77625 PINA CARTER PY FLX DX 6 DIGESTIVE GRE W/COLLJ CARE SPEC WHEN CENTER PFRMD SPMTRY 23780 ESTELLA GILBERT GILBERT ESTELLA W/VC 6 MD EXPIRATOR CONSULTIN Y JOSHUA G SRV W/WO MXML VOL VNTJ RESPIRATO 32332 HUSAM WEINER RY FLOW 6 [facility] LOOP ECG 34543 ESTELLA GILBERT GILBERT ESTELLA ROUTINE 6 MD ECG CONSULTIN W/LEAST G SRV 12 LDS I&R ONLY ECG 72114 CONRADOELISE HUSAM ROUTINE 6 [facility] W/LEAST 12 LDS TRCG ONLY W/O I&R COLLECTIO 51502 HUSAM WEINER N VENOUS 6 [facility] VENIPUNCT URE COMPREHEN 96475 HUSAM WEINER SIVE 6 [facility] [place] [address] HUSAM WEINER THYROXINE [address] [place] [address] BLOOD 59147 HUSAM SHERON COUNT [address] [place] [address] AUTO&AUTO DIFRNTL WBC FIBRIN 63776 HUSAM WEINER DGRADJ [address] [place] [address] D-[place] [address] HUSAM WEINER THYROID 6 [facility] NG HORMONE TSH RADIOLOGI 52876 UHSAM SHERON C EXAM [address] VIEWS FRONTAL&L ATERAL RADIOLOGI 07585 [place] YOUNG ALL C EXAM 6 MEDICAL CHEST 2 IMAGING VIEWS ASS FRONTAL&L ATERAL BLOOD 12063 [facility] LEACH COUNT 6 [facility] INC INC AUTO&AUTO DIFRNTL WBC COMPREHEN 43781 [facility] SIVE 6 [facility] METABOLIC INC INC PANEL URINE 49573 [facility] LEACH 6 [facility] TEST INC INC VISUAL COLOR CMPRSN METHS URNLS DIP 19505 [facility] 6 [facility] STICK/TAB INC INC LET REAGENT AUTO MICROSCOP Y THERAPEUT 15914 [facility] [place] IC 6 [facility] PROPHYLAC INC INC TIC/DX INJECTION SUBQ/IM PRESSURIZ 40599 [facility] ED/NONPRE 6 [facility] SSURIZED INC INC INHALATIO N TREATMENT URNLS DIP 16569 ALEC MAG ALEC MAG 6 STICK/TAB LET RGNT NON-AUTO W/O MICRSCP OBSERVATI 80918 ALEC MAG ALEC MAG ON CARE 6 DISCHARGE MANAGEMEN T INITIAL 91068 ALEC MAG ALEC MAG OBSERVATI 6 ON CARE/DAY 30 MINUTES HYSTEROSC 69333 ALEC MAG ALEC MAG OPY BX 6 ENDOMETRI UM&/POLYP C W/[place] [address] [facility] SURG 6 [facility] PSC GROSS&DAMIR ROSCOPIC EXAM LAPS 11905 ALEC MAG ALEC MAG FULG/EXC 6 OVARY VISCERA/P ERITONEAL SURFACE ANESTHESI 15454 SUBURBAN MCGROARTY A 6 ANESTHESI TAJ INTRAPERI A PSC TONEAL LOWER ABD W/LAPS NOS IAADIADOO 94005 ZOROASTRIANISM LESLEE [facility] INFLU[facility] MEDICAL GROUP COLLECTIO [address] N VENOUS [address] B[address] [facility] URE COMPREHEN 27091 PATH PATH SIVE 6 GROUP GROUP METABOLIC [place] [address] PATH PATH THYROID 6 GROUP GROUP STIMULATI LABS [place] [address] ALEC MAG ALEC MAG TRANSVAGI 6 NAL HEMOGLOBI 45275 PATH PATH N 6 GROUP GROUP GLYCOSYLA LABS [facility] [place] MARIANNE A1C BLOOD 89999 PATH PATH COUNT 6 GROUP GROUP COMPLETE LABS LLC LABS LLC AUTO&AUTO DIFRNTL WBC OPHTH 21212 [facility] 6 GRE GRE XM&EVAL COMPRE NEW PT 1/> VST IAADIADOO 32829 ZOROASTRIANISM LESLEE 6 HEALTH HEN INFLUENZA MEDICAL GROUP IAADIADOO 43311 ZOROASTRIANISM LESLEE 6 HEALTH HEN STREPTOCO MEDICAL CCUS GROUP GROUP A CYTP C/V 93773 P&C LABS, PICKLESIM AUTO THIN 5 LLC ER JR [place]OEN[place] LYR PREPJ SCR MNL RESCR PHYS 16275 [place] [facility] DELIVERY 5 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 ASSOCIATE S, 06228 CENTRAL CENTRAL NONSTRESS 5 ZOROASTRIANISM ZOROASTRIANISM TEST HOSP HOSP [place] PREG 35772 [place] [facility] UTERUS 5 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 REAL TIME ASSOCIATE F/U S, TRNSABDL PER FETUS IADNA 78124 MEDICAL MEDICAL STREPTOCO 5 DIAGNOSTI DIAGNOSTI CCUS C LAB LLC C LAB LLC [place] [address] [facility] CENTRAL NONSTRESS 5 ZOROASTRIANISM ZOROASTRIANISM TEST HOSP HOSP 02069 [facility] CENTRAL NONSTRESS 5 ZOROASTRIANISM ZOROASTRIANISM TEST HOSP HOSP BLOOD 69290 CEN[facility]AL CENTRAL COUNT 5 ZOROASTRIANISM ZOROASTRIANISM COMPLETE HOSP HOSP AUTOMATED INITIAL 10911 ZOROASTRIANISM VERONICA OBSERVATI 5 [facility] THO ON MEDICAL CARE/DAY GROUP 30 MINUTES FIBRINOGE 93284 CENTRAL CENTRAL N 5 ZOROASTRIANISM ZOROASTRIANISM ACTIVITY HOSP HOSP HGB/RBCS 32167 CENTRAL CENTRAL 5 ZOROASTRIANISM ZOROASTRIANISM FETOMATER HOSP HOSP NAL HEMRRG DIFRNTL LYSIS COLLECTIO 81257 CENTRAL CENTRAL N VENOUS 5 ZOROASTRIANISM ZOROASTRIANISM BLOOD HOSP HOSP VENIPUNCT URE URNLS DIP 01145 CENTRAL CENTRAL 5 ZOROASTRIANISM ZOROASTRIANISM STICK/TAB HOSP HOSP LET RGNT AUTO W/O MICROSCOP Y IM ADM 40704 KENY BUSTILLO PRQ ID 5 VERITO VERITO SUBQ/IM NJXS 1 VACCINE TDAP 47422 KENY KENY VACCINE 7 5 VERITO VERITO YRS/> IM ANTIBODY 84216 LAB RUSSELL LAB RUSSELL SCREEN 5 ANCA ANCA RBC EACH HOLDINGS HOLDINGS SERUM TECHNIQUE GLUCOSE 37174 LAB RUSSELL LAB RUSSELL POST 5 [facility] GLUCOSE HOLDINGS HOLDINGS DOSE BLOOD 03682 LAB RUSSELL LAB RUSSELL COUNT 5 [facility] COMPLETE HOLDINGS HOLDINGS AUTOMATED 19461 [facility] NONSTRESS 5 ZOROASTRIANISM ZOROASTRIANISM TEST HOSP HOSP URNLS DIP 29831 [place] [address] ZOROASTRIANISM ZOROASTRIANISM STICK/TAB HOSP HOSP LET RGNT AUTO W/O MICROSCOP Y OBSERVATI 69710 [facility] WA[facility] ON/INPATI 5 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 [facility] ENT ASSOCIATE [facility]OSPITAL S, CARE 40 MINUTES INITIAL 33295 ZOROASTRIANISM JAY OBSERV[address] ON MEDICAL CARE/DAY GROUP 30 MINUTES URNLS DIP 71727 [place] [address] ZOROASTRIANISM ZOROASTRIANISM STICK/TAB HOSP HOSP LET REAGENT AUTO MICROSCOP Y [place] PREG 13447 [place] [facility] UTERUS 5 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 [facility] AFTER 1ST ASSOCIATE TRIMEST S, GESTATION MANUAL 40182 JACKELYN MEDINA THERAPY 5 [facility] 1/> PHYSICAL REGIONS THERAP EACH 15 MINUTES THERAPEUT 92505 [facility] IC PX 1/> 5 [facility] EACH 15 THERAP MIN EXERCISES US PREG [address]346 [place] [facility] UTERUS 5 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 [facility] REAL TIME ASSOCIATE W/IMAGE S, DCMTN TRANSVAG CYTP C/V 58454 P&C LABS, PICKLESIM AUTO THIN 5 [facility] ER JR PHOENIX LYR PREPJ SCR MNL RESCR PHYS GONADOTRO 57086 HUSAM WEINER PIN 5 [facility] QUALITATI VE COLLECTIO 61884 HUSAM WEINER N VENOUS 5 [facility] VENIPUNCT URE THERAPEUT 90753 HUSAM WEINER IC PX 1/> 5 [facility] EACH 15 MIN EXERCISES THERAPEUT 91283 CONRADOELISE WEINER IC PX 1/> 5 [facility] EACH 15 MIN EXERCISES PHYSICAL 24732 HUSAM BOURBON THERAPY 5 [facility] N URINE 58739 HUSAM SHERON 5 [facility] VISUAL COLOR CMPRSN METHS INJECTION J1100 HUSAM SHERON 5 [facility] SONE SODIUM PHOSPHATE [address] LUMBAR 94827 [place] MACY SPINE 5 RADIOLOGY RHO W/O CONTRAST MATERIAL THERAPEUT 08506 HUSAM NIKKYON IC 5 [facility] TIC/DX INJECTION SUBQ/IM Encounters Encounter Start End Date Code Location Performer Type Date OFFICE 21835 [place] [facility] OUT[facility] 7 7 [facility] T VISIT 15 MINUTES OFFICE 97002 HUSAM CAMARENA OUTPATIEN 7 7 PHYSICIAN T VISIT PRACTICE 15 L MINUTES EMERGENCY 52270 [facility] DEPT 7 7 PAKO VISIT EMERGENCY HIGH PHYS SEVERITY& THREAT [facility] HUSAM - 7 7 [facility] T OFFICE 75612 HUSAM CAMARENA OUTPATIEN 7 7 PHYSICIAN T VISIT PRACTICE 15 L MINUTES EMERGENCY 21499 [facility] DEPT 7 7 PAKO VISIT EMERGENCY HIGH PHYS SEVERITY& THREAT [facility] OFFICE 05330 HUSAM MILLSPATIEN 7 7 PHYSICIAN T VISIT PRACTICE 15 L MINUTES OFFICE 77628 HUSAM MIGUE OUTPATIEN 7 7 PHYSICIAN T VISIT PRACTICE 15 L MINUTES OFFICE 06384 [facility] OUTPATIEN 7 7 [facility] T VISIT 5 [facility] HANY - 7 7 [facility] OUTPATIEN [facility] T OFFICE 87282 HUSAM CAMAERNA OUTPATIEN 7 7 PHYSICIAN T VISIT PRACTICE 15 L MINUTES OFFICE 70984 HUSAM CAMARENA OUTPATIEN 7 7 PHYSICIAN T VISIT PRACTICE 15 L MINUTES OFFICE 22352 ZOROASTRIANISM MATCHESCT OUTPATIEN 7 7 HEALTH LA T VISIT MEDICAL 15 GROUP MINUTES OFFICE 05024 ZOROASTRIANISM JEFFY OUTPATIEN 7 7 HEALTH T VISIT MEDICAL 15 GROUP MINUTES EMERGENCY 02460 [facility] 7 7 PAKO DEPARTMEN EMERGENCY T VISIT PHYS HIGH/URGE NT SEVERITY [facility] 42882 [facility] 7 [facility] T VISIT MODERATE SEVERITY [facility] 7 [facility] OFF[facility] 30345 ALEC MICHAEL OUTPATIEN 7 7 T VISIT 15 MINUTES EMERGENCY 78014 [facility] 3] 7 7 PAKO DEPARTMEN EMERGENCY T VISIT PHYS HIGH/URGE NT SEVERITY HOSPITAL [facility] - 7 [facility] EMERGENCY 91118 [facility] 7 7 N [facility] COMMUNTIY T VISIT HOSPITA LIMITED/M INOR PROB OFFICE 88285 ZOROASTRIANISM LESLEE OUTPATIEN 7 7 HEALTH T VISIT MEDICAL 15 GROUP MINUTES OFFICE 53231 [facility]UE [facility] 7 PHYSICIAN T VISIT PRACTICE 15 L MINUTES HOSPITAL [facility] 7 7 [facility] HOSPITA EMERGENCY 84620 [facility] DEPT 7 7 PAKO VISIT EMERGENCY HIGH PHYS SEVERITY& THREAT FUNCJ EMERGENCY 36450 [facility] 7 7 N [facility] COMMUNTIY T VISIT HOSPITA HIGH/URGE NT SEVERITY OFFICE 48871 [facility] MS[facility], JERROD III T NEW 30 MINUTES EMERGENCY 51892 [facility] BEL[facility] 7 7 PAKO DEPARTMEN EMERGENCY T VISIT PHYS HIGH/URGE NT SEVERITY OFFICE 42089 [facility] 7 7 HEALTH LA T VISIT MEDICAL 15 GROUP MINUTES OFFICE 24662 NIKK[facility]EVAN [facility] 7 7 PHYSICIAN T VISIT PRACTICE 15 L MINUTES [facility] - 7 7 [facility] - 7 7 N OUTPATIEN COMMUNTIY T HOSPITA EMERGENCY 23459 [facility] 7 7 N DEPARTMEN COMMUNTIY T VISIT HOSPITA HIGH/URGE NT SEVERITY [facility] 7 7 N [facility] EM[facility] 40843 [facility] 7 7 PAKO VISIT EMERGENCY HIGH PHYS SEVERITY& THREAT FUNCJ OFFICE 14776 [facility] 6 PHYSICIAN T VISIT PRACTICE 15 L MINUTES OFFICE 47054 HUSAM CAMARENA OUTPATIEN 6 6 PHYSICIAN T VISIT PRACTICE 15 L MINUTES OFFICE 59578 HUSAM CAMARENA OUTPATIEN 6 6 PHYSICIAN T VISIT PRACTICE 15 L MINUTES OFFICE 14584 [facility] 6 6 DIGESTIVE CEC T VISIT CARE 15 CENTER MINUTES OFFICE 83756 [facility] 6 PHYSICIAN OKSANA T VISIT PRACTICE 15 L MINUTES [facility] - 6 6 [facility] 97900 ALEC ALEC MAG PREVENTIV 6 6 E MED EST PATIENT 18-39 YRS [facility] - 6 [facility] 20140 HUSAM CAMARENA OUTPATIEN 6 6 PHYSICIAN OKSANA T VISIT PRACTICE 15 L MINUTES OFFICE 46138 [facility]INA SH[facility] 6 6 REGIONAL MITCHEL T NEW 45 PHYSICIAN MINUTES [facility] PINA - 6 6 [facility] OFFICE 76151 HUSAM CAMARENA OUTPATIEN 6 6 PHYSICIAN OKSANA T VISIT PRACTICE 25 L MINUTES EMERGENCY 62206 [facility] DEPT 6 6 PAKO VISIT EMERGENCY HIGH PHYS SEVERITY& THREAT FUNCJ OFFICE 47180 PINA GUERRERO OUTPATIEN 6 6 DIGESTIVE CEC T VISIT CARE 15 CENTER MINUTES OFFICE 67317 HUSAM CAMARENA OUTPATIEN 6 6 PHYSICIAN OKSANA T VISIT PRACTICE 25 L MINUTES HOSPITAL NI[facility] - 6 6 [facility] OFFICE 41078 HUSAM CAMARENA OUTPATIEN 6 6 PHYSICIAN KOSANA T VISIT PRACTICE 15 L MINUTES OFFICE 12615 [facility] GU[facility] OUTPATIEN 6 6 DIGESTIVE CEC T VISIT CARE 25 CENTER MINUTES HOSPITAL CONRDA[facility] - 6 6 [facility] - 6 6 [facility] OFFICE 87826 HUSAM CAMARENA OUTPATIEN 6 6 PHYSICIAN OKSANA T VISIT PRACTICE 15 L MINUTES OFFICE 46578 [facility] GUERRERO OUTPATIEN 6 6 DIGESTIVE CEC T NEW 45 CARE MINUTES [facility] HANY - 6 6 [facility] T EMERGENCY 62466 LAXMI SHABAZZ 6 6 PHYSICIAN DAMIR DEPARTMEN S, PLLC T VISIT HIGH/URGE NT SEVERITY EMERGENCY 66723 [facility] 6 6 [facility]PART[facility] T VISIT MODERATE SEVERITY OFFICE 49400 HUSAM CAMARENA OUTPATIEN 6 6 PHYSICIAN MITCHEL T VISIT PRACTICE 15 L MINUTES OFFICE 17076 HUSAM CAMARENA OUTPATIEN 6 6 PHYSICIAN MITCHEL T VISIT PRACTICE 15 L MINUTES OFFICE 22605 HUSAM CAMARENA OUTPATIEN 6 6 PHYSICIAN MITCHEL T NEW 45 PRACTICE MINUTES L OFFICE 68763 ALEC MAG ALEC MAG OUTPATIEN 6 6 T VISIT 15 MINUTES OFFICE 09200 [facility]RIANISM LESLEE OUTPATIEN 6 6 HEALTH HEN T VISIT MEDICAL 25 GROUP MINUTES OFFICE 27339 ALEC MAG ALEC MAG OUTPATIEN 6 6 T VISIT 15 MINUTES OFFICE 47870 [facility] OUTPATIEN 6 6 HEALTH HEN T VISIT MEDICAL 15 GROUP MINUTES OFFICE 74996 [facility] 5 5 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 T VISIT ASSOCIATE 15 S, MINUTES OFFICE 50796 [facility] ARNETT OUTPATIEN 5 5 HEALTH DON T VISIT MEDICAL 15 GROUP MINUTES [facility] - 5 5 [facility] T OFFICE 50650 [facility] 5 5 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 T VISIT ASSOCIATE 15 S, MINUTES OFFICE 81906 [facility] 5 5 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 RANDLAL T VISIT ASSOCIATE 15 S, MINUTES OFFICE 51089 [facility] 5 5 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 T VISIT ASSOCIATE 15 S, MINUTES [facility] - 5 5 [facility] T OFFICE 33184 [facility] 5 5 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 T VISIT ASSOCIATE 15 S, MINUTES OFFICE 67066 [facility] OUTPATIEN 5 5 HEALTH HEN T VISIT MEDICAL 25 GROUP MINUTES OFFICE 58047 [facility] 5 5 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 T VISIT ASSOCIATE 15 S, MINUTES [facility] - 5 5 [facility] T OFFICE 09852 KENY KENY OUTPATIEN 5 5 VERITO VERITO T VISIT 15 MINUTES OFFICE 85829 [facility] 5 5 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 T VISIT ASSOCIATE 15 S, MINUTES [facility] - 5 5 [facility] OFFICE 22651 [facility] 5 5 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 T VISIT ASSOCIATE 15 S, MINUTES [facility] - 5 5 [facility] OFFICE 72411 [facility] 5 5 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 T VISIT ASSOCIATE 15 S, MINUTES OFFICE 45485 [facility] 5 5 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 T VISIT ASSOCIATE 15 S, MINUTES OFFICE 15255 [facility] 5 5 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 T NEW 45 ASSOCIATE MINUTES S, [facility] 5 [facility] T [facility]GENC[facility] 13748 [facility] 5 5 [facility] T VISIT LOW/MODER SEVERITY [facility] 56815 [facility] 5 [facility] EM[facility]ENC[facility] T VISIT PHYS [facility]IGH/URGE NT SEVERITY [facility] 5 [facility] 5 [facility] T [facility] [place] [facility] 5 5 [facility] T OFFICE 96917 [facility] 5 [facility]ITO T NEW 45 MINUTES [facility] 5 5 [facility] T EMERGENCY 28664 [place] 5 5 [facility] T VISIT HIGH/URGE NT SEVERITY
--- OUTSIDE RECORDS SUMMARY | 2017-06-24 08:26 | External Medical Summary Rpt | CCD ---
Author Author , ADELIA Organization ADELIA Address Unknown Phone [email or web address] Care Team Providers Care Desolderer Name Role Phone DEIRDRE PEREIRA, GILMORE Unavailable Unavailable [facility] Unavailable Unavailable [facility] Unavailable [facility]available [facility] Unavailable Unavailable [facility], [facility] Unavailable Unavailable MEDICAL GROUP, [facility] KINDRA JAM, KINDRA JAM Unavailable Unavailable YOUNG, YOUNG Unavailable Unavailable YOUNG ALL, [facility]NG ALL Unavailable Unavailable [facility] Unavailable Unavailable HOSPITAL, [facility] PH[facility]IAN Unavailable Unavailable PRACTICE L, [facility] KENY SPENCER Unavailable Unavailable KENY LAM Unavailable Unavailable VERITO OWEN TER, OWEN TER Unavailable Unavailable [facility], Unavailable Unavailable [facility] CHANDEL, CHANDEL Unavailable Unavailable CHESTNUT, CHESTNUT Unavailable Unavailable [facility] Unavailable Unavailable [facility], [facility] Unavailable Unavailable [facility] Unavailable Unavailable PHYSICIAN PRA, [facility], Unavailable Unavailable [facility] GILBERT ESTELLA, GILBERT ESTELLA Unavailable Unavailable MIGUE, MIGUE Unavailable Unavailable MIGUE MITCHEL, MIGUE Unavailable Unavailable MITCHEL MIGUE OKSANA, MIGUE Unavailable Unavailable OKSANA DESIRAE BECK, Unavailable Unavailable DESIRAE BECK [facility] Unavailable Unavailable [facility], [facility] BELEN, BELEN Unavailable Unavailable GIRALDO, GIRALDO Unavailable Unavailable HARIKA DAMIR, HARIKA Unavailable Unavailable DAMIR [facility] Unavailable Unavailable [facility], [facility] GREGONIS MITCHEL, Unavailable Unavailable GREGONIS MITCHEL MACY, MACY Unavailable Unavailable MACY RHO, MACY Unavailable Unavailable RHO HANY, HANY Unavailable Unavailable [facility] Unavailable Unavailable INC, [facility] YOLANDA CEC, YOLANDA Unavailable Unavailable [facility]EC CONDE, CONDE Unavailable Unavailable ALEC, ALEC Unavailable Unavailable ALEC, ALEC Unavailable Unavailable ALEC MAG, ALEC MAG Unavailable Unavailable ALEC MAG, ALEC MAG Unavailable Unavailable [facility] Un[facility] Unavailable [facility], [facility] Unavailable Unavailable [facility], [facility], Unavailable Unavailable [facility], Unavailable Unavailable [facility] Unavailable Unavailable HOLDINGS, [facility] Unavailable Unavailable HOLDINGS, [facility] VERONICA JR THO, Unavailable Unavailable VERONICA JR THO [facility] Unavailable Unavailable ASSOCIATES,, [facility], ANA PEREZ Unavailable Unavailable ANA, ANA [...] LLC ROSARIO HOYOS, ROSARIO Unavailable Unavailable [facility] Unavailable Unavailable [facility] JFEFY, JEFFY Unavailable Unavailable [facility], [facility] [...] MENDY ARNETT DON, Unavailable Unavailable ARNETT DON [facility] Unavailable Unavailable THERAP, [facility] AVERY, III, AVERY, Unavailable Unavailable III [facility] Unavailable Unavailable EQUIPME, [facility] Unavailable Unavailable EMERGENCY PHYS, [facility] [...] N EMERGENCY INFECTION PHYS SITE NOT SPECIFIED [id number] UNSPECIFIED 05-11-2017 [facility] OVARIAN N EMERGENCY CYST [...] FREQUENT ANCA MENSTRUATIO HOLDINGS N W/REGULAR CYCLE [id number] CELLULITIS 02-16-2017 [facility] OF OTHER PHYSICIAN SITES PRACTICE L H6503 ACUTE 01-28-2017 [facility]OUS [facility] OTITIS MEDICAL MEDIA GROUP BILATERAL N910 PRIMARY 01-24-2017 [facility] Z3202 ENCOUNTER 01-24-2017 [facility] FOR HEALTH MEDICAL TEST RESULT GROUP NEGATIVE 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 01-13-2017 [facility] I341 NONRHEUMATI 01-13-2017 [facility] C [facility]AL [facility] PROLAPSE K589 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-2017 [facility] WITHOUT DIARRHEA K5900 CONSTIPATIO 01-13-2017 [...] A[facility]IC HOSPITAL AGENT STATUS N736 FEMALE 01-05-2017 ALCE PELVIC PERITONEAL ADHESIONS POSTINFECTI VE N800 ENDOMETRIOS 01-05-2017 AN[facility]IA IS OF ASSOCIATES UTERUS PSC N8311 CORPUS 01-05-2017 [facility] LUTEUM CYST OF RIGHT OVARY O86272 OTHER 01-05-2017 NEW [facility] [place] CYST RIGHT CLINIC PSC SIDE N926 IRREGULAR 01-05-2017 [facility] MENSTRUATIO N UNSPECIFIED R102 PELVIC AND 12-07-2016 MEDICAL PERINEAL DIAGNOSTIC PAIN LAB LLC O77525 ENCOUNTER 12-07-2016 PATH [facility] FOR OTHER LABS LLC PREPROCEDUR AL EXAMINATION Z5181 ENCOUNTER 12-07-2016 MD LAB[facility] FOR THERAPEUTIC DRUG LEVEL MONITORING F22551 OTHER LONG 12-07-2016 MD LABS TERM CURRENT DRUG THERAPY Z5321 PROC & TX 12-05-2016 [facility] NOT CARRIED COMMUNTIY OUT PT HOSPITA LEAVE PRIOR TO SEEN I889 NONSPECIFIC 11-18-2016 [facility] LYMPHADENIT MEDICAL IS GROUP UNSPECIFIED J029 ACUTE 11-18-2016 [facility] PHARYNGITIS HEALTH MEDICAL UNSPECIFIED GROUP R0981 NASAL 11-18-2016 [facility] K529 NONINFECTIV 11-01-2016 [facility] E PHYSICIAN GASTROENTER PRACTICE L ITIS & COLITIS UNS R1084 GENERALIZED 10-30-2016 [facility] ABDOMINAL N EMERGENCY PAIN PHYS R197 DIARRHEA 10-30-2016 [facility] UNSPECIFIED N EMERGENCY PHYS Z720 TOBACCO USE 10-30-2016 [facility]ITA J020 STREPTOCOCC 10-25-2016 [facility] PHARYNGITIS J9801 ACUTE 10-25-2016 [facility] M J111 FLU D/T 10-19-2016 [facility] UNIDENTIFIE N EMERGENCY D FLU VIRUS PHYS W/OTH RESP MANIF R6889 OTHER 10-17-2016 [facility] SYMPTOMS MEDICAL AND SIGNS GROUP U40277 CONTACT W/ 10-17-2016 [facility] & EXPOSURE HEALTH OTH VIRAL MEDICAL COMMUNICABL GROUP E DZ M549 DORSALGIA 09-17-2016 [facility] C16290 MIGRAINE 09-12-2016 [facility] UNS NOT N EMERGENCY INTRACT W/O PHYS STATUS MIGRAINOSUS Z3200 ENCOUNTER 08-25-2016 [facility] TEST RESULT GROUP UNKNOWN Z50033 PAIN IN 08-11-2016 [facility] UNSPECIFIED PHYSICIAN HIP PRACTICE L J00 ACUTE 07-23-2016 [facility] NASOPHARYNG PHYSICIAN ITIS COMMON PRACTICE L COLD R238 OTHER SKIN 07-23-2016 [facility] CHANGES PHYSICIAN PRACTICE L L301 DYSHIDROSIS 06-28-2016 [facility] POMPHOLYX PHYSICIAN PRACTICE L R05 COUGH 06-16-2016 [facility] PHYSICIAN PRA R0602 SHORTNESS 06-16-2016 [facility] OF BREATH REGIONAL PHYSICIAN PRA R062 WHEEZING 06-16-2016 [facility] PHYSICIAN PRA N31853 ENCOUNTER 06-08-2016 [facility] MAG FEATHER SHAPER EXAM GENERAL RTN W/O ABNORMAL FIND Z113 ENCOUNTER 06-08-2016 ASSOCIATED SCREEN PATHOLOGIST INFECTIONS S LLC SEXL MODE TRANSMISSN Z1151 ENCOUNTER 06-08-2016 ASSOCIATED FOR PATHOLOGIST SCREENING S LLC FOR HUMAN PAPILLOMAVI CORDELIA Z118 ENCOUNTER 06-08-2016 ASSOCIATED SCREEN PATHOLOGIST OTHER S LLC INFECTIOUS & PARASITIC DZ J05290 PAIN IN 05-24-2016 [place] LEFT MEDICAL FINGERS IMAGING ASS J309 ALLERGIC 05-05-2016 [facility] RHINITIS REGIONAL UNSPECIFIED PHYSICIAN PRA B62964 UNSPECIFIED 05-05-2016 [facility] ASTHMA REGIONAL UNCOMPLICAT PHYSICIAN ED PRA K219 GASTRO-ESOP 05-05-2016 [facility] Iraheta REFLUX REGIONAL DISEASE PHYSICIAN WITHOUT PRA ESOPHAGITIS R61 GENERALIZED 05-05-2016 [facility] HYPERHIDROS PHYSICIAN IS PRA R072 PRECORDIAL 04-11-2016 [facility] [place] PAIN RADIOLOG[facility] R0789 OTHER CHEST 04-11-2016 [facility] PAIN N EMERGENCY PHYS R079 CHEST PAIN 04-11-2016 [facility] [place] UNSPECIFIED RADIOLOGY U36202O STRAIN 04-11-2016 [facility] MUSCLE & N EMERGENCY TENDON UNS PHYS WALL THORAX INIT ENC Z62ZGUX EXPOSURE TO 04-11-2016 [facility] OTHER N EMERGENCY SPECIFIED PHYS FACTORS INITIAL ENC R198 OTH SPEC SX 03-17-2016 [facility] & SIGNS [facility] DIGESTV SYS & ABD Z1211 ENCOUNTER 03-17-2016 [facility] SCREENING ANESTHESIA MALIGNANT GROUP PS NEOPLASM OF COLON G8929 OTHER 03-12-2016 [facility]ACTICE L Z539 PROCEDURE & 03-08-2016 [facility] NOT CARRIED [facility]PITAL [...] OVARIAN CYSTS N838 OTH 11-28-2015 NEW NONINFLAMM [facility] D/O OVARY CLINIC PSC FALLOP TUBE & BROAD LIG N941 DYSPAREUNIA 11-28-2015 [facility] AN[facility] PSC N942 VAGINISMUS 11-28-2015 A[facility] MAG H5203 HYPERMETROP 09-29-2015 ANA IA GRE BILATERAL Z309 ENCOUNTER 07-17-2015 [facility] FOR TABLE RUNNER CONTRACEPTI ASSOCIATES, VE MANAGEMENT UNS Z392 ENCOUNTER 07-17-2015 [facility] FOR ROUTINE [facility], FOLLOW-UP K1230 ORAL 07-08-2015 [facility] MUCOSITIS HEALTH ULCERATIVE MEDICAL UNSPECIFIED GROUP Y850QH2 MAT CARE 07-03-2015 [facility] DISPROPORTI ANESTHESIA ON UNUSUAL PSC LARGE FET NA/UNS O653 OBST LABOR 07-03-2015 SPIKE DUE PELV TABLE RUNNER OUTLET & ASSOCIATES, MID-CAV CONTRACTION Z370 SINGLE LIVE 07-03-2015 [facility] ANESTHESIA PSC Z3A39 39 WEEKS 07-03-2015 [facility] GESTATION TABLE RUNNER OF ASSOCIATES, O471 FALSE LABOR 06-26-2015 [facility] AT/AFTER [facility] 37 HOSP COMPLETED WEEKS GEST Z3483 ENC 06-26-2015 [facility] SUPERVISION TABLE RUNNER OTH NORMAL ASSOCIATES, 3 TRIMESTER Z3A38 38 WEEKS 06-26-2015 [facility] GESTATION [facility] OF HOSP A3285J2 MATERNAL 06-19-2015 [facility] CARE EXCESS [facility], GROWTH 3RD TRI NA/UNS S192BV5 POLYHYDRAMN 06-19-2015 [facility] IOS THIRD TABLE RUNNER TRIMESTER ASSOCIATES, NA/UNS Z3A37 37 WEEKS 06-19-2015 [facility] GESTATION TABLE RUNNER OF ASSOCIATES, Z391 ENCNTR FOR 06-18-2015 [facility] MEDICAL EXAMINATION SUPPLIES LACTATING MOTHER U12588 ANEMIA 06-12-2015 [facility] COMPLICATIN TABLE RUNNER G ASSOCIATES, THIRD TRIMESTER Z36 ENCOUNTER 06-12-2015 MEDICAL FOR DIAGNOSTIC LAB LLC SCREENING OF MOTHER Z3A36 36 WEEKS 06-12-2015 [facility] GESTATION TABLE RUNNER OF ASSOCIATES, 68188 THREATENED 06-11-2015 [facility] PREMATURE [facility] LABOR HOSP ANTEPARTUM 46983 OTH CURRENT 05-29-2015 [facility] MAT CONDS TABLE RUNNER CLASSIFIABL ASSOCIATES, E ELSW ANTPRTM 7869 OTH 05-29-2015 [facility] SYMPTOMS TABLE RUNNER INVOLVING ASSOCIATES, RESPIRATORY SYSTEM&CHES T 4619 ACUTE 05-22-2015 [facility] SINUSITIS, HEALTH UNSPECIFIED MEDICAL GROUP 4779 ALLERGIC 05-22-2015 [facility] RHINITIS HEALTH CAUSE MEDICAL UNSPECIFIED GROUP V221 SUPERVISION 05-15-2015 [facility] OF OTHER TABLE RUNNER NORMAL ASSOCIATES, 92102 OTHER 04-18-2015 [facility] SPECIFED HEALTH COMPLICATIO MEDICAL N GROUP ANTEPARTUM 7605 FETUS OR 04-18-2015 [facility] AFFECTED BY MEDICAL MATERNAL GROUP INJURY V222 04-18-2015 [facility] STATE, [facility] INCIDENTAL HOSP V714 OBSERVATION 04-18-2015 [facility] FOLLOWING [facility] OTHER HOSP ACCIDENT 43294 ABDOMINAL 04-17-2015 KENY SELLERS WITH INTRAUTERIN E 97560 ABDOMINAL 04-01-2015 [facility] PAIN RIGHT [facility] LOWER HOSP QUADRANT 6259 UNSPEC 03-01-2015 [facility] SYMPTOM [facility] ASSOC HOSP W/FEMALE GENITAL ORGANS 49231 ABDOMINAL 03-01-2015 [facility] PAIN, LEFT HEALTH LOWER MEDICAL QUADRANT GROUP 7202 SACROILIITI 01-31-2015 [facility] PHYSICAL CLASSIFIED THERAP 7244 THORACIC/MARINA 01-31-2015 [facility] NEURITIS/RA PHYSICAL DICULITIS THERAP UNSPEC V571 OTHER 01-31-2015 [facility] THERAPY PHYSICAL THERAP 24904 MILD 12-19-2014 [facility] HYPEREMESIS TABLE RUNNER GRAVIDARUM ASSOCIATES, ANTEPARTUM 54488 THREATENED 11-21-2014 [facility] , TABLE RUNNER ANTEPARTUM ASSOCIATES, V7231 ROUTINE 11-21-2014 [facility] AL EXAMINATION 8470 NECK SPRAIN 11-19-2014 [facility] AND STRAIN N EMERGENCY PHYS E9289 UNSPECIFIED 11-19-2014 [facility] ACCIDENT N EMERGENCY PHYS V141 PERSONAL 11-19-2014 [facility] HISTORY [facility]GY HOSPITAL OTHER ANTIBIOTIC AGENT V143 PERSONAL 11-19-2014 [facility] HISTORY [facility] ALLERGY [facility] ANTI-INFECT LINDA AGT V146 PERSONAL 11-19-2014 [facility] HISTORY OF COMMUNITY ALLERGY TO HOSPITAL ANALGESIC AGENT 6260 ABSENCE OF 11-13-2014 [facility] MENSTRUATIO [facility] 77835 DISPLCMT 11-11-2014 [facility] LUMBAR [facility] DISC W/O MYELOPATHY 7242 LUMBAGO 11-11-2014 [facility] 8461 SPRAIN AND 11-01-2014 KENY SELLERS STRAIN OF SACROILIAC 7222 DISPLCMT 10-21-2014 [facility] UNS W/O MYELOPATHY 7820 DISTURBANCE 10-21-2014 [facility] SKIN N EMERGENCY SENSATION PHYS V1582 PERS HX 10-21-2014 [facility] TOBACCO USE [facility] HAZARDS HEALTH [...] 17 17 [address] AR OP MA CY 50 #4 MC [...] MG CY TA #[address] 59 08 09 20 7 00 WA [...] -M #4 CR [address] 68 08 09 20 5 00 WA [...] 60 7- 8- [address] 00 20 20 41 RT ED 10 17 17 96 NI 3 99 PH SO AR LO MA NE CY 4 #4 MG 93 DO SE PK CY 68 07 08 15 4 00 [place] Ac CL 64 -1 -1 .0 00 L- ti OB 50 7- 8- 00 07 MA ve EN 51 20 20 41 RT ZA [address] 0 00 PH IN AR E MA [...] ME 59 06 07 5. [address] [facility] [address] 76 -1 -1 00 00 L- ti OX 23 9- 4- 0 07 MA ve YP 74 20 20 41 RT RO 20 17 17 51 GE [address] AR ER MA ON CY E 10 #4 93 MG TA B FL 55 06 07 1. 1 00 [place] Ac UC 11 -1 -0 00 00 L- ti ON 10 3- 7- 0 07 MA ve AZ 14 20 20 41 RT OL 51 17 17 40 E 2 73 PH 15 AR 0 MA MG CY TA #4 BL 93 ET CE 68 06 07 20 10 00 [facility] PH 18 -0 -0 .0 00 L- ti AL 00 7- 7- 00 07 MA ve EX 12 20 20 41 RT IN 20 17 17 31 2 05 PH 50 AR 0 MA MG CY CA #4 PS 93 UL E OX 62 06 06 30 30 00 [facility] YB 17 -0 -2 .0 00 L- ti UT 50 1- 3- 00 07 MA ve YN 27 20 20 41 RT IN 13 17 17 19 7 18 PH CL AR MA ER CY 10 #4 93 MG TA BL ET PH 51 05 06 9. 3 00 [facility] EN 29 -1 -0 00 00 L- ti AZ 30 7- 9- 0 07 MA ve OP 81 20 20 66 RT YR 10 17 17 05 ID 1 83 PH IN AR E MA 20 CY 0 MG #[address] 00 05 06 21 6 00 [place] Ac ED 60 -1 -0 .0 00 L- ti NI 35 9- 9- 00 07 MA ve SO 33 20 20 66 RT NE 71 17 17 11 5 5 59 PH AR MG MA CY TA BL #5 ET 71 PEDERSON 65 05 06 20 10 00 [place] Ac LF 86 -1 -0 .0 00 [...] 1 16 PH CE AR TA MA OK CY NO PH #4 93 7. 5- [...] 04 05 [address] 16 -1 -1 .0 00 L- ti [...] 40 RT ZA [address] 0 24 PH IN AR E MA [...] 1 59 PH CE AR TA MA OK CY NO PH #4 EN 93 5- 32 5 ## 03 03 20 10 00 NJ [...] 17 17 [address] AR OP MA CY 50 #4 MC [...] DI 00 02 03 20 5 00 NJ Ac CY 52 -1 -1 .0 00 L- ti CL 71 8- 0- 00 07 MA ve OM 28 20 20 63 RT IN 20 17 17 98 E 1 81 PH 20 AR MA MG CY TA #[address] 68 02 03 20 5 00 WA [...] 10 5- 0- 00 07 MA ve OK 47 20 20 39 RT 01 17 17 08 R 3 29 PH PH AR OS MA CY 75 #4 MG 93 CA PS UL E AM 64 02 03 60 30 00 NJ Ac IT 76 -1 -1 .0 00 L- ti IZ 40 3- 0- 00 07 MA ve A 24 20 20 63 RT 24 06 17 17 85 0 08 PH MC AR G MA CA CY PS UL #5 ES 71 CE 68 02 03 30 10 00 NJ Ac PH 18 -1 -1 .0 00 L- ti AL 00 3- 0- 00 07 MA ve EX 12 20 20 63 RT IN 20 17 17 85 2 09 PH 50 AR 0 MA MG CY CA #5 PS 71 UL E CE 16 02 03 30 30 00 NJ Ac TI 57 -1 -1 .0 00 L- ti RI 10 3- 0- 00 08 MA ve ZI 40 20 20 83 RT NE 25 17 17 81 0 84 PH HC AR L MA 10 CY MG #5 71 TA BL ET VE 00 02 03 18 17 00 NJ Ac NT 17 -1 -1 .0 00 L- ti OL 30 3- 0- 00 07 MA ve IN 68 20 20 63 RT 22 17 17 85 HF 0 56 PH A AR 90 MA CY MC G #5 IN [address] 50 02 03 18 9 00 NJ Ac OM 38 -1 -1 0. 00 L- ti ET 30 3- 0- 00 04 MA ve TALAMANTES 80 20 20 0 54 RT ZI 51 17 17 17 NE 6 15 PH -P AR E- MA CO CY DE IN #5 E [address] 68 02 02 10 3 00 NJ Ac OM 38 -0 -2 .0 00 [...] 30 1- 4- 00 07 MA ve OK 31 20 20 39 RT DE 10 17 17 01 2 1 57 PH AR MG MA CY CA PS #4 UL 93 E FL 60 01 02 16 30 00 WA Ac UT 43 -2 -1 .0 00 L- ti IC 20 3- 7- 00 07 MA ve 26 20 20 36 RT ON 41 17 17 [address] AR OP MA CY 50 #4 MC [...] CE 16 01 02 30 30 00 NJ Ac TI 57 -0 -0 .0 00 [...] AR RA 30 17 17 24 MA OK 5 44 CY DE #0 10 23 [...] GA 65 12 01 90 30 00 NJ Ryne BA 16 -3 -2 .0 00 L- ti PE 20 0- 0- 00 07 MA ve NT 10 20 20 62 RT IN 25 16 17 80 0 12 PH 30 AR 0 MA MG CY CA #5 PS 71 UL E OX 65 12 30 30 00 [place] Ryne YB 16 -2 -1 .0 00 L- ti UT 20 1- 3- 00 07 MA ve YN 37 20 20 34 RT IN 21 16 17 03 0 45 PH CL AR MA ER CY 10 #4 93 MG TA BL ET SY 00 12 10 30 00 [place] Ryne MB 18 -2 -1 .1 00 L- ti IC 60 1- 3- 99 07 MA ve OR 37 20 20 36 RT T 22 16 17 13 80 0 98 PH -4 AR .5 MA CY MC G #4 IN 93 TALAMANTES LE R FL 60 12 01 16 30 00 [facility] UT 43 -2 -1 .0 00 L- ti IC 20 1- 3- 00 07 MA ve 26 20 20 36 RT ON 41 16 17 [address] AR OP MA CY 50 #4 MC 93 G SP RA Y OM 57 12 30 30 00 [place] Ryne EP 23 -2 -1 .0 00 L- ti RA 70 1- 3- 00 07 MA ve ZO 16 20 20 36 RT LE 23 16 [address] AR MA 40 CY MG #4 93 CA PS UL E ME 54 12 30 30 00 [place] Ryne LO 45 -2 -1 .0 00 L- ti XI 80 2- 3- 00 07 MA ve CA 96 20 20 38 RT M 41 16 17 27 15 0 97 PH AR MG MA CY TA BL #4 ET 93 FL 55 12 01 2. 3 00 [facility] UC 11 -2 -1 00 00 [...] [Presen ce] in Serum by Latex aggluti [facility] Procedures Procedure [place] [address] [facility] 7 [facility] OPH [address] [facility] 7 XM&EVAL COMPRHNSV ESTAB PT 1/> GONADOTRO 51202 LAB [facility] PIN 7 ANCA ANCA [employer] [place] [address] [facility] R[facility] THYROID 7 ANCA ANCA STIMULATI HOLDINGS [place] [address] [facility] R[facility] THYROXINE 7 ANCA ANCA TOTAL HOLDINGS HOLDINGS BLOOD 74910 LAB [facility] LAB [facility]SE[facility] COUNT 7 ANCA ANCA COMPLETE HOLDINGS HOLDINGS AUTO&AUTO DIFRNTL WBC COLLECTIO 32560 H[facility] CAMARENA N VENOUS 7 PHYSICIAN BLOOD PRACTICE VENIPUNCT L URE IAADIADOO 03699 [facility] 7 HEALTH [facility] MEDICAL CCUS GROUP GROUP A URINE 52522 [facility] 7 HEALTH HEALTH TEST MEDICAL MEDICAL VISUAL GROUP GROUP COLOR CMPRSN METHS URNLS DIP 38888 [facility] 7 [facility] LET REAGENT AUTO MICROSCOP Y RADEX 33420 [facility] [place] MACY ABDOMEN 7 RADIOLOGY COMPL W/DCBTS&/ ERC VIEWS HYSTEROSC 50505 [facility] MICHAEL OPY BX 7 ENDOMETRI UM&/POLYP C W/WO D&C CATH & 98537 [facility] MICHAEL SALINE/CO 7 NTRAST SONOHYSTE R/HYSTERO SALPI LAPS 09322 [facility] MICHAEL FULG/EXC 7 OVARY VISCERA/[place] [address] [place] SURG 7 [facility] PSC GROSS&DAMIR ROSCOPIC EXAM ANESTHESI 89754 ANESTHESI RED A 7 A INTRAPERI ASSOCIATE TONEAL S PSC LOWER [place] [address] PATH PATH THYROID 7 GROUP GROUP STIMULATI LABS [employer] [facility] [employer] [place] [address] ALEC MICHAEL TRANSVAGI 7 NAL DRUG TST G0483 MD LABS MD LABS DEFINITV 7 DR ID METH P DAY 22/MORE DR CL HEMOGLOBI 22334 PATH PATH N 7 GROUP GROUP GLYCOSYLA LABS [employer] [facility] [employer] MARIANNE A1C IADNA 95977 MEDICAL MEDICAL TRICHOMON 7 DIAGNOSTI DIAGNOSTI C LAB LLC C LAB LLC VAGINALIS AMPLIFIED PROBE TECH BLOOD 60620 PATH PATH COUNT 7 GROUP GROUP COMPLETE LABS LLC LABS LLC AUTO&AUTO DIFRNTL WBC COMPREHEN 88233 PATH PATH SIVE 7 GROUP GROUP METABOLIC LABS LLC LABS LLC PANEL DRUG TEST 11145 MD LABS MD LABS PRSMV 7 INSTRMNT CHEMISTRY ANALYZERS IADNA 17241 MEDICAL MEDICAL NEISSERIA 7 DIAGNOSTI DIAGNOSTI C LAB LLC C LAB LLC GONORRHOE AE AMPLIFIED PROBE TQ COLLECTIO 79340 ASSOCIATE WHITE N VENOUS 7 D BLOOD PATHOLOGI VENIPUNCT STS LLC URE IADNA 33543 MEDICAL MEDICAL HUMAN 7 DIAGNOSTI DIAGNOSTI PAPILLOMA C LAB LLC C LAB LLC VIRUS HIGH-RISK TYPES IADNA 39884 MEDICAL MEDICAL CHLAMYDIA 7 DIAGNOSTI DIAGNOSTI C LAB LLC C LAB LLC TRACHOMAT IS AMPLIFIED PROBE TQ IAADIADOO 38188 [facility] 7 HEALTH STREPTOCO MEDICAL CCUS GROUP GROUP A URNLS DIP 86158 [facility] 7 N N STICK/TAB COMMUNTIY COMMUNTIY LET HOSPITA HOSPITA REAGENT AUTO MICROSCOP Y INJECTION J1885 [facility] 7 N N KETOROLAC COMMUNTIY COMMUNTIY HOSPITA HOSPITA TROMETHAM INE PER 15 MG INFUSION J7030 [facility] NORMAL 7 N N SALINE COMMUNTIY COMMUNTIY SOLUTION HOSPITA HOSPITA 1000 CC URINE 98925 [facility] 7 N N TEST COMMUNTIY COMMUNTIY VISUAL HOSPITA HOSPITA COLOR CMPRSN METHS INJECTION J2550 [facility] 7 N N PROMETHAZ COMMUNTIY COMMUNTIY INE HCL HOSPITA HOSPITA UP TO 50 MG COMPREHEN 13927 [facility] SIVE 7 N N METABOLIC COMMUNTIY COMMUNTIY PANEL HOSPITA HOSPITA BLOOD 52569 [facility] COUNT 7 N N COMPLETE COMMUNTIY COMMUNTIY AUTO&[place] [address] [facility] INFUSION 7 N N HYDRATION COMMUNTIY COMMUNTIY EACH HOSP[place] [address] [facility] LIPASE 7 N [place] [address] [facility] INFUSION 7 N N THERAPY/P COMMUNTIY COMMUNTIY ROPHYLAXI HOSPITA HOSPITA S /DX 1ST TO 1 HR THERAPEUT 90351 [facility] IC 7 N N INJECTION COMMUNTIY COMMUNTIY IV PUSH HOSPITA HOSPITA EACH NEW DRUG IAADIADOO 10306 [facility] IAADIADOO [address] [facility] STREPT[facility]ICAL CCUS GROUP GROUP A URINE 86952 [facility] MIGUE 7 PHYSICIAN TEST PRACTICE VISUAL L COLOR CMPRSN METHS THERAPEUT 93720 [facility] WENIER IC 7 PHYSICIAN PHYSICIAN PROPHYLAC PRACTICE PRACTICE TIC/DX L L INJECTION SUBQ/IM MRI 510[address] [facility] SPINAL 7 [facility] LUMBAR W/O CONTRAST MATERIAL RADEX 61740 [facility] SPINE 7 N N LUMBOSACR COMMUNTIY COMMUNTIY AL 2/3 HOSPITA HOSPITA VIEWS RADIOLOGI 74652 [facility] C 7 N N EXAMINATI COMMUNTIY COMMUNTIY ON PELVIS HOSPITA HOSPITA 1/2 VIEWS THER 22586 [facility] PROPH/DX 7 N N NJX IV COMMUNTIY COMMUNTIY PUSH HOSPITA HOSPITA SINGLE/1S T SBST/DRUG THERAPEUT 26530 [facility] IC 7 N N INJECTION COMMUNTIY COMMUNTIY IV PUSH [place] [address] [facility] LIPASE 7 N [place] [address] [facility] INFUSION 7 N N HYDRATION COMMUNTIY COMMUNTIY EACH HOSPITA HOSPITA ADDITIONA L HOUR BLOOD 35327 [facility] COUNT 7 N N COMPLETE COMMUNTIY COMMUNTIY AUTO&AUTO HOSPITA HOSPITA DIFRNTL WBC URNLS DIP 82058 [facility] 7 N N STICK/TAB COMMUNTIY COMMUNTIY LET HOSPITA HOSPITA REAGENT AUTO MICROSCOP Y COMPREHEN 77695 [facility] SIVE 7 N N METABOLIC COMMUNTIY COMMUNTIY PANEL HOSPITA HOSPITA COLLECTIO 44562 [facility] N VENOUS 6 PHYSICIAN BLOOD PRACTICE VENIPUNCT L URE GONADOTRO 93994 LAB RUSSELL LAB RUSSELL PIN 6 ANCA ANCA [facility] [employer] [facility] QUALITATI VE IAADIADOO 80367 [facility] CONGREGATIONAL 6 [facility]ALTH [facility] INFLUENZA MEDICAL MEDICAL GROUP GROUP URINE 89765 [facility]ATIONAL BENAVIDEZ 6 HEALTH TEST MEDICAL VISUAL GROUP COLOR CMPRSN METHS URINE 24642 [facility] MIGUE 6 PHYSICIAN TEST PRACTICE VISUAL L COLOR CMPRSN METHS COLLECTIO 90732 [facility] N VENOUS 6 PHYSICIAN BLOOD PRACTICE VENIPUNCT L URE GONADOTRO 18422 LAB RUSSELL LAB RUSSELL PIN 6 ANCA ANCA [employer] [place] [address] PINA GARCIA 6 REGIONAL REGIONAL CAPACITY MEDICAL MEDICAL CENTE CENTE PRESSURIZ 32705 [facility] ED/NONPRE 6 REGIONAL REGIONAL SSURIZED MEDICAL MEDICAL INHALATIO CENTE CENTE N TREATMENT NONINVASI 89819 [facility] VE 6 REGIONAL REGIONAL EAR/PULSE MEDICAL MEDICAL OXIMETRY CENTE CENTE SINGLE DETER PULMONARY 56049 [facility] 6 REGIONAL REGIONAL COMPLIANC MEDICAL MEDICAL E STUDY CENTE CENTE BRNCDILAT 71564 PINA HELLER RSPSE 6 REGIONAL REGIONAL SPMTRY MEDICAL MEDICAL PRE&POST- CENTE CENTE BRNCDILAT ADMN BRNCDILAT 31555 PINA BUSTILLOSE 6 REGIONAL MITCHEL SPMTRY PHYSICIAN PRE&[place]- [place] [address] PINA GARCIA 6 REGIONAL MITCHEL CAPACITY PHYSICIAN PRA PLETHYSMO 53662 PINA ADANY 6 REGIONAL MITCHEL LUNG PHYSICIAN VOLUMES PRA W/WO AIRWAY RESIST HEMOGLOBI [address]781 [address] PATH N 6 GROUP GROUP GLYCOS[facility]LA [facility] MARIANNE A1C BLOOD 21521 PATH PATH COUNT 6 GROUP GROUP COMPLETE [facility] LABS LLC AUTO&[place] [address] PATH PATH THYROID 6 GROUP GROUP STIMULATI LABS [employer] [facility] LLC NG HORMONE TSH COLLECTIO 30882 ASSOCIATE WHITE NAHID N VENOUS 6 D BLOOD PATHOLOGI VENIPUNCT STS LLC URE COMPREHEN 07244 PATH PATH SIVE 6 GROUP GROUP METABOLIC LABS [facility] LLC PANEL IADNA 36938 ASSOCIATE WHITE NAHID NEISSERIA 6 D PATHOLOGI GONORRHOE STS LLC AE AMPLIFIED PROBE TQ IADNA 10350 ASSOCIATE WHITE NAHID HUMAN 6 D PAPILLOMA PATHOLOGI VIRUS STS LLC HIGH-RISK TYPES IADNA 47958 ASSOCIATE WHITE NAHID CHLAMYDIA 6 D PATHOLOGI TRACHOMAT STS LLC IS AMPLIFIED PROBE TQ CUL BACT 64000 PATH PATH XCPT 6 GROUP GROUP URINE LABS [facility] [employer] BLOOD/STO OL AEROBIC ISOL CYTP C/V 61739 ASSOCIATE WHITE NAHID AUTO THIN 6 D LYR PATHOLOGI PREPJ SCR [facility]S LLC MNL RESCR PHYS CULTURE 09896 PATH PATH FNGI 6 GROUP GROUP MOLD/YEAS LABS [facility] [facility] [employer] T PRSMPTV OTH XCPT BLOOD RADEX 66547 [place] DESIRAE HAND 6 MEDICAL BECK MINIMUM 3 IMAGING VIEWS ASS WRIST L3807 [place] HAND 6 HOME HOME FINGR MEDICAL MEDICAL ORTHOS EQUIPME EQUIPME W/O JNT PREFAB CSTM FIT ANTIBODY 94218 PINA HELLER HISTOPLAS 6 REGIONAL REGIONAL AK MEDICAL MEDICAL CENTE CENTE ANTIBODY 86524 PINA HELLER BLASTOMYC 6 REGIONAL REGIONAL ES MEDICAL MEDICAL CENTE CENTE ANTIBODY 33146 P[place] HELLER COCCIDIOI 6 [facility]ENT[facility] CENTE TB CELL 30843 P[place] HELLER MEDIATED 6 REGIONAL REGIONAL ANTIGN MEDICAL MEDICAL RESPNSE CENTE CENTE GAMMA INTERFERO N ANTIBODY 19239 P[place] HELLER ASPERGILL 6 REGIONAL REGIONAL MEDICAL MEDICAL CENTE CENTE COLLECTIO 05152 PINA HELLER N VENOUS 6 REGIONAL REGIONAL BLOOD MEDICAL MEDICAL VENIPUNCT CENTE CENTE URE CULTURE 33351 LAB RUSSELL LAB RUSSELL BACTERIAL 6 [facility]ds[facility] HOLDINGS QUANTTATI VE COLONY COUNT URINE RADIOLOGI 32798 [facility] [place] KOSTELIC C 6 RADIOLOGY ELAINE [place]AMINAT[place] [address] [facility] [place] BENAVIDEZ ANGIOGRAP 6 RADIOLOGY RAY HY CHEST W/CONTRAS T/NONCONT RAST ANES 15111 [place] ROSARIO LOWER 6 ANESTHESI SOHA INTESTINE A GROUP PS ENDOSCOPY DISTAL DUODENUM COLONOSCO 46519 PINA CARTER PY FLX DX 6 DIGESTIVE GRE W/COLLJ CARE SPEC WHEN CENTER PFRMD SPMTRY 13126 ESTELLA GILBERT GILBERT ESTELLA W/VC 6 MD EXPIRATOR CONSULTIN Y JOSHUA G SRV W/WO MXML VOL VNTJ RESPIRATO 70500 HUSAM WEINER RY FLOW 6 [facility] LOOP ECG 83216 ESTELLA GILBERT GILBERT ESTELLA ROUTINE 6 MD ECG CONSULTIN W/LEAST G SRV 12 LDS I&R ONLY ECG 17568 CONRADOELISE HUSAM ROUTINE 6 [facility] W/LEAST 12 LDS TRCG ONLY W/O I&R COLLECTIO 64498 HUSAM WEINER N VENOUS [address] [facility] VENIPUNCT URE COMPREHEN 72042 HUSAM WEINER SIVE 6 [facility] [place] [address] HUSAM WEINER THYROXINE [address] [place] [address] BLOOD 23169 HUSAM SHERON COUNT [address] [place] [address] AUTO&AUTO DIFRNTL WBC FIBRIN 89943 HUSAM WEINER DGRADJ [address] [place] [address] [place] [address] HUSAM WEINER THYROID 6 [facility] NG HORMONE TSH RADIOLOGI 43276 HUSAM SHERON C EXAM [address] VIEWS FRONTAL&L ATERAL RADIOLOGI 43572 [place] YOUNG ALL C EXAM 6 MEDICAL CHEST 2 IMAGING VIEWS ASS FRONTAL&L ATERAL BLOOD 60528 [facility] AUTO&AUTO DIFRNTL WBC COMPREHEN 10252 [facility] SIVE 6 [facility] METABOLIC INC INC PANEL URINE 02049 [facility] 6 [facility] TEST INC INC VISUAL COLOR CMPRSN METHS URNLS DIP 71910 [facility] LEACH 6 [facility] STICK/TAB INC INC LET REAGENT AUTO MICROSCOP Y THERAPEUT 38494 [facility] IC 6 [facility] PROPHYLAC INC INC TIC/DX INJECTION SUBQ/IM PRESSURIZ 07927 [facility] ED/NONPRE 6 [facility] SSURIZED INC INC INHALATIO N TREATMENT URNLS DIP 43413 ALEC MAG ALEC MAG 6 STICK/TAB LET RGNT NON-AUTO W/O MICRSCP OBSERVATI 46509 ALEC MAG ALEC MAG ON CARE 6 DISCHARGE MANAGEMEN T INITIAL 95120 ALEC MAG ALEC MAG OBSERVATI 6 ON CARE/DAY 30 MINUTES HYSTEROSC 63983 ALEC MAG ALEC MAG OPY BX 6 ENDOMETRI UM&/POLYP C W/[place] [address] [facility] SURG 6 [facility] PSC GROSS&DAMIR ROSCOPIC EXAM LAPS 45622 ALEC MAG ALEC MAG FULG/EXC 6 OVARY VISCERA/P ERITONEAL SURFACE ANESTHESI 84722 SUBURBAN MCGROARTY A 6 ANESTHESI TAJ INTRAPERI A PSC TONEAL LOWER ABD W/LAPS NOS IAADIADOO 73320 [facility] [place] 6 [facility] IN[facility] MEDICAL GROUP COLLECTIO [address] N VENOUS 6 D BLOOD PATHOLOGI VENIPUNCT [facility] URE COMPREHEN [address] SIVE 6 GROUP GROUP METABOLIC LABS [employer] [place] [address] [address] PATH THYROID 6 GROUP GROUP STIMULATI LABS [employer] [facility] [employer] [place] [address] ALEC MAG ALEC MAG TRANSVAGI 6 NAL HEMOGLOBI 75667 PATH PATH N 6 GROUP GROUP GLYCOSYLA LABS [employer] [facility]S [employer] MARIANNE A1C BLOOD 59161 PATH PATH COUNT 6 GROUP GROUP COMPLETE [facility]S LLC LABS LLC AUTO&AUTO DIFRNTL WBC OPHTH 67502 [facility] 6 GRE GRE XM&EVAL COMPRE NEW PT 1/> VST IAADIADOO 86440 [facility] 6 [facility]ALTH HEN INFLUENZA MEDICAL GROUP IAADIADOO 52223 [facility] [place] 6 [facility]ALTH HEN STREPTOCO MEDICAL CCUS GROUP GROUP A CYTP C/V 61547 P&C LABS, PICKLESIM AUTO THIN 5 LLC ER JR PHOENIX LYR PREPJ SCR MNL RESCR PHYS 50567 [place] [facility] DELIVERY 5 TABLE RUNNER RANDALL ONLY ASSOCIATE S, 16810 CENTRAL CENTRAL NONSTRESS 5 [facility] [place] [address]2945 [place] [facility] UTERUS 5 TABLE RUNNER RANDALL REAL TIME ASSOCIATE F/U S, TRNSABDL PER FETUS IADNA 94394 MEDICAL MEDICAL STREPTOCO 5 DIAGNOSTI DIAGNOSTI CCUS C LAB LLC C LAB [place] [address] [facility]TRAL NONSTRESS 5 CON[facility]ATIONAL [facility] TEST HOSP HOSP 35044 [facility]TR[facility] NONSTRESS 5 [facility] HOSP BLOOD 98449 CENTRAL CENTRAL COUNT 5 CONGREGATIONAL [facility]REGATIONAL COMPLETE HOSP HOSP AUTOMATED INITIAL 03035 [facility]ATIONAL VERONICA OBSERVATI 5 [facility] THO ON MEDICAL CARE/DAY GROUP 30 MINUTES FIBRINOGE 86894 CENTRAL CENTRAL N 5 [facility]ATIONAL [facility] ACTIVITY HOSP HOSP HGB/RBCS 77952 CENTRAL CENTRAL 5 [facility]ATIONAL [facility] FETOMATER HOSP HOSP NAL HEMRRG DIFRNTL LYSIS COLLECTIO 04395 CENTRAL CENTRAL N VENOUS 5 [facility]ATIONAL [facility]ATIONAL BLOOD HOSP HOSP VENIPUNCT URE URNLS DIP 56661 CEN[facility]AL CENTRAL 5 CONGREGATIONAL CONGREGATIONAL STICK/TAB HOSP HOSP LET RGNT AUTO W/O MICROSCOP Y IM ADM 20617 KENY BUSTILLO PRQ ID 5 VERITO VERITO SUBQ/IM NJXS 1 VACCINE TDAP 73773 KENY KENY VACCINE 7 5 VERITO VERITO YRS/> IM ANTIBODY 93046 LAB RUSSELL LAB RUSSELL SCREEN 5 ANCA ANCA RBC EACH [facility] SERUM TECHNIQUE GLUCOSE 15123 LAB RUSSELL LAB RUSSELL POST 5 [facility] GLUCOSE [facility] DOSE BLOOD 59693 LAB RUSSELL LAB RUSSELL COUNT 5 [facility] COMPLETE [facility] AUTOMATED 16029 [facility] NONSTRESS 5 CON[facility]ATIONAL [facility] TEST HOSP HOSP URNLS DIP [address]4210 [place] [address] CONGREGATIONAL CONGREGATIONAL STICK/TAB HOSP HOSP LET RGNT AUTO W/O MICROSCOP Y OBSERVATI 04916 [facility] WA[facility] ON/INPATI 5 TABLE RUNNER [facility] S, CARE 40 MINUTES INITIAL 52308 [facility] [place] OBSERV[address] ON MEDICAL CARE/DAY GROUP 30 MINUTES URNLS DIP 56924 [place] [address] CONGREGATIONAL CON[facility]REGATIONAL STICK/TAB HOSP HOSP LET REAGENT AUTO MICROSCOP Y [place] PREG [address]92 [place] [facility] UTERUS 5 TABLE RUNNER [facility] AFTER 1ST ASSOCIATE TRIMEST S, GESTATION MANUAL 45080 JACKELYN MEDINA THERAPY 5 [facility] 1/> PHYSICAL REGIONS THERAP EACH 15 MINUTES THERAPEUT 16787 [facility] IC PX 1/> 5 [facility] EACH 15 THERAP MIN EXERCISES US PREG 79065 [place] [facility] UTERUS 5 [facility] REAL TIME ASSOCIATE W/IMAGE S, DCMTN TRANSVAG CYTP C/V 05512 P&C LABS, PICKLESIM AUTO THIN 5 [facility] ER JR PHOENIX LYR PREPJ SCR MNL RESCR PHYS GONADOTRO 93677 HUSAM WEINER PIN 5 [facility] QUALITATI VE COLLECTIO 23277 HUSAM WEINER N VENOUS [address] [facility] VENIPUNCT URE THERAPEUT 28019 HUSAM WEINER IC PX 1/> 5 [facility] EACH 15 MIN EXERCISES THERAPEUT 08543 CONRADOELISE WEINER IC PX 1/> 5 [facility] EACH 15 MIN EXERCISES PHYSICAL 84014 HUSAM BOURBON THERAPY 5 [facility] N URINE 07712 HUSAM SHERON 5 [facility] VISUAL COLOR CMPRSN METHS INJECTION J1100 HUSAM SHERON 5 [facility] SONE SODIUM PHOSPHATE [address] LUMBAR 65971 [facility] [place] MACY SPINE 5 RADIOLOGY RHO W/O CONTRAST MATERIAL THERAPEUT 36549 HUSAM NIKKYON IC 5 [facility] TIC/DX INJECTION SUBQ/IM Encounters Encounter Start End Date Code Location Performer Type Date OFFICE 16003 [place] [facility] OUT[facility] 7 7 [facility] T VISIT 15 MINUTES OFFICE 34077 HUSAM CAMARENA OUTPATIEN 7 7 PHYSICIAN T VISIT PRACTICE 15 L MINUTES EMERGENCY 96979 [facility] DEPT 7 7 PAKO VISIT EMERGENCY HIGH PHYS SEVERITY& THREAT [facility] HUS[facility] - 7 7 [facility] T OFFICE 35010 HUSAM CAMARENA OUTPATIEN 7 7 PHYSICIAN T VISIT PRACTICE 15 L MINUTES EMERGENCY 28737 [facility] DEPT 7 7 PAKO VISIT EMERGENCY HIGH PHYS SEVERITY& THREAT [facility] OFFICE 75413 HUSAM MILLSPATIEN 7 7 PHYSICIAN T VISIT PRACTICE 15 L MINUTES OFFICE 15412 HUSAM MIGUE OUTPATIEN 7 7 PHYSICIAN T VISIT PRACTICE 15 L MINUTES OFFICE 82672 [facility] OUTPATIEN 7 7 [facility] T VISIT 5 [facility] HANY - 7 7 [facility] OUTPATIEN [facility] T OFFICE 80621 HUSAM CAMARENA OUTPATIEN 7 7 PHYSICIAN T VISIT PRACTICE 15 L MINUTES OFFICE 14885 HUSAM CAMARENA OUTPATIEN 7 7 PHYSICIAN T VISIT PRACTICE 15 L MINUTES OFFICE 11210 [facility] MATCHESNJ OUTPATIEN 7 7 HEALTH LA T VISIT MEDICAL 15 GROUP MINUTES OFFICE 00512 [facility] JEFFY OUTPATIEN 7 7 HEALTH T VISIT MEDICAL 15 GROUP MINUTES EMERGENCY 89949 [facility] 7 7 PAKO DEPARTMEN EMERGENCY T VISIT PHYS HIGH/URGE NT SEVERITY [facility] 89968 [facility] T VISIT MODERATE SEVERITY [facility] - 7 7 [facility] 01357 ALEC MICHAEL OUTPATIEN 7 7 T VISIT 15 MINUTES EMERGENCY [address] [facility] 7 7 PAKO DEPARTMEN EMERGENCY T VISIT PHYS HIGH/URGE NT SEVERITY [facility] - 7 7 [facility]ERGENC[facility] 41529 [facility] 7 7 N [facility] COMMUNTI[facility] T VISIT HOSPITA LIMITED/M INOR PROB OFFICE 46873 [facility] [place] OUTPATIEN 7 7 HEALTH T VISIT MEDICAL 15 GROUP MINUTES OFFICE 41166 HUSAM MIGUE [facility] 7 7 PHYSICIAN T VISIT PRACTICE 15 L MINUTES [facility] 7 7 [facility] EMERGENCY 10300 [facility] DEPT 7 7 PAKO VISIT EMERGENCY HIGH PHYS SEVERITY& THREAT FUNCJ EMERGENCY 04367 [facility] 7 7 N [facility] COMMUN[facility] T VISIT HOSPITA HIGH/URGE NT SEVERITY OFFICE 37172 RICHIE AVERY [facility] 7 7 MS[facility], JERROD III T NEW 30 MINUTES EMERGENCY 98286 [facility] 7 7 PAKO DEPARTMEN EMERGENCY T VISIT PHYS HIGH/URGE NT SEVERITY OFFICE 71826 [facility] 7 7 HEALTH LA T VISIT MEDICAL 15 GROUP MINUTES OFFICE 94351 NIKKYEVAN CAMARENA [facility] 7 7 PHYSICIAN T VISIT PRACTICE 15 L MINUTES [facility] [place] - 7 7 [facility] - 7 7 N OUTPATIEN COMMUNTIY T HOSPITA EMERGENCY 32465 [facility] 7 7 N DEPARTMEN COMMUNTIY T VISIT HOSPITA HIGH/URGE NT SEVERITY [facility] 7 7 N [facility] 36011 [facility] 7 PAKO VISIT EMERGENCY HIGH PHYS SEVERITY& THREAT FUNCJ OFFICE 73630 HUSAM CAMARENA [facility] 6 6 PHYSICIAN T VISIT PRACTICE 15 L MINUTES OFFICE 71815 HUSAM CAMARENA OUTPATIEN 6 6 PHYSICIAN T VISIT PRACTICE 15 L MINUTES OFFICE 54422 HUSAM CAMARENA OUTPATIEN 6 6 PHYSICIAN T VISIT PRACTICE 15 L MINUTES OFFICE 28040 PINA GUERRERO [facility] 6 6 DIGESTIVE CEC T VISIT CARE 15 CENTER MINUTES OFFICE 55631 HUSAM CAMARENA [facility] 6 6 PHYSICIAN OKSANA T VISIT PRACTICE 15 L MINUTES [facility] PINA - 6 6 [facility] 02880 ALEC ALEC MAG PREVENTIV 6 6 E MED EST PATIENT 18-39 YRS [facility] HANY - 6 6 [facility]129 HUSAM CAMARENA OUTPATIEN 6 6 PHYSICIAN OKSANA T VISIT PRACTICE 15 L MINUTES OFFICE 51095 PINA SHIPLEY [facility] 6 6 REGIONAL MITCHEL T NEW 45 PHYSICIAN MINUTES [facility] 97201 HUSAM CAMARENA OUTPATIEN 6 6 PHYSICIAN OKSANA T VISIT PRACTICE 25 L MINUTES EMERGENCY 80605 [facility] DEPT 6 6 PAKO VISIT EMERGENCY HIGH PHYS SEVERITY& THREAT FUNCJ OFFICE 48947 PINA GUERRERO OUTPATIEN 6 6 DIGESTIVE CEC T VISIT CARE 15 CENTER MINUTES OFFICE 92406 HUSAM CAMARENA OUTPATIEN 6 6 PHYSICIAN OKSANA T VISIT PRACTICE 25 L MINUTES HOSPITAL NIKKYON - 6 6 [facility] OFFICE 12722 HUSAM CAMARENA OUTPATIEN 6 6 PHYSICIAN OKSANA T VISIT PRACTICE 15 L MINUTES OFFICE 45817 PINA GUERRERO OUTPATIEN 6 6 DIGESTIVE CEC T VISIT CARE 25 CENTER MINUTES HOSPITAL CON[facility] - 6 6 [facility] HOSPITAL [place] - 6 6 [facility] OFFICE 41011 HUSAM CAMARENA OUTPATIEN 6 6 PHYSICIAN OKSANA T VISIT PRACTICE 15 L MINUTES OFFICE 82444 PINA GUERRERO OUTPATIEN 6 6 DIGESTIVE CEC T NEW 45 CARE MINUTES [facility] HANY - 6 6 [facility] OUTPATIEN INC T EMERGENCY 73955 LAXMI SHABAZZ 6 6 PHYSICIAN DAMIR DEPARTMEN S, PLLC T VISIT HIGH/URGE NT SEVERITY EMERGENCY 82990 [facility] 6 6 [facility] DEPARTMEN INC T VISIT MODERATE SEVERITY OFFICE 82687 HUSAM CAMARENA OUTPATIEN 6 6 PHYSICIAN MITCHEL T VISIT PRACTICE 15 L MINUTES OFFICE 23051 HUSAM CAMARENA OUTPATIEN 6 6 PHYSICIAN MITCHEL T VISIT PRACTICE 15 L MINUTES OFFICE 18188 HUSAM CAMARENA OUTPATIEN 6 6 PHYSICIAN MITCHEL T NEW 45 PRACTICE MINUTES L OFFICE 08288 ALEC MAG ALEC MAG OUTPATIEN 6 6 T VISIT 15 MINUTES OFFICE 88621 [facility] OUTPATIEN 6 6 HEALTH HEN T VISIT MEDICAL 25 GROUP MINUTES OFFICE 04754 ALEC MAG ALEC MAG OUTPATIEN 6 6 T VISIT 15 MINUTES OFFICE 16432 [facility] [place] OUTPATIEN 6 6 HEALTH HEN T VISIT MEDICAL 15 GROUP MINUTES OFFICE 89269 [place] [facility] OUT[facility] 5 5 TABLE RUNNER RANDALL T VISIT ASSOCIATE 15 S, MINUTES OFFICE 30269 [facility] ARNETT OUTPATIEN 5 5 HEALTH DON T VISIT MEDICAL 15 GROUP MINUTES HOSPITAL [facility] - 5 5 [facility]OSP T OFFICE 22829 [place] [facility] OUT[facility] 5 5 TABLE RUNNER RANDALL T VISIT ASSOCIATE 15 S, MINUTES OFFICE 57936 [place] [facility] OUTPATIEN 5 5 TABLE RUNNER RANDALL T VISIT ASSOCIATE 15 S, MINUTES OFFICE 89038 [place] [facility] OUTPATIEN 5 5 TABLE RUNNER RANDALL T VISIT ASSOCIATE 15 S, MINUTES HOSPITAL [facility]AL - 5 5 [facility] OUT[facility] HOSP T OFFICE 16889 [place] [facility] OUTPATIEN 5 5 TABLE RUNNER RANDALL T VISIT ASSOCIATE 15 S, MINUTES OFFICE 10428 [facility] [place] OUTPATIEN 5 5 HEALTH HEN T VISIT MEDICAL 25 GROUP MINUTES OFFICE 67619 [place] [facility] OUTPATIEN 5 5 TABLE RUNNER RANDALL T VISIT ASSOCIATE 15 S, MINUTES HOSPITAL C[facility]AL - 5 5 [facility] OUT[facility]IEN HOSP T OFFICE 34930 KENY KENY OUTPATIEN 5 5 VERITO VERITO T VISIT 15 MINUTES OFFICE 85407 [place] [facility] OUTPATIEN 5 5 TABLE RUNNER RANDALL T VISIT ASSOCIATE 15 S, MINUTES HOSPITAL C[facility]AL - 5 5 [facility] OUT[facility]OSP T OFFICE 24223 [place] [facility] OUTPATIEN 5 5 TABLE RUNNER RANDALL T VISIT ASSOCIATE 15 S, MINUTES HOSPITAL C[facility]AL - 5 5 [facility] OUT[facility]IEN HOSP T OFFICE 84169 [place] [facility] OUTPATIEN 5 5 TABLE RUNNER RANDALL T VISIT ASSOCIATE 15 S, MINUTES OFFICE 61104 [place] [facility] OUTPATIEN 5 5 TABLE RUNNER RANDALL T VISIT ASSOCIATE 15 S, MINUTES OFFICE 99341 [place] [facility] OUTPATIEN 5 5 TABLE RUNNER RANDALL T NEW 45 ASSOCIATE MINUTES S, [facility] 5 [facility] T EMERGENCY 30634 [facility] 5 5 [facility] T VISIT LOW/MODER SEVERITY EMERGENCY 24266 [facility] 5 5 [facility] EMERGENCY T VISIT PHYS HIGH/URGE NT SEVERITY [facility] 5 [facility] 5 [facility] [place] - 5 5 [facility] OFFICE 13210 [facility] 5 VERITO VERITO T NEW 45 MINUTES [facility] 5 [facility] T EMERGENCY 20476 [place] 5 5 [facility] T VISIT HIGH/URGE NT SEVERITY
--- OUTSIDE RECORDS SUMMARY | 2017-06-24 08:33 | External Medical Summary Rpt | CCD ---
Author Author , ADELIA Organization ADELIA Address Unknown Phone [email or web address] Team Providers Care Loan Officer Name Role Phone DEIRDRE PEREIRA, GILMORE Unavailable Unavailable [facility] Unavailable Unavailable [facility], [facility] Unavailable [facility]available [facility] Unavailable Unavailable [facility], [facility] Unavailable Unavailable MEDICAL [facility], [facility] KINDRA JAM, KINDRA JAM Unavailable Unavailable YOUNG, YOUNG Unavailable Unavailable [facility] Unavailable Unavailable HOSPITAL, [facility] PHYSICIAN Unavailable Unavailable PRACTICE [facility], [facility] KENY SPENCER Unavailable Unavailable VERITO KENY SELLERS KENY Unavailable Unavailable VERITO OWEN TER, OWEN TER Unavailable Unavailable [facility], Unavailable Unavailable [facility] CHANDEL, CHANDEL Unavailable Unavailable CHESTNUT, CHESTNUT Unavailable Unavailable [facility] Unavailable Unavailable [facility] Unavailable Unavailable [facility]ENT[facility], [facility] Unavailable Unavailable PHYSICIAN PRA, [facility], Unavailable Unavailable [facility] GILBERT ESTELLA, GILBERT ESTELLA Unavailable Unavailable MIGUE, MIGUE Unavailable Unavailable MIGUE MITCHEL, MIGUE Unavailable Unavailable MITCHEL MIGUE OKSANA, MIGUE Unavailable Unavailable OKSANA DESIRAE BECK, Unavailable Unavailable DESIRAE BECK [facility] Unavailable Unavailable [facility], [facility] BELEN, BELEN Unavailable Unavailable GIRALDO, GIRALDO Unavailable Unavailable HARIKA DAMIR, HARIKA Unavailable Unavailable DAMIR [facility]available H[facility], [facility] GREGONIS MITCHEL, Unavailable Unavailable GREGONIS MITCHEL MACY, MACY Unavailable Unavailable MACY RHO, MACY Unavailable Unavailable RHO HANY, HANY Unavailable Unavailable [facility] Unavailable Unavailable INC, [facility] YOLANDA CEC, YOLANDA Unavailable Unavailable CEC CONDE, CONDE Unavailable Unavailable ALEC, ALEC Unavailable Unavailable ALEC, ALEC Unavailable Unavailable ALEC MAG, ALEC MAG Unavailable Unavailable ALEC MAG, ALEC MAG Unavailable Unavailable [facility] Unavailable Unavailable GROUP PS, [facility] Unavailable Unavailable [facility], [facility], Unavailable Unavailable [facility], Unavailable Unavailable [facility] Unavailable Unavailable [facility], [facility] Unavailable Unavailable [facility], [facility] VERONICA JR THO, Unavailable Unavailable VERONICA JR THO [facility] Unavailable Unavailable ASSOCIATES,, [facility], ANA PEREZ Unavailable Unavailable ANA PEREZ Unavailable Unavailable ANA GRE, Unavailable Unavailable ANA GRE ANA GRE, Unavailable Unavailable ANA GRE MATCHESWALA, Unavailable Unavailable MATCHESWALA MCGROTIMY TAJ, Unavailable Unavailable MCGRORENE TAJ MD LABS, MD LABS Unavailable Unavailable MD LABS, MD [facility] Unavailable [facility]available [facility], [facility] Unavailable [facility]available [facility], [facility] ROSARIO SOHA, ROSARIO Unavailable Unavailable [facility] Unavailable Unavailable [facility], [facility], [facility] Unavailable Unavailable [facility] Unavailable [...] MENDY ARNETT DON, Unavailable Unavailable ARNETT DON [facility] Unavailable Unavailable THERAP, [facility] AVERY, III, AVERY, Unavailable Unavailable III [facility] Unavailable Unavailable EQUIPME, [facility] Unavailable Unavailable EM[facility]ENC[facility], [facility] BENAVIDEZ, BENAVIDEZ Unavailable Unavailable BENAVIDEZ RAY, BENAVIDEZ Unavailable Unavailable RAY [facility] Unavailable Unavailable [facility], [facility] MEDINA TONIE, MEDINA Unavailable Unavailable TONIE SWINEY, SWINEY Unavailable Unavailable SWINEY PAT, SWINEY Unavailable Unavailable PAT WHITE, WHITE Unavailable Unavailable WHITE NAHID, WHITE NAHID Unavailable Unavailable HAFSA MITCHEL, HAFSA Unavailable Unavailable MITCHEL RED MOON Unavailable Unavailable Purpose Continuity of Care Document - 10-21-2014 through 2016 Problems Code Diagnosis DOS Provider Status J069 ACUTE UPPER 05-17-2017 JERROD RAPHAEL RESPIRATORY INFECTION UNSPECIFIED B373 CANDIDIASIS 05-13-2017 [facility] OF VULVA PHYSICIAN AND VAGINA PRACTICE L N10 ACUTE 05-13-2017 [facility] PYELONEPHRI PHYSICIAN TIS PRACTICE L N390 URINARY 05-11-2017 [facility] TRACT N EMERGENCY INFECTION PHYS SITE NOT SPECIFIED [id number] UNSPECIFIED 05-11-2017 [facility] OVARIAN N EMERGENCY CYST [...] FREQUENT ANCA MENSTRUATIO HOLDINGS N W/REGULAR CYCLE Z16260 CELLULITIS 02-16-2017 [facility] OF OTHER PHYSICIAN SITES PRACTICE L H6503 ACUTE 01-28-2017 [facility] MEDICAL MEDIA GROUP BILATERAL N910 PRIMARY 01-24-2017 [facility] Z3202 ENCOUNTER 01-24-2017 [facility] FOR [facility]ALTH MEDICAL TEST RESULT GROUP NEGATIVE 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 01-13-2017 [facility] I341 NONRHEUMATI 01-13-[address] [place] [address] [facility] PROLAPSE K589 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-2017 [facility] WITHOUT DIARRHEA K5900 CONSTIPATIO 01-13-2017 [facility] [...] 01-05-2017 [facility] LUTEUM CYST OF RIGHT OVARY A16335 OTHER 01-05-2017 [facility] [place] CYST RIGHT CLINIC PSC SIDE N926 IRREGULAR 01-05-2017 [facility] MENSTRUATIO N UNSPECIFIED R102 PELVIC AND 12-07-2016 [facility] PAIN LAB LLC Z60200 ENCOUNTER 12-07-2016 PATH [facility] FOR OTHER [facility] LLC PREPROCEDUR AL EXAMINATION Z5181 ENCOUNTER 12-07-2016 MD LAB[facility] FOR THERAPEUTIC DRUG LEVEL MONITORING Y29556 OTHER LONG 12-07-2016 MD LAB[facility] TERM CURRENT DRUG THERAPY Z5321 PROC & TX 12-05-2016 [facility] NOT CARRIED [facility] OUT PT HOSPITA LEAVE PRIOR TO SEEN I889 NONSPECIFIC 11-18-2016 [facility] LYMPHADENIT MEDICAL IS GROUP UNSPECIFIED J029 ACUTE 11-18-2016 [facility] PHARYNGITIS [facility] UNSPECIFIED GROUP R0981 NASAL 11-18-2016 [facility] CONGESTION [facility] K529 NONINFECTIV 11-01-2016 [facility] E PHYSICIAN GASTROENTER PRACTICE L ITIS & COLITIS UNS R1084 GENERALIZED 10-30-2016 [facility] ABDOMINAL N EMERGENCY PAIN PHYS R197 DIARRHEA 10-30-2016 [facility] UNSPECIFIED N EMERGENCY PHYS Z720 TOBACCO USE 10-30-2016 [facility] J020 STREPTOCOCC 10-25-2016 [facility] PHARYNGITIS J9801 ACUTE 10-25-2016 [facility] M J111 FLU D/T 10-19-2016 [facility] UNIDENTIFIE N EMERGENCY D FLU VIRUS PHYS W/OTH RESP MANIF R6889 OTHER 10-17-2016 [facility] GENERAL [facility] SYMPTOMS MEDICAL AND SIGNS GROUP T62507 CONTACT W/ 10-17-2016 [facility] & EXPOSURE HEALTH OTH VIRAL MEDICAL COMMUNICABL GROUP E DZ M549 DORSALGIA 09-17-2016 [facility] D25249 MIGRAINE 09-12-2016 [facility] UNS NOT N EMERGENCY INTRACT W/O PHYS STATUS MIGRAINOSUS Z3200 ENCOUNTER 08-25-2016 [facility] FOR [facility] MED[facility] TEST RESULT GROUP UNKNOWN H01565 PAIN IN 08-11-2016 [facility] UNSPECIFIED PHYSICIAN HIP PRACTICE L J00 ACUTE 07-23-2016 [facility] NASOPHARYNG PHYSICIAN ITIS COMMON PRACTICE L COLD R238 OTHER SKIN 07-23-2016 [facility] CHANGES PHYSICIAN PRACTICE L L301 DYSHIDROSIS 06-28-2016 [facility] POMPHOLYX PHYSICIAN PRACTICE L R05 COUGH 06-16-2016 [facility] PH[facility]ICIAN PRA R0602 SHORTNESS 06-16-2016 [facility] OF BREATH REGIONAL PHYSICIAN PRA R062 WHEEZING 06-16-2016 [facility] PHYSICIAN PRA J92178 ENCOUNTER 06-08-2016 [facility] MAG SUPERINTENDENT SALES EXAM GENERAL RTN W/O ABNORMAL FIND Z113 ENCOUNTER 06-08-2016 ASSOC[facility]ATED SCREEN PATHOLOGIST INFECTIONS S LLC SEXL MODE TRANSMISSN Z1151 ENCOUNTER 06-08-2016 ASSOCIATED FOR PATHOLOGIST SCREENING S LLC FOR HUMAN PAPILLOMAVI CORDELIA Z118 ENCOUNTER 06-08-2016 ASSOCIATED SCREEN PATHOLOGIST OTHER S LLC INFECTIOUS & PARASITIC DZ D99305 PAIN IN 05-24-2016 [facility] LEFT MEDICAL FINGERS [facility] ASS J309 ALLERGIC 05-05-2016 [facility] RHINITIS REGIONAL UNSPECIFIED PHYSICIAN PRA S06579 UNSPECIFIED 05-05-2016 [facility] ASTHMA REGIONAL UNCOMPLICAT PHYSICIAN ED PRA K219 GASTRO-ESOP 05-05-2016 [facility] Iraheta REFLUX REGIONAL DISEASE PHYSICIAN WITHOUT PRA ESOPHAGITIS R61 GENERALIZED 05-05-2016 [facility] HYPERHIDROS PHYSICIAN IS PRA R072 PRECORDIAL 04-11-2016 [facility] [place] PAIN RADIOLOGY R0789 OTHER CHEST 04-11-2016 [facility] PAIN N EMERGENCY PHYS R079 CHEST PAIN 04-11-2016 [facility] [place] UNSPECIFIED RADIOLOGY A35655G STRAIN 04-11-2016 [facility] MUSCLE & N EMERGENCY TENDON UNS PHYS WALL THORAX INIT ENC H84ENLP EXPOSURE TO 04-11-2016 [facility] OTHER N EMERGENCY SPECIFIED PHYS FACTORS INITIAL ENC R198 OTH SPEC SX 03-17-2016 [facility] & SIGNS DIGESTIVE [facility] DIGESTV SYS & ABD Z1211 ENCOUNTER 03-17-2016 [facility] SCREENING ANESTHESIA MALIGNANT GROUP PS NEOPLASM OF COLON G8929 OTHER 03-12-2016 [facility] L Z539 PROCEDURE & 03-08-2016 [facility] OUT UNS REASON R000 TACHYCARDIA 03-03-2016 [facility] PHYSICIAN UNSPECIFIED PRACTICE L J40 BRONCHITIS 03-01-2016 [facility] [place] NOT RADIOLOGY SPECIFIED ACUTE OR CHRONIC J4530 MILD 01-31-2016 [facility] PERSISTENT PHYSICIANS, ASTHMA PLLC UNCOMPLICAT ED J0190 ACUTE 01-28-2016 [facility] SINUSITIS PHYSICIAN UNSPECIFIED PRACTICE L H8110 BENIGN 01-16-2016 [facility] PAROXYSMAL PHYSICIAN VERTIGO PRACTICE L UNSPECIFIED EAR N3010 INTERSTITIA 01-07-2016 [facility] L CYSTITIS PHYSICIAN CHRONIC PRACTICE L WITHOUT HEMATURIA N3281 OVERACTIVE 12-25-2015 [facility] MAG BLADDER R300 DYSURIA 12-08-2015 [facility] MAG N801 ENDOMETRIOS 11-28-2015 [facility] MAG IS OF OVARY N803 ENDOMETRIOS 11-28-2015 [facility] MAG IS OF PELVIC PERITONEUM N8320 UNSPECIFIED 11-28-2015 [facility] MAG OVARIAN CYSTS N838 OTH 11-28-2015 NEW NONINFLAMM [facility] D/O OVARY CLINIC PSC FALLOP TUBE & BROAD LIG N941 DYSPAREUNIA 11-28-2015 [facility] N942 VAGINISMUS 11-28-2015 [facility] TURCIOS H5203 HYPERMETROP 09-29-2015 ANA ARCE GRE BILATERAL Z309 ENCOUNTER 07-17-2015 [facility] FOR LEAVE SPECIALIST CONTRACEPTI ASSOCIATES, VE MANAGEMENT UNS Z392 ENCOUNTER 07-17-2015 [facility] FOR ROUTINE LEAVE SPECIALIST ASSOCIATES, FOLLOW-UP K1230 ORAL 07-08-2015 [facility] MUCOSITIS HEALTH ULCERATIVE MEDICAL UNSPECIFIED GROUP N163GC3 MAT CARE 07-03-2015 [facility] DISPROPORTI ANESTHESIA ON UNUSUAL PSC LARGE FET NA/UNS O653 OBST LABOR 07-03-2015 SPIKE DUE PELV LEAVE SPECIALIST OUTLET & ASSOCIATES, MID-CAV CONTRACTION Z370 SINGLE LIVE 07-03-2015 [facility] ANESTHESIA PSC Z3A39 39 WEEKS 07-03-2015 [facility] GESTATION LEAVE SPECIALIST OF ASSOCIATES, O471 FALSE LABOR 06-26-2015 [facility] AT/AFTER [facility] 37 HOSP COMPLETED WEEKS GEST Z3483 ENC 06-26-2015 [facility] SUPERVISION LEAVE SPECIALIST OTH NORMAL ASSOCIATES, 3 TRIMESTER Z3A38 38 WEEKS 06-26-2015 [facility] GESTATION [facility] OF HOSP X1629I0 MATERNAL 06-19-2015 [facility] CARE EXCESS LEAVE SPECIALIST ASSOCIATES, GROWTH 3RD TRI NA/UNS O322PE8 POLYHYDRAMN 06-19-2015 SPIKE IOS THIRD LEAVE SPECIALIST TRIMESTER ASSOCIATES, NA/UNS Z3A37 37 WEEKS 06-19-2015 [facility] GESTATION LEAVE SPECIALIST OF ASSOCIATES, Z391 ENCNTR FOR 06-18-2015 [facility] & MEDICAL EXAMINATION SUPPLIES LACTATING MOTHER A82656 ANEMIA 06-12-2015 [facility] COMPLICATIN LEAVE SPECIALIST G ASSOCIATES, THIRD TRIMESTER Z36 ENCOUNTER 06-12-2015 MEDICAL FOR DIAGNOSTIC LAB LLC SCREENING OF MOTHER Z3A36 36 WEEKS 06-12-2015 [facility] GESTATION LEAVE SPECIALIST OF ASSOCIATES, 46283 THREATENED 06-11-2015 [facility] PREMATURE [facility] LABOR HOSP ANTEPARTUM 38925 OTH CURRENT 05-29-2015 SPIKE MAT CONDS LEAVE SPECIALIST CLASSIFIABL ASSOCIATES, E ELSW ANTPRTM 7869 OT 05-29-2015 [facility] SYMPTOMS LEAVE SPECIALIST INVOLVING ASSOCIATES, RESPIRATORY SYSTEM&CHES T 4619 ACUTE 05-22-2015 [facility] SINUSITIS, HEALTH UNSPECIFIED MEDICAL GROUP 4779 ALLERGIC 05-22-2015 [facility] RHINITIS HEALTH CAUSE MEDICAL UNSPECIFIED GROUP V221 SUPERVISION 05-15-2015 [facility] OTHER LEAVE SPECIALIST NORMAL ASSOCIATES, 08659 OTHER 04-18-2015 [facility] SPECIFED HEALTH COMPLICATIO MEDICAL N GROUP ANTEPARTUM 7605 FETUS OR 04-18-2015 [facility] HEALTH AFFECTED BY MEDICAL MATERNAL GROUP INJURY V222 04-18-2015 [facility] STATE, [facility] INCIDENTAL HOSP V714 OBSERVATION 04-18-2015 [facility] FOLLOWING [facility] OTHER HOSP ACCIDENT 84623 ABDOMINAL 04-17-2015 KENY SELLERS WITH INTRAUTERIN E 72710 ABDOMINAL 04-01-2015 [facility] PAIN RIGHT [facility] LOWER HOSP QUADRANT 6259 UNSPEC 03-01-2015 [facility] SYMPTOM [facility] ASSOC HOSP W/FEMALE GENITAL ORGANS 07446 ABDOMINAL 03-01-2015 [facility] PAIN, LEFT HEALTH LOWER MEDICAL QUADRANT GROUP 7202 SACROILIITI 01-31-2015 [facility] PH[facility]ICAL CLASSIFIED THERAP 7244 THORACIC/MARINA 01-31-2015 [facility] NEURITIS/RA PHYSICAL DICULITIS THERAP UNSPEC V571 OTHER 01-31-2015 [facility] THERAPY PHYSICAL THERAP 63509 MILD 12-19-2014 [facility] HYPEREMESIS LEAVE SPECIALIST GRAVIDARUM ASSOCIATES, ANTEPARTUM 21370 THREATENED 11-21-2014 [facility] , LEAVE SPECIALIST ANTEPARTUM ASSOCIATES, V7231 ROUTINE 11-21-2014 [facility]OLOGIC [facility] AL EXAMINATION 8470 NECK SPRAIN 11-19-2014 [facility] AND STRAIN N EMERGENCY PHYS E9289 UNSPECIFIED 11-19-2014 [facility] ACCIDENT N EMERGENCY PHYS V141 PERSONAL 11-19-2014 [facility] OTHER ANTIBIOTIC AGENT V143 PERSONAL 11-19-2014 [facility] OT HOSPITAL ANTI-INFECT LINDA AGT V146 PERSONAL 11-19-2014 [facility] HISTORY OF [facility] ALLERGY TO HOSPITAL ANALGESIC AGENT 6260 ABSENCE OF 11-13-2014 [facility] MENSTRUATIO [facility] [address]39 DISPLCMT 11-11-2014 [facility] LUMBAR [facility] DISC W/O MYELOPATHY 7242 LUMBAGO 11-11-2014 [facility] 8461 SPRAIN AND 11-01-2014 KENY SELLERS STRAIN OF SACROILIAC 7222 DISPLCMT 10-21-2014 [facility] DISC SITE HOSPITAL UNS W/O MYELOPATHY 7820 DISTURBANCE 10-21-2014 [facility] OF SKIN N EMERGENCY SENSATION PHYS V1582 PERS HX 10-21-2014 [facility] TOBACCO USE [facility] HAZARDS HEALTH Medications Na ND Rx [...] -0 .0 00 L- ti IC 20 4 6- 00 07 MA ve 26 20 20 42 RT ON 41 17 17 95 E 5 80 PH CA AR OP MA CY 50 #4 MC [...] -2 .0 00 L- ti DO 20 5 9- 00 08 MA ve EP 43 [...] FL 55 09 09 1. 1 00 [place] Ac UC 11 -0 -2 00 00 L- ti ON 10 1- 2- 0 07 MA ve AZ 14 20 20 42 RT OL 51 17 17 72 E 2 36 PH 15 AR 0 MA MG CY TA #4 BL 93 ET NI 47 08 09 20 10 00 WI Ac TR 78 -3 -2 .0 00 L- ti OF 10 1- 2- 00 07 MA ve UR 30 20 20 42 RT AN 30 17 17 69 TO 1 87 PH IN AR MA MO CY NO -M #4 CR 93 10 0 MG CA 59 08 09 20 7 00 WI Ac OC 74 -3 -2 .0 00 L- ti HL 60 1- 2- 00 07 MA ve OR 11 20 20 42 RT PE 50 17 17 69 RA 6 86 PH ZI AR NE MA CY 10 #4 MG 93 TA B CA 68 08 09 20 5 00 WI Ac OM 38 -1 -0 .0 00 L- ti ET 20 8- 8- 00 07 MA ve TALAMANTES 04 20 20 42 RT ZI 00 17 17 50 NE 1 57 PH AR 12 MA .5 CY MG #4 93 TA BL ET FL 55 08 09 1. 1 00 [facility] UC 11 -0 -0 00 00 L- ti ON 10 9- 1- 0 07 MA ve AZ 14 20 20 42 RT OL 51 17 17 34 E 2 06 PH 15 AR 0 MA MG CY TA #4 BL 93 ET AM 00 07 08 30 30 00 WI Ac IT 78 -3 -2 .0 00 L- ti RI 11 1- 5- 00 07 MA ve PT 48 20 20 42 RT YL 61 17 17 19 IN 0 00 PH E AR HC MA L CY 10 #4 MG 93 TA B CY 68 07 08 15 4 00 WI Ac CL 64 -1 -1 .0 00 L- ti OB 50 7- 8- 00 07 MA ve EN 51 20 20 41 RT ZA 89 17 17 97 CA 0 00 PH IN AR E MA 10 CY MG #4 93 TA BL ET ME 59 07 08 21 6 00 WI Ac TH 74 -1 -1 .0 00 L- ti YL 60 7- 8- 00 07 MA ve CA 00 20 20 41 RT ED 10 17 17 96 NI 3 99 PH SO AR LO MA NE CY 4 #4 MG 93 DO SE PK AZ 59 07 08 6. 5 00 WI Ac IT 76 -1 -0 00 00 L- ti HR 23 1- 4- 0 07 MA ve OM 06 20 20 41 RT YC 00 17 17 87 IN 1 16 PH AR 25 MA 0 CY MG #4 TA 93 BL ET BE 51 07 08 30 10 00 WI Ac NZ 22 -1 -0 .0 00 L- ti ON 40 1- 4- 00 07 MA ve AT 00 20 20 41 RT AT 16 17 17 87 E 0 17 PH 20 AR 0 MA MG CY CA #4 PS 93 UL E CL 16 07 08 20 10 00 WI Ac ON 72 -1 -0 .0 00 L- ti AZ 90 1- 4- 00 04 MA ve EP 13 20 20 52 RT AM 61 17 17 20 6 00 PH 0. AR 5 MA MG CY TA #4 BL 93 ET CL 63 07 08 21 7 00 WI Ac IN 30 -1 -0 .0 00 L- ti DA 40 4- 4- 00 07 MA ve MY 69 20 20 49 RT CI 30 17 17 88 N 1 07 PH HC AR L MA 30 CY 0 MG #5 91 CA PS UL E IB 68 07 08 30 5 00 WI Ac UP 64 -1 -0 .0 00 L- ti RO 50 4- 4- 00 07 MA ve FE 53 20 20 49 RT N 05 17 17 88 60 9 11 PH 0 AR MG MA CY TA BL #5 ET 91 FL 55 07 08 1. 1 00 WI Ac UC 11 -1 -0 00 00 L- ti ON 10 4- 4- 0 07 MA ve AZ 14 20 20 41 RT OL 51 17 17 92 E 2 62 PH 15 AR 0 MA MG CY TA #4 BL 93 ET PE 40 06 07 60 1 00 WI Ac RM 08 -2 -2 .0 00 L- ti ET 50 5- 1- 00 07 MA ve HR 21 20 20 41 RT IN 56 17 17 60 0 82 PH 5% AR MA CR CY EA M #4 93 CL 00 06 07 15 7 00 WI Ac OB 16 -2 -2 .0 00 L- ti ET 80 7- 1- 00 07 MA ve 16 20 20 41 RT OL 31 17 17 60 5 85 PH 0. AR 05 MA % CY CR EA #4 M 93 ME 59 06 07 5. [address] 76 -1 -1 00 00 L- ti OX 23 9- 4- 0 07 MA ve YP 74 20 20 41 RT RO 20 17 17 51 GE [address] AR ER MA ON CY E 10 #4 93 MG TA B PE 40 06 07 60 10 00 [facility] RM 08 -2 -1 .0 00 L- ti ET 50 1- 4- 00 07 MA ve HR 21 20 20 49 RT IN 56 17 17 48 0 90 PH 5% AR MA CR CY EA M #5 91 CE 68 06 07 20 10 00 [facility] PH 18 -0 -0 .0 00 L- ti AL 00 7- 7- 00 07 MA ve EX 12 20 20 41 RT IN 20 17 17 31 2 05 PH 50 AR 0 MA MG CY CA #4 PS 93 UL E FL 55 06 07 1. 1 00 [facility] UC 11 -1 -0 00 00 L- ti ON 10 3- 7- 0 07 MA ve AZ 14 20 20 41 RT OL 51 17 17 40 E 2 73 PH 15 AR 0 MA MG CY TA #4 BL 93 ET OX 62 06 06 30 30 00 [facility] YB 17 -0 -2 .0 00 L- ti UT 50 1- 3- 00 07 MA ve YN 27 20 20 41 RT IN 13 17 17 19 7 18 PH CL AR MA ER CY 10 #4 93 MG TA BL ET CA 00 05 06 21 6 00 [facility] ED 60 -1 -0 .0 00 L- ti NI 35 9- 9- 00 07 MA ve SO 33 20 20 66 RT NE 71 17 17 11 5 5 59 PH AR MG MA CY TA BL #5 ET 71 PEDERSON 65 05 06 20 10 00 [facility] LF 86 -1 -0 .0 00 L- ti AM 20 5- 9- 00 07 MA ve ET 42 20 20 65 RT HO 00 17 17 99 XA 5 19 PH ZO AR LE MA -T CY MP #5 DS 71 TA BL ET PH 51 05 06 9. 3 00 [facility] EN 29 -1 -0 00 00 L- ti AZ 30 7- 9- 0 07 MA ve OP 81 20 20 66 RT YR 10 17 17 05 ID 1 83 PH IN AR E MA 20 CY 0 MG #5 71 TA B AZ 59 05 06 6. 5 00 [facility] Ac IT 76 -1 -0 00 00 L- ti HR 23 1- 2- 0 07 MA ve OM 06 20 20 65 RT YC 00 17 17 91 IN 1 54 PH AR 25 MA 0 CY MG #5 TA 71 BL ET VE 00 05 06 90 30 00 [facility] NL 09 -0 -0 .0 00 L- ti AF 37 8- 2- 00 07 MA ve AX 38 20 20 65 RT IN 55 17 17 81 E 6 75 PH HC AR L MA ER CY 75 #5 71 MG CA P HY 00 04 05 [address] [facility] [address] 40 -2 -1 .0 00 L- ti OC 60 6- 9- 00 02 MA ve OD 12 20 20 23 RT ON 40 17 17 62 -A 1 16 PH CE AR TA MA AZ CY NO PH #4 93 7. 5- 32 5 FL 55 04 05 1. 1 00 [facility] UC 11 -2 -1 00 00 L- ti ON 10 7- 9- 0 07 MA ve AZ 14 20 20 40 RT OL 51 17 17 61 E 2 48 PH 15 AR 0 MA MG CY TA #4 BL 93 ET NA 65 04 05 28 14 00 [facility] CA 16 -1 -1 .0 00 L- ti OX 20 7- 2- 00 07 MA ve EN 19 20 20 40 RT 01 17 17 42 50 1 23 PH 0 AR MG MA CY TA BL #4 ET 93 CY 68 04 05 21 7 00 [facility] CL 64 -1 -1 .0 00 L- ti OB 50 7- 2- 00 07 MA ve EN 51 20 20 40 RT ZA 89 17 17 42 CA 0 24 PH IN AR E MA 10 CY MG #4 93 TA BL ET BE 51 04 05 20 7 00 [facility] NZ 22 -1 -1 .0 00 L- ti ON 40 7- 2- 00 07 MA ve AT 00 20 20 40 RT AT 16 17 17 42 E 0 25 PH 20 AR 0 MA MG CY CA #4 PS 93 UL E HY 00 03 05 [address] 40 -2 -0 .0 00 L- ti OC 60 8- 5- 00 02 MA ve OD 12 20 20 23 RT ON 30 17 17 58 -A 1 59 PH CE AR TA MA AZ CY NO PH #4 EN 93 5- 32 5 OX 00 03 05 10 2 00 [facility] YC 40 -2 -0 .0 00 L- ti OD 60 7- 5- 00 02 MA ve ON 51 20 20 23 RT E- 20 17 17 58 AC 1 31 PH ET AR AM MA IN CY OP HE #4 N 93 5- 32 5 DI 16 03 05 30 15 00 WI Ac CL 57 -2 -0 .0 00 L- ti OF 10 7- 5- 00 07 MA ve EN 20 20 20 40 RT AC 15 17 17 05 0 56 PH SO AR D MA EC CY 75 #4 93 MG TA B ## 03 03 20 10 00 WI Ac ## -0 -3 .0 00 L- ti ## 9- 1- 00 08 MA ve ## 20 20 83 RT ## 17 17 96 # 67 PH AR MA CY #4 93 AZ 59 03 03 6. 5 00 WI Ac IT 76 -0 -3 00 00 L- ti HR 23 9- 1- 0 07 MA ve OM 06 20 20 39 RT YC 00 17 17 71 IN 1 19 PH AR 25 MA 0 CY MG #4 TA 93 BL ET FL 60 03 03 16 30 00 WI Ac UT 43 -0 -2 .0 00 L- ti IC 20 1- 4- 00 07 MA ve 26 20 20 39 RT ON 41 17 17 54 E 5 91 PH CA AR OP MA CY 50 #4 MC 93 G SP RA Y FL 55 02 03 1. 1 00 [facility] Ac UC 11 -2 -1 00 00 L- ti ON 10 1- 7- 0 07 MA ve AZ 14 20 20 64 RT OL 51 17 17 04 E 2 05 PH 15 AR 0 MA MG CY TA #5 BL 71 ET VE 00 02 03 18 17 00 WI Ac NT 17 -1 -1 .0 00 L- ti OL 30 3- 0- 00 07 MA ve IN 68 20 20 63 RT 22 17 17 85 HF 0 56 PH A AR 90 MA CY MC G #5 IN 71 TALAMANTES LE R DI 00 02 03 20 5 00 WI Ac CY 52 -1 -1 .0 00 L- ti CL 71 8- 0- 00 07 MA ve OM 28 20 20 63 RT IN 20 17 17 98 E 1 81 PH 20 AR MA MG CY TA #5 BL 71 ET CA 68 02 03 20 5 00 WI Ac OM 38 -1 -1 .0 00 [...] CY MG #4 TA 93 BL ET CA 50 02 03 18 9 00 [place] Ac OM 38 -1 -1 0. 00 L- ti ET 30 3- 0- 00 04 MA ve TALAMANTES 80 20 20 0 54 RT ZI 51 17 17 17 NE 6 15 PH -P AR E- MA CO CY DE IN #5 E 71 SY RU P AM 64 02 03 60 30 00 WI Ac IT 76 -1 -1 .0 00 [...] CE 16 02 03 30 30 00 WI Ac TI 57 -1 -1 .0 00 L- ti RI 10 3- 0- 00 08 MA ve ZI 40 20 20 83 RT NE 25 17 17 81 0 84 PH HC AR L MA 10 CY MG #5 71 TA BL ET OS 47 02 03 10 5 00 WA Ac EL 78 -0 -1 .0 00 L- ti TA 10 5- 0- 00 07 MA ve AZ 47 20 20 39 RT 01 17 17 08 R 3 29 PH PH AR OS MA CY 75 #4 MG 93 CA PS UL E CA 68 02 02 10 3 00 WA [...] 30 1- 4- 00 07 MA ve AZ 31 20 20 39 RT DE 10 17 17 01 2 1 57 PH AR MG MA CY CA PS #4 UL 93 E FL 60 01 02 16 30 00 WA Ac UT 43 -2 -1 .0 00 L- ti IC 20 3- 7- 00 07 MA ve 26 20 20 36 RT ON 41 17 17 13 E 5 97 PH CA AR OP MA CY 50 #4 MC [...] SY 00 01 02 10 30 00 WA Ac MB 18 -2 -1 .1 00 [...] AR RA 30 17 17 24 MA AZ 5 44 CY DE #0 10 23 [...] VE 00 12 01 90 30 00 [place] NL 09 -1 -1 .0 00 L- ti AF 37 8- 3- 00 07 MA ve AX 38 20 20 37 RT IN 55 16 17 21 E 6 86 PH HC AR L MA ER CY 75 #4 93 MG CA P OX 65 12 30 30 00 [facility] YB 16 -2 -1 .0 00 L- ti UT 20 1- 3- 00 07 MA ve YN 37 20 20 34 RT IN 21 16 17 03 0 45 PH CL AR MA ER CY 10 #4 93 MG TA BL ET SY 00 12 10 30 00 [place] MB 18 -2 -1 .1 00 L- ti IC 60 1- 3- 99 07 MA ve OR 37 20 20 36 RT T 22 16 17 13 80 0 98 PH -4 AR .5 MA CY MC G #4 IN 93 TALAMANTES LE R FL 60 12 01 16 30 00 [facility] UT 43 -2 -1 .0 00 L- ti IC 20 1- 3- 00 07 MA ve 26 20 20 36 RT ON 41 16 17 13 E 5 97 PH CA AR OP MA CY 50 #4 MC 93 G SP RA Y OM 57 12 30 30 00 [facility] EP 23 -2 -1 .0 00 L- ti RA 70 1- 3- 00 07 MA ve ZO 16 20 20 36 RT LE 23 16 [address] AR MA 40 CY MG #4 93 CA PS UL E ME 54 12 01 30 30 00 [facility] LO 45 -2 -1 .0 00 L- ti XI 80 2- 3- 00 07 MA ve CA 96 20 20 38 RT M 41 16 17 27 15 0 97 PH AR MG MA CY TA BL #4 ET 93 FL 55 12 01 2. 3 00 [facility] UC 11 -2 -1 00 00 L- ti ON 10 0- 3- 0 07 MA ve AZ 14 20 20 38 RT OL 51 16 17 24 E 2 49 PH 15 AR 0 MA MG CY TA #4 BL 93 ET ON 57 12 01 9. 3 00 [facility] DA 23 -1 -0 00 00 L- ti NS 70 4- 9- 0 07 MA ve ET 07 20 20 38 RT RO 53 16 17 14 N 0 29 PH HC AR L MA 4 CY MG #4 TA 93 BL ET CE 16 12 01 30 30 00 [place] Ac TI 57 -1 -0 .0 00 L- ti RI 10 9 08 MA ve ZI 40 20 20 83 RT NE 25 16 17 59 0 83 PH HC AR L MA 10 CY MG #4 93 TA BL ET AM 64 12 01 60 30 00 [place] Ac IT 76 -1 -0 .0 00 L- ti IZ 40 2 9 00 07 MA ve A 24 20 20 37 RT 24 06 16 17 25 0 51 PH MC AR G MA CA CY PS UL #4 ES 93 Immunization Name Date Rout CVX Reac Dose Comm Prov Is Faci e tion ent ider Refu lity Give sed n TDAP 08-0 115 BROD No BROD 6-20 JANEEN JANEEN VACC 15 VERITO INE 7 YRS/ > IM VERITO Procedures Procedure DOS Code Location Performer Comment 96996 HUSAM WEINER TRANSVAGI 7 [facility] OPHTH 90018 [facility] 7 XM&EVAL COMPRHNSV ESTAB PT 1/> [place] [address] LAB RUSSELL LAB RUSSELL THYROXINE 7 AN[place] [address] LAB RUSSELL LAB RUSSELL THYROID 7 ANCA ANCA STIMULATI HOLDINGS HOLDINGS NG HORMONE TSH COLLECTIO 56992 NIKKYEVAN MIGUE Rogel VENOUS 7 PHYSICIAN BLOOD PRACTICE VENIPUNCT L URE GONADOTRO 49876 LAB RUSSELL LAB RUSSELL PIN 7 ANCA ANCA CHORIONIC HOLDINGS HOLDINGS QUANTITAT LINDA BLOOD 80011 LAB RUSSELL LAB RUSSELL COUNT 7 ANCA ANCA COMPLETE HOLDINGS HOLDINGS AUTO&AUTO DIFRNTL WBC IAADIADOO 53932 CONFUCIANISM MATCHESWA 7 HEALTH LA STREPTOCO MEDICAL CCUS GROUP GROUP A URINE 72045 CONFUCIANISM CONFUCIANISM 7 HEALTH HEALTH TEST MEDICAL MEDICAL VISUAL GROUP GROUP COLOR CMPRSN METHS RADEX 39509 [facility] [place] MACY ABDOMEN 7 RADIOLOGY COMPL W/DCBTS&/ ERC VIEWS URNLS DIP 87477 HUSAM WEINER [address] [place] [address]/[facility] LET REAGENT AUTO MICROSCOP Y HYSTEROSC 82190 [facility] MICHAEL OPY BX 7 ENDOMETRI UM&/POLYP C W/WO D&C CATH & 34879 ALEC MICHAEL SALINE/CO 7 NTRAST SONOHYSTE R/HYSTERO SALPI LAPS 68328 ALEC MICHAEL FULG/EXC 7 OVARY VISCERA/P ERITONEAL SURFACE ANESTHESI 08071 ANESTHESI RED A 7 A INTRAPERI ASSOCIATE TONEAL S [place] [address] [place] [facility]G [facility] PSC GROSS&DAMIR ROSCOPIC EXAM COLLECTIO 86954 ASSOCIATE WHITE N VENOUS 7 D BLOOD PATHOLOGI VENIPUNCT STS LLC URE IADNA 82652 MEDICAL MEDICAL NEISSERIA 7 DIAGNOSTI DIAGNOSTI C LAB LLC C LAB LLC GONORRHOE [place] [address] PATH PATH THYROID 7 GROUP GROUP STIMULATI LABS [facility] NG HORMONE TSH COMPREHEN 67213 PATH PATH SIVE 7 GROUP GROUP METABOLIC LABS [facility] PANEL DRUG TEST 66375 MD LABS MD LABS PRSMV 7 INSTRMNT CHEMISTRY ANALYZERS IADNA 27075 MEDICAL MEDICAL CHLAMYDIA 7 DIAGNOSTI DIAGNOSTI C LAB LLC C LAB LLC TRACHOMAT IS AMPLIFIED PROBE TQ IADNA 39400 MEDICAL MEDICAL HUMAN 7 DIAGNOSTI DIAGNOSTI [place] C LAB LLC C LAB LLC VIRUS HIGH-RISK TYPES DRUG TST G0483 MD LABS MD LABS DEFINITV 7 DR ID METH P DAY 22/MORE DR CL BLOOD 17931 PATH PATH COUNT 7 GROUP GROUP COMPLETE LABS LLC LABS LLC AUTO&AUTO DIFRNTL WBC HEMOGLOBI 96931 PATH PATH N 7 GROUP GROUP GLYCOSYLA LABS [place] [address] ALEC MICHAEL TRANSVAGI 7 NAL IADNA 56655 MEDICAL MEDICAL TRICHOMON 7 DIAGNOSTI DIAGNOSTI C LAB LLC C LAB LLC VAGINALIS AMPLIFIED PROBE TECH IAADIADOO 83866 CONFUCIANISM LESLEE 7 HEALTH STREPTOCO MEDICAL CCUS GROUP GROUP A BLOOD 19868 [facility] COUNT 7 N N COMPLETE COMMUNTIY COMMUNTIY AUTO&AUTO HOSPITA HOSPITA DIFRNTL WBC URINE 07566 [facility] 7 N N TEST COMMUNTIY COMMUNTIY VISUAL HOSPITA [place] [address] [facility] LIPASE 7 N N COMMUNTIY COMMUNTIY HOSPITA HOSPITA INJECTION J1885 [facility] 7 N N KETOROLAC COMMUNTIY COMMUNTIY HOSPITA HOSPITA TROMETHAM INE PER 15 MG INFUSION J7030 [facility] NORMAL 7 N N SALINE COMMUNTIY COMMUNTIY SOLUTION HOSPITA HOSPITA 1000 CC COMPREHEN 23012 [facility] SIVE 7 N N METABOLIC COMMUNTIY [place] [address] [facility] INFUSION 7 N N HYDRATION COMMUNTIY COMMUNTIY EACH HOSPITA HOSPITA ADDITIONA L HOUR INJECTION J2550 [facility] 7 N N PROMETHAZ COMMUNTIY COMMUNTIY INE HCL HOSPITA HOSPITA UP [place] 50 [place] [address] [facility] INFUSION 7 N N THERAPY/P COMMUNTIY COMMUNTIY ROPHYLAXI HOSPITA HOSPITA S /DX 1ST TO 1 HR THERAPEUT 59071 [facility] IC 7 N N INJECTION COMMUNTIY COMMUNTIY IV PUSH HOSPITA HOSPITA EACH NEW DRUG URNLS DIP 88201 [facility] 7 N N STICK/TAB COMMUNTIY COMMUNTIY LET HOSPITA HOSPITA REAGENT AUTO MICROSCOP Y IAADIADOO 08874 CONFUCIANISM MATCHESWI 7 HEALTH LA INFLUENZA MEDICAL GROUP IAADIADOO 05015 CONFUCIANISM MATCHESWI 7 [facility] LA STREPTOCO MEDICAL CCUS GROUP GROUP A URINE 35636 HUSAM MIGUE 7 PHYSICIAN TEST PRACTICE VISUAL L COLOR CMPRSN METHS THERAPEUT 13121 HUSAM SHERON IC 7 PHYSICIAN PHYSICIAN PROPHYLAC PRACTICE PRACTICE TIC/DX L L INJECTION SUBQ/IM MRI 37170 HUSAM WEINER SPINAL 7 [facility] LUMBAR W/O CONTRAST MATERIAL RADEX 81671 [facility] SPINE 7 N N LUMBOSACR COMMUNTIY COMMUNTIY AL 2/3 HOSPITA HOSPITA VIEWS RADIOLOGI 97821 [facility] C 7 N N EXAMINATI COMMUNTIY COMMUNTIY ON PELVIS HOSPITA HOSPITA 1/2 VIEWS BLOOD 02600 [facility] COUNT 7 N N COMPLETE COMMUNTIY COMMUNTIY AUTO&AUTO HOSPITA HOSPITA DIFRNTL WBC THER 25139 [facility] PROPH/DX 7 N N NJX IV COMMUNTIY COMMUNTIY PUSH HOSPITA HOSPITA SINGLE/1S T SBST/[place] 13856 [facility] INFUSION 7 N N HYDRATION COMMUNTIY COMMUNTIY EACH HOSPITA HOSPITA ADDITIONA L HOUR COMPREHEN 55985 [facility] SIVE 7 N N METABOLIC COMMUNTIY COMMUNTI[place] [address] [facility] LIPASE 7 N N COMMUNTIY COMMUNTIY HOSPITA HOSPITA URNLS DIP 81556 [facility] 7 N N STICK/TAB COMMUNTIY COMMUNTIY LET HOSPITA HOSPITA REAGENT AUTO MICROSCOP Y THERAPEUT 86951 [facility] IC 7 N N INJECTION COMMUNTIY COMMUNTIY IV PUSH HOSPITA HOSPITA EACH NEW DRUG COLLECTIO 60934 HUSAM CAMARENA N VENOUS 6 PHYSICIAN BLOOD PRACTICE VENIPUNCT L URE GONADOTRO 50434 LAB RUSSELL LAB RUSSELL PIN 6 ANCA ANCA CHORIONIC HOLDINGS HOLDINGS QUALITATI VE URINE 24540 CONFUCIANISM BENAVIDEZ 6 HEALTH TEST MEDICAL VISUAL GROUP COLOR CMPRSN METHS IAADIADOO 77638 CONFUCIANISM CONFUCIANISM 6 HEALTH HEALTH INFLUENZA MEDICAL MEDICAL GROUP GROUP COLLECTIO 38540 HUSAM CAMARENA N VENOUS 6 PHYSICIAN BLOOD PRACTICE VENIPUNCT L URE URINE 24461 HUSAM CAMARENA 6 PHYSICIAN TEST PRACTICE VISUAL L COLOR CMPRSN METHS GONADOTRO 88321 LAB RUSSELL LAB RUSSELL PIN 6 ANCA ANCA CHORIONIC [facility]INGS HOLDINGS QUANTITAT LINDA PULMONARY 11933 PINA HELLER 6 REGIONAL REGIONAL COMPLIANC [place] [address] PINA GARCIA 6 REGIONAL REGIONAL CAPACITY MEDICAL MEDICAL CENTE [place] PRESSURIZ 89026 PINA HELLER ED/NONPRE 6 REGIONAL REGIONAL SSURIZED MEDICAL MEDICAL INHALATIO CENTZurdo GARZAE N TREATMENT BRNCDILAT 26881 PINA HELLER RSPSE 6 REGIONAL REGIONAL SPMTRY MEDICAL MEDICAL PRE&POST- CENTE CENTE BRNCDILAT ADMN NONINVASI 73975 PINA HELLER VE 6 REGIONAL REGIONAL EAR/PULSE MEDICAL MEDICAL OXIMETRY [place] LY SINGLE DETER BRNCDILAT 53999 PINA SHIPLEY RSPSE 6 REGIONAL MITCHEL SPMTRY PHYSICIAN PRE&[place] [address] PINA SHIPLEY DIFFUSING 6 REGIONAL MITCHEL CAPACITY PHYSICIAN PRA PLETHYSMO 29399 PINA SHIPLEY GRAPHY 6 REGIONAL MITCHEL LUNG PHYSICIAN VOLUMES PRA W/WO AIRWAY RESIST COLLECTIO 60058 ASSOCIATE WHITE NAHID N VENOUS 6 D BLOOD PATHOLOGI VENIPUNCT [facility] [place] [address] PATH PATH THYROID 6 GROUP GROUP STIMULATI LABS Cartour NG HORMONE TSH COMPREHEN 67750 PATH PATH SIVE 6 GROUP GROUP METABOLIC LABS Cartour PANEL HEMOGLOBI 74066 PATH PATH N 6 GROUP GROUP GLYCOSYLA LABS Cartour MARIANNE A1C BLOOD 30721 PATH PATH COUNT 6 GROUP GROUP COMPLETE LABS Cartour AUTO&AUTO DIFRNTL WBC CYTP C/V 84579 ASSOCIATE WHITE NAHID AUTO THIN 6 D LYR PATHOLOGI PREPJ SCR STS [facility] MNL RESCR PHYS CULTURE 37494 PATH PATH FNGI 6 GROUP GROUP MOLD/YEAS LABS Cartour T PRSMPTV OTH XCPT BLOOD IADNA 44621 ASSOCIATE WHITE NAHID NEISSERIA 6 D PATHOLOGI GONORRHOE STS [facility] AE AMPLIFIED PROBE TQ IADNA 64462 ASSOCIATE WHITE NAHID HUMAN 6 D [place]APILLOMA PATHOLOGI VIRUS STS LLC HIGH-RISK TYPES IADNA 13060 ASSOCIATE WHITE NAHID CHLAMYDIA 6 D PATHOLOGI TRACHOMAT STS LLC IS AMPLIFIED PROBE TQ CUL BACT 48526 PATH PATH XCPT 6 GROUP GROUP URINE LABS LLC LABS LLC BLOOD/STO OL AEROBIC ISOL RADEX 43259 [place] DESIRAE HAND 6 MEDICAL BECK MINIMUM 3 IMAGING VIEWS ASS WRIST L3807 [place]ON HAND 6 HOME HOME FINGR MEDICAL MEDICAL ORTHOS EQUIPME EQUIPME W/O JNT PREFAB CSTM FIT ANTIBODY 66637 PINA HELLER BLASTOMYC 6 REGIONAL REGIONAL ES MEDICAL MEDICAL CENTE CENTE ANTIBODY 78330 PINA HELLER COCCIDIOI 6 REGIONAL [facility] MEDICAL MEDICAL CENTE CENTE COLLECTIO 06077 PINA HELLER N VENOUS 6 REGIONAL [facility] BLOOD MEDICAL MEDICAL VENIPUNCT CENTE CENTE URE ANTIBODY 18363 PINA HELLER HISTOPLAS 6 REGIONAL REGIONAL NH MEDICAL MEDICAL CENTE CENTE TB CELL 05347 PINA HELLER MEDIATED 6 REGIONAL REGIONAL ANTIGN MEDICAL MEDICAL RESPNSE CENTE CENTE GAMMA INTERFERO N ANTIBODY 38571 PINA HELLER ASPERGILL 6 REGIONAL REGIONAL MEDICAL MEDICAL CENTE CENTE CULTURE 95168 LAB RUSSELL LAB RUSSELL BACTERIAL 6 ANCA ANCA HOLDINGS HOLDINGS QUANTTATI VE COLONY COUNT URINE RADIOLOGI 12287 [facility] [place] KOSTELIC C 6 RADIOLOGY ELAINE EXAMINATI [place] [address] [place] BENAVIDEZ ANGIOGRAP 6 RADIOLOGY RAY HY CHEST W/CONTRAS T/NONCONT RAST ANES 26123 [place] ROSARIO LOWER 6 ANESTHESI SOHA INTESTINE A GROUP PS ENDOSCOPY DISTAL DUODENUM COLONOSCO 40191 PINA CARTER PY FLX DX 6 DIGESTIVE GRE W/COLLJ CARE SPEC WHEN CENTER PFRMD SPMTRY 01033 ESTELLA GILBERT GILBERT ESTELLA W/VC 6 MD EXPIRATOR CONSULTIN Y JOSHUA G SRV W/WO MXML VOL VNTJ RESPIRATO 81598 [facility] RY FLOW 6 [facility] LOOP ECG 85631 ESTELLA GILBERT GILBERT ESTELLA ROUTINE 6 MD ECG CONSULTIN W/LEAST G SRV 12 LDS I&R ONLY BLOOD 08778 HUSAM WEINER COUNT 6 [facility] AUTO&AUTO DIFRNTL WBC FIBRIN 05562 HUSAM WEINER DGRADJ 6 [facility] D-DIMER QUANTITAT LINDA ECG 52606 HUSAM WEINER ROUTINE 6 [facility] W/LEAST 12 LDS TRCG ONLY W/O I&[place] [address] HUSAM WEINER THYROXINE [address] [place] [address] [place] [address] HUSAM WEINER THYROID [address] [place] [address] NG HORMONE TSH COMPREHEN 79993 HUSAM WEINER SIVE [address] [place] [address] PANEL COLLECTIO 54965 HUSAM WEINER N VENOUS 6 [facility] VENIPUNCT URE RADIOLOGI 42983 HUSAM WEINER C EXAM [address] VIEWS FRONTAL&L ATERAL RADIOLOGI 07004 HANY LEACH C EXAM 6 [facility]OS[facility] CHEST 2 INC INC VIEWS FRONTAL&L ATERAL BLOOD 28803 HANY LEACH COUNT 6 [facility]OS[facility] COMPLETE INC INC AUTO&AUTO DIFRNTL WBC URINE 52708 [facility] LEACH 6 [facility] TEST INC INC VISUAL COLOR CMPRSN METHS THERAPEUT 71467 [facility]ANY LEACH IC 6 MEM [facility]OS[facility] MEM HOSP PROPHYLAC INC INC TIC/DX INJECTION SUBQ/IM COMPREHEN 52769 HANY LEACH SIVE 6 MEM [facility]OS[facility] HOSP METABOLIC INC INC PANEL PRESSURIZ 94017 HANY LEACH ED/NONPRE 6 MEM H[facility] SSURIZED INC INC INHALATIO N TREATMENT URNLS DIP 76706 HANY LEACH 6 MEM HOSP MEM HOSP STICK/TAB INC INC LET REAGENT AUTO MICROSCOP Y URNLS DIP 71712 ALEC TURCIOS 6 STICK/TAB LET RGNT NON-AUTO W/O MICRSCP OBSERVATI 85790 ALEC MICHAEL MAG ON CARE 6 DISCHARGE MANAGEMEN T INITIAL 45741 ALEC MICHAEL MAG OBSERVATI 6 ON CARE/DAY 30 MINUTES HYSTEROSC 57518 ALEC TURCIOS OPY BX 6 ENDOMETRI UM&/POLYP C W/[place] [address] [facility] SURG 6 [facility] PSC GROSS&DAMIR ROSCOPIC EXAM ANESTHESI 20576 [facility] A 6 ANESTHESI TAJ INTRAPERI A PSC TONEAL LOWER ABD W/LAPS NOS LAPS 39135 ALEC MICHAEL MAG FULG/EXC 6 OVARY VISCERA/P ERITONEAL SURFACE IAADIADOO 17895 CONFUCIANISM LESLEE 6 HEALTH HEN INFLUENZA MEDICAL GROUP COLLECTIO 02820 ASSOCIATE OWEN BAE N VENOUS 6 D BLOOD PATHOLOGI VENIPUNCT [facility] URE COMPREHEN 53334 PATH PATH SIVE 6 GROUP GROUP METABOLIC LABS Mob[place] [address] PATH PATH THYROID 6 GROUP GROUP STIMULATI LABS Mob.ly LABS Mob.ly NG HORMONE TSH HEMOGLOBI 69168 PATH PATH N 6 GROUP GROUP GLYCOSYLA LABS Mob.ly LABS Mob.ly MARIANNE A1C BLOOD 98927 PATH PATH COUNT 6 GROUP GROUP COMPLETE LABS Mob.ly LABS Mob.ly AUTO&[place] [address] ALEC TURCIOS TRANSVAGI 6 NAL OPHTH 01718 [facility] 6 GRE GRE XM&EVAL COMPRE NEW PT 1/> VST IAADIADOO 34165 CONFUCIANISM LESLEE 6 HEALTH HEN STREPTOCO MEDICAL CCUS GROUP GROUP A IAADIADOO 20475 CONFUCIANISM LESLEE 6 HEALTH HEN INFLUENZA MEDICAL GROUP CYTP C/V 03387 P&C LABS, PICKLESIM AUTO THIN 5 LLC ER JR [place] LYR PREPJ SCR MNL RESCR PHYS 52161 [facility] GILMORE DELIVERY 5 LEAVE SPECIALIST RANDALL [place] ASSOCIATE S, 15632 [facility] C[facility]TRAL NONSTRESS 5 CONFUCIANISM CONFUCIANISM TEST HOSP HOSP [place] PREG 05516 [facility] GILMORE UTERUS 5 LEAVE SPECIALIST [facility] REAL TIME ASSOCIATE F/U S, TRNSABDL PER FETUS IADNA 30033 MEDICAL MEDICAL STREPTOCO 5 DIAGNOSTI DIAGNOSTI CCUS C LAB LLC C LAB [place] [address] CEN[facility]AL CENTRAL NONSTRESS 5 CONFUCIANISM CONFUCIANISM TEST HOSP HOSP 02170 CENTRAL CENTRAL NONSTRESS 5 CONFUCIANISM CONFUCIANISM TEST HOSP HOSP FIBRINOGE 16961 CENTRAL CENTRAL N 5 CONFUCIANISM CONFUCIANISM ACTIVITY HOSP HOSP HGB/RBCS 14874 CENTRAL CENTRAL 5 CONFUCIANISM CONFUCIANISM FETOMATER HOSP HOSP NAL HEMRRG DIFRNTL LYSIS BLOOD 26506 [facility]EN[facility]AL CENTRAL COUNT 5 CONFUCIANISM CONFUCIANISM COMPLETE HOSP HOSP AUTOMATED COLLECTIO 47098 CENTRAL CENTRAL N VENOUS 5 CONFUCIANISM CONFUCIANISM BLOOD HOSP HOSP VENIPUNCT URE URNLS DIP 05054 CENTRAL CENTRAL 5 CONFUCIANISM CONFUCIANISM STICK/TAB HOSP HOSP LET RGNT AUTO W/O MICROSCOP Y INITIAL 88971 CONFUCIANISM VERONICA OBSERVATI 5 [facility] ON MEDICAL CARE/DAY GROUP 30 MINUTES IM ADM 78641 KENY KENY PRQ ID 5 VERITO VREITO SUBQ/IM NJXS 1 VACCINE TDAP 19997 KENY KENY VACCINE 7 5 VERITO VERITO YRS/> IM ANTIBODY 44329 LAB RUSSELL LAB RUSSELL SCREEN 5 ANCA ANCA RBC EACH HOLDINGS HOLDINGS SERUM TECHNIQUE GLUCOSE 19646 LAB RUSSELL LAB RUSSELL POST 5 ANCA ANCA GLUCOSE HOLDINGS HOLDINGS DOSE BLOOD 97298 LAB RUSSELL LAB RUSSELL COUNT 5 ANCA ANCA COMPLETE [facility]INGS HOLDINGS AUTOMATED 28127 CENTRAL CENTRAL NONSTRESS 5 CONFUCIANISM CONFUCIANISM TEST HOSP HOSP OBSERVATI 38953 SPIKE WAHL ON/INPATI 5 LEAVE SPECIALIST [facility] S, CARE 40 MINUTES URNLS DIP 78772 CENTRAL CENTRAL 5 CONFUCIANISM CONFUCIANISM STICK/TAB HOSP HOSP LET RGNT AUTO W/O MICROSCOP Y INITIAL 17540 CONFUCIANISM VERONICA [address] ON MEDICAL CARE/DAY GROUP 30 MINUTES URNLS DIP [address] 5 CONFUCIANISM CONFUCIANISM STICK/TAB HOSP HOSP LET REAGENT AUTO MICROSCOP [place] PREG 01752 [place] [facility] UTERUS 5 LEAVE SPECIALIST RANDALL AFTER 1ST ASSOCIATE REID Farley, 1 GESTATION THERAPEUT 43404 JACKELYN MCDERMOTTTON IC PX 1/> 5 [facility] PHYSICAL EACH 15 THERAP MIN EXERCISES MANUAL 17151 JACKELYN MEDINA THERAPY 5 [facility] TQS 1/> PHYSICAL REGIONS THERAP EACH 15 MINUTES US PREG 65948 [place] [facility] UTERUS 5 LEAVE SPECIALIST RANDALL REAL TIME ASSOCIATE W/IMAGE S, DCMTN TRANSVAG CYTP C/V 82791 P&C LABS, PICKLESIM AUTO THIN 5 [facility] ER JR PHOEN[place] LYR PREPJ SCR MNL RESCR PHYS GONADOTRO 89705 HUSAM SHERON PIN 5 [facility] QUALITATI VE COLLECTIO 80326 HUSAM SHERON N VENOUS 5 [facility] VENIPUNCT URE THERAPEUT 13589 CONRADOURBON CONRADOURBON IC PX 1/> 5 [facility] EACH 15 MIN EXERCISES THERAPEUT 73014 [place] BOURBON IC PX 1/> 5 [facility] EACH 15 MIN EXERCISES PHYSICAL 75205 NIKKYON CONRADOURBON THERAPY [address] [place] [address] [facility] N INJECTION J1100 [facility] [address] [place] [address] [facility] SONE SODIUM PHOSPHATE 1 MG URINE 66483 HUSAM SHERON [address] [place] [address] [address] LUMBAR 09008 [place] MACY SPINE 5 RADIOLOGY RHO W/O CONTRAST MATERIAL THERAPEUT 36140 HUSAM SHERON IC [address] [place] [address] PROPHYLAC [facility] TIC/DX INJECTION SUBQ/IM Encounters Encounter Start End Date Code Location Performer Type Date OFFICE 57737 [facility] 7 7 [facility] T VISIT 15 MINUTES OFFICE 13480 [facility] 7 PHYSICIAN T VISIT PRACTICE 15 L MINUTES [facility]ERGENCY 13594 [facility] PAKO VISIT EMERGENCY HIGH PHYS SEVERITY& THREAT [facility] NIKKYON - 7 7 [facility] T OFFICE 46436 HUSAM CAMARENA OUTPATIEN 7 7 PHYSICIAN T VISIT PRACTICE 15 L MINUTES EMERGENCY 90455 [facility] 7 7 PAKO VISIT EMERGENCY HIGH PHYS SEVERITY& THREAT FUN OFFICE 71431 [facility] 7 7 PHYSICIAN T VISIT PRACTICE 15 L MINUTES OFFICE 87529 [facility] 7 PHYSICIAN T VISIT PRACTICE 15 L MINUTES HOSPITAL HANY - 7 7 MEM [facility] OUTPATIEN INC T OFFICE 10565 [facility] 7 7 MEM HOS[facility] T VISIT 5 INC MINUTES OFFICE 85021 [facility] 7 7 PHYSICIAN T VISIT PRACTICE 15 L MINUTES OFFICE 77713 [facility] 7 7 PHYSICIAN T VISIT PRACTICE 15 L MINUTES OFFICE 67146 CONFUCI[facility]ISM [facility] OUTROBERTS [place] 7 7 HEALTH LA T VISIT MEDICAL 15 GROUP MINUTES OFFICE 85039 CONFUCIANISM [facility] OUTROBERTS [place] 7 7 HEALTH T VISIT MEDICAL 15 GROUP MINUTES HOSPITAL HUSAM - 7 7 [facility]OSPITAL T EMERGENCY 85089 [facility] 7 7 PAKO DEPARTMEN EMERGENCY T VISIT PHYS HIGH/URGE NT SEVERITY EMERGENCY 48896 HUSAM 7 7 [facility] HOSPITAL T VISIT MODERATE SEVERITY OFFICE 51863 ALEC SCHULTZ 7 7 T VISIT 15 MINUTES EMERGENCY 10926 [facility] 7 7 PAKO DEPARTMEN EMERGENCY T VISIT PHYS HIGH/URGE NT SEVERITY EMERGENCY 92137 [facility] 7 7 N DEPARTMEN COMMUNTIY T VISIT HOSPITA LIMITED/M INOR [facility] HOSPITAL [facility] - 7 7 N OUTPATIEN COMMUNTIY T HOSPITA OFFICE 43548 CONFUCIANISM LESLEE OUTPATIEN 7 7 HEALTH T VISIT MEDICAL 15 GROUP MINUTES OFFICE 12594 [facility] 7 7 PHYSICIAN T VISIT PRACTICE 15 L MINUTES EMERGENCY 88975 [facility] 7 7 N DEPARTMEN COMMUNTIY T VISIT HOSPITA HIGH/URGE NT SEVERITY EMERGENCY 65904 [facility] DEPT 7 7 PAKO VISIT EMERGENCY HIGH PHYS SEVERITY& THREAT [facility] - 7 7 N OUTPATIEN COMMUNTIY T HOSPITA OFFICE 44076 ANTOINE FERNÁNDEZ 7 7 Sjapper, [facility] III T NEW 30 MINUTES EMERGENCY 47069 [facility] 7 7 PAKO DEPARTMEN EMERGENCY T VISIT PHYS HIGH/URGE NT SEVERITY OFFICE 18987 CONFUCIANISM MATCHESWI OUTROBERTS [place] 7 7 HEALTH LA T VISIT MEDICAL 15 GROUP MINUTES OFFICE 88595 [facility] 7 7 PHYSICIAN T VISIT PRACTICE 15 L MINUTES [facility] [address] [facility] - 7 7 N OUTPATIEN COMMUNTIY T [facility] - 7 7 N OUTPATIEN COMMUNTIY T HOSPITA EMERGENCY 16584 [facility] 7 7 N DEPARTMEN COMMUNTIY T VISIT HOSPITA HIGH/URGE NT SEVERITY EMERGENCY 35651 [facility] DEPT 7 7 PAKO VISIT EMERGENCY HIGH PHYS SEVERITY& THREAT FUNCJ OFFICE 57776 HUSAM CAMARENA OUTPATIEN 6 6 PHYSICIAN T VISIT PRACTICE 15 L MINUTES OFFICE 21189 NIKKYEVAN MIGUE OUTPATIEN 6 6 PHYSICIAN T VISIT PRACTICE 15 L MINUTES OFFICE 59725 HUSAM CAMARENA OUTPATIEN 6 6 PHYSICIAN T VISIT PRACTICE 15 L MINUTES OFFICE 90053 PINA GUERRERO OUTPATIEN 6 6 DIGESTIVE CEC T VISIT CARE 15 CENTER MINUTES OFFICE 66165 HUSAM CAMARENA OUTPATIEN 6 6 PHYSICIAN OKSANA T VISIT PRACTICE 15 L MINUTES HOSPITAL PINA - 6 6 [facility] PERI[facility] 55371 ALEC MICHAEL PREVENTIV 6 6 E MED EST PATIENT 18-39 YRS H[facility]PITAL HANY - 6 6 [facility] 54813 CONRADOELISE CAMARENA OUTPATIEN 6 6 PHYSICIAN OKSANA T VISIT PRACTICE [address] [facility] PINA - 6 6 [facility] 10860 PINA SHIPLEY OUTPATIEN 6 6 REGIONAL MITCHEL T NEW [address] [facility] [facility] OFFICE 84560 HUSAM CAMARENA OUTPATIEN 6 6 PHYSICIAN OKSANA T VISIT PRACTICE 25 L MINUTES EMERGENCY 23712 [facility] DEPT 6 6 PAKO VISIT EMERGENCY HIGH PHYS SEVERITY& THREAT FUNCJ OFFICE 01534 PINA GUERRERO OUTPATIEN 6 6 DIGESTIVE CEC T VISIT CARE 15 CENTER MINUTES OFFICE 93728 HUSAM CAMARENA OUTPATIEN 6 6 PHYSICIAN OKSANA T VISIT PRACTICE 25 L MINUTES HOSPITAL HUSAM [facility] [address] [facility] 14128 HUSAM CAMARENA OUTPATIEN 6 6 PHYSICIAN OKSANA T VISIT PRACTICE 15 L MINUTES HOSPITAL BOURBEVAN - 6 6 [facility] T OFFICE 09431 PINA YOLANDA OUTPATIEN 6 6 DIGESTIVE CEC T VISIT CARE 25 CENTER [facility] - 6 6 [facility] T OFFICE 45705 HUSAM CAMARENA OUTPATIEN 6 6 PHYSICIAN OKSANA T VISIT PRACTICE 15 L MINUTES OFFICE 77923 PINA YOLANDA OUTPATIEN 6 6 DIGESTIVE CEC T NEW 45 CARE [facility] EMERGENCY 21264 LAXMI SHABAZZ 6 6 PHYSICIAN DAMIR DEPARTMEN S, PLLC T VISIT HIGH/URGE NT SEVERITY EMERGENCY 20431 HANY 6 6 [facility] DEPARTMEN [facility] T VISIT MODERATE SEVERITY HOSPITAL HANY - 6 6 [facility] OUT[facility]IEN [facility] T OFFICE 66594 CONRADOELISE CAMARENA OUTPATIEN 6 6 PHYSICIAN MITCHEL T VISIT PRACTICE 15 L MINUTES OFFICE 38225 NIKKYEVAN CAMARENA OUTPATIEN 6 6 PHYSICIAN MITCHEL T VISIT PRACTICE 15 L MINUTES OFFICE 01345 NIKKYEVAN CAMARENA OUTPATIEN 6 6 PHYSICIAN MITCHEL T NEW 45 PRACTICE MINUTES L OFFICE 01671 ALEC MAG ALEC MAG OUTPATIEN 6 6 T VISIT 15 MINUTES OFFICE 01374 CONFUCIANISM LESLEE OUTPATIEN 6 6 HEALTH HEN T VISIT MEDICAL 25 GROUP MINUTES OFFICE 91738 ALEC MAG ALEC MAG OUTPATIEN 6 6 T VISIT 15 MINUTES OFFICE 92112 CONFUCIANISM LESLEE OUTPATIEN 6 6 HEALTH HEN T VISIT MEDICAL 15 GROUP MINUTES OFFICE 93871 SPIKE GILMORE OUTPATIEN 5 5 LEAVE SPECIALIST RANDALL T VISIT ASSOCIATE 15 S, MINUTES OFFICE 50562 CONFUCIANISM ARNETT OUTPATIEN 5 5 HEALTH DON T VISIT MEDICAL 15 GROUP MINUTES HOSPITAL [facility] - 5 5 CON[facility] OUTPATIEN HOSP T OFFICE 47404 [place] GIL[facility] OUTPATIEN 5 5 LEAVE SPECIALIST RANDALL T VISIT ASSOCIATE 15 S, MINUTES OFFICE 84527 [place] GIMLORE OUTPATIEN 5 5 LEAVE SPECIALIST RANDALL T VISIT ASSOCIATE 15 S, MINUTES OFFICE 96270 [place] GIL[facility] OUTPATIEN 5 5 LEAVE SPECIALIST RANDALL T VISIT ASSOCIATE 15 S, MINUTES [facility] - 5 5 CONFUCIANISM OUTPATIEN HOSP T OFFICE 93917 [place] GIL[facility] OUTPATIEN 5 5 LEAVE SPECIALIST RANDALL T VISIT ASSOCIATE 15 S, MINUTES OFFICE 22215 CONFUCIANISM LESLEE OUTPATIEN 5 5 HEALTH HEN T VISIT MEDICAL 25 GROUP MINUTES OFFICE 89604 [place] GILMORE OUTPATIEN 5 5 LEAVE SPECIALIST RANDALL T VISIT ASSOCIATE 15 S, MINUTES [facility] - 5 5 CONFUCIANISM OUTPATIEN HOSP T OFFICE 45590 KENY KENY OUTPATIEN 5 5 VERITO VERITO T VISIT 15 MINUTES OFFICE 52684 [place] GIL[facility] OUTPATIEN 5 5 LEAVE SPECIALIST RANDALL T VISIT ASSOCIATE 15 S, MINUTES [facility] - 5 5 CONFUCIANISM OUTPATIEN HOSP T OFFICE 44104 [place] GIL[facility] OUTPATIEN 5 5 LEAVE SPECIALIST RANDALL T VISIT ASSOCIATE 15 S, MINUTES [facility]ITAL [facility] - 5 5 CONFUCIANISM OUTPATIEN HOSP T OFFICE 61710 [place] GIL[facility] OUTPATIEN 5 5 LEAVE SPECIALIST RANDALL T VISIT ASSOCIATE 15 S, MINUTES OFFICE 67687 [place] GIL[facility] OUTPATIEN 5 5 LEAVE SPECIALIST RANDALL T VISIT ASSOCIATE 15 S, MINUTES OFFICE [id number] SPI[facility] OUTPATIEN 5 5 LEAVE SPECIALIST RANDALL T NEW 45 ASSOCIATE MINUTES S, EMERGENCY [id number] [place] 5 5 [facility] T VISIT LOW/MODER SEVERITY [facility]OSPITAL [place] - 5 [facility] EMERGENCY [id number] [facility] 5 5 [facility] EMERGENCY T VISIT PHYS HIGH/URGE NT SEVERITY [facility] [place] [id number] 5 [facility] [place] [id number] 5 [facility] [place] [id number] 5 [facility] T OFFICE [id number] KENY HUITRONKY OUTROBERTS [place] 5 5 VERITO VERITO T NEW 45 MINUTES [facility] 5 5 [facility] T EMERGENCY 98913 [facility] 5 5 [facility] EMERGENCY T VISIT PHYS HIGH/URGE NT SEVERITY
--- OUTSIDE RECORDS SUMMARY | 2017-06-24 08:33 | External Medical Summary Rpt | CCD ---
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 Unavailable Unavailable HOSPITAL, [facility] PHYSICIAN Unavailable Unavailable PRACTICE L, [facility] KENY SPENCER Unavailable Unavailable VERITO KENY SELLERS KENY Unavailable Unavailable VERITO OWEN TER, OWEN TER Unavailable Unavailable [facility], Unavailable Unavailable [facility] CHANDEL, CHANDEL Unavailable Unavailable CHESTNUT, CHESTNUT Unavailable [facility]available [facility] Unavailable Unavailable [place] Unavailable [facility]available MEDICAL CENT[facility], [facility] Unavailable Unavailable PHYSICIAN PRA, [facility] PHYSICIAN [facility] Unavailable Unavailable [facility] GILBERT ESTELLA, GILBERT ESTELLA Unavailable Unavailable MIGUE, MIGUE Unavailable Unavailable MIGUE MITCHEL, MIGUE Unavailable Unavailable MITCHEL MIGUE OKSANA, MIGUE Unavailable Unavailable OKSANA DESIRAE BECK, Unavailable Unavailable DESIRAE BECK [facility] Unavailable Unavailable [facility], [facility] BELEN, BELEN Unavailable Unavailable GIRALDO, GIRALDO Unavailable Unavailable HARIKA DAMIR, HARIKA Unavailable Unavailable [facility]IR [facility] Unavailable Unavailable [facility], [facility] GREGONIS MITCHEL, Unavailable Unavailable GREGONIS MITCHEL MACY, MACY Unavailable Unavailable MACY RHO, MACY Unavailable Unavailable RHO HANY, HANY Unavailable Unavailable [facility] Unavailable Unavailable INC, [facility] YOLANDA CEC, YOLANDA Unavailable Unavailable [facility]EC CONDE, CONDE Unavailable Unavailable ALEC, ALEC Unavailable Unavailable ALEC, ALEC Unavailable Unavailable ALEC MAG, ALEC MAG Unavailable Unavailable ALEC MAG, ALEC MAG Unavailable [facility]available [facility] Un[facility] Unavailable GROUP PS, [facility] Unavailable Unavailable [facility], [facility], Unavailable Unavailable [facility], Unavailable Unavailable [facility] Unavailable Unavailable [facility], [facility] Unavailable Unavailable [facility], [facility] VERONICA JR THO, Unavailable Unavailable VERONICA JR THO [facility] Unavailable Unavailable ASSOCIATES,, [facility], ANA PEREZ Unavailable Unavailable ANA PEREZ [...] LLC ROSARIO SOHA, ROSARIO Unavailable Unavailable [facility] Unavailable Unavailable [facility], [facility], [facility] Unavailable Unavailable [facility] [...] MENDY ARNETT DON, Unavailable Unavailable ARNETT DON [facility] Unavailable Unavailable THERAP, [facility] AVERY, III, AVERY, Unavailable Unavailable III [facility] Unavailable Unavailable E[facility], [facility] Unavailable Unavailable [facility], [facility] BENAVIDEZ, BENAVIDEZ Unavailable Unavailable BENAV[facility]Z RAY, BENAVIDEZ Unavailable Unavailable RAY [facility] Unavailable Unavailable [facility], [facility] MEDINA TONIE, MEDINA Unavailable Unavailable TONIE [...] N EMERGENCY INFECTION PHYS SITE NOT SPECIFIED [id number] UNSPECIFIED 05-11-2017 [facility] OVARIAN N EMERGENCY CYST [...] FREQUENT ANCA MENSTRUATIO HOLDINGS N W/REGULAR CYCLE [id number] CELLULITIS 02-16-2017 [place] OF OTHER PHYSICIAN SITES PRACTICE L H6503 ACUTE 01-28-2017 [facility] MEDICAL MEDIA GROUP BILATERAL N910 PRIMARY 01-24-2017 [facility] Z3202 ENCOUNTER 01-24-2017 [facility] FOR [facility]ALTH MEDICAL TEST RESULT GROUP NEGATIVE 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 01-13-2017 [facility] 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 [facility] WITHOUT DIARRHEA K5900 CONSTIPATIO 01-13-2017 [facility] [...] 01-05-2017 [facility] LUTEUM CYST OF RIGHT OVARY [id number] OTHER 01-05-2017 [facility] [place] CYST RIGHT CLINIC PSC SIDE N926 IRREGULAR 01-05-2017 [facility] MENSTRUATIO N UNSPECIFIED R102 PELVIC AND 12-07-2016 [facility] DIAG[facility]ST[facility] PAIN LAB LLC [id number] ENCOUNTER 12-07-2016 [facility] FOR OTHER [facility] LLC PREPROCEDUR AL EXAMINATION Z5181 ENCOUNTER 12-07-2016 [facility] FOR THERAPEUTIC DRUG LEVEL MONITORING Z26680 OTHER LONG 12-07-2016 [facility] TERM CURRENT DRUG THERAPY Z5321 PROC & [place] 12-05-2016 [facility] NOT CARRIED COMMUNTIY OUT PT HOSPITA LEAVE PRIOR TO SEEN I889 NONSPECIFIC 11-18-2016 [facility] LYMPHADENIT MEDICAL IS GROUP UNSPECIFIED J029 ACUTE 11-18-2016 [facility] PHARYNGITIS [facility] MEDICAL UNSPECIFIED GROUP R0981 NASAL 11-18-2016 [facility] CONGESTION [facility] MEDICAL GROUP K529 NONINFECTIV 11-01-2016 [facility] E PHYSICIAN GASTROENTER PRACTICE L ITIS & COLITIS UNS R1084 GENERALIZED 10-30-2016 [facility] ABDOMINAL N EMERGENCY PAIN PHYS R197 DIARRHEA 10-30-2016 [facility] UNSPECIFIED N EMERGENCY PHYS Z720 TOBACCO USE 10-30-2016 [facility] J020 STREPTOCOCC 10-25-2016 [facility] PHARYNGITIS J9801 ACUTE 10-25-2016 [facility] M J111 FLU D/T 10-19-2016 [facility] UNIDENTIFIE N EMERGENCY D FLU VIRUS PHYS W/OTH RESP MANIF R6889 OTHER 10-17-2016 [facility] SYMPTOMS MEDICAL AND SIGNS GROUP W10960 CONTACT W/ 10-17-2016 [facility] & EXPOSURE HEALTH OTH VIRAL MEDICAL COMMUNICABL GROUP E DZ M549 DORSALGIA 09-17-2016 [facility] W42644 MIGRAINE 09-12-2016 [facility] UNS NOT N EMERGENCY INTRACT W/O PHYS STATUS MIGRAINOSUS Z3200 ENCOUNTER 08-25-2016 [facility] FOR [facility] MEDICAL TEST RESULT GROUP UNKNOWN [id number] PAIN IN 08-11-2016 [facility] UNSPECIFIED PHYSICIAN HIP PRACTICE L J00 ACUTE 07-23-2016 [facility] NASOPHARYNG PHYSICIAN ITIS COMMON PRACTICE L COLD R238 OTHER SKIN 07-23-2016 [facility] CHANGES PHYSICIAN PRACTICE L L301 DYSHIDROSIS 06-28-2016 [facility] POMPHOLYX PHYSICIAN PRACTICE L R05 COUGH 06-16-2016 [facility] PRA R0602 SHORTNESS 06-16-2016 [facility] OF BREATH REGIONAL PHYSICIAN PRA R062 WHEEZING 06-16-2016 [facility] PH[facility]ICIAN PRA X17827 ENCOUNTER 06-08-2016 [facility] MAG INSPECTOR PAWNSHOP DETAIL EXAM GENERAL RTN W/O ABNORMAL FIND Z113 ENCOUNTER 06-08-2016 ASSOC[facility]ATED SCREEN PATHOLOGIST INFECTIONS S LLC SEXL MODE TRANSMISSN Z1151 ENCOUNTER 06-08-2016 ASSOC[facility]ATED FOR PATHOLOGIST SCREENING S LLC FOR HUMAN PAPILLOMAVI CORDELIA Z118 ENCOUNTER 06-08-2016 ASSOCIATED SCREEN PATHOLOGIST OTHER S LLC INFECTIOUS & PARASITIC DZ W51093 PAIN IN 05-24-2016 [place] LEFT MEDICAL FINGERS IMAGING ASS J309 ALLERGIC 05-05-2016 [facility] RHINITIS REGIONAL UNSPECIFIED PHYSICIAN PRA O80652 UNSPECIFIED 05-05-2016 [facility] ASTHMA REGIONAL UNCOMPLICAT PHYSICIAN ED PRA K219 GASTRO-ESOP 05-05-2016 [facility] Iraheta REFLUX REGIONAL DISEASE PHYSICIAN WITHOUT PRA ESOPHAGITIS R61 GENERALIZED 05-05-2016 [facility] HYPERHIDROS PHYSICIAN IS PRA R072 PRECORDIAL 04-11-2016 [facility] [place] PAIN RADIOLOG[facility] R0789 OTHER CHEST 04-11-2016 [facility] PAIN N EMERGENCY PHYS R079 CHEST PAIN 04-11-2016 [facility] [place] UNSPECIFIED RADIOLOGY [id number] STRAIN 04-11-2016 [facility] MUSCLE & N EMERGENCY TENDON UNS PHYS WALL THORAX INIT ENC [id number] EXPOSURE TO 04-11-2016 [facility] OTHER N EMERGENCY SPECIFIED PHYS FACTORS INITIAL ENC R198 OTH SPEC SX 03-17-2016 [facility] & SIGNS DIGESTIVE [facility] DIGESTV S[facility] & ABD Z1211 ENCOUNTER 03-17-2016 [place] SCREENING ANESTHESIA MALIGNANT GROUP PS NEOPLASM OF COLON G8929 OTHER 03-12-2016 [facility] L Z539 PROCEDURE & 03-08-2016 [facility] OUT [...] OVARIAN CYSTS N838 OTH 11-28-2015 NEW NONINFLAMM [place] D/O OVARY CLINIC PSC FALLOP TUBE & BROAD LIG N941 DYSPAREUNIA 11-28-2015 [facility] N942 VAGINISMUS 11-28-2015 [facility] TURCIOS H5203 HYPERMETROP 09-29-2015 ANA ARCE GRE BILATERAL Z309 ENCOUNTER 07-17-2015 [facility] FOR VICE PRESIDENT OF CONSULTING SERVICES CONTRACEPTI ASSOCIATES, VE MANAGEMENT UNS Z392 ENCOUNTER 07-17-2015 [facility] FOR ROUTINE VICE PRESIDENT OF CONSULTING SERVICES ASSOCIATES, FOLLOW-UP K1230 ORAL 07-08-2015 [facility] MUCOSITIS HEALTH ULCERATIVE MEDICAL UNSPECIFIED GROUP S044LN6 MAT CARE 07-03-2015 [facility] DISPROPORTI ANESTHESIA ON UNUSUAL PSC LARGE FET NA/UNS O653 OBST LABOR 07-03-2015 SPIKE DUE PELV VICE PRESIDENT OF CONSULTING SERVICES OUTLET & ASSOCIATES, MID-CAV CONTRACTION Z370 SINGLE LIVE 07-03-2015 [facility] ANESTHESIA PSC Z3A39 39 WEEKS 07-03-2015 [place] GESTATION VICE PRESIDENT OF CONSULTING SERVICES OF ASSOCIATES, O471 FALSE LABOR 06-26-2015 [facility] AT/AFTER [facility] 37 HOSP COMPLETED WEEKS GEST Z3483 ENC 06-26-2015 [place] SUPERVISION VICE PRESIDENT OF CONSULTING SERVICES OTH NORMAL ASSOCIATES, 3 TRIMESTER Z3A38 38 WEEKS 06-26-2015 [facility] GESTATION [facility] OF HOSP H9944K3 MATERNAL 06-19-2015 [facility] CARE EXCESS VICE PRESIDENT OF CONSULTING SERVICES ASSOCIATES, GROWTH 3RD TRI NA/UNS [id number] POLYHYDRAMN 06-19-2015 SPIKE IOS THIRD VICE PRESIDENT OF CONSULTING SERVICES TRIMESTER ASSOCIATES, NA/UNS Z3A37 37 WEEKS 06-19-2015 [place] GESTATION VICE PRESIDENT OF CONSULTING SERVICES OF ASSOCIATES, Z391 ENCNTR FOR 06-18-2015 [facility] EXAMINATION SUPPLIES LACTATING MOTHER E47184 ANEMIA 06-12-2015 [place] COMPLICATIN VICE PRESIDENT OF CONSULTING SERVICES G ASSOCIATES, THIRD TRIMESTER Z36 ENCOUNTER 06-12-2015 MEDICAL FOR DIAGNOSTIC LAB LLC SCREENING OF MOTHER Z3A36 36 WEEKS 06-12-2015 [facility] GESTATION VICE PRESIDENT OF CONSULTING SERVICES OF ASSOCIATES, 65765 THREATENED 06-11-2015 [facility] PREMATURE [facility] ANTEPARTUM 30195 OTH CURRENT 05-29-2015 SPIKE MAT CONDS VICE PRESIDENT OF CONSULTING SERVICES CLASSIFIABL ASSOCIATES, E ELSW ANTPRTM 7869 OT 05-29-2015 [place] SYMPTOMS VICE PRESIDENT OF CONSULTING SERVICES INVOLVING ASSOCIATES, RESPIRATORY SYSTEM&CHES T 4619 ACUTE 05-22-2015 [facility] SINUSITIS, HEALTH UNSPECIFIED MEDICAL GROUP 4779 ALLERGIC 05-22-2015 [facility] RHINITIS HEALTH CAUSE MEDICAL UNSPECIFIED GROUP V221 SUPERVISION 05-15-2015 [facility] OF OTHER VICE PRESIDENT OF CONSULTING SERVICES NORMAL ASSOCIATES, 76412 OTHER 04-18-2015 [facility] SPECIFED HEALTH COMPLICATIO MEDICAL N GROUP ANTEPARTUM 7605 FETUS OR 04-18-2015 [facility] HEALTH AFFECTED BY MEDICAL MATERNAL GROUP INJURY V222 04-18-2015 [facility] STATE, [facility] INCIDENTAL HOSP V714 OBSERVATION 04-18-2015 [facility] FOLLOWING [facility] OTHER HOSP ACCIDENT 79671 ABDOMINAL 04-17-2015 KENY SELLERS WITH INTRAUTERIN E 51291 ABDOMINAL 04-01-2015 [facility] PAIN RIGHT [facility] LOWER HOSP QUADRANT 6259 UNSPEC 03-01-2015 [facility] SYMPTOM [facility] ASSOC [facility] W/FEMALE GENITAL ORGANS 53580 ABDOMINAL 03-01-2015 [facility] PAIN, LEFT HEALTH LOWER MEDICAL QUADRANT GROUP 7202 SACROILIITI 01-31-2015 [facility] ELSEWHERE PHYSICAL CLASSIFIED THERAP 7244 THORACIC/MARINA 01-31-2015 [facility] NEURITIS/RA PHYSICAL DICULITIS THERAP UNSPEC V571 OTHER 01-31-2015 [facility] THERAPY PHYSICAL THERAP 29161 MILD 12-19-2014 [facility] HYPEREMESIS VICE PRESIDENT OF CONSULTING SERVICES GRAVIDARUM ASSOCIATES, ANTEPARTUM 73646 THREATENED 11-21-2014 [facility] , VICE PRESIDENT OF CONSULTING SERVICES ANTEPARTUM ASSOCIATES, V7231 ROUTINE 11-21-2014 [facility] AL EXAMINATION 8470 NECK SPRAIN 11-19-2014 [facility] AND STRAIN N EMERGENCY PHYS E9289 UNSPECIFIED 11-19-2014 [facility] ACCIDENT N EMERGENCY PHYS V141 PERSONAL 11-19-2014 [facility] HISTORY [facility] OTHER ANTIBIOTIC AGENT V143 PERSONAL 11-19-2014 [facility] HISTORY [facility] ALLERGY OT HOSPITAL ANTI-INFECT LINDA AGT V146 PERSONAL 11-19-2014 [facility] HISTORY OF COMM[facility]ITY ALLERGY TO HOSPITAL ANALGESIC AGENT 6260 ABSENCE OF 11-13-2014 [facility] MENSTRUATIO [facility] 54261 DISPLCMT 11-11-2014 [facility] LUMBAR [facility] DISC W/O MYELOPATHY 7242 LUMBAGO 11-11-2014 [facility] 8461 SPRAIN AND 11-01-2014 KENY SELLERS STRAIN OF SACROILIAC 7222 DISPLCMT 10-21-2014 [facility] DISC SITE HOSPITAL UNS W/O MYELOPATHY 7820 DISTURBANCE 10-21-2014 [facility] OF SKIN N EMERGENCY SENSATION PHYS V1582 PERS HX 10-21-2014 [facility] TOBACCO USE [facility] Medications Na ND Rx [...] 17 17 95 E 5 80 PH NC AR OP MA CY 50 #4 MC [...] FL 55 09 09 1. 1 00 PA Ac UC 11 -0 -2 00 00 L- ti ON 10 1- 2- 0 07 MA ve AZ 14 20 20 42 RT OL 51 17 17 72 E 2 36 PH 15 AR 0 MA MG CY TA #4 BL 93 ET NI 47 08 09 20 10 00 PA Ac TR 78 -3 -2 .0 00 L- ti OF 10 1- 2- 00 07 MA ve UR 30 20 20 42 RT AN 30 17 17 69 TO 1 87 PH IN AR MA MO CY NO -M #4 CR 93 10 0 MG NC 59 08 09 20 7 00 PA Ac OC 74 -3 -2 .0 00 L- ti HL 60 1- 2- 00 07 MA ve OR 11 20 20 42 RT PE 50 17 17 69 RA 6 86 PH ZI AR NE MA CY 10 #4 MG 93 TA B NC 68 08 09 20 5 00 PA Ac OM 38 -1 -0 .0 00 L- ti ET 20 8- 8- 00 07 MA ve TALAMANTES 04 20 20 42 RT ZI 00 17 17 50 NE 1 57 PH AR 12 MA .5 CY MG #4 93 TA BL ET FL 55 08 09 1. 1 00 [facility] UC 11 -0 -0 00 00 L- ti ON 10 9- 1- 0 07 MA ve AZ 14 20 20 42 RT OL 51 17 17 34 E 2 06 PH 15 AR 0 MA MG CY TA #4 BL 93 ET AM 00 07 08 30 30 00 PA Ac IT 78 -3 -2 .0 00 L- ti RI 11 1- 5- 00 07 MA ve PT 48 20 20 42 RT YL 61 17 17 19 IN 0 00 PH E AR HC MA L CY 10 #4 MG 93 TA B CY 68 07 08 15 4 00 PA Ac CL 64 -1 -1 .0 00 L- ti OB 50 7- 8- 00 07 MA ve EN 51 20 20 41 RT ZA 89 17 17 97 NC 0 00 PH IN AR E MA 10 CY MG #4 93 TA BL ET ME 59 07 08 21 6 00 PA Ac TH 74 -1 -1 .0 00 L- ti YL 60 7- 8- 00 07 MA ve NC 00 20 20 41 RT ED 10 17 17 96 NI 3 99 PH SO AR LO MA NE CY 4 #4 MG 93 DO SE PK AZ 59 07 08 6. 5 00 PA Ac IT 76 -1 -0 00 00 L- ti HR 23 1- 4- 0 07 MA ve OM 06 20 20 41 RT YC 00 17 17 87 IN 1 16 PH AR 25 MA 0 CY MG #4 TA 93 BL ET BE 51 07 08 30 10 00 PA Ac NZ 22 -1 -0 .0 00 L- ti ON 40 1- 4- 00 07 MA ve AT 00 20 20 41 RT AT 16 17 17 87 E 0 17 PH 20 AR 0 MA MG CY CA #4 PS 93 UL E CL 16 07 08 20 10 00 PA Ac ON 72 -1 -0 .0 00 L- ti AZ 90 1- 4- 00 04 MA ve EP 13 20 20 52 RT AM 61 17 17 20 6 00 PH 0. AR 5 MA MG CY TA #4 BL 93 ET CL 63 07 08 21 7 00 PA Ac IN 30 -1 -0 .0 00 L- ti DA 40 4- 4- 00 07 MA ve MY 69 20 20 49 RT CI 30 17 17 88 N 1 07 PH HC AR L MA 30 CY 0 MG #5 91 CA PS UL E IB 68 07 08 30 5 00 PA Ac UP 64 -1 -0 .0 00 L- ti RO 50 4- 4- 00 07 MA ve FE 53 20 20 49 RT N 05 17 17 88 60 9 11 PH 0 AR MG MA CY TA BL #5 ET 91 FL 55 07 08 1. 1 00 PA Ac UC 11 -1 -0 00 00 L- ti ON 10 4- 4- 0 07 MA ve AZ 14 20 20 41 RT OL 51 17 17 92 E 2 62 PH 15 AR 0 MA MG CY TA #4 BL 93 ET PE 40 06 07 60 1 00 PA Ac RM 08 -2 -2 .0 00 L- ti ET 50 5- 1- 00 07 MA ve HR 21 20 20 41 RT IN 56 17 17 60 0 82 PH 5% AR MA CR CY EA M #4 93 CL 00 06 07 15 7 00 PA Ac OB 16 -2 -2 .0 00 L- ti ET 80 7- 1- 00 07 MA ve 16 20 20 41 RT OL 31 17 17 60 5 85 PH 0. AR 05 MA % CY CR EA #4 M 93 ME 59 06 07 5. [address] 76 -1 -1 00 00 L- ti OX 23 9- 4- 0 07 MA ve YP 74 20 20 41 RT RO 20 17 17 51 GE [address] AR ER MA ON CY E 10 #4 93 MG TA B PE 40 06 07 60 10 00 [facility] RM 08 -2 -1 .0 00 L- ti ET 50 1- 4- 00 07 MA ve HR 21 20 20 49 RT IN 56 17 17 48 0 90 PH 5% AR MA CR CY EA M #5 91 CE 68 06 07 20 10 00 [facility] PH 18 -0 -0 .0 00 L- ti AL 00 7- 7- 00 07 MA ve EX 12 20 20 41 RT IN 20 17 17 31 2 05 PH 50 AR 0 MA MG CY CA #4 PS 93 UL E FL 55 06 07 1. 1 00 [facility] UC 11 -1 -0 00 00 L- ti ON 10 3- 7- 0 07 MA ve AZ 14 20 20 41 RT OL 51 17 17 40 E 2 73 PH 15 AR 0 MA MG CY TA #4 BL 93 ET OX 62 06 06 30 30 00 [facility] YB 17 -0 -2 .0 00 L- ti UT 50 1- 3- 00 07 MA ve YN 27 20 20 41 RT IN 13 17 17 19 7 18 PH CL AR MA ER CY 10 #4 93 MG TA BL ET NC 00 05 06 21 6 00 [facility] ED 60 -1 -0 .0 00 L- ti NI 35 9- 9- 00 07 MA ve SO 33 20 20 66 RT NE 71 17 17 11 5 5 59 PH AR MG MA CY TA BL #5 ET 71 PEDERSON 65 05 06 20 10 00 [facility] LF 86 -1 -0 .0 00 L- ti AM 20 5- 9- 00 07 MA ve ET 42 20 20 65 RT HO 00 17 17 99 XA 5 19 PH ZO AR LE MA -T CY MP #5 DS 71 TA BL ET PH 51 05 06 9. 3 00 [facility] EN 29 -1 -0 00 00 L- ti AZ 30 7- 9- 0 07 MA ve OP 81 20 20 66 RT YR 10 17 17 05 ID 1 83 PH IN AR E MA 20 CY 0 MG #5 71 TA B AZ 59 05 06 6. 5 00 PA Ac IT 76 -1 -0 00 00 L- ti HR 23 1- 2- 0 07 MA ve OM 06 20 20 65 RT YC 00 17 17 91 IN 1 54 PH AR 25 MA 0 CY MG #5 TA 71 BL ET VE 00 05 06 90 30 00 [facility] NL 09 -0 -0 .0 00 L- ti AF 37 8- 2- 00 07 MA ve AX 38 20 20 65 RT IN 55 17 17 81 E 6 75 PH HC AR L MA ER CY 75 #5 71 MG CA P HY 00 04 05 25 [address] [facility] [address] 40 -2 -1 .0 00 L- ti OC 60 6- 9- 00 02 MA ve OD 12 20 20 23 RT ON 40 17 17 62 -A 1 16 PH CE AR TA MA TX CY NO PH #4 93 7. 5- 32 5 FL 55 04 05 1. 1 00 [facility] UC 11 -2 -1 00 00 L- ti ON 10 7- 9- 0 07 MA ve AZ 14 20 20 40 RT OL 51 17 17 61 E 2 48 PH 15 AR 0 MA MG CY TA #4 BL 93 ET NA 65 04 05 28 14 00 [facility] NC 16 -1 -1 .0 00 L- ti OX 20 7- 2- 00 07 MA ve EN 19 20 20 40 RT 01 17 17 42 50 1 23 PH 0 AR MG MA CY TA BL #4 ET 93 CY 68 04 05 21 7 00 [facility] CL 64 -1 -1 .0 00 L- ti OB 50 7- 2- 00 07 MA ve EN 51 20 20 40 RT ZA 89 17 17 42 NC 0 24 PH IN AR E MA 10 CY MG #4 93 TA BL ET BE 51 04 05 20 7 00 [facility] NZ 22 -1 -1 .0 00 L- ti ON 40 7- 2- 00 07 MA ve AT 00 20 20 40 RT AT 16 17 17 42 E 0 25 PH 20 AR 0 MA MG CY CA #4 PS 93 UL E HY 00 03 05 [address] 40 -2 -0 .0 00 L- ti OC 60 8- 5- 00 02 MA ve OD 12 20 20 23 RT ON 30 17 17 58 -A 1 59 PH CE AR TA MA TX CY NO PH #4 EN 93 5- 32 5 OX 00 03 05 10 2 00 [facility] YC 40 -2 -0 .0 00 L- ti OD 60 7- 5- 00 02 MA ve ON 51 20 20 23 RT E- 20 17 17 58 AC 1 31 PH ET AR AM MA IN CY OP HE #4 N 93 5- 32 5 DI 16 03 05 30 15 00 PA Ac CL 57 -2 -0 .0 00 L- ti OF 10 7- 5- 00 07 MA ve EN 20 20 20 40 RT AC 15 17 17 05 0 56 PH SO AR D MA EC CY 75 #4 93 MG TA B ## 03 03 20 10 00 PA Ac ## -0 -3 .0 00 L- ti ## 9- 1- 00 08 MA ve ## 20 20 83 RT ## 17 17 96 # 67 PH AR MA CY #4 93 AZ 59 03 03 6. 5 00 PA Ac IT 76 -0 -3 00 00 L- ti HR 23 9- 1- 0 07 MA ve OM 06 20 20 39 RT YC 00 17 17 71 IN 1 19 PH AR 25 MA 0 CY MG #4 TA 93 BL ET FL 60 03 03 16 30 00 PA Ac UT 43 -0 -2 .0 00 L- ti IC 20 1- 4- 00 07 MA ve 26 20 20 39 RT ON 41 17 17 54 E 5 91 PH NC AR OP MA CY 50 #4 MC 93 G SP RA Y FL 55 02 03 1. 1 00 PA Ac UC 11 -2 -1 00 00 L- ti ON 10 1- 7- 0 07 MA ve AZ 14 20 20 64 RT OL 51 17 17 04 E 2 05 PH 15 AR 0 MA MG CY TA #5 BL 71 ET VE 00 02 03 18 17 00 PA Ac NT 17 -1 -1 .0 00 L- ti OL 30 3- 0- 00 07 MA ve IN 68 20 20 63 RT 22 17 17 85 HF 0 56 PH A AR 90 MA CY MC G #5 IN 71 TALAMANTES LE R DI 00 02 03 20 5 00 PA Ac CY 52 -1 -1 .0 00 L- ti CL 71 8- 0- 00 07 MA ve OM 28 20 20 63 RT IN 20 17 17 98 E 1 81 PH 20 AR MA MG CY TA #5 BL 71 ET NC 68 02 03 20 5 00 PA Ac OM 38 -1 -1 .0 00 [...] CY MG #4 TA 93 BL ET NC 50 02 03 18 9 00 [place] Ac OM 38 -1 -1 0. 00 L- ti ET 30 3- 0- 00 04 MA ve TALAMANTES 80 20 20 0 54 RT ZI 51 17 17 17 NE 6 15 PH -P AR E- MA CO CY DE IN #5 E 71 SY RU P AM 64 02 03 60 30 00 PA Ac IT 76 -1 -1 .0 00 [...] CE 16 02 03 30 30 00 PA Ac TI 57 -1 -1 .0 00 [...] 10 5- 0- 00 07 MA ve TX 47 20 20 39 RT 01 17 17 08 R 3 29 PH PH AR OS MA CY 75 #4 MG 93 CA PS UL E NC 68 02 02 10 3 00 WA [...] 30 1- 4- 00 07 MA ve TX 31 20 20 39 RT DE 10 17 17 01 2 1 57 PH AR MG MA CY CA PS #4 UL 93 E FL 60 01 02 16 30 00 [place] Ac UT 43 -2 -1 .0 00 L- ti IC 20 3- 7- 00 07 MA ve 26 20 20 36 RT ON 41 17 17 13 E 5 97 PH NC AR OP MA CY 50 #4 MC [...] AR RA 30 17 17 24 MA TX 5 44 CY DE #0 10 23 [...] VE 00 12 01 90 30 00 PA Ryne NL 09 -1 -1 .0 00 L- ti AF 37 8- 3- 00 07 MA ve AX 38 20 20 37 RT IN 55 16 17 21 E 6 86 PH HC AR L MA ER CY 75 #4 93 MG CA P OX 65 12 30 30 00 [facility] YB 16 -2 -1 .0 00 L- ti UT 20 1- 3- 00 07 MA ve YN 37 20 20 34 RT IN 21 16 17 03 0 45 PH CL AR MA ER CY 10 #4 93 MG TA BL ET SY 00 12 10 30 00 PA Ryne MB 18 -2 -1 .1 00 L- ti IC 60 1- 3- 99 07 MA ve OR 37 20 20 36 RT T 22 16 17 13 80 0 98 PH -4 AR .5 MA CY MC G #4 IN 93 TALAMANTES LE R FL 60 12 01 16 30 00 [facility] UT 43 -2 -1 .0 00 L- ti IC 20 1- 3- 00 07 MA ve 26 20 20 36 RT ON 41 16 17 13 E 5 97 PH NC AR OP MA CY 50 #4 MC 93 G SP RA Y OM 57 12 30 30 00 [facility] EP 23 -2 -1 .0 00 L- ti RA 70 1- 3- 00 07 MA ve ZO 16 20 20 36 RT LE 23 16 [address] AR MA 40 CY MG #4 93 CA PS UL E ME 54 12 01 30 30 00 [facility] LO 45 -2 -1 .0 00 L- ti XI 80 2- 3- 00 07 MA ve CA 96 20 20 38 RT M 41 16 17 27 15 0 97 PH AR MG MA CY TA BL #4 ET 93 FL 55 12 01 2. 3 00 [facility] UC 11 -2 -1 00 00 L- ti ON 10 0- 3- 0 07 MA ve AZ 14 20 20 38 RT OL 51 16 17 24 E 2 49 PH 15 AR 0 MA MG CY TA #4 BL 93 ET ON 57 12 01 9. 3 00 [facility] DA 23 -1 -0 00 00 [...] Procedures Procedure DOS Code Location Performer Comment 51057 HUSAM WEINER TRANSVAGI 7 [facility] OPHTH 12427 [facility] 7 XM&EVAL COMPRHNSV ESTAB PT 1/> [place] [address] [facility] THYROXINE 7 ANCA [place] [address] [facility] R[facility] THYROID 7 ANCA ANCA STIMULATI [facility] NG HORMONE TSH COLLECTIO 79704 NIKKYEVAN MIGUE Rogel VENOUS 7 PHYSICIAN BLOOD PRACTICE VENIPUNCT L URE GONADOTRO 98813 [facility] PIN 7 ANCA ANCA [facility] QUANTITAT LINDA BLOOD 76940 [facility] LAB R[facility] COUNT 7 ANCA ANCA COMPLETE [facility] AUTO&AUTO DIFRNTL WBC IAADIADOO 47493 [facility] MATCHES[facility] 7 [facility] CCUS GROUP GROUP A URINE 23812 [facility] 7 HEALTH HEALTH TEST MEDICAL MEDICAL VISUAL GROUP GROUP COLOR CMPRSN METHS RADEX 54276 [facility] [place] [facility] ABDOMEN 7 RADIOLOGY COMPL W/DCBTS&/ ERC VIEWS URNLS DIP 84329 HUSAM WEINER [address] [place] [address]/[facility]AGENT AUTO MICROSCOP Y HYSTEROSC 11752 [facility] OPY BX 7 ENDOMETRI UM&/POLYP C W/WO D&C CATH & 56336 [facility] SALINE/CO 7 NTRAST SONOHYSTE R/HYSTERO SALPI LAPS 03717 [facility] FULG/EXC 7 OVARY VISCERA/P ERITONEAL SURFACE ANESTHESI 34577 ANESTHESI RED A 7 A INTRAPERI ASSOCIATE TONEAL S PSC [place] [address] [place] GROSS&DAMIR ROSCOPIC EXAM COLLECTIO 97964 ASSOCIATE WHITE N VENOUS 7 D BLOOD PATHOLOGI VENIPUNCT [facility]S LLC URE IADNA 20800 MEDICAL MEDICAL NEISSERIA 7 DIAGNOSTI DIAGNOSTI C LAB LLC C LAB LLC GONORR[place] [address] PATH PATH THYROID 7 GROUP GROUP STIMULATI LABS [facility] NG HORMONE TSH COMPREHEN 54834 PATH PATH SIVE 7 GROUP [facility] PANEL DRUG TEST 78085 MD LABS MD LABS PRSMV 7 INSTRMNT CHEMISTRY ANALYZERS IADNA 08374 MEDICAL MEDICAL CHLAMYDIA 7 DIAGNOSTI DIAGNOSTI [facility] TRACHOMAT IS AMPLIFIED PROBE TQ IADNA 63953 MEDICAL MEDICAL HUMAN 7 DIAGNOSTI DIAGNOSTI PAPILLOMA [facility] LLC VIRUS HIGH-RISK TYPES DRUG TST [id number] MD LABS MD LABS DEFINITV 7 DR ID METH P DAY 22/MORE DR CL BLOOD 44626 PATH PATH COUNT 7 GROUP GROUP COMPLETE LABS LLC [facility] AUTO&AUTO DIFRNTL WBC HEMOGLOBI 54583 PATH PATH N 7 GROUP GROUP GLYCOSYLA [facility] [place] [address] ALEC MICHAEL TRANSVAGI 7 NAL IADNA 39120 MEDICAL MEDICAL TRICHOMON 7 DIAGNOSTI DIAGNOSTI [facility] VAGINALIS AMPLIFIED PROBE TECH IAADIADOO 85939 [facility] 7 HEALTH STREPTOCO MEDICAL CCUS GROUP GROUP A BLOOD 62481 [facility] COUNT 7 N N COMPLETE COMMUNTIY COMMUNTIY AUTO&AUTO HOSPITA HOSPITA DIFRNTL WBC URINE 34259 [facility] 7 N N TEST COMMUNTIY COMMUNTIY VISUAL HOSPITA [place] [address] [facility] LIPASE 7 N N COMMUNTIY COMMUNTIY HOSPITA HOSPITA INJECTION J1885 [facility] 7 N N KETOROLAC COMMUNTIY COMMUNTIY HOSPITA HOSPITA TROMETHAM INE PER 15 MG INFUSION J7030 [facility] NORMAL 7 N N SALINE COMMUNTIY COMMUNTIY SOLUTION HOSPITA HOSPITA 1000 CC COMPREHEN 61381 [facility] SIVE 7 N N METABOLIC COMMUNTIY [place] [address] [facility] INFUSION 7 N N HYDRATION COMMUNTIY COMMUNTIY EACH HOSPITA HOSPITA ADDITIONA L HOUR INJECTION J2550 [facility] 7 N N PROMETHAZ COMMUNTIY COMMUNTIY INE HCL HOSPITA HOSPITA UP [place] 50 [place] [address] [facility] INFUSION 7 N N THERAPY/P COMMUNTIY COMMUNTIY ROPHYLAXI HOSPITA HOSPITA S /DX 1ST TO 1 HR THERAPEUT 70959 [facility] IC 7 N N INJECTION COMMUNTIY COMMUNTIY IV PUSH HOSPITA HOSPITA EACH NEW DRUG URNLS DIP 64813 [facility] 7 N N STICK/TAB COMMUNTIY COMMUNTIY LET HOSPITA HOSPITA REAGENT AUTO MICROSCOP Y IAADIADOO 84151 [facility] 7 HEALTH LA INFLUENZA MEDICAL GROUP IAADIADOO 72340 [facility] W[facility] 7 [facility] LA STREPTOCO MEDICAL CCUS GROUP GROUP A URINE 52948 HUSAM MIGUE 7 PHYSICIAN TEST PRACTICE VISUAL L COLOR CMPRSN METHS THERAPEUT 08580 HUSAM SHERON IC 7 PHYSICIAN PHYSICIAN PROPHYLAC PRACTICE PRACTICE TIC/DX L L INJECTION SUBQ/IM MRI 81972 HUSAM WEINER SPINAL 7 [facility] LUMBAR W/O CONTRAST MATERIAL RADEX 65171 [facility] SPINE 7 N N LUMBOSACR COMMUNTIY COMMUNTIY AL 2/3 HOSPITA HOSPITA VIEWS RADIOLOGI 26817 [facility] C 7 N N EXAMINATI COMMUNTIY COMMUNTIY ON PELVIS HOSPITA HOSPITA 1/2 VIEWS BLOOD 91320 [facility] COUNT 7 N N COMPLETE COMMUNTIY COMMUNTIY AUTO&AUTO HOSPITA HOSPITA DIFRNTL WBC THER 94446 [facility] PROPH/DX 7 N N NJX IV COMMUNTIY COMMUNTIY PUSH HOSPITA HOSPITA SINGLE/1S T SBST/[place] [address] [facility] INFUSION 7 N N HYDRATION COMMUNTIY COMMUNTIY EACH HOSPITA HOSPITA ADDITIONA L HOUR COMPREHEN 85770 [facility] SIVE 7 N N METABOLIC COMMUNTIY COMMUNTIY [place] [address] [facility] LIPASE 7 N N COMMUNTIY COMMUNTIY HOSPITA HOSPITA URNLS DIP 83001 [facility] 7 N N STICK/TAB COMMUNTIY COMMUNTIY LET HOSPITA HOSPITA REAGENT AUTO MICROSCOP Y THERAPEUT 07777 [facility] IC 7 N N INJECTION COMMUNTIY COMMUNTIY IV PUSH HOSPITA HOSPITA EACH NEW DRUG COLLECTIO 33713 HUSAM CAMARENA N VENOUS 6 PHYSICIAN BLOOD PRACTICE VENIPUNCT L URE GONADOTRO 11593 LAB RUSSELL LAB RUSSELL PIN 6 ANCA ANCA CHORIONIC [facility]INGS HOLDINGS QUALITATI VE URINE 47817 [facility] BENAVIDEZ 6 HEALTH TEST MEDICAL VISUAL GROUP COLOR CMPRSN METHS IAADIADOO 98448 [facility] 6 HEALTH HEALTH INFLUENZA MEDICAL MEDICAL GROUP GROUP COLLECTIO 56603 HUSAM CAMARENA N VENOUS 6 PHYSICIAN BLOOD PRACTICE VENIPUNCT L URE URINE 78775 HUSAM CAMARENA 6 PHYSICIAN TEST PRACTICE VISUAL L COLOR CMPRSN METHS GONADOTRO 33889 LAB RUSSELL LAB RUSSELL PIN 6 ANCA ANCA [facility]ION[facility] [employer] HOLDINGS QUANTITAT LINDA PULMONARY 08371 PINA HELLER 6 REGIONAL REGIONAL COMPLIANC [place] [address] PINA GARCIA 6 REGIONAL REGIONAL CAPACITY MEDICAL MEDICAL CENTE MALACHI PRESSURIZ 96624 PINA HELLER ED/NONPRE 6 REGIONAL REGIONAL SSURIZED MEDICAL MEDICAL INHALATIO CENTZurdo GARZAE N TREATMENT BRNCDILAT 15422 PINA HELLER RSPSE 6 REGIONAL REGIONAL SPMTRY MEDICAL MEDICAL PRE&POST- CENTE CENTE BRNCDILAT ADMN NONINVASI 95797 PINA HELLER VE 6 REGIONAL REGIONAL EAR/PULSE MEDICAL MEDICAL OXIMETRY [place]ACHI LY SINGLE DETER BRNCDILAT 82744 PINA SHIPLEY RSPSE 6 REGIONAL MITCHEL SPMTRY PHYSICIAN PRE&[place] [address] PINA SHIPLEY DIFFUSING 6 REGIONAL MITCHEL CAPACITY PHYSICIAN PRA PLETHYSMO 48758 PINA SHIPLEY GRAPHY 6 REGIONAL MITCHEL LUNG PHYSICIAN VOLUMES PRA W/WO AIRWAY RESIST COLLECTIO 32400 ASSOCIATE WHITE NAHID N VENOUS 6 D BLOOD PATHOLOGI VENIPUNCT [facility] [place] [address] PATH PATH THYROID 6 GROUP GROUP STIMULATI LABS [facility] NG HORMONE TSH COMPREHEN 52515 [address] SIVE 6 GROUP GROUP METABOLIC LABS [facility] PANEL HEMOGLOBI 05246 PATH PATH N 6 GROUP GROUP GLYCOSYLA LABS [facility] MARIANNE A1C BLOOD 53822 PATH PATH COUNT 6 GROUP GROUP COMPLETE LABS [facility] AUTO&AUTO DIFRNTL WBC CYTP C/V 97433 ASSOCIATE WHITE NAHID AUTO THIN 6 D LYR PATHOLOGI PREPJ SCR STS [facility] MNL RESCR PHYS CULTURE 54583 PATH PATH FNGI 6 GROUP GROUP MOLD/YEAS LABS [facility] T PRSMPTV OTH XCPT BLOOD IADNA 88674 ASSOCIATE WHITE NAHID NEISSERIA 6 D PATHOLOGI GONORRHOE STS [facility] AE AMPLIFIED PROBE TQ IADNA 63091 ASSOCIATE WHITE NAHID HUMAN 6 D PAPILLOMA PATHOLOGI VIRUS STS LLC HIGH-RISK TYPES IADNA 24804 ASSOCIATE WHITE NAHID CHLAMYDIA 6 D PATHOLOGI TRACHOMAT STS LLC IS AMPLIFIED PROBE TQ CUL BACT 59342 PATH PATH XCPT 6 GROUP GROUP URINE LABS [facility] BLOOD/STO OL AEROBIC ISOL RADEX 60787 [place] DESIRAE HAND 6 MEDICAL BECK MINIMUM 3 IMAGING VIEWS ASS WRIST L3807 NIXON NIXON HAND 6 HOME HOME FINGR MEDICAL MEDICAL ORTHOS EQUIPME EQUIPME W/O JNT PREFAB CSTM FIT ANTIBODY 01267 PINA HELLER BLASTOMYC 6 REGIONAL REGIONAL ES MEDICAL MEDICAL CENTE CENTE ANTIBODY 91061 PINA HELLER COCCIDIOI 6 REGIONAL REGIONAL [facility] MEDICAL MEDICAL CENTE CENTE COLLECTIO 43600 PINA HELLER N VENOUS 6 REGIONAL [facility] BLOOD MEDICAL MEDICAL VENIPUNCT CENTE CENTE URE ANTIBODY 65949 PINA HELLER HISTOPLAS 6 REGIONAL REGIONAL TX MEDICAL MEDICAL CENTE CENTE TB CELL 76154 PINA HELLER MEDIATED 6 REGIONAL REGIONAL ANTIGN MEDICAL MEDICAL RESPNSE CENTE CENTE GAMMA INTERFERO N ANTIBODY 51039 PINA HELLER ASPERGILL 6 REGIONAL REGIONAL MEDICAL MEDICAL CENTE CENTE CULTURE 38186 LAB RUSSELL LAB RUSSELL BACTERIAL 6 ANCA ANCA [facility] HOLDINGS QUANTTATI VE COLONY COUNT URINE RADIOLOGI 53555 [place] [place] KOSTELIC C 6 RADIOLOGY ELAINE EXAMINATI [place] [address] [place] BENAVIDEZ ANGIOGRAP 6 RADIOLOGY RAY HY CHEST W/CONTRAS T/NONCONT RAST ANES 19697 [place] ROSARIO LOWER 6 ANESTHESI SOHA INTESTINE A GROUP PS ENDOSCOPY DISTAL DUODENUM COLONOSCO 34995 PINA CARTER PY FLX DX 6 DIGESTIVE GRE W/COLLJ CARE SPEC WHEN CENTER PFRMD SPMTRY 51929 ESTELLA GILBERT GILBERT ESTELLA W/VC 6 MD EXPIRATOR CONSULTIN Y JOSHUA G SRV W/WO MXML VOL VNTJ RESPIRATO 81525 [facility] BOURB[place] RY FLOW 6 [facility] LOOP ECG 70092 ESTELLA GILBERT GILBERT ESTELLA ROUTINE 6 MD ECG CONSULTIN W/LEAST G SRV 12 LDS I&R ONLY BLOOD 44159 HUSAM WEINER COUNT 6 [facility] AUTO&AUTO DIFRNTL WBC FIBRIN 37577 HUSAM WEINER DGRADJ 6 [facility] D-DIMER QUANTITAT LINDA ECG 73745 HUSAM WEINER ROUTINE 6 [facility] W/LEAST 12 LDS TRCG ONLY W/O I&[place] [address] HUSAM WEINER THYROXINE [address] [place] [address] [place] [address] HUSAM WEINER THYROID [address] [place] [address] NG HORMONE TSH COMPREHEN 38782 HUSAM WEINER SIVE [address] [place] [address] PANEL COLLECTIO 32802 HUSAM WEINER N VENOUS 6 [facility] VENIPUNCT URE RADIOLOGI 63309 HUSAM WEINER C EXAM [address] VIEWS FRONTAL&L ATERAL RADIOLOGI 45072 HANY LEACH C EXAM 6 [facility] MEM HOSP CHEST 2 INC INC VIEWS FRONTAL&L ATERAL BLOOD 12743 [facility] LEACH COUNT 6 [facility]OS[facility] COMPLETE INC INC AUTO&AUTO DIFRNTL WBC URINE 86644 [facility]ANY LEACH 6 [facility]OS[facility] TEST INC INC VISUAL COLOR CMPRSN METHS THERAPEUT 21449 [facility] LEACH IC 6 MEM [facility]OS[facility] HOSP PROPHYLAC INC INC TIC/DX INJECTION SUBQ/IM COMPREHEN 05156 [facility] LEACH SIVE 6 [facility]OS[facility] METABOLIC INC INC PANEL PRESSURIZ 01879 HANY LEACH ED/NONPRE 6 [facility] H[facility] SSURIZED INC INC INHALATIO N TREATMENT URNLS DIP 65835 [facility] LEACH 6 MEM HOS[facility] HOSP STICK/TAB INC INC LET REAGENT AUTO MICROSCOP Y URNLS DIP 61799 ALEC TURCIOS 6 STICK/TAB LET RGNT NON-AUTO W/O MICRSCP OBSERVATI 97384 ALEC MICHAEL MAG ON CARE 6 DISCHARGE MANAGEMEN T INITIAL 63489 ALEC MICHAEL MAG OBSERVATI 6 ON CARE/DAY 30 MINUTES HYSTEROSC 41149 ALEC TURCIOS OPY BX 6 ENDOMETRI UM&/POLYP C W/[place] [address] [facility] SURG 6 [facility] PSC GROSS&DAMIR ROSCOPIC EXAM ANESTHESI 71756 [facility] 6 ANESTHESI TAJ INTRAPERI A PSC TONEAL LOWER ABD W/LAPS NOS LAPS 51906 ALEC MICHAEL MAG FULG/EXC 6 OVARY VISCERA/P ERITONEAL SURFACE IAADIADOO 19865 [facility] L[facility] 6 HEALTH HEN INFLUENZA MEDICAL GROUP COLLECTIO 01255 ASSOCIATE OWEN BAE N VENOUS 6 D BLOOD PATHOLOGI VENIPUNCT [facility] URE COMPREHEN 78237 [address] PATH SIVE 6 GROUP GROUP [facility] [place] [address] PATH PATH THYROID 6 GROUP GROUP STIMULATI LABS [facility] Medical NG HORMONE TSH HEMOGLOBI 52460 PATH PATH N 6 GROUP GROUP GLYCOSYLA LABS [facility] Medical MARIANNE A1C BLOOD 70536 PATH PATH COUNT 6 GROUP GROUP COMPLETE LABS [facility] Medical AUTO&[place] [address] ALEC TURCIOS TRANSVAGI 6 NAL OPHTH 41205 [facility] 6 GRE GRE XM&EVAL COMPRE NEW PT 1/> VST IAADIADOO 49376 [facility] LES[place]E 6 HEALTH HEN STREPTOCO MEDICAL CCUS GROUP GROUP A IAADIADOO 17969 [facility] W[facility] L[facility] 6 HEALTH HEN INFLUENZA MEDICAL GROUP CYTP C/V 83696 P&C LABS, PICKLESIM AUTO THIN 5 LLC ER JR [place] LYR PREPJ SCR MNL RESCR PHYS 64992 SYMSONIA GILMORE DELIVERY 5 VICE PRESIDENT OF CONSULTING SERVICES RANDALL HIRAM ASSOCIATE S, 89884 CENTRAL CENTRAL NONSTRESS 5 [facility] TEST HOSP HOSP US PREG 97013 SPIKE GILMORE UTERUS 5 VICE PRESIDENT OF CONSULTING SERVICES [facility] REAL TIME ASSOCIATE F/U S, TRNSABDL PER FETUS IADNA 70409 MEDICAL MEDICAL STREPTOCO 5 DIAGNOSTI DIAGNOSTI CCUS C LAB LLC C LAB [place] [address] CENTRAL CENTRAL NONSTRESS 5 [facility] W[facility]NESS [facility] TEST HOSP HOSP 80148 CENTRAL CENTRAL NONSTRESS 5 [facility] TEST HOSP HOSP FIBRINOGE 52209 CENTRAL CENTRAL N 5 [facility] W[facility] ACTIVITY HOSP HOSP HGB/RBCS 18321 CENTRAL CENTRAL 5 [facility] FETOMATER HOSP HOSP NAL HEMRRG DIFRNTL LYSIS BLOOD 83447 CENTRAL CENTRAL COUNT 5 [facility] COMPLETE HOSP HOSP AUTOMATED COLLECTIO 07388 CENTRAL CENTRAL N VENOUS 5 [facility] BLOOD HOSP HOSP VENIPUNCT URE URNLS DIP 21272 CENTRAL CENTRAL 5 [facility] STICK/TAB HOSP HOSP LET RGNT AUTO W/O MICROSCOP Y INITIAL 06429 [facility] VERONICA OBSERVATI 5 [facility] ON MEDICAL CARE/DAY GROUP 30 MINUTES IM ADM 35927 KENY KENY PRQ ID 5 VERITO VERITO SUBQ/IM NJXS 1 VACCINE TDAP 67462 KENY KENY VACCINE 7 5 VERITO VERITO YRS/> IM ANTIBODY 99242 LAB RUSSELL LAB RUSSELL SCREEN 5 ANCA ANCA RBC EACH [facility]INGS SERUM TECHNIQUE GLUCOSE 97924 LAB RUSSELL LAB RUSSELL POST 5 ANCA ANCA GLUCOSE [facility]INGS HOLDINGS DOSE BLOOD 81104 LAB RUSSELL LAB RUSSELL COUNT 5 ANCA ANCA COMPLETE [facility]INGS AUTOMATED 42613 CENTRAL CENTRAL NONSTRESS 5 [facility] TEST HOSP HOSP OBSERVATI 83391 SPIKE WAHL ON/INPATI 5 VICE PRESIDENT OF CONSULTING SERVICES [facility] S, CARE 40 MINUTES URNLS DIP 65144 CENTRAL CENTRAL 5 [facility] STICK/TAB HOSP HOSP LET RGNT AUTO W/O MICROSCOP Y INITIAL 62906 [facility] VERONICA [address] ON MEDICAL CARE/DAY GROUP 30 MINUTES URNLS DIP 09010 CENTRAL ROSENBERG 5 [facility] STICK/TAB HOSP HOSP LET REAGENT AUTO MICROSCOP Y [place] PREG 83904 [place] GILMORE UTERUS 5 VICE PRESIDENT OF CONSULTING SERVICES RANDALL AFTER 1ST ASSOCIATE REID Farley, 1 GESTATION THERAPEUT 60842 JACKELYN MCDERMOTTTON IC PX 1/> 5 [facility] PHYSICAL EACH 15 THERAP MIN EXERCISES MANUAL 72664 JACKELYN MEDINA THERAPY 5 [facility] TQS 1/> PHYSICAL REGIONS THERAP EACH 15 MINUTES US PREG 90058 [place] GILMORE UTERUS 5 VICE PRESIDENT OF CONSULTING SERVICES RANDALL REAL TIME ASSOCIATE W/IMAGE S, DCMTN TRANSVAG CYTP C/V 57051 P&C LABS, PICKLESIM AUTO THIN 5 [facility] ER JR PHOENIX LYR PREPJ SCR MNL RESCR PHYS GONADOTRO 22341 HUSAM SHERON PIN 5 [facility] QUALITATI VE COLLECTIO 44563 HUSAM SHERON N VENOUS 5 [facility] VENIPUNCT URE THERAPEUT 07611 CONRADOURBON CONRADOURBON IC PX 1/> 5 [facility] EACH 15 MIN EXERCISES THERAPEUT 04396 BOURB[place] BOURBON IC PX 1/> 5 [facility] EACH 15 MIN EXERCISES PHYSICAL 17139 NIKKYON CONRADOURBON THERAPY [address] [place] [address] [facility] N INJE[facility] J1100 [facility] [address] [place] [address] [facility] SONE SODIUM PHOSPHATE 1 MG URINE 03108 HUSAM SHERON [address] [place] [address] LUMBAR [address] [facility] [place] MACY SPINE 5 RADIOLOGY RHO W/O CONTRAST MATERIAL THERAPEUT 87993 HUSAM SHERON IC [address] [place] [address] [facility] TIC/DX INJECTION SUBQ/IM Encounters Encounter Start End Date Code Location Performer Type Date OFFICE 35640 [place] [facility] OUT[facility]IEN 7 7 [facility] T VISIT 15 MINUTES OFFICE 10540 [facility]USAM [facility] 7 PHYSICIAN T VISIT PRACTICE 15 L MINUTES EMERGENCY 60988 [facility] 7 7 PAKO VISIT EMERGENCY HIGH PHYS SEVERITY& THREAT [facility] NIKKYON - 7 7 [facility] T OFFICE 80262 HUSAM CAMARENA OUTPATIEN 7 7 PHYSICIAN T VISIT PRACTICE 15 L MINUTES EMERGENCY 98964 [facility] 7 PAKO VISIT EMERGENCY HIGH PHYS SEVERITY& THREAT FUN OFFICE 59716 [facility] 7 PHYSICIAN T VISIT PRACTICE 15 L MINUTES OFFICE 04402 HUSAM [facility] 7 7 PHYSICIAN T VISIT PRACTICE 15 L MINUTES HOSPITAL HANY - 7 7 [facility] OUTPATIEN INC T OFFICE 55329 [facility] 7 7 MEM HOSP T VISIT 5 INC MINUTES OFFICE 95164 HUSAM [facility]ARE[facility] 7 7 PHYSICIAN T VISIT PRACTICE 15 L MINUTES OFFICE 72261 HUSAM [facility]ARE[facility] 7 7 PHYSICIAN T VISIT PRACTICE 15 L MINUTES OFFICE 01128 [facility] 7 7 HEALTH LA T VISIT MEDICAL 15 GROUP MINUTES OFFICE 98528 [facility] 7 7 HEALTH T VISIT MEDICAL 15 GROUP MINUTES HOSPITAL HUSAM - 7 7 [facility] T EMERGENCY 76684 [facility] 7 7 PAKO DEPARTMEN EMERGENCY T VISIT PHYS HIGH/URGE NT SEVERITY EMERGENCY 74730 HUSAM 7 7 [facility] T VISIT MODERATE SEVERITY OFFICE 94481 ALEC SCHULTZ 7 7 T VISIT 15 MINUTES EMERGENCY 77546 [facility] 7 7 PAKO DEPARTMEN EMERGENCY T VISIT PHYS HIGH/URGE NT SEVERITY EMERGENCY 98744 [facility] 7 7 N DEPARTMEN COMMUNTIY T VISIT HOSPITA LIMITED/M INOR [facility] - 7 7 N OUTPATIEN COMMUNTIY T HOSPITA OFFICE 69649 [facility] [place] OUTPATIEN 7 7 HEALTH T VISIT MEDICAL 15 GROUP MINUTES OFFICE 15180 [facility]AM [facility] 7 7 PHYSICIAN T VISIT PRACTICE 15 L MINUTES EMERGENCY 58700 [facility] 7 7 N DEPARTMEN COMMUNTIY T VISIT HOSPITA HIGH/URGE NT SEVERITY EMERGENCY 01308 [facility] DEPT 7 7 PAKO VISIT EMERGENCY HIGH PHYS SEVERITY& THREAT [facility] 7 7 N OUTPATIEN COMMUNTIY T HOSPITA OFFICE 56947 ANTOINE FERNÁNDEZ 7 7 Cuponzote, [facility] III T NEW 30 MINUTES EMERGENCY 85415 [facility] 7 7 PAKO DEPARTMEN EMERGENCY T VISIT PHYS HIGH/URGE NT SEVERITY OFFICE 80660 [facility] 7 7 HEALTH LA T VISIT MEDICAL 15 GROUP MINUTES OFFICE 38219 HUSAM CAMARE[facility] 7 7 PHYSICIAN T VISIT PRACTICE 15 L MINUTES HOSPITAL [place] - 7 7 [facility] 7 7 N OUTPATIEN COMMUNTIY T HOSPFORMERLY [facility] - 7 7 N OUTPATIEN COMMUNTIY T HOSPITA EMERGENCY 19346 [facility] 7 7 N DEPARTMEN COMMUNTIY T VISIT HOSPITA HIGH/URGE NT SEVERITY EMERGENCY 17107 [facility] DEPT 7 7 PAKO VISIT EMERGENCY HIGH PHYS SEVERITY& THREAT FUNCJ OFFICE 61517 HUSAM CAMARENA OUTPATIEN 6 6 PHYSICIAN T VISIT PRACTICE 15 L MINUTES OFFICE 65694 NIKKYEVAN MIGUE OUTPATIEN 6 6 PHYSICIAN T VISIT PRACTICE 15 L MINUTES OFFICE 08714 HUSAM CAMARENA OUTPATIEN 6 6 PHYSICIAN T VISIT PRACTICE 15 L MINUTES OFFICE 51992 PINA GUERRERO OUTPATIEN 6 6 DIGESTIVE CEC T VISIT CARE 15 CENTER MINUTES OFFICE 08191 HUSAM CAMARENA OUTPATIEN 6 6 PHYSICIAN OKSANA T VISIT PRACTICE 15 L MINUTES HOSPITAL PINA - 6 6 [facility] PERIODIC 02099 ALEC MICHAEL PREVENTIV 6 6 E MED EST PATIENT 18-39 YRS HOSPITAL HANY - 6 6 [facility] 57374 CONRADOELISE CAMARENA OUTPATIEN 6 6 PHYSICIAN OKSNAA T VISIT PRACTICE 15 L MINUTES [facility] PINA - 6 6 [facility] 48292 PINA SHIPLEY OUTPATIEN 6 6 REGIONAL MITCHEL T NEW 45 PHYSICIAN MINUTES [facility] OFFICE 85136 HUSAM CAMARENA OUTPATIEN 6 6 PHYSICIAN OKSANA T VISIT PRACTICE 25 L MINUTES EMERGENCY 95918 [facility] DEPT 6 6 PAKO VISIT EMERGENCY HIGH PHYS SEVERITY& THREAT FUNCJ OFFICE 89162 PINA GUERRERO OUTPATIEN 6 6 DIGESTIVE CEC T VISIT CARE 15 CENTER MINUTES OFFICE 50602 HUSAM CAMARENA OUTPATIEN 6 6 PHYSICIAN OKSANA T VISIT PRACTICE 25 L MINUTES HOSPITAL HUSAM - 6 6 [facility] 48230 HUSAM CAMARENA OUTPATIEN 6 6 PHYSICIAN OKSANA T VISIT PRACTICE 15 L MINUTES HOSPITAL BOURBEVAN - 6 6 [facility] T OFFICE 88450 PINA YOLANDA OUTPATIEN 6 6 DIGESTIVE CEC T VISIT CARE 25 CENTER [facility] BOUR[facility] - 6 6 [facility] T OFFICE 28688 HUSAM CAMARENA OUTPATIEN 6 6 PHYSICIAN OKSANA T VISIT PRACTICE 15 L MINUTES OFFICE 90673 PINA YOLANDA OUTPATIEN 6 6 DIGESTIVE CEC T NEW 45 CARE [facility] EMERGENCY 57213 LAXMI SHABAZZ 6 6 PHYSICIAN DAMIR DEPARTMEN S, PLLC T VISIT HIGH/URGE NT SEVERITY EMERGENCY 49752 [facility] 6 6 [facility] T VISIT MODERATE SEVERITY [facility]OSPITAL [facility] - 6 6 [facility] T OFFICE 22383 CONRADOELISE CAMARENA OUTPATIEN 6 6 PHYSICIAN MITCHEL T VISIT PRACTICE 15 L MINUTES OFFICE 46893 NIKKYEVAN CAMARENA OUTPATIEN 6 6 PHYSICIAN MITCHEL T VISIT PRACTICE 15 L MINUTES OFFICE 59029 NIKKYEVAN CAMARENA OUTPATIEN 6 6 PHYSICIAN MITCHEL T NEW 45 PRACTICE MINUTES L OFFICE 34065 ALEC MAG ALEC MAG OUTPATIEN 6 6 T VISIT 15 MINUTES OFFICE 51133 [facility] 6 6 [facility] T VISIT MEDICAL 25 GROUP MINUTES OFFICE 83033 ALEC MAG ALEC MAG OUTPATIEN 6 6 T VISIT 15 MINUTES OFFICE 79053 [facility] 6 6 [facility] T VISIT MEDICAL 15 GROUP MINUTES OFFICE 43693 SPIKE GILMORE OUTPATIEN 5 5 VICE PRESIDENT OF CONSULTING SERVICES RANDALL T VISIT ASSOCIATE 15 S, MINUTES OFFICE 92345 [facility] 5 5 HEALTH DON T VISIT MEDICAL 15 GROUP MINUTES [facility] 5 5 [facility] OFF[facility] 40929 [place] [facility] OUTPATIEN 5 5 VICE PRESIDENT OF CONSULTING SERVICES RANDALL T VISIT ASSOCIATE 15 S, MINUTES OFFICE 66481 [place] [facility] OUTPATIEN 5 5 VICE PRESIDENT OF CONSULTING SERVICES RANDALL T VISIT ASSOCIATE 15 S, MINUTES OFFICE 88348 [place] [facility] OUTPATIEN 5 5 VICE PRESIDENT OF CONSULTING SERVICES RANDALL T VISIT ASSOCIATE 15 S, MINUTES [facility] 5 5 [facility] 43290 [place] [facility] OUTPATIEN 5 5 VICE PRESIDENT OF CONSULTING SERVICES RANDALL T VISIT ASSOCIATE 15 S, MINUTES OFFICE 85972 [facility] [place] 5 5 HEALTH HEN T VISIT MEDICAL 25 GROUP MINUTES OFFICE 49263 [place] [facility] OUTPATIEN 5 5 VICE PRESIDENT OF CONSULTING SERVICES RANDALL T VISIT ASSOCIATE 15 S, MINUTES [facility] 5 5 [facility] 99542 KENY KENY OUTPATIEN 5 5 VERITO VERITO T VISIT 15 MINUTES OFFICE 74397 [place] [facility] OUTPATIEN 5 5 VICE PRESIDENT OF CONSULTING SERVICES RANDALL T VISIT ASSOCIATE 15 S, MINUTES [facility] 5 5 [facility] 08992 [place] [facility] OUTPATIEN 5 5 VICE PRESIDENT OF CONSULTING SERVICES RANDALL T VISIT ASSOCIATE 15 S, MINUTES [facility] 5 5 [facility] 57621 [place] [facility] OUTPATIEN 5 5 VICE PRESIDENT OF CONSULTING SERVICES RANDALL T VISIT ASSOCIATE 15 S, MINUTES OFFICE 71597 [place] [facility] OUTPATIEN 5 5 VICE PRESIDENT OF CONSULTING SERVICES RANDALL T VISIT ASSOCIATE 15 S, MINUTES OFFICE 94331 SPI[facility] GILMORE OUTPATIEN 5 5 VICE PRESIDENT OF CONSULTING SERVICES RANDALL T NEW 45 ASSOCIATE MINUTES S, EMERGENCY 01285 [place] 5 5 [facility] T VISIT LOW/MODER SEVERITY [facility] [place] - 5 [facility] 71473 [facility] 5 5 [facility] EMERGENC[facility] T VISIT PHYS HIGH/URGE NT SEVERITY [facility] [place] [address] 5 [facility] [place] 41537 5 [facility] [place] [address]37 5 [facility] [place] [facility] OFFICE 96553 [facility] 5 VERITO VERITO T NEW 45 MINUTES [facility] 5 5 [facility] [place] [facility] 10571 [facility] 5 5 [facility] EMERGENCY T VISIT PHYS HIGH/URGE NT SEVERITY
--- OUTSIDE RECORDS SUMMARY | 2017-06-24 08:35 | External Medical Summary Rpt | CCD ---
Demographics Preferred Language Mongolian Marital Status Unknown Church Affiliation Unknown Race Unknown Ethnic Group Unknown Author Author , ADELIA DELVALLE Address Unknown Phone Immunization No patient found.
--- OUTSIDE RECORDS SUMMARY | 2017-06-24 08:35 | External Medical Summary Rpt | CCD ---
Demographics Preferred Language Chinese Marital Status Unknown Pentecostal Affiliation Unknown Race Unknown Ethnic Group Unknown Author Author , ADELIA DELVALLE Address Unknown Phone Immunization No patient found.
== END 2017-06-17 18:50 | disposition home or self-care (01) ==
LOC: UTC 17:07
DX: J02.9 Acute pharyngitis, unspecified (principal); F17.210 Nicotine dependence, cigarettes, uncomplicated; Z79.899 Other long term (current) drug therapy